=== PATIENT | male | born 1955 | race Caucasian/White ===

== ENCOUNTER 2016-10-11 13:06 | Inpatient (IN) | payer OTHER ==
[2016-10-11 14:30] VITALS: BMI 21.6
--- NOTE | 2016-10-11 14:41 | HP ---
COWS - Scale Resting Pulse: 0= [place] 80 or Below Sweatin=Flushed/Facial Moisture Restless Observation: 3= Extraneous Movement Pupil Size: 2= Moderately Dilated Bone or Joint Aches: 2= Severe Diffuse Aches Runny Nose/ Eye Tearin= Runny Nose/Eyes GI Upset > 30mins: 3= Vomiting/Diarrhea Tremor Observation: 2= Slight Tremor Visible Yawning Observation: 2= >3x During Session Anxiety or Irritability: 2=Irritable/Anxious Goose Flesh Skin: 0=Smooth Skin COWS Score: 20 Admission ROS BHS - HPI Chief Complaint: I NEED HELP TO STOP USING PERCOCET Allergies/Adverse Reactions: Allergies Allergy/AdvReac Type Severity Reaction Status Date / Time No Known Allergies Allergy Verified 10/11/16 14:43 History of Present Illness: THIS 61 YEARS OLD MALE WITH PERCOCET DEPENDENCE,WITHDRAWAL SYMPTOM,LAST DETOX TO 08/23/15 HISTORY OF CHF,COPD NICOTINE DEPENDENCE HYPERCHOLESTROLEMIA HTN Exam Limitations: No Limitations - Ebola screening Have you traveled outside of the country in the last 21 days: No Have you been sick,other than usual withdrawal symptoms: No - Review of Systems Constitutional: Chills, Diaphoresis, Loss of Appetite, Malaise, Night Sweats, Changes in sleep, Weakness, Unintentional Wgt. Loss EENT: reports: Tearing, Nose Congestion Respiratory: reports: Other (COPD) Cardiac: reports: No Symptoms Reported GI: reports: Diarrhea, Nausea, Vomiting, Abdominal cramping : reports: No Symptoms Reported Musculoskeletal: reports: Back Pain, Muscle Pain Integumentary: reports: Dryness Neuro: reports: Headache, Tremors Endocrine: reports: No Symptoms Reported Hematology: reports: No Symptoms Reported Psychiatric: reports: Anxious, Depressed (INSOMNIA) Patient History - Patient Medical History Hx Anemia: No Hx Asthma: Yes (Pt is on MDI) Hx Chronic Obstructive Pulmonary Disease (COPD): Yes (ON MED) Hx Cancer: No Hx Cardiac Disorders: Yes (CHF) Hx Congestive Heart Failure: Yes Hx Hypertension: Yes (ON MEDS) Hx Hypercholesterolemia: Yes Hx Pacemaker: No HX Cerebrovascular Accident: No Hx Seizures: No Hx Dementia: No Hx Diabetes: Yes Hx Gastrointestinal Disorders: No Hx Liver Disease: Yes (hep c) Hx Genitourinary Disorders: No Hx Sexually Transmitted Disorders: No Hx Renal Disease (ESRD): No Hx Thyroid Disease: No Hx Human Immunodeficiency Virus (HIV): No (NEGATIVE HX 2014) Hx Hepatitis C: Yes Hx Depression: No Hx Suicide Attempt: No Hx Schizophrenia: No Other Medical History: NO SUICIDAL,NO HOMICIDAL - Patient Surgical History Past Surgical History: No Hx Neurologic Surgery: No Hx Cataract Extraction: No Hx Cardiac Surgery: No Hx Lung Surgery: No Hx Breast Surgery: No Hx Breast Biopsy: No Hx Abdominal Surgery: No Hx Appendectomy: No Hx Cholecystectomy: No Hx Genitourinary Surgery: No Hx Section: No Hx Orthopedic Surgery: No Anesthesia Reaction: No - PPD History Previous Implant?: Yes Documented Results: Negative w/o proof Date: 05/13/15 Results: 0 MM PPD to be Administered?: Yes - Smoking Cessation Smoking history: Current every day smoker Have you smoked in the past 12 months: Yes Aproximately how many cigarettes per day: 20 Hx Chewing Tobacco Use: No Initiated information on smoking cessation: Yes 'Breaking Loose' booklet given: 10/11/16 - Substance & Tx. History Hx Alcohol Use: No Hx Substance Use: Yes Substance Use Type: Opiates Hx Substance Use Treatment: Yes (08/18/15 TO 08/23/15 [facility]) - Substances Abused Percocet Route: Oral Frequency: Daily Amount used: 15 tabs. (10 mg.) Age of first use: 60 Date of Last Use: 10/10/16 Family Disease History - Family Disease History Family Disease History: Other: Father ( etoh and drugs) Admission Physical Exam BHS - Vital Signs Vital Signs: Vital Signs - 24 hr 10/11/16 14:29 Temperature 97.2 F L Pulse Rate 70 Respiratory 18 Rate Blood Pressure 158/84 - Physical General Appearance: Yes: Moderate Distress, Tremorous, Irritable, Sweating, Anxious HEENTM: Yes: Nasal Congestion, Rhinorrhea Respiratory: Yes: Lungs Clear Neck: Yes: Within Normal Limits Breast: Yes: Within Normal Limits Cardiology: Yes: Within Normal Limits, Regular Rhythm, Regular Rate, S1, S2 Abdominal: Yes: Within Normal Limits, Normal Bowel Sounds, Non Tender, Flat, Soft Genitourinary: Yes: Within Normal Limits Back: Yes: Muscle Spasm Musculoskeletal: Yes: Back pain, Muscle Pain Extremities: Yes: Tremors Neurological: Yes: inhalation therapy teacher II-XII NML intact, Fully Oriented, Alert, Motor Strength 5/5 Integumentary: Yes: Dry Lymphatic: Yes: Within Normal Limits - Diagnostic (1) Opioid dependence with withdrawal Current Visit: No Status: Acute (2) History of CHF (congestive heart failure) Current Visit: Yes Status: Acute (3) Nicotine dependence Current Visit: No Status: Acute (4) HTN (hypertension) Current Visit: No Status: Chronic Qualifiers: Hypertension type: essential hypertension Qualified Code(s): I10 - Essential (primary) hypertension Comment: NO MEDS (5) Hepatitis C Current Visit: No Status: Chronic Qualifiers: Viral hepatitis chronicity: unspecified Hepatic coma status: without hepatic coma Qualified Code(s): B19.20 - Unspecified viral hepatitis C without hepatic coma (6) COPD (chronic obstructive pulmonary disease) Current Visit: No Status: Chronic Qualifiers: COPD type: unspecified COPD Qualified Code(s): J44.9 - Chronic obstructive pulmonary disease, unspecified (7) Anxiety and depression Current Visit: Yes Status: Acute (8) Insomnia Current Visit: Yes Status: Acute (9) Hypercholesterolemia Current Visit: No Status: Chronic Cleared for Admission [facility] - Detox or Rehab [facility] Level of Care: Medically Managed Detox Regimen/Protocol: Methadone [facility] Breath Alcohol Content Breath Alcohol Content: 0 Urine Drug Screen - Results Drug Screen Negative: No Urine Drug Screen Results: OXY-Oxycodone
[2016-10-11] MEDS ORDERED: MAGNESIUM HYDROX 2400MG/30ML ORAL SUSPENSION 30 ML CUP PO PRN (15:05)
[2016-10-11] MEDS ORDERED: MAGNESIUM CITRATE 300 ML BOTTLE PO PRN (15:05)
[2016-10-11] MEDS ORDERED: hydrOXYzine PAMOATE 25 MG CAPSULE (FP) PO PRN (15:05)
[2016-10-11] MEDS ORDERED: ACETAMINOPHEN 325 MG TABLET (FP) PO PRN (15:05)
[2016-10-11] MEDS ORDERED: P-EPHED 60MG/TRIPROLIDI 2.5MG TABLET PO PRN (15:05)
[2016-10-11] MEDS ORDERED: guaiFENesin/D-METHORPHAN HB 10 ML UNIT-DOSE CUPS PO PRN (15:05)
[2016-10-11] MEDS ORDERED: NICOTINE POLACRILEX 2 MG GUM BUC PRN (15:05)
[2016-10-11] MEDS ORDERED: MAG HYDROX/AL HYDROX/SIMETH 30 ML UNIT-DOSE CUP PO PRN (15:05)
[2016-10-11] MEDS ORDERED: MENTHOL/PHENOL 1 EACH UD MM PRN (15:05)
[2016-10-11] MEDS ORDERED: LOPERAMIDE HCL 2 MG CAPSULE PO PRN (15:05)
[2016-10-11] MEDS ORDERED: ALBUTEROL SO4 0.083% IH SOL 2.5 MG/3 ML VIAL.NEB. NEB PRN (15:12)
[2016-10-11] MEDS ORDERED: METHADONE HCL 10 MG TABLET (FOR DETOX USE ONLY) PO ONE ×2 (15:46→23:00)
[2016-10-11] MEDS ORDERED: CARVEDILOL 6.25 MG TABLET (FP) PO SCH (15:48)
[2016-10-11] MEDS ORDERED: METHADONE HCL 10 MG TABLET (FOR DETOX USE ONLY) ONE (18:09)
[2016-10-11] MEDS: diazePAM 5 MG TABLET PO PRN ×2 (18:55→23:01)
--- NOTE | 2016-10-11 19:13 | PN ---
[facility] Progress Note Note: 1840 pm received pharmacist call jemma replaces spiriva as per protocol change tab K+ to liquid for optimal absorption continue detox
[2016-10-11 20:05] LABS: URINE APPEARANCE CLEAR; URINE BILIRUBIN NEGATIVE (NEGATIVE); URINE BLOOD NEGATIVE (NEGATIVE); URINE COLOR YELLOW; URINE GLUCOSE (UA) NEGATIVE (NEGATIVE); URINE KETONE TRACE (NEGATIVE); URINE LEUK ESTERASE NEGATIVE (NEGATIVE); URINE NITRITE NEGATIVE (NEGATIVE); URINE PROTEIN NEGATIVE (NEGATIVE); URINE UROBILINOGEN NEGATIVE E.U./dl (0.2-1.0)
[2016-10-11] MEDS: NICOTINE 21 MG/24 HOURS TOPICAL PATCH TD SCH (20:39)
[2016-10-11] MEDS ORDERED: diphenhydrAMINE HCL 50 MG CAPSULE PO PRN (22:00)
[2016-10-11] MEDS: THIAMINE HCL 100 MG TABLET (FP) PO SCH (23:01)
[2016-10-11] MEDS: ATORVASTATIN CA 40 MG TABLET (FP) PO SCH (23:36)
[2016-10-11] MEDS: ACLIDINIUM BROMIDE 400 MCG/INH AERO.POWD IH SCH (23:37)
--- NOTE | 2016-10-12 09:34 | CONSULT ---
[facility] Psychiatric Consult - Data Date of interview: 10/12/16 Admission source: [facility] Identifying data: This is 61 years old male with no psychiatric hospitalization history, intoxicated with: Opioids and Nicotine Substance Abuse History: - Smoking Cessation. Smoking history: Current every day smoker. Have you smoked in the past 12 months: Yes. Aproximately how many cigarettes per day: 20. Hx Chewing Tobacco Use: No. Initiated information on smoking cessation: Yes. 'Breaking Loose' booklet given: 10/11/16. - Substance & Tx. History. Hx Alcohol Use: No. Hx Substance Use: Yes. Substance Use Type : Opiates. Hx Substance Use Treatment: Yes (08/18/15 TO 08/23/15 [facility]). - Substances Abused. Percocet. Route: Oral. Frequency: Daily. Amount used: 15 tabs. (10 mg.). Age of first use: 60. Date of Last Use: 10/10/16 Medical History: CHF, COPD, Asthma, Chest pain history, HTN, Hypercholesterolemia Psychiatric History: Oatient reports history of depression and anxiety, reports taking prior to admission: Paxil 40mg poqd Physical/Sexual Abuse/Trauma History: Denies Additional Comment: Paxil 40mg poqd Mental Status Exam - Mental Status Exam Alert and Oriented to: Person Cognitive Function: Fair Patient Appearance: Unkempt Mood: Sad Affect: Flat Patient Behavior: Sedated Speech Pattern: Delayed Voice Loudness: Mildly Soft/Quiet Thought Process: Circumstantial Thought Disorder: Being Controlled Hallucinations: Denies Suicidal Ideation: Denies Homicidal Ideation: Denies Insight/Judgement: Fair Sleep: Difficulty falling asleep Appetite: Weight loss Muscle strength/Tone: Mild Hypotonicity Gait/Station: Shuffling Additional Comments: Paxil 40mg poqd Psychiatric Findings - Problem List ([place] 1, 2,3) (1) Anxiety and depression Current Visit: Yes Status: Acute (2) Nicotine dependence Current Visit: No Status: Acute (3) Opiate withdrawal Current Visit: No Status: Acute (4) Opioid dependence Current Visit: No Status: Acute (5) Opioid dependence with withdrawal Current Visit: No Status: Acute (6) Substance induced mood disorder Current Visit: No Status: Acute (7) Anxiety Current Visit: No Status: Chronic (8) Depression Current Visit: No Status: Chronic (9) Drug-induced mood disorder Current Visit: Yes Status: Acute - Initial Treatment Plan Initial Treatment Plan: Paxil 40mg poqd
[2016-10-12] MEDS ORDERED: POTASSIUM CHLORIDE TABS 20 MEQ TABLET.ER (FP) PO SCH (10:00)
[2016-10-12] MEDS ORDERED: FUROSEMIDE 40 MG/4 ML INJECTABLE VIAL IVPUSH SCH (10:00)
[2016-10-12] MEDS ORDERED: TIOTROPIUM BROMIDE 18 MCG/INH (DEVICE W/ 30 CAPSULES) IH SCH (10:00)
[2016-10-12] MEDS ORDERED: METHADONE HCL 10 MG TABLET (FOR DETOX USE ONLY) PO ONE (10:00)
[2016-10-12] MEDS: LISINOPRIL 5 MG TABLET (FP) PO SCH (10:43)
[2016-10-12] MEDS: PRENATAL VITAMINS W/ FOLIC ACID TABLET (FP) PO SCH (10:43)
[2016-10-12] MEDS: IBUPROFEN 400 MG TABLET (FP) PO PRN (10:43)
[2016-10-12] MEDS: amLODIPine BESYLATE 5 MG TABLET (FP) PO SCH (10:44)
[2016-10-12] MEDS: ASPIRIN COATED 81 MG TABLET.EC PO SCH (10:44)
[2016-10-12] MEDS: FUROSEMIDE 40 MG TABLET (FP) PO SCH (10:44)
[2016-10-12] MEDS: CARVEDILOL 6.25 MG TABLET (FP) PO SCH ×2 (10:44→22:09)
[2016-10-12] MEDS: SPIRONOLACTONE 25 MG TABLET (FP) PO SCH (10:44)
[2016-10-12] MEDS: POTASSIUM CHLORIDE 40 MEQ/30 ML UNIT DOSE CUP PO SCH (10:45)
[2016-10-12] MEDS: NICOTINE 21 MG/24 HOURS TOPICAL PATCH TD SCH (10:45)
--- NOTE | 2016-10-12 11:23 | PN ---
BHS COWS - Scale Resting Pulse: 0= [place] 80 or Below Sweatin= Chills/Flushing Restless Observation: 1= Difficult to Sit Still Pupil Size: 1= Pupils >than Normal Bone or Joint Aches: 1= Mild Discomfort Runny Nose/ Eye Tearin= Nasal Congestion GI Upset > 30mins: 1= Stomach Cramp Tremor Observation of Outstretched Hands: 1= Tremor [place], Not Seen Yawning Observation: 0= None Anxiety or Irritability: 2=Irritable/Anxious Goose Flesh Skin: 0=Smooth Skin COWS Score: 9 BHS Progress Note (SOAP) Subjective: interrupted sleep, tired, weakness Objective: 10/12/16 11:20 Vital Signs Temperature 95.9 F L 10/12/16 10:25 Pulse Rate 74 10/12/16 10:25 Respiratory Rate 18 10/12/16 10:25 Blood Pressure 119/76 10/12/16 10:25 O2 Sat by Pulse Oximetry (%) Laboratory Tests 10/11/16 18:30 Urine Color Yellow Urine Appearance Clear Urine pH 5.0 Ur Specific [place] 1.035 Urine Protein Negative Urine Glucose (UA) Negative Urine Ketones Trace H Urine Blood Negative Urine Nitrite Negative Urine Bilirubin Negative Urine Urobilinogen Negative Ur Leukocyte Esterase Negative pending labs pt aox3 lying in bed in nad Assessment: 10/12/16 11:22 withdrawl sx's weakness need to check K+ Plan: cont. detox increase fluids recheck labs
[2016-10-12 11:37] LABS: MCHC 33.6 g/dl (32.0-35.9); MEAN CELL VOLUME 98.2 fl (80-96); MEAN PLT VOLUME 8.4 fl (7.5-11.1); PLATELET COUNT 136 K/MM3 (134-434); RDW 13.7 % (11.9-15.9); WHITE BLOOD COUNT 5.4 K/mm3 (4.0-10.0)
[2016-10-12 12:00] LABS: ALBUMIN 3.8 g/dl (3.4-5.0); ALK PHOS 89 U/L (45-117); ANION GAP 6 (8-16); BILIRUBIN,TOTAL 0.3 mg/dL (0.2-1.0); CALCIUM 8.8 mg/dL (8.5-10.1); CO2 31 mmol/L (21-32); CREATININE 0.7 mg/dL (0.7-1.3); GLUCOSE,RANDOM 87 mg/dL (74-106); SGOT/AST 47 U/L (15-37); SGPT/ALT 58 U/L (12-78)
[2016-10-12] MEDS: ACLIDINIUM BROMIDE 400 MCG/INH AERO.POWD IH SCH ×2 (12:31→22:07)
[2016-10-12] MEDS: PARoxetine HCL 20 MG TABLET (FP) PO SCH (12:32)
--- NOTE | 2016-10-12 15:55 | PN ---
BHS Progress Note Note: k 4.3 wnl
[2016-10-12] MEDS: CYCLOBENZAPRINE HCL 10 MG TABLET (FP) PO PRN (17:46)
[2016-10-12] MEDS: diazePAM 5 MG TABLET PO PRN ×2 (17:46→22:09)
[2016-10-12] MEDS: ATORVASTATIN CA 40 MG TABLET (FP) PO SCH (22:08)
[2016-10-12] MEDS: THIAMINE HCL 100 MG TABLET (FP) PO SCH (22:10)
[2016-10-12] MEDS: ALBUTEROL SO4 6.7 GM HFA INHALER IH PRN (22:11)
[2016-10-13] MEDS: ALBUTEROL SO4 6.7 GM HFA INHALER IH PRN (02:09)
[2016-10-13] MEDS: CYCLOBENZAPRINE HCL 10 MG TABLET (FP) PO PRN ×3 (02:12→22:40)
[2016-10-13] MEDS: IBUPROFEN 400 MG TABLET (FP) PO PRN (02:13)
[2016-10-13] MEDS: NICOTINE 21 MG/24 HOURS TOPICAL PATCH TD SCH (10:00)
[2016-10-13] MEDS: amLODIPine BESYLATE 5 MG TABLET (FP) PO SCH (10:00)
[2016-10-13] MEDS: SPIRONOLACTONE 25 MG TABLET (FP) PO SCH (10:00)
[2016-10-13] MEDS: FUROSEMIDE 40 MG TABLET (FP) PO SCH (10:00)
[2016-10-13] MEDS: LISINOPRIL 5 MG TABLET (FP) PO SCH (10:00)
[2016-10-13] MEDS ORDERED: METHADONE HCL 5 MG TABLET (FOR DETOX USE ONLY) PO ONE (10:00)
--- NOTE | 2016-10-13 10:42 | PN ---
BHS COWS - Scale Resting Pulse: 0= [place] 80 or Below Sweatin=Flushed/Facial Moisture Restless Observation: 3= Extraneous Movement Pupil Size: 1= Pupils >than Normal Bone or Joint Aches: 2= Severe Diffuse Aches Runny Nose/ Eye Tearin= Runny Nose/Eyes GI Upset > 30mins: 2= Nausea/Diarrhea Tremor Observation of Outstretched Hands: 2= Slight Tremor Visible Yawning Observation: 1= 1-2x During Session Anxiety or Irritability: 2=Irritable/Anxious Goose Flesh Skin: 0=Smooth Skin COWS Score: 17 BHS Progress Note (SOAP) Subjective: alert,irritable,anxious,interrupted sleep,pain in the body and back,tremor, chronic low back pain Objective: 10/13/16 10:41 Vital Signs Temperature 97.1 F L 10/13/16 10:06 Pulse Rate 75 10/13/16 10:06 Respiratory Rate 18 10/13/16 10:06 Blood Pressure 111/64 10/13/16 10:06 O2 Sat by Pulse Oximetry (%) Laboratory Last Values WBC 5.4 K/mm3 (4.0-10.0) D 10/12/16 06:00 RBC 4.07 M/mm3 (4.00-5.60) 10/12/16 06:00 Hgb 13.4 GM/dL (11.7-16.9) 10/12/16 06:00 Hct 39.9 % (35.4-49) 10/12/16 06:00 MCV 98.2 fl (80-96) H 10/12/16 06:00 MCHC 33.6 g/dl (32.0-35.9) 10/12/16 06:00 RDW 13.7 % (11.9-15.9) 10/12/16 06:00 Plt Count 136 K/MM3 (134-434) 10/12/16 06:00 MPV 8.4 fl (7.5-11.1) 10/12/16 06:00 Sodium 141 mmol/L (136-145) 10/12/16 06:00 Potassium 4.3 mmol/L (3.5-5.1) D 10/12/16 06:00 Chloride 104 mmol/L (98-107) 10/12/16 06:00 Carbon Dioxide 31 mmol/L (21-32) 10/12/16 06:00 Anion Gap 6 (8-16) L 10/12/16 06:00 BUN 12 mg/dL (7-18) D 10/12/16 06:00 Creatinine 0.7 mg/dL (0.7-1.3) 10/12/16 06:00 Creat Clearance w eGFR > 60 (>60) 10/12/16 06:00 POC Glucometer 112 UNITS (()) 10/13/16 07:14 Random Glucose 87 mg/dL (74-106) 10/12/16 06:00 Calcium 8.8 mg/dL (8.5-10.1) 10/12/16 06:00 Total Bilirubin 0.3 mg/dL (0.2-1.0) D 10/12/16 06:00 AST 47 U/L (15-37) H D 10/12/16 06:00 ALT 58 U/L (12-78) 10/12/16 06:00 Alkaline Phosphatase 89 U/L (45-117) 10/12/16 06:00 Total Protein 7.0 g/dl (6.4-8.2) 10/12/16 06:00 Albumin 3.8 g/dl (3.4-5.0) 10/12/16 06:00 Urine Color Yellow 10/11/16 18:30 Urine Appearance Clear 10/11/16 18:30 Urine pH 5.0 (5.0-8.0) 10/11/16 18:30 Ur Specific [place] 1.035 (1.001-1.035) 10/11/16 18:30 Urine Protein Negative (NEGATIVE) 10/11/16 18:30 Urine Glucose (UA) Negative (NEGATIVE) 10/11/16 18:30 Urine Ketones Trace (NEGATIVE) H 10/11/16 18:30 Urine Blood Negative (NEGATIVE) 10/11/16 18:30 Urine Nitrite Negative (NEGATIVE) 10/11/16 18:30 Urine Bilirubin Negative (NEGATIVE) 10/11/16 18:30 Urine Urobilinogen Negative E.U./dl (0.2-1.0) 10/11/16 18:30 Ur Leukocyte Esterase Negative (NEGATIVE) 10/11/16 18:30 RPR Titer Nonreactive (NONREACTIVE) 10/12/16 06:00 Assessment: 10/13/16 10:41 withdrawal symptom Plan: continue detox
[2016-10-13] MEDS ORDERED: ALBUTEROL SO4 2.5/IPRATROPIUM 0.5 INH SOL 3 ML VIAL.NEB. NEB PRN (11:12)
[2016-10-13] MEDS: ASPIRIN COATED 81 MG TABLET.EC PO SCH (12:08)
[2016-10-13] MEDS: PRENATAL VITAMINS W/ FOLIC ACID TABLET (FP) PO SCH (12:08)
[2016-10-13] MEDS: PARoxetine HCL 20 MG TABLET (FP) PO SCH (12:08)
[2016-10-13] MEDS: CARVEDILOL 6.25 MG TABLET (FP) PO SCH ×2 (12:09→22:40)
[2016-10-13] MEDS: POTASSIUM CHLORIDE 40 MEQ/30 ML UNIT DOSE CUP PO SCH (12:09)
[2016-10-13] MEDS: LIDOCAINE 5% TOPICAL PATCH TP SCH (12:14)
[2016-10-13] MEDS: ACLIDINIUM BROMIDE 400 MCG/INH AERO.POWD IH SCH ×2 (12:16→22:39)
[2016-10-13] MEDS ORDERED: ATORVASTATIN CA 20 MG TABLET (FP) ONE (22:00)
[2016-10-13] MEDS: THIAMINE HCL 100 MG TABLET (FP) PO SCH (22:40)
[2016-10-13] MEDS: diazePAM 5 MG TABLET PO PRN (22:40)
[2016-10-13] MEDS: ATORVASTATIN CA 40 MG TABLET (FP) PO SCH (22:41)
[2016-10-14] MEDS: ALBUTEROL SO4 6.7 GM HFA INHALER IH PRN (00:10)
[2016-10-14] MEDS ORDERED: METHADONE HCL 5 MG TABLET (FOR DETOX USE ONLY) PO ONE (10:00)
[2016-10-14] MEDS: ACLIDINIUM BROMIDE 400 MCG/INH AERO.POWD IH SCH ×2 (11:10→23:37)
[2016-10-14] MEDS: NICOTINE 21 MG/24 HOURS TOPICAL PATCH TD SCH (11:10)
[2016-10-14] MEDS: PRENATAL VITAMINS W/ FOLIC ACID TABLET (FP) PO SCH (11:39)
[2016-10-14] MEDS: PARoxetine HCL 20 MG TABLET (FP) PO SCH (11:40)
[2016-10-14] MEDS: CARVEDILOL 6.25 MG TABLET (FP) PO SCH ×2 (11:40→23:36)
[2016-10-14] MEDS: ASPIRIN COATED 81 MG TABLET.EC PO SCH (11:40)
[2016-10-14] MEDS: LISINOPRIL 5 MG TABLET (FP) PO SCH (11:40)
[2016-10-14] MEDS: POTASSIUM CHLORIDE 40 MEQ/30 ML UNIT DOSE CUP PO SCH (11:41)
[2016-10-14] MEDS: SPIRONOLACTONE 25 MG TABLET (FP) PO SCH (11:41)
[2016-10-14] MEDS: amLODIPine BESYLATE 5 MG TABLET (FP) PO SCH (11:41)
[2016-10-14] MEDS: FUROSEMIDE 40 MG TABLET (FP) PO SCH (11:41)
[2016-10-14] MEDS: LIDOCAINE 5% TOPICAL PATCH TP SCH (11:42)
--- NOTE | 2016-10-14 12:25 | PN ---
BHS Progress Note (SOAP) Subjective: alert,irritable,anxious,pain in the body and back Objective: 10/14/16 12:24 Vital Signs Temperature 96.1 F L 10/14/16 06:00 Pulse Rate 73 10/14/16 06:00 Respiratory Rate 16 10/14/16 06:00 Blood Pressure 123/68 10/14/16 06:00 O2 Sat by Pulse Oximetry (%) Laboratory Last Values WBC 5.4 K/mm3 (4.0-10.0) D 10/12/16 06:00 RBC 4.07 M/mm3 (4.00-5.60) 10/12/16 06:00 Hgb 13.4 GM/dL (11.7-16.9) 10/12/16 06:00 Hct 39.9 % (35.4-49) 10/12/16 06:00 MCV 98.2 fl (80-96) H 10/12/16 06:00 MCHC 33.6 g/dl (32.0-35.9) 10/12/16 06:00 RDW 13.7 % (11.9-15.9) 10/12/16 06:00 Plt Count 136 K/MM3 (134-434) 10/12/16 06:00 MPV 8.4 fl (7.5-11.1) 10/12/16 06:00 Sodium 141 mmol/L (136-145) 10/12/16 06:00 Potassium 4.3 mmol/L (3.5-5.1) D 10/12/16 06:00 Chloride 104 mmol/L (98-107) 10/12/16 06:00 Carbon Dioxide 31 mmol/L (21-32) 10/12/16 06:00 Anion Gap 6 (8-16) L 10/12/16 06:00 BUN 12 mg/dL (7-18) D 10/12/16 06:00 Creatinine 0.7 mg/dL (0.7-1.3) 10/12/16 06:00 Creat Clearance w eGFR > 60 (>60) 10/12/16 06:00 POC Glucometer 98 UNITS (()) 10/14/16 06:37 Random Glucose 87 mg/dL (74-106) 10/12/16 06:00 Calcium 8.8 mg/dL (8.5-10.1) 10/12/16 06:00 Total Bilirubin 0.3 mg/dL (0.2-1.0) D 10/12/16 06:00 AST 47 U/L (15-37) H D 10/12/16 06:00 ALT 58 U/L (12-78) 10/12/16 06:00 Alkaline Phosphatase 89 U/L (45-117) 10/12/16 06:00 Total Protein 7.0 g/dl (6.4-8.2) 10/12/16 06:00 Albumin 3.8 g/dl (3.4-5.0) 10/12/16 06:00 Urine Color Yellow 10/11/16 18:30 Urine Appearance Clear 10/11/16 18:30 Urine pH 5.0 (5.0-8.0) 10/11/16 18:30 Ur Specific [place] 1.035 (1.001-1.035) 10/11/16 18:30 Urine Protein Negative (NEGATIVE) 10/11/16 18:30 Urine Glucose (UA) Negative (NEGATIVE) 10/11/16 18:30 Urine Ketones Trace (NEGATIVE) H 10/11/16 18:30 Urine Blood Negative (NEGATIVE) 10/11/16 18:30 Urine Nitrite Negative (NEGATIVE) 10/11/16 18:30 Urine Bilirubin Negative (NEGATIVE) 10/11/16 18:30 Urine Urobilinogen Negative E.U./dl (0.2-1.0) 10/11/16 18:30 Ur Leukocyte Esterase Negative (NEGATIVE) 10/11/16 18:30 RPR Titer Nonreactive (NONREACTIVE) 10/12/16 06:00 Assessment: 10/14/16 12:24 withdrawal symptom Plan: continue detox k 4.3 will d/c kdur
[2016-10-14] MEDS: THIAMINE HCL 100 MG TABLET (FP) PO SCH (23:37)
[2016-10-14] MEDS: ATORVASTATIN CA 40 MG TABLET (FP) PO SCH (23:37)
[2016-10-15] MEDS ORDERED: METHADONE HCL 10 MG TABLET (FOR DETOX USE ONLY) PO ONE (10:00)
[2016-10-15] MEDS: FUROSEMIDE 40 MG TABLET (FP) PO SCH (10:25)
[2016-10-15] MEDS: PRENATAL VITAMINS W/ FOLIC ACID TABLET (FP) PO SCH (10:25)
[2016-10-15] MEDS: LISINOPRIL 5 MG TABLET (FP) PO SCH (10:25)
[2016-10-15] MEDS: PARoxetine HCL 20 MG TABLET (FP) PO SCH (10:25)
[2016-10-15] MEDS: SPIRONOLACTONE 25 MG TABLET (FP) PO SCH (10:25)
[2016-10-15] MEDS: amLODIPine BESYLATE 5 MG TABLET (FP) PO SCH (10:25)
[2016-10-15] MEDS: ASPIRIN COATED 81 MG TABLET.EC PO SCH (10:26)
[2016-10-15] MEDS: CARVEDILOL 6.25 MG TABLET (FP) PO SCH ×2 (10:26→22:36)
[2016-10-15] MEDS: ACLIDINIUM BROMIDE 400 MCG/INH AERO.POWD IH SCH ×2 (10:26→22:35)
[2016-10-15] MEDS: NICOTINE 21 MG/24 HOURS TOPICAL PATCH TD SCH (10:27)
[2016-10-15] MEDS: LIDOCAINE 5% TOPICAL PATCH TP SCH (10:27)
--- NOTE | 2016-10-15 10:58 | PN ---
BHS Progress Note (SOAP) Subjective: SWEATING,INTERRUPTED SLEEP,RESTLESS. Objective: 10/15/16 10:57 Vital Signs - 8 hr 10/15/16 10/15/16 10/15/16 03:30 06:00 10:00 Temperature 98.4 F 97.9 F Pulse Rate 72 88 Respiratory 18 16 18 Rate Blood Pressure 114/69 107/65 Laboratory Tests 10/11/16 10/11/16 10/12/16 15:17 18:30 06:00 WBC 5.4 D RBC 4.07 Hgb 13.4 Hct 39.9 MCV 98.2 H MCHC 33.6 RDW 13.7 Plt Count 136 MPV 8.4 Sodium Potassium Chloride Carbon Dioxide Anion Gap BUN Creatinine Creat Clearance w eGFR POC Glucometer 104 Random Glucose Calcium Total Bilirubin AST ALT Alkaline Phosphatase Total Protein Albumin Urine Color Yellow Urine Appearance Clear Urine pH 5.0 Ur Specific [place] 1.035 Urine Protein Negative Urine Glucose (UA) Negative Urine Ketones Trace H Urine Blood Negative Urine Nitrite Negative Urine Bilirubin Negative Urine Urobilinogen Negative Ur Leukocyte Esterase Negative RPR Titer 10/12/16 10/12/16 10/13/16 06:00 06:00 07:14 WBC RBC Hgb Hct MCV MCHC RDW Plt Count MPV Sodium 141 Potassium 4.3 D Chloride 104 Carbon Dioxide 31 Anion Gap 6 L BUN 12 D Creatinine 0.7 Creat Clearance w eGFR > 60 POC Glucometer 112 Random Glucose 87 Calcium 8.8 Total Bilirubin 0.3 D AST 47 H D ALT 58 Alkaline Phosphatase 89 Total Protein 7.0 Albumin 3.8 Urine Color Urine Appearance Urine pH Ur Specific [place] Urine Protein Urine Glucose (UA) Urine Ketones Urine Blood Urine Nitrite Urine Bilirubin Urine Urobilinogen Ur Leukocyte Esterase RPR Titer Nonreactive 10/14/16 06:37 WBC RBC Hgb Hct MCV MCHC RDW Plt Count MPV Sodium Potassium Chloride Carbon Dioxide Anion Gap BUN Creatinine Creat Clearance w eGFR POC Glucometer 98 Random Glucose Calcium Total Bilirubin AST ALT Alkaline Phosphatase Total Protein Albumin Urine Color Urine Appearance Urine pH Ur Specific [place] Urine Protein Urine Glucose (UA) Urine Ketones Urine Blood Urine Nitrite Urine Bilirubin Urine Urobilinogen Ur Leukocyte Esterase RPR Titer LABS NOTED Assessment: 10/15/16 10:57 WITHDRAWAL SX. Plan: CONTINUE DETOX
[2016-10-15] MEDS: ATORVASTATIN CA 40 MG TABLET (FP) PO SCH (22:35)
[2016-10-15] MEDS: THIAMINE HCL 100 MG TABLET (FP) PO SCH (22:36)
[2016-10-16] MEDS ORDERED: METHADONE HCL 5 MG TABLET (FOR DETOX USE ONLY) PO ONE (06:00)
[2016-10-16 06:26] VITALS: BP 97/58; PULSE 68; TEMP 96.1
--- NOTE | 2016-10-16 08:33 | PN ---
S Progress Note (SOAP) Subjective: ALERT,NO COMPLAINT Objective: 10/16/16 08:32 Vital Signs Temperature 96.1 F L 10/16/16 06:00 Pulse Rate 68 10/16/16 06:00 Respiratory Rate 16 10/16/16 06:00 Blood Pressure 97/58 10/16/16 06:00 O2 Sat by Pulse Oximetry (%) Assessment: 10/16/16 08:32 DETOX COMPLETED,NO WITHDRAWAL SYMPTOM Plan: DISCHARGE TODAY,FOLLOW UP WITH AFTER CARE PROGRAM ARRANGEMENT
--- NOTE | 2016-10-16 08:38 | DS ---
[facility] Detox Discharge Summary Admission Date: 10/11/16 Discharge Date: 10/16/16 - History Present History: Opioid Dependence Additional Comments: FOLLOW UP WITH AFTER CARE PROGRAM ARRANGEMENT AND PMD FOR MEDICAL PROBLEM, PATIENT HAS ALL MEDICATIONS AT HOME Pertinent Past History: HYPERTENSION HISTORY OF CHF HEPATITIS C COPD HYPERCHOLESTEROLEMIA INSOMNIA ANXIETY AND DEPRESSION LOW BACK PAIN - Physical Exam Results Vital Signs: Vital Signs Temperature 96.1 F L 10/16/16 06:00 Pulse Rate 68 10/16/16 06:00 Respiratory Rate 16 10/16/16 06:00 Blood Pressure 97/58 10/16/16 06:00 O2 Sat by Pulse Oximetry (%) Pertinent Admission Physical Exam Findings: WITHDRAWAL SYMPTOM - Treatment Hospital Course: Detox Protocol Followed, Detoxed Safely, Responded well, Discharged Condition Good - Medication Discharge Medications: Ambulatory Orders Albuterol 0.083% Nebulizer Mildred [Ventolin 0.083% Nebulizer Soln -] 1 neb NEB Q6H PRN #90 vial 04/19/16 Tiotropium Lenora [Spiriva] 1 inh PO DAILY #1 inhaler 04/19/16 Aspirin Coated [Ecotrin -] 81 mg PO DAILY tablet.ec 04/20/16 Spironolactone [Aldactone -] 25 mg PO DAILY tablet 04/20/16 Albuterol Sulfate Inhaler - [Ventolin HFA Inhaler -] 2 inh PO Q4H PRN 10/11/16 Amlodipine Besylate [Norvasc -] 5 mg PO DAILY 10/11/16 Atorvastatin Calcium 40 mg PO HS 10/11/16 Carvedilol [Coreg -] 6.25 mg PO Q12H 10/11/16 Furosemide [Lasix -] 40 mg PO DAILY 10/11/16 Lisinopril [Prinivil] 10 mg PO DAILY 10/11/16 Paroxetine HCl [Paxil] 40 mg PO DAILY 10/11/16 Potassium Chloride [K-Dur -] 20 meq PO DAILY 10/11/16 Paroxetine HCl [Paxil -] 40 mg PO DAILY #30 tablet 10/12/16 - Diagnosis (1) Opioid dependence with withdrawal Current Visit: No Status: Acute (2) History of CHF (congestive heart failure) Current Visit: Yes Status: Acute (3) Nicotine dependence Current Visit: No Status: Acute (4) HTN (hypertension) Current Visit: No Status: Chronic Qualifiers: Hypertension type: essential hypertension Qualified Code(s): I10 - Essential (primary) hypertension (5) Hepatitis C Current Visit: No Status: Chronic Qualifiers: Viral hepatitis chronicity: unspecified Hepatic coma status: without hepatic coma Qualified Code(s): B19.20 - Unspecified viral hepatitis C without hepatic coma (6) COPD (chronic obstructive pulmonary disease) Current Visit: No Status: Chronic Qualifiers: COPD type: unspecified COPD Qualified Code(s): J44.9 - Chronic obstructive pulmonary disease, unspecified (7) Anxiety and depression Current Visit: Yes Status: Acute (8) Insomnia Current Visit: Yes Status: Acute (9) Hypercholesterolemia Current Visit: No Status: Chronic
== END 2016-10-16 09:28 | disposition home or self-care (01) | DRG 773 ==
LOC: YASAS 13:06 → Y6N 15:32
PROVIDERS: ADMIT Internal Medicine Addiction Medicine; ATTEND Internal Medicine Addiction Medicine
PROC: HZ2ZZZZ Detoxification Services for Substance Abuse Treatment (ICD-10-PCS; principal; 2016-10-11)
DX: F11.23 Opioid dependence with withdrawal (principal); F17.210 Nicotine dependence, cigarettes, uncomplicated; F41.8 Other specified anxiety disorders; F19.24 Other psychoactive substance dependence with psychoactive substance-induced mood disorder; I50.9 Heart failure, unspecified; I10 Essential (primary) hypertension; B19.20 Unspecified viral hepatitis C without hepatic coma; J45.909 Unspecified asthma, uncomplicated; J44.9 Chronic obstructive pulmonary disease, unspecified; G47.00 Insomnia, unspecified; E78.00 Pure hypercholesterolemia, unspecified; R53.1 Weakness
CPT/HCPCS: 36415; 80053; 81003; 85027; 86593; 93005; 93010; 94640

== ENCOUNTER 2019-08-23 17:23 | Inpatient (IN) | payer OTHER ==
[2019-08-23 19:07] LABS: VENOUS PC02 52.7 mmHg (38-52); VENOUS PH 7.37 (7.31-7.41)
--- NOTE | 2019-08-23 19:07 | PDOC ---
History of Present Illness - General Chief Complaint: Weakness Stated Complaint: S.O.B Time Seen by Provider: 08/23/19 17:44 History Source: Patient, Family (mother of children at bedside) Exam Limitations: No Limitations - History of Present Illness Initial Comments: 08/23/19 19:05 Abdirahman Ramírez is a 64M with PMH CHF on Lasix c/b non-compliance, asthma/COPD on HAL/no home O2/smoker, hepatitis C, NICM, CAD presenting with 4 days of dyspnea. Patient reports that he has been struggling to breath for the last 4 days. Has asthma and COPD, but denies home oxygen use, steroids, or nebulizers. Only uses Ventolin HAL, per family at bedside does not use properly. HAL use has not helped his SOB. Difficulty with walking due to dyspnea, cannot walk far before becoming tired. Has history of CHF and admissions for fluid in lungs, has not been compliant with Lasix due to constant urination, denies swelling in legs. Denies fever/chills, has chronic cough 2/2 smoking without productive sputum. Had one episode of NBNB vomiting 3 days ago. Has had multiple episodes of muscle weakness resulting in falls from standing, reports head injury as well as bruise to L abdomen. No LOC. Denies injury to body. Denies chest pain, palpitations, KO, changes to vision, urinary sx, dizziness. Denies alcohol/drug use, smokes over 1ppd. Past History - Past Medical History Allergies/Adverse Reactions: Allergies Allergy/AdvReac Type Severity Reaction Status Date / Time No Known Allergies Allergy Verified 08/23/19 17:25 Home Medications: Ambulatory Orders Albuterol 0.083% Nebulizer Mildred [Ventolin 0.083% Nebulizer Soln -] 1 neb NEB Q6H PRN #90 vial 04/19/16 Aspirin Coated [Ecotrin -] 81 mg PO DAILY tablet.ec 04/20/16 Spironolactone [Aldactone -] 25 mg PO DAILY tablet 04/20/16 Albuterol Sulfate Inhaler - [Ventolin HFA Inhaler -] 2 inh PO Q4H PRN 10/11/16 Atorvastatin Calcium 40 mg PO HS 10/11/16 Carvedilol [Coreg -] 6.25 mg PO Q12H 10/11/16 Furosemide [Lasix -] 40 mg PO DAILY 10/11/16 Lisinopril [Prinivil] 10 mg PO DAILY 10/11/16 Paroxetine HCl [Paxil] 40 mg PO DAILY 10/11/16 Potassium Chloride [K-Dur -] 20 meq PO DAILY 10/11/16 Tiotropium [place] [Spiriva] 1 inh PO DAILY 12/24/16 Bupropion HCl [Wellbutrin Xl -] 150 mg PO BID 03/02/17 Pantoprazole Sodium [Protonix -] 40 mg PO DAILY 03/02/17 Anemia: No Asthma: Yes (Takes meds.) Cancer: No Cardiac Disorders: Yes (CHF) CVA: No COPD: Yes (Emphysema; Takes meds.) CHF: Yes (Takes meds.) Dementia: No Diabetes: No GI Disorders: Yes (acid reflux) Disorders: No HTN: Yes (Takes meds.) Hypercholesterolemia: No Kidney Stones: No Liver Disease: Yes (hep c; Treatment in past, did not complete due to side effects.) Psychiatric Problems: Yes (severe anxiety and panic attacks,BI POLAR) Seizures: No Thyroid Disease: No - Surgical History Abdominal Surgery: No Appendectomy: No Cardiac Surgery: No Cholecystectomy: No Lung Surgery: No Neurologic Surgery: No Orthopedic Surgery: No - Reproductive History Testicular Surgery: No - Immunization History Immunization Up to Date: Yes - Psycho Social/Smoking Cessation Hx Smoking Status: Yes Smoking History: Current every day smoker Have you smoked in the past 12 months: Yes Number of Cigarettes Smoked Daily: 20 Cigars Per Day: 0 Information on smoking cessation initiated: No 'Breaking Loose' booklet given: 03/02/17 (GIVEN ON UNIT.) Hx Alcohol Use: No Drug/Substance Use Hx: Yes Substance Use Type: Opiates, Tranquilizers Hx Substance Use Treatment: Yes (Previous Detox admissions at [facility].) Review of Systems - Review of Systems Able to Perform ROS?: Yes Constitutional: Yes: Malaise, Weakness. No: Chills, Fever HEENTM: No: Symptoms Reported Respiratory: Yes: Cough, Shortness of Breath, Wheezing. No: Productive cough Cardiac (ROS): No: Chest Pain, Lightheadedness, Palpitations, Syncope ABD/GI: Yes: Nausea, Vomiting. No: Constipated, Diarrhea : No: Symptoms Reported Musculoskeletal: No: Symptoms Reported Integumentary: Yes: Bruising. No: Symptoms Reported Neurological: Yes: Headache. No: Numbness, Paresthesia, Tingling, Unsteady Gait Endocrine: No: Symptoms Reported Hematologic/Lymphatic: No: Blood Clots, Easy Bruising All Other Systems: Reviewed and Negative *Physical Exam - Vital Signs Last Vital Signs Temp Pulse Resp BP Pulse Ox 98.2 F 84 22 H 182/109 H 98 08/23/19 17:25 08/23/19 17:25 08/23/19 17:25 08/23/19 17:25 08/23/19 17:25 - Physical Exam General Appearance: Yes: Nourished, Appropriately Dressed, Thin. No: Apparent Distress HEENT: positive: EOMI, NAI, Normal ENT Inspection, Normal Voice, Symmetrical, Pharynx Normal, Hearing Grossly Normal. negative: Scleral Icterus (R), Scleral Icterus (L), Sinus Tenderness Neck: positive: Trachea midline, Normal Thyroid, Supple. negative: Tender, Lymphadenopathy (R), Lymphadenopathy (L), Tender midline Respiratory/Chest: positive: Decreased Breath Sounds (RLL), Rhonchi (R side), Wheezing. negative: Chest Tender, Respiratory Distress, Accessory Muscle Use, Crackles, Rales Cardiovascular: positive: Regular Rhythm, Regular Rate. negative: Edema, Murmur Vascular Pulses: Dorsalis-Pedis (R): 2+, Doralis-Pedis (L): 2+ Gastrointestinal/Abdominal: positive: Normal Bowel Sounds, Tender (L periumbilical, negative Mixon sign), Flat, Soft. negative: Guarding, Rebound Musculoskeletal: positive: Normal Inspection. negative: CVA Tenderness, Vertebral Tenderness (neck to lumbar spine nontender) Extremity: positive: Normal Inspection, Normal Range of Motion, Pelvis Stable. negative: Tender Integumentary: positive: Normal Color, Dry, Warm, Other (angiomas to chest, 5cm circular ecchymosis to R lower abdomen). negative: Petechiae Neurologic: positive: Fully Oriented, Alert, Normal Mood/Affect, Normal Response , Motor Strength 5/5, Other (no asterixis) Heart Score/ECG Review - History History: Slightly suspicious - Electrocardiogram EKG: Non specific repolarization disturbance - Age Age: >/= 65 - Risk Factors Risk Factors Heart Score: Yes Hx Hypertension, Yes Smoking History Based on the list above the patient has:: 1-2 risk factors - Troponin Troponin: </= normal limit - Score Heart Score - Total: 4 ED Treatment Course - LABORATORY CBC & Chemistry Diagram: 08/24/19 06:38 08/24/19 06:38 - RADIOLOGY Radiology Studies Ordered: Category Date Time Status HEAD CT WITHOUT CONTRAST [CT] Stat CT Scan 08/23/19 18:22 Ordered CHEST X-RAY PORTABLE* [RAD] Stat Radiology 08/23/19 18:23 Ordered Medical Decision Making - Medical Decision Making 08/23/19 19:05 Abdirahman Ramírez is a 64M with PMH CHF on Lasix c/b non-compliance, asthma/COPD on HAL/no home O2/smoker, hepatitis C, NICM, CAD presenting with 4 days of dyspnea. Has significant history of CHF, liver disease, COPD, with Lasix non-compliance and prior hospitalizations for pulmonary edema. Concern high for CHF exacerbation vs. COPD exacerbation vs. PNA vs. PE. Cannot PERC out 2/2 age, but low risk of PE and presentation and VS is not consistent with PE. Bedside cardiac/lung US shows LV hypokinesis with no RV enlargement or pericardial effusion, A-line pattern with no B-lines in apical and basal lung views. Weakness and falls could be related to electrolyte abnormality, no need for c- spine imaging by NEXUS criteria. Will get CT head to r/o ICH. Evaluating broadly via: CMP CBC CP Coags Lipase CXR ECG CT head Treating with 40mg IV lasix, 2 amps Duonebs 08/23/19 20:02 CXR notable for possible infiltrate in R lower lung zone, heart size WNL, no pleural effusions or pulmonary edema. Concern higher for CHF vs. PNA. ECG shows NSR with TWI in V3-V4 consistent with prior ECG, HR 71, QRS 11, QTc 489, no ischemic changes. 08/23/19 20:04 Labs notable for: Mg 1.6 - will replete with 2gm Mag sulfate BNP 1800 - previously as high as 5000 Trop <0.02 Lipase <200 Ammonia 22 No LFT elevations 08/23/19 20:09 CT Head: No acute territorial infarct, hemorrhage, or space-occupying mass. Will re-evaluate patient after Lasix and Duonebs. 08/23/19 21:37 Patient breathing improved, no wheezing on repeat exam, satting 100% on RA. Will give 50mg PO prednisone for possible COPD exacerbation, will monitor and likely discharge home with PMD follow-up. 08/23/19 22:23 Would like to observe overnight for COPD/CHF exacerbation, further diuresis 2/2 non-compliance with Lasix. 08/23/19 22:[address] Schafer with admitting team, mateo for observation in Med-Surg under Dr. Song for diuresis. Discharge - Discharge Information Problems reviewed: Yes Clinical Impression/Diagnosis: Dyspnea Qualifiers: Dyspnea type: shortness of breath Qualified Code(s): R06.02 - Shortness of breath Condition: Stable - Follow up/Referral - Patient Discharge Instructions - Post Discharge Activity
[2019-08-23 19:10] LABS: VENOUS PO2 < 49 mmHg (28-48)
[2019-08-23 19:31] LABS: BASO % 0.9 % (0-2.0); EOS % 0.8 % (0-4.5); HEMATOCRIT 39.3 % (35.4-49); HEMOGLOBIN 13.3 GM/dL (11.7-16.9); LYMPH % 17.7 % (8-40); MCH 31.6 pg (25.7-33.7); MCHC 33.9 g/dl (32.0-35.9); MEAN CELL VOLUME 93.3 fl (80-96); MONO % 7.2 % (3.8-10.2); NEUT % 73.4 % (42.8-82.8); PLATELET COUNT 137 K/MM3 (134-434); RBC 4.21 M/mm3 (4.00-5.60); RDW 12.4 % (11.9-15.9); WHITE BLOOD COUNT 6.8 K/mm3 (4.0-10.0)
[2019-08-23 19:35] LABS: ALBUMIN 3.4 g/dl (3.4-5.0); ALK PHOS 65 U/L (45-117); ANION GAP 5 MMOL/L (8-16); BILIRUBIN,TOTAL 0.5 mg/dL (0.2-1); BLOOD UREA NITROGEN 9.5 mg/dL (7-18); CALCIUM 8.3 mg/dL (8.5-10.1); CHLORIDE 104 mmol/L (98-107); CO2 31 mmol/L (21-32); CREATININE 0.7 mg/dL (0.55-1.3); GLUCOSE,RANDOM 93 mg/dL (74-106); LIPASE 140 U/L (73-393); MAGNESIUM 1.6 mg/dL (1.8-2.4); POTASSIUM 3.5 mmol/L (3.5-5.1); SGOT/AST 31 U/L (15-37); SGPT/ALT 30 U/L (13-61); SODIUM 140 mmol/L (136-145); TOT PROT 6.5 g/dl (6.4-8.2)
[2019-08-23 19:37] LABS: N-TERMINAL BNP 1838.3 pg/ml (5-125); PHOSPHOROUS 3.3 mg/dL (2.5-4.9)
[2019-08-23] MEDS ORDERED: MAGNESIUM SULF 50% (8.12 MEQ/2 ML-1 GM VIAL) IVPB ONE (19:47)
[2019-08-23] MEDS ORDERED: ALBUTEROL SO4 2.5/IPRATROPIUM 0.5 INH SOL 3 ML VIAL.NEB. NEB ONE ×2 (19:47→20:39)
[2019-08-23] MEDS ORDERED: FUROSEMIDE 40 MG/4 ML INJECTABLE VIAL IVPUSH ONE (19:48)
--- NOTE | 2019-08-23 19:49 | PDOC ---
Documentation entered by Pratibha Duran SCRIBE, acting as scribe for Venu Mitchell MD. Veun Mitchell MD: This documentation has been prepared by the tianaibeRoger Lincy, SCRIBE, under my direction and personally reviewed by me in its entirety. I confirm that the documentation accurately reflects all work, treatment, procedures, and medical decision making performed by me. Attending Attestation - Resident Resident Name: Ferdinand Philip - [facility] HPI: 08/23/19 18:42 The patient is a 64 year old male with a past medical history significant for HTN, HLD, nonischemic cardiomyopathy, CHF (noncompliant with Lasix), COPD ( Denies home O2 use) and Hepatitis C who presents to the emergency department with 3-4 days of shortness of breath, chills, cough, generalized malaise and s/ p multiple episodes of near syncopal falls. Denies LOC. Denies the use of anticoagulation. Allergies: NKDA PCP: Dr. Jhon Vásquez. - Physicial Exam PE: 08/23/19 19:46 Patient is awake and alert, frail appearing, in no significant distress Normocephalic, atraumatic PERRLA, EOMI, bilateral endpoint nystagmus is noted, conjunctiva pink No JVD RRR Intermittent rhonchi bilaterally with end expiratory wheezing Abdomen is soft, nontender, nondistended No lower extremity edema No pronation drift or asterixis noted Spider angiomas noted to the anterior chest - Medical Decision Making 08/23/19 19:47 Patient 64-year-old male with multiple comorbidities, presents with shortness of breath for the past several days as well as generalized weakness, malaise, dizziness associated with a fall with associated head injury. In the ER, patient is noted to be awake and alert, afebrile, hypertensive on arrival. No focal neuro deficits are noted. Patient is alert and oriented to self, year and month. Rhonchi and expiratory wheezing noted on the evaluation of the lungs. EKG reveals inverted T waves in anterior leads. which are unchanged from previously obtained EKG.Differential diagnosis includes CHF versus COPD versus pneumonia. Will administer DuoNeb's, as well as IV Lasix. Will obtain CBC/CMP/cardiac profile/BNP. Will obtain chest x-ray and head CT to rule out acute intracranial injury. Will reassess.
[2019-08-23 20:07] LABS: INR 1.14 (0.83-1.09); PROTHROMBIN TIME (PATIENT) 13.5 SEC (9.7-13.0)
[2019-08-23 20:10] LABS: ACTIVATED PTT 35.9 SECONDS (25.2-36.5)
[2019-08-23] MEDS ORDERED: FUROSEMIDE 40 MG/4 ML INJECTABLE VIAL ONE (20:39)
[2019-08-23] MEDS ORDERED: MAGNESIUM 1GM/D5W - 2 GM/200 ML IVPB IVPB ONE (20:39)
[2019-08-23] MEDS ORDERED: predniSONE 20 MG TABLET (UD) PO ONE (21:37)
[2019-08-23] MEDS ORDERED: predniSONE 20 MG TABLET (UD) ONE ×2 (21:47→21:49)
--- NOTE | 2019-08-23 22:50 | PN ---
Teaching Attending Note Name of Resident: Kaiser Hernandez ATTENDING PHYSICIAN STATEMENT I saw and evaluated the patient. I reviewed the resident's note and discussed the case with the resident. I agree with the resident's findings and plan as documented. SUBJECTIVE: Patient is a 64 year old man with a PMH of CHF, HTN, Panic/Anxiety Attacks, Substance abuse, Bipolar disorder, Asthma/COPD, Tobacco use, Hepatitis C disease , Nonischemic cardiomyopathy and CAD presenting with 4 days of SOB. Patient reports that he has been struggling to breath for the last 4 days. Has asthma and COPD, but denies home oxygen use, steroids, or nebulizers. Only uses Ventolin HAL, per family at bedside does not use properly. HAL use has not helped his SOB. Difficulty with walking due to dyspnea and cannot walk far before becoming tired. Has history of CHF and admissions for "fluid in lungs". Has not been compliant with Lasix due to constant urination. Denies swelling in legs, fever or chills and has chronic dry cough. Had one episode of NBNB vomiting 3 days ago. Last week he had multiple episodes of muscle weakness resulting in falls from standing, reports head injury as well as bruise to left side of abdomen. No LOC. Denies chest pain, palpitations, headache, vision changes, urinary symptoms or dizziness. Denies alcohol or illicit drug use. Has had poor appetite and insomnia. OBJECTIVE: Alert Vital Signs Period Temp Pulse Resp BP Sys/Soliz Pulse Ox Last 24 Hr 98.2 F 68-84 13-22 165-182/65-109 97-100 HEENT: No Jaundice, eye redness or discharge, PERRLA, EOMI. Normocephalic, atraumatic. External ears are normal and hearing is grossly intact. No nasal discharge. Neck: Supple, nontender. No palpable adenopathy or thyromegaly. No JVD Chest: Good effort. Clear to auscultation and percussion. Heart: Regular. No S3, rub or murmur Abdomen: Not distended, soft, nontender and no HSM. Ecchymosis left upper abdominal wall. No rebound or guarding. Normal bowel sounds. Ext: Peripheral pulses intact. No leg edema. Skin: Warm and dry. No petechiae or rash. Neuro: Alert. Oriented x3. CN 2-12 grossly intact. Sensation grossly intact in all four extremities and DTR are symmetric. Psych: Appropriate mood and affect. Good insight. Home Medications Medication Instructions Recorded Albuterol 0.083% Nebulizer Mildred 1 neb NEB Q6H PRN #90 vial 04/19/16 [Ventolin 0.083% Nebulizer Soln -] Aspirin Coated [Ecotrin -] 81 mg PO DAILY tablet.ec 04/20/16 Spironolactone [Aldactone -] 25 mg PO DAILY tablet 04/20/16 Albuterol Sulfate Inhaler - 2 inh PO Q4H PRN 10/11/16 [Ventolin HFA Inhaler -] Atorvastatin Calcium 40 mg PO HS 10/11/16 Carvedilol [Coreg -] 6.25 mg PO Q12H 10/11/16 Furosemide [Lasix -] 40 mg PO DAILY 10/11/16 Lisinopril [Prinivil] 10 mg PO DAILY 10/11/16 Paroxetine HCl [Paxil] 40 mg PO DAILY 10/11/16 Potassium Chloride [K-Dur -] 20 meq PO DAILY 10/11/16 Tiotropium [place] [Spiriva] 1 inh PO DAILY 12/24/16 Bupropion HCl [Wellbutrin Xl -] 150 mg PO BID 03/02/17 Pantoprazole Sodium [Protonix -] 40 mg PO DAILY 03/02/17 Abnormal Lab Results 08/23/19 08/23/19 08/23/19 18:45 18:45 18:45 MPV PT with INR 13.50 H INR 1.14 H POC VBG pCO2 POC VBG pO2 VBG HCO3 VBG O2 Sat (Luis Fernando) VBG Base Excess Anion Gap 5 L Calcium 8.3 L Magnesium 1.6 L CK-MB (CK-2) 4.2 H B-Natriuretic Peptide 1838.3 H 08/23/19 08/23/19 18:45 19:15 MPV 7.0 L PT with INR INR POC VBG pCO2 52.7 H POC VBG pO2 < 49 H VBG HCO3 29.9 H VBG O2 Sat (Luis Fernando) 48.1 L VBG Base Excess 4.0 H Anion Gap Calcium Magnesium CK-MB (CK-2) B-Natriuretic Peptide ASSESSMENT AND PLAN: 1. CHF exacerbation - Patient got Duoneb, Solumedrol and IV Lasix in the ER and produced over 1 liter of urine. CXR shows pulmonary vascular congestion, unfolded aorta and prominent mediastinum. ECHO from 04/19/16 showed moderately to severely reduced LV systolic function with LVEF of ?42.5%. EKG shows NSR, LAE, prolonged QTc, T wave inversion in V3-4, and flattening in Lead III - no significant change from prior EKG. Initial troponin is negative. Urinalysis and urine toxicology screen pending. Will admit to telemetry, continue daily IV lasix, IV MgSO4, dietary salt restriction, get daily standing weight, get ECHO and consult cardiology. Etiology of multiple episodes of syncope is unclear. No acute abnormality on noncontrast head CT. Will implement neurochecks and fall precautions. Get carotid doppler, brain MRI/MRA, EEG and Neurlogy consult. Will continue comprehensive care for all of patients comorbid conditions. 2. Tobacco Use Counseled on risks associated with tobacco use. We will provide patient all the necessary assistance to facilitate smoking cessation and prescribe Nicotine patch. 3. Hypertension - Restart suitable outpatient antihypertensive drugs when clinically appropriate. Revise regimen to ensure [id number] excellent BP control and public relations counselor patient on the injurious effects of uncontrolled hypertension. Nonpharmacologic measures to control hypertension like weight loss , salt restriction and exercise discussed. Importance of adherence to treatment regimen and attainment of normotension emphasized. 4. DVT prophylaxis - Lovenox 40 mg SQ q 24 hours. 5. Advance directives - Full code
[2019-08-24] MEDS ORDERED: MAGNESIUM SULF 50% (8.12 MEQ/2 ML-1 GM VIAL) IVPB ONE (00:30)
--- NOTE | 2019-08-24 00:52 | HP ---
CHIEF COMPLAINT: Shortness of breath PCP: Fahad HISTORY OF PRESENT ILLNESS: 64M w/ pmh of HTN, HLD, nonischemic CM, HFrEF(04/19/16, LVEF 42.5%, dil LV), COPD , HepC(dx 20-30ys prior, did not complete antiretroviral tx), polysubstance use disorder(tobacco, percocet) presents to [facility] with complaint of shortness of breath w/a cough with scant amounts of brown sputum x4d. When questioned, states that he has been noncompliant with his home Lasix, for multiple months, as he is frustrated by the frequent urination. Had swelling to his BUE, BLE 2d prior that resolved spontaneously. He usually sleeps in a chair dt SOB while supine. Has little appetite but eats [employer] and denies compliance to a salt- restricted, or fluid-restricted diet for which he was previously counseled for. Never had TX or stroke. Endorses episode of NV x2, 2d prior, with emesis consisting of food he ate. Endorses 10-15 episodes of lightheadedness, brief LOC x few seconds, sensation that legs have given out, x1-2weeks. Denies hitting head. Denies fever, chills. No sick contact. 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 Active smoker. Intermittent recreational drug(perocet) use. Last cscope was 10ys prior with 2 polyps. ER course was notable for: (1) prednisone 50mg, duonebs x1, lasix 10mg IVP (2) Mg2+ repletion with MgSO4 2gm (3) BNP 1838, trop <0.02 (4) ammonia 22 (5) CXR: no read. Possible incr vascular markings (6) CTH: neg (7) POCT U/S: LV hypokinesis Recent Travel: none PAST MEDICAL HISTORY: HTN, HLD, nonischemic CM, HFrEF(04/19/16, LVEF 42.5%, dil LV), COPD, HepC(dx 20- 30ys prior, did not complete antiretroviral tx), polysubstance use disorder( tobacco, percocet) PAST SURGICAL HISTORY: none Social History: Smokin.5ppd x50ys Alcohol: denies Drugs: perocets(up to 5mg tab x2) Allergies No Known Allergies Allergy (Verified 08/23/19 17:25) HOME MEDICATIONS: Home Medications Medication Instructions Recorded Albuterol 0.083% Nebulizer Mildred 1 neb NEB Q6H PRN #90 vial 04/19/16 [Ventolin 0.083% Nebulizer Soln -] Aspirin Coated [Ecotrin -] 81 mg PO DAILY tablet.ec 04/20/16 Spironolactone [Aldactone -] 25 mg PO DAILY tablet 04/20/16 Albuterol Sulfate Inhaler - 2 inh PO Q4H PRN 10/11/16 [Ventolin HFA Inhaler -] Atorvastatin Calcium 40 mg PO HS 10/11/16 Carvedilol [Coreg -] 6.25 mg PO Q12H 10/11/16 Furosemide [Lasix -] 40 mg PO DAILY 10/11/16 Lisinopril [Prinivil] 10 mg PO DAILY 10/11/16 Paroxetine HCl [Paxil] 40 mg PO DAILY 10/11/16 Potassium Chloride [K-Dur -] 20 meq PO DAILY 10/11/16 Tiotropium [place] [Spiriva] 1 inh PO DAILY 12/24/16 Bupropion HCl [Wellbutrin Xl -] 150 mg PO BID 03/02/17 Pantoprazole Sodium [Protonix -] 40 mg PO DAILY 03/02/17 REVIEW OF SYSTEMS CONSTITUTIONAL: Absent: fever, chills, diaphoresis, generalized weakness, malaise, loss of appetite, weight change HEENT: Absent: rhinorrhea, nasal congestion, throat pain, throat swelling, difficulty swallowing, mouth swelling, ear pain, eye pain, visual changes CARDIOVASCULAR: lightheadedness, peripheral edema Absent: chest pain, syncope, palpitations, irregular heart rate, RESPIRATORY: productive cough w/ "brown" sputum, shortness of breath, Absent: dyspnea with exertion, orthopnea, wheezing, stridor, hemoptysis GASTROINTESTINAL: nausea, vomiting, Absent: abdominal pain, abdominal distension, diarrhea, constipation, melena, hematochezia GENITOURINARY: Absent: dysuria, frequency, urgency, hesitancy, hematuria, flank pain, genital pain MUSCULOSKELETAL: Absent: myalgia, arthralgia, joint swelling, back pain, neck pain SKIN: Absent: rash, itching, pallor ENDOCRINE: Absent: unexplained weight gain, unexplained weight loss, heat intolerance, cold intolerance NEUROLOGIC: Absent: headache, focal weakness or paresthesias, dizziness, unsteady gait, seizure, mental status changes, bladder or bowel incontinence PHYSICAL EXAMINATION Vital Signs - 24 hr 08/23/19 08/23/19 08/23/19 17:25 19:48 20:54 Temperature 98.2 F Pulse Rate 84 Pulse Rate [ 72 68 Apical] Respiratory 22 H 13 18 Rate Blood Pressure 182/109 H Blood Pressure 176/65 H 165/90 [Left Arm] O2 Sat by Pulse 98 97 100 Oximetry (%) GENERAL: lethargic-appearing, oriented x3, NAD. HEAD: NC/AT. No scalp hematomas. Moderate temporal wasting EYES: extraocular movements intact, sclera anicteric, conjunctiva clear EARS, NOSE, THROAT: Ears normal, nares patent, oropharynx clear without exudates. Moist mucous membranes. NECK: Normal range of motion, supple without lymphadenopathy, JVD, or masses. LUNGS: Breath sounds equal, clear to auscultation bilaterally. No wheezes, and no crackles. No accessory muscle use. Breathing RA. Speaking full sentences HEART: Regular rate and rhythm, normal S1 and S2 without murmur, rub or gallop. ABDOMEN: LLQ with 2-3cm ecchymosis w/ mild TTP. No surgical scars. Soft, nontender, not distended, no guarding, no rebound, no masses. MUSCULOSKELETAL: Normal range of motion at all joints. No bony deformities or tenderness. No CVA tenderness. UPPER EXTREMITIES: 2+ pulses, warm, well-perfused. No cyanosis. Mild finger clubbing. No peripheral edema. Thin arms, no elbow abrasions LOWER EXTREMITIES: 2+ pulses, warm, well-perfused. No calf tenderness. No peripheral edema. Thin legs. NEUROLOGICAL: Normal speech. Normal gait. SKIN: Warm, dry, normal turgor Laboratory Results - last 24 hr 08/23/19 08/23/19 08/23/19 18:45 18:45 18:45 WBC RBC Hgb Hct MCV MCH MCHC RDW Plt Count MPV Absolute Neuts (auto) Neutrophils % Lymphocytes % Monocytes % Eosinophils % Basophils % Nucleated RBC % PT with INR 13.50 H INR 1.14 H PTT (Actin FS) 35.9 VBG pH POC VBG pCO2 POC VBG pO2 VBG HCO3 VBG O2 Sat (Luis Fernando) VBG Base Excess Sodium 140 Potassium 3.5 Chloride 104 Carbon Dioxide 31 Anion Gap 5 L BUN 9.5 Creatinine 0.7 Est GFR (CKD-EPI)AfAm 114.78 Est GFR (CKD-EPI)NonAf 99.03 Random Glucose 93 Calcium 8.3 L Phosphorus 3.3 Magnesium 1.6 L Total Bilirubin 0.5 AST 31 ALT 30 Alkaline Phosphatase 65 Ammonia Creatine Kinase 157 Creatine Kinase Index 2.6 CK-MB (CK-2) 4.2 H Troponin I < 0.02 B-Natriuretic Peptide 1838.3 H Total Protein 6.5 Albumin 3.4 Lipase 140 08/23/19 08/23/19 08/23/19 18:45 19:15 19:23 WBC 6.8 RBC 4.21 Hgb 13.3 Hct 39.3 MCV 93.3 MCH 31.6 D MCHC 33.9 RDW 12.4 D Plt Count 137 MPV 7.0 L Absolute Neuts (auto) 5.0 Neutrophils % 73.4 Lymphocytes % 17.7 D Monocytes % 7.2 D Eosinophils % 0.8 D Basophils % 0.9 Nucleated RBC % 0 PT with INR INR PTT (Actin FS) VBG pH 7.37 POC VBG pCO2 52.7 H POC VBG pO2 < 49 H VBG HCO3 29.9 H VBG O2 Sat (Luis Fernando) 48.1 L VBG Base Excess 4.0 H Sodium Potassium Chloride Carbon Dioxide Anion Gap BUN Creatinine Est GFR (CKD-EPI)AfAm Est GFR (CKD-EPI)NonAf Random Glucose Calcium Phosphorus Magnesium Total Bilirubin AST ALT Alkaline Phosphatase Ammonia 22.00 Creatine Kinase Creatine Kinase Index CK-MB (CK-2) Troponin I B-Natriuretic Peptide Total Protein Albumin Lipase ASSESSMENT/PLAN: 64M w/ pmh of HTN, HLD, nonischemic CM, HFrEF(04/19/16, LVEF 42.5%, dil LV), COPD , HepC(dx 20-30ys prior, did not complete antiretroviral tx), polysubstance use disorder(tobacco, percocet) presenting w/ SOB, noncompliance with home lasix, h/ o ?syncopal falls at home. Admitted to [facility] for [facility]. Labwork significant for BNP 1,838. CXR showing possible increased vascular markings. # acute on chronic HFrEF exacerbation --likely 2/2 medication noncompliance + lifestyle noncompliance # nonischemic Cardiomyopathy > Echo(04/29/16): LVEF 42.4%, dilated LV > EKG(08/23/19): NSR, TWI in V3-V4; QTc 489 - s/p ED: lasix 40mg IVP x1 - diuresis: lasix 40mg IVP QD - cw home spironolactone, lisinopril, carvedilol, atorvastatin, ASA --pending med rec - echo - consider cardio consult(Maddy) - daily weights - I/Os # ?syncope > CTH(08/23/19): prelim read::neg for acute path --fu final read > UA --pending > Utox --pending > carotid duplex --pending > B12 --pending > Folate --pending > RPR --pending - fall precautions - neurochecks - consider Neuro consult - consider Brain-Neck MRI/MRA # chronic COPD - cw home - job placement counselor on smoking cessation # HLD > lipid panel --pending - cw home atorvastatin --pending med rec # Hep C --untreated # risk of HCC > AST/ALT - consider RUQ U/S as per NCCN guidelines for HCC screening - consider GI fu as outpt # polysubstance(tobacco, perocet) use disorder > COWS 1(irritable) > Utox --pending - nicotine patch - job placement counselor on substance use disorder - consider outpt rehab #FEN - sodium-controlled diet - replete lytes PRN #DVT PPX - lovenox #Dispo - tele mointor - dc plan --likely home Family Medical History Family Hx Nuerologic Problems: Mother (Alzheimer) Other Family History: Neice: Breast Ca Visit type - Emergency Visit Emergency Visit: Yes ED Registration Date: 08/23/19 Care time: The patient presented to the Emergency Department on the above date and was hospitalized for further evaluation of their emergent condition. - New Patient This patient is new to me today: Yes Date on this admission: 08/24/19 - Critical Care Critical Care patient: No ATTENDING PHYSICIAN STATEMENT I saw and evaluated the patient. I reviewed the resident's note and discussed the case with the resident. I agree with the resident's findings and plan as documented. SUBJECTIVE: OBJECTIVE: ASSESSMENT AND PLAN:
[2019-08-24] MEDS ORDERED: MAGNESIUM 1GM/D5W - 1 GM/100 ML IVPB IVPB ONE (01:00)
[2019-08-24 01:49] LABS: EPI CELLS 0.2 /HPF (0-5/HPF); HYALINE CASTS 0 /lpf (0-8); URINE APPEARANCE CLEAR; URINE BACTERIA 0.5 /hpf (NEGATIVE); URINE BILIRUBIN NEGATIVE (NEGATIVE); URINE COLOR YELLOW; URINE GLUCOSE (UA) NEGATIVE (NEGATIVE); URINE KETONE NEGATIVE (NEGATIVE); URINE LEUK ESTERASE NEGATIVE (NEGATIVE); URINE NITRITE NEGATIVE (NEGATIVE); URINE PROTEIN NEGATIVE (NEGATIVE); URINE RBC 4 /hpf (0-4); URINE UROBILINOGEN 0.2 mg/dL (0.2-1.0); URINE WBC 1 /hpf (0-5)
[2019-08-24 02:03] LABS: COCAINE, UR NEGATIVE ng/ml (CUTOFF=300); METHADONE, UR NEGATIVE ng/ml (CUTOFF=300); OPIATES, URI NEGATIVE ng/ml (CUTOFF=300); PHENCYCLIDINE,URINE NEGATIVE ng/ml (CUTOFF=25); URINE AMPHETAMINES NEGATIVE ng/ml (CUTOFF=500); URINE BARBITURATES NEGATIVE ng/ml (CUTOFF=200); URINE BENZODIAZEPINES NEGATIVE ng/ml (CUTOFF=200)
[2019-08-24] MEDS: NICOTINE 14 MG/24 HOURS TOPICAL PATCH TD SCH ×2 (02:27→09:48)
[2019-08-24 02:43] VITALS: BMI 21.2
[2019-08-24] MEDS ORDERED: FUROSEMIDE 40 MG/4 ML INJECTABLE VIAL IVPUSH ONE (07:25)
[2019-08-24 07:35] LABS: BASO % 0.2 % (0-2.0); HEMOGLOBIN 14.1 GM/dL (11.7-16.9); LYMPH % 16.9 % (8-40); MCH 31.8 pg (25.7-33.7); MCHC 34.3 g/dl (32.0-35.9); MEAN CELL VOLUME 92.6 fl (80-96); MEAN PLT VOLUME 7.2 fl (7.5-11.1); MONO % 2.2 % (3.8-10.2); NEUT % 80.7 % (42.8-82.8); PLATELET COUNT 179 K/MM3 (134-434); RBC 4.43 M/mm3 (4.00-5.60); RDW 12.6 % (11.9-15.9); WHITE BLOOD COUNT 3.4 K/mm3 (4.0-10.0)
[2019-08-24 08:29] LABS: ANION GAP 6 MMOL/L (8-16); BLOOD UREA NITROGEN 11.8 mg/dL (7-18); CALCIUM 8.7 mg/dL (8.5-10.1); CHLORIDE 101 mmol/L (98-107); CHOLESTEROL 138 mg/dL (50-200); CO2 29 mmol/L (21-32); CREATININE 0.7 mg/dL (0.55-1.3); GLUCOSE,RANDOM 203 mg/dL (74-106); HDL CHOLESTEROL 42 mg/dL (40-60); LDL CHOLESTEROL (ONLY SJRH) 82 mg/dL (5-100); MAGNESIUM 2.6 mg/dL (1.8-2.4); PHOSPHOROUS 3.3 mg/dL (2.5-4.9); POTASSIUM 3.2 mmol/L (3.5-5.1); SODIUM 136 mmol/L (136-145); TRIGLYCERIDES 77 mg/dL (0-150)
[2019-08-24] MEDS: ALBUTEROL SO4 2.5/IPRATROPIUM 0.5 INH SOL 3 ML VIAL.NEB. NEB SCH ×4 (08:30→20:29)
[2019-08-24] MEDS: CARVEDILOL 6.25 MG TABLET (FP) PO SCH ×2 (09:44→21:10)
[2019-08-24] MEDS: LISINOPRIL 10 MG TABLET (FP) PO SCH (09:44)
[2019-08-24] MEDS: SPIRONOLACTONE 25 MG TABLET (FP) PO SCH (09:44)
[2019-08-24] MEDS: ENOXAPARIN NA (PORCINE) 40 MG/0.4 ML DISP.SYRIN SQ SCH (09:48)
[2019-08-24] MEDS ORDERED: POTASSIUM CHLORIDE TABS 20 MEQ TABLET.ER (FP) PO ONE (10:36)
--- NOTE | 2019-08-24 10:44 | PN ---
Physical Exam: SUBJECTIVE: Patient seen and examined, denies any dyspnea. reports intermittent dizziness, more like spinning sensation almost once daily, not positional or related to chest pain, palpitations or concerns. OBJECTIVE: Vital Signs Period Temp Pulse Resp BP Sys/Soliz Pulse Ox Last 24 Hr 98.2 F-98.6 F 68-85 13-22 138-182/65-109 97-100 Intake & Output 08/21/19 08/22/19 08/23/19 08/24/19 23:59 23:59 23:59 23:59 Intake Total 10 Balance 10 Weight 120 lb 124 lb GENERAL: lying in bed, sleeping but arousable, no acute distress neck: soft, supple, no JVd visualized Chest: decreased air entry all over, no rales or wheezing Abdomen:Soft, NT, ND Extremities: no pedal edema psych: sleepy but arousable, co-operative HEENT: PERRL,EOMI Laboratory Results - last 24 hr 08/23/19 08/23/19 08/23/19 18:45 18:45 18:45 WBC RBC Hgb Hct MCV MCH MCHC RDW Plt Count MPV Absolute Neuts (auto) Neutrophils % Lymphocytes % Monocytes % Eosinophils % Basophils % Nucleated RBC % PT with INR 13.50 H INR 1.14 H PTT (Actin FS) 35.9 VBG pH POC VBG pCO2 POC VBG pO2 VBG HCO3 VBG O2 Sat (Luis Fernando) VBG Base Excess Sodium 140 Potassium 3.5 Chloride 104 Carbon Dioxide 31 Anion Gap 5 L BUN 9.5 Creatinine 0.7 Est GFR (CKD-EPI)AfAm 114.78 Est GFR (CKD-EPI)NonAf 99.03 POC Glucometer Random Glucose 93 Hemoglobin A1c % Calcium 8.3 L Phosphorus 3.3 Magnesium 1.6 L Total Bilirubin 0.5 AST 31 ALT 30 Alkaline Phosphatase 65 Ammonia Creatine Kinase 157 Creatine Kinase Index 2.6 CK-MB (CK-2) 4.2 H Troponin I < 0.02 B-Natriuretic Peptide 1838.3 H Total Protein 6.5 Albumin 3.4 Triglycerides Cholesterol Total LDL Cholesterol HDL Cholesterol Lipase 140 Vitamin B12 Serum Folate TSH Urine Color Urine Appearance Urine pH Ur Specific [place] Urine Protein Urine Glucose (UA) Urine Ketones Urine Blood Urine Nitrite Urine Bilirubin Urine Urobilinogen Ur Leukocyte Esterase Urine WBC (Auto) Urine RBC (Auto) Urine Casts (Auto) U Epithel Cells (Auto) Urine Bacteria (Auto) Opiates Screen Methadone Screen Barbiturate Screen Phencyclidine Screen Ur Amphetamines Screen MDMA (Ecstasy) Screen Benzodiazepines Screen Cocaine Screen U Marijuana (THC) Screen 08/23/19 08/23/19 08/23/19 18:45 19:15 19:23 WBC 6.8 RBC 4.21 Hgb 13.3 Hct 39.3 MCV 93.3 MCH 31.6 D MCHC 33.9 RDW 12.4 D Plt Count 137 MPV 7.0 L Absolute Neuts (auto) 5.0 Neutrophils % 73.4 Lymphocytes % 17.7 D Monocytes % 7.2 D Eosinophils % 0.8 D Basophils % 0.9 Nucleated RBC % 0 PT with INR INR PTT (Actin FS) VBG pH 7.37 POC VBG pCO2 52.7 H POC VBG pO2 < 49 H VBG HCO3 29.9 H VBG O2 Sat (Luis Fernando) 48.1 L VBG Base Excess 4.0 H Sodium Potassium Chloride Carbon Dioxide Anion Gap BUN Creatinine Est GFR (CKD-EPI)AfAm Est GFR (CKD-EPI)NonAf POC Glucometer Random Glucose Hemoglobin A1c % Calcium Phosphorus Magnesium Total Bilirubin AST ALT Alkaline Phosphatase Ammonia 22.00 Creatine Kinase Creatine Kinase Index CK-MB (CK-2) Troponin I B-Natriuretic Peptide Total Protein Albumin Triglycerides Cholesterol Total LDL Cholesterol HDL Cholesterol Lipase Vitamin B12 Serum Folate TSH Urine Color Urine Appearance Urine pH Ur Specific [place] Urine Protein Urine Glucose (UA) Urine Ketones Urine Blood Urine Nitrite Urine Bilirubin Urine Urobilinogen Ur Leukocyte Esterase Urine WBC (Auto) Urine RBC (Auto) Urine Casts (Auto) U Epithel Cells (Auto) Urine Bacteria (Auto) Opiates Screen Methadone Screen Barbiturate Screen Phencyclidine Screen Ur Amphetamines Screen MDMA (Ecstasy) Screen Benzodiazepines Screen Cocaine Screen U Marijuana (THC) Screen 08/24/19 08/24/19 08/24/19 01:21 01:21 01:55 WBC RBC Hgb Hct MCV MCH MCHC RDW Plt Count MPV Absolute Neuts (auto) Neutrophils % Lymphocytes % Monocytes % Eosinophils % Basophils % Nucleated RBC % PT with INR INR PTT (Actin FS) VBG pH POC VBG pCO2 POC VBG pO2 VBG HCO3 VBG O2 Sat (Luis Fernando) VBG Base Excess Sodium Potassium Chloride Carbon Dioxide Anion Gap BUN Creatinine Est GFR (CKD-EPI)AfAm Est GFR (CKD-EPI)NonAf POC Glucometer 147 Random Glucose Hemoglobin A1c % Calcium Phosphorus Magnesium Total Bilirubin AST ALT Alkaline Phosphatase Ammonia Creatine Kinase Creatine Kinase Index CK-MB (CK-2) Troponin I B-Natriuretic Peptide Total Protein Albumin Triglycerides Cholesterol Total LDL Cholesterol HDL Cholesterol Lipase Vitamin B12 Serum Folate TSH Urine Color Yellow Urine Appearance Clear Urine pH 5.0 Ur Specific [place] 1.009 L Urine Protein Negative Urine Glucose (UA) Negative Urine Ketones Negative Urine Blood 1+ H Urine Nitrite Negative Urine Bilirubin Negative Urine Urobilinogen 0.2 Ur Leukocyte Esterase Negative Urine WBC (Auto) 1 Urine RBC (Auto) 4 Urine Casts (Auto) 0 U Epithel Cells (Auto) 0.2 Urine Bacteria (Auto) 0.5 Opiates Screen Negative Methadone Screen Negative Barbiturate Screen Negative Phencyclidine Screen Negative Ur Amphetamines Screen Negative MDMA (Ecstasy) Screen Positive A* Benzodiazepines Screen Negative Cocaine Screen Negative U Marijuana (THC) Screen Negative 08/24/19 08/24/19 08/24/19 06:38 06:38 06:38 WBC 3.4 L RBC 4.43 Hgb 14.1 Hct 41.0 MCV 92.6 MCH 31.8 MCHC 34.3 RDW 12.6 Plt Count 179 D MPV 7.2 L Absolute Neuts (auto) 2.7 Neutrophils % 80.7 Lymphocytes % 16.9 Monocytes % 2.2 L Eosinophils % 0.0 D Basophils % 0.2 Nucleated RBC % 0 PT with INR INR PTT (Actin FS) VBG pH POC VBG pCO2 POC VBG pO2 VBG HCO3 VBG O2 Sat (Luis Fernando) VBG Base Excess Sodium 136 Potassium 3.2 L Chloride 101 Carbon Dioxide 29 Anion Gap 6 L BUN 11.8 Creatinine 0.7 Est GFR (CKD-EPI)AfAm 114.78 Est GFR (CKD-EPI)NonAf 99.03 POC Glucometer Random Glucose 203 H Hemoglobin A1c % 5.2 Calcium 8.7 Phosphorus 3.3 Magnesium 2.6 H Total Bilirubin AST ALT Alkaline Phosphatase Ammonia Creatine Kinase Creatine Kinase Index CK-MB (CK-2) Troponin I B-Natriuretic Peptide Total Protein Albumin Triglycerides 77 Cholesterol 138 Total LDL Cholesterol 82 HDL Cholesterol 42 Lipase Vitamin B12 492 Serum Folate 17 TSH 0.15 L D Urine Color Urine Appearance Urine pH Ur Specific [place] Urine Protein Urine Glucose (UA) Urine Ketones Urine Blood Urine Nitrite Urine Bilirubin Urine Urobilinogen Ur Leukocyte Esterase Urine WBC (Auto) Urine RBC (Auto) Urine Casts (Auto) U Epithel Cells (Auto) Urine Bacteria (Auto) Opiates Screen Methadone Screen Barbiturate Screen Phencyclidine Screen Ur Amphetamines Screen MDMA (Ecstasy) Screen Benzodiazepines Screen Cocaine Screen U Marijuana (THC) Screen CXR results and images reviewed Active Medications Generic Name Dose Route Start Last Admin Trade Name Freq PRN Reason Stop Dose Admin Albuterol/Ipratropium 1 amp 08/24/19 07:29 08/24/19 08:30 Duoneb - NEB 1 amp RQ4H LAURO Administration Atorvastatin Calcium 40 mg 08/24/19 22:00 Lipitor - PO HS LAURO Carvedilol 6.25 mg 08/24/19 10:00 08/24/19 09:44 Coreg - PO 6.25 mg BID LAURO Administration Enoxaparin Sodium 40 mg 08/24/19 10:00 08/24/19 09:48 Lovenox - SQ 40 mg DAILY LAURO Administration Furosemide 40 mg 08/25/19 10:00 Lasix Injection - IVPUSH DAILY LAURO Lisinopril 10 mg 08/24/19 10:00 08/24/19 09:44 Prinivil PO 10 mg DAILY LAURO Administration Nicotine 14 mg 08/24/19 01:22 08/24/19 09:48 Nicoderm Patch - TD 14 mg DAILY LAURO Administration Spironolactone 25 mg 08/24/19 10:00 08/24/19 09:44 Aldactone - PO 25 mg DAILY LAURO Administration ASSESSMENT/PLAN: 64 yom PMHx of HTN, HLD, nonischemic CM, HFrEF(04/19/16, LVEF 42.5%, dil LV), COPD, HepC(dx 20-30yrs prior, did not complete antiretroviral tx), polysubstance use disorder(tobacco, xanax, percocet), last in detox 02/2017, active smoker, admitted with dyspnea and intermittent dizziness. -Acute on chronic systolic heart failure exacerbation, suspect from medication/ dietary non compliance -URI with mild COPD exacerbation -Polysubstance abuse (tobacco/Ecstasy), prior xanax/percocet -Non ischemic cardiomyopathy -COPD/nicotine dependence -HTN -HLD -Hepatitis C, s/p reported incomplete treatment Plan: Volume status stable. Lasix 40 mg IV daily with monitoring of volume status. 2d echo, cardiology input. resume coreg/aldactone/statin. K suppl. Hold off on additional steroids. Nebs prn. Patient reports dizziness, more like 'spinning sensation' about once daily, non positional. Could be from ongoing drug use (+ Ecstasy), telemtry to assess for arrythmia. Trial of meclizine if recurrent symptoms inhouse. Presentation not suspicious for neuological etiology, Carotid duplex noted. Will hold off on additional neurological testing for now unless new concerns. Drug cessation counseling. Detox consult if patient willing when symptoms improve. Nicotine patch. [facility] unreachable currently. Will re-attempt to reconcile home meds. DVTPPX Lovenox Dispo pending clinical improvement. patient initially expressed wishes to want to leave. Risks of leaving including worsening breathing, respiratory failure, arrhythmia and explained. patient relays full understanding, witnessed by ELIEL Cornell. Agreable to stay for now, will monitor. Visit type - Emergency Visit Emergency Visit: Yes ED Registration Date: 08/24/19 Care time: The patient presented to the Emergency Department on the above date and was hospitalized for further evaluation of their emergent condition. - New Patient This patient is new to me today: Yes Date on this admission: 08/24/19 - Critical Care Critical Care patient: No - Discharge Referral Referred to [facility] No
--- NOTE | 2019-08-24 10:51 | EKG ---
Test Reason : Blood Pressure : / mmHG Vent. Rate : 074 BPM Atrial Rate : 074 BPM P-R Int : 154 ms QRS Dur : 112 ms QT Int : 452 ms P-R-T Axes : 021 034 127 degrees QTc Int : 501 ms NORMAL SINUS RHYTHM PROLONGED QT ABNORMAL ECG WHEN COMPARED WITH ECG OF 23-AUG-2019 17:42, T WAVE INVERSION MORE EVIDENT IN ANTEROLATERAL LEADS Confirmed by NORMA BENITEZ, LILLIANA ([id number]) on 08/24/2019 10:50:41 AM Referred By: Confirmed By:LILLIANA GREEN MD
--- NOTE | 2019-08-24 10:51 | EKG ---
Test Reason : Blood Pressure : / mmHG Vent. Rate : 071 BPM Atrial Rate : 071 BPM P-R Int : 150 ms QRS Dur : 110 ms QT Int : 450 ms P-R-T Axes : 033 021 044 degrees QTc Int : 489 ms NORMAL SINUS RHYTHM POSSIBLE LEFT ATRIAL ENLARGEMENT PROLONGED QT ABNORMAL ECG WHEN COMPARED WITH ECG OF 02-MAR-2017 17:02, T WAVE INVERSION NO LONGER EVIDENT IN LATERAL LEADS Confirmed by NORMA BENITEZ, LILLIANA ([id number]) on 08/24/2019 10:50:53 AM Referred By: Confirmed By:LILLIANA GRENE MD
--- NOTE | 2019-08-24 11:05 | CON.CARD ---
Cardiology Consult (text) - Consultation Consultation Note: cc: sob hpi: 64 m hx nicm (non obs cad on cath 2012), syst chf, hld, smoking, copd, hcv , here with sob. Pt has been noncompliant with cardio f/u and has not been taking his diuretic because it makes him urinate too much. Past several days with sob/[place], mild le edema. No cp palps dizzy loc pnd orthopnea. pmh: per hpi psh: cath social: +tob fam: no premature cad ros: per hpi; all others nl meds: Ambulatory Orders Albuterol 0.083% Nebulizer Mildred [Ventolin 0.083% Nebulizer Soln -] 1 neb NEB Q6H PRN #90 vial 04/19/16 Aspirin Coated [Ecotrin -] 81 mg PO DAILY tablet.ec 04/20/16 Spironolactone [Aldactone -] 25 mg PO DAILY tablet 04/20/16 Albuterol Sulfate Inhaler - [Ventolin HFA Inhaler -] 2 inh PO Q4H PRN 10/11/16 Atorvastatin Calcium 40 mg PO HS 10/11/16 Carvedilol [Coreg -] 6.25 mg PO Q12H 10/11/16 Furosemide [Lasix -] 40 mg PO DAILY 10/11/16 Lisinopril [Prinivil] 10 mg PO DAILY 10/11/16 Paroxetine HCl [Paxil] 40 mg PO DAILY 10/11/16 Potassium Chloride [K-Dur -] 20 meq PO DAILY 10/11/16 Tiotropium [place] [Spiriva] 1 inh PO DAILY 12/24/16 Bupropion HCl [Wellbutrin Xl -] 150 mg PO BID 03/02/17 Pantoprazole Sodium [Protonix -] 40 mg PO DAILY 03/02/17 pe: Vital Signs Period Temp Pulse Resp BP Sys/Soliz Pulse Ox Last 24 Hr 98.2 F-98.6 F 68-85 13-22 138-182/65-109 97-100 nad no jvd rrr s1s2 no mrg cta bl nl eff aao3 no le e/c/c abd nt nd pos bs no jaundice diaphoresis pos dp pt no carotid bruits Laboratory Last Values WBC 3.4 K/mm3 (4.0-10.0) L 08/24/19 06:38 RBC 4.43 M/mm3 (4.00-5.60) 08/24/19 06:38 Hgb 14.1 GM/dL (11.7-16.9) 08/24/19 06:38 Hct 41.0 % (35.4-49) 08/24/19 06:38 MCV 92.6 fl (80-96) 08/24/19 06:38 MCH 31.8 pg (25.7-33.7) 08/24/19 06:38 MCHC 34.3 g/dl (32.0-35.9) 08/24/19 06:38 RDW 12.6 % (11.9-15.9) 08/24/19 06:38 Plt Count 179 K/MM3 (134-434) D 08/24/19 06:38 MPV 7.2 fl (7.5-11.1) L 08/24/19 06:38 Absolute Neuts (auto) 2.7 K/mm3 (1.5-8.0) 08/24/19 06:38 Neutrophils % 80.7 % (42.8-82.8) 08/24/19 06:38 Lymphocytes % 16.9 % (8-40) 08/24/19 06:38 Monocytes % 2.2 % (3.8-10.2) L 08/24/19 06:38 Eosinophils % 0.0 % (0-4.5) D 08/24/19 06:38 Basophils % 0.2 % (0-2.0) 08/24/19 06:38 Nucleated RBC % 0 % (0-0) 08/24/19 06:38 PT with INR 13.50 SEC (9.7-13.0) H 08/23/19 18:45 INR 1.14 (0.83-1.09) H 08/23/19 18:45 PTT (Actin FS) 35.9 SECONDS (25.2-36.5) 08/23/19 18:45 VBG pH 7.37 (7.31-7.41) 08/23/19 18:45 POC VBG pCO2 52.7 mmHg (38-52) H 08/23/19 18:45 POC VBG pO2 < 49 mmHg (28-48) H 08/23/19 18:45 VBG HCO3 29.9 mmol/L (23-29) H 08/23/19 18:45 VBG O2 Sat (Luis Fernando) 48.1 % (70-80) L 08/23/19 18:45 VBG Base Excess 4.0 meq/l (-2-2) H 08/23/19 18:45 Sodium 136 mmol/L (136-145) 08/24/19 06:38 Potassium 3.2 mmol/L (3.5-5.1) L 08/24/19 06:38 Chloride 101 mmol/L (98-107) 08/24/19 06:38 Carbon Dioxide 29 mmol/L (21-32) 08/24/19 06:38 Anion Gap 6 MMOL/L (8-16) L 08/24/19 06:38 BUN 11.8 mg/dL (7-18) 08/24/19 06:38 Creatinine 0.7 mg/dL (0.55-1.3) 08/24/19 06:38 Est GFR (CKD-EPI)AfAm 114.78 08/24/19 06:38 Est GFR (CKD-EPI)NonAf 99.03 08/24/19 06:38 POC Glucometer 147 UNITS (80-120) 08/24/19 01:55 Random Glucose 203 mg/dL (74-106) H 08/24/19 06:38 Hemoglobin A1c % 5.2 % (4.2-6.3) 08/24/19 06:38 Calcium 8.7 mg/dL (8.5-10.1) 08/24/19 06:38 Phosphorus 3.3 mg/dL (2.5-4.9) 08/24/19 06:38 Magnesium 2.6 mg/dL (1.8-2.4) H 08/24/19 06:38 Total Bilirubin 0.5 mg/dL (0.2-1) 08/23/19 18:45 AST 31 U/L (15-37) 08/23/19 18:45 ALT 30 U/L (13-61) 08/23/19 18:45 Alkaline Phosphatase 65 U/L (45-117) 08/23/19 18:45 Ammonia 22.00 umol/L (11-32) 08/23/19 19:23 Creatine Kinase 157 U/L (26-308) 08/23/19 18:45 Creatine Kinase Index 2.6 % (0.0-5.0) 08/23/19 18:45 CK-MB (CK-2) 4.2 ng/mL (0.5-3.6) H 08/23/19 18:45 Troponin I < 0.02 ng/ml (0.00-0.05) 08/23/19 18:45 B-Natriuretic Peptide 1838.3 pg/ml (5-125) H 08/23/19 18:45 Total Protein 6.5 g/dl (6.4-8.2) 08/23/19 18:45 Albumin 3.4 g/dl (3.4-5.0) 08/23/19 18:45 Triglycerides 77 mg/dL (0-150) 08/24/19 06:38 Cholesterol 138 mg/dL (50-200) 08/24/19 06:38 Total LDL Cholesterol 82 mg/dL (5-100) 08/24/19 06:38 HDL Cholesterol 42 mg/dL (40-60) 08/24/19 06:38 Lipase 140 U/L (73-393) 08/23/19 18:45 Vitamin B12 492 pg/ml (193-986) 08/24/19 06:38 Serum Folate 17 ng/mL (3.1-17.5) 08/24/19 06:38 TSH 0.15 uIU/ml (0.358-3.74) L D 08/24/19 06:38 Urine Color Yellow 08/24/19 01:21 Urine Appearance Clear 08/24/19 01:21 Urine pH 5.0 (5.0-8.0) 08/24/19 01:21 Ur Specific [place] 1.009 (1.010-1.035) L 08/24/19 01:21 Urine Protein Negative (NEGATIVE) 08/24/19 01:21 Urine Glucose (UA) Negative (NEGATIVE) 08/24/19 01:21 Urine Ketones Negative (NEGATIVE) 08/24/19 01:21 Urine Blood 1+ (NEGATIVE) H 08/24/19 01:21 Urine Nitrite Negative (NEGATIVE) 08/24/19 01:21 Urine Bilirubin Negative (NEGATIVE) 08/24/19 01:21 Urine Urobilinogen 0.2 mg/dL (0.2-1.0) 08/24/19 01:21 Ur Leukocyte Esterase Negative (NEGATIVE) 08/24/19 01:21 Urine WBC (Auto) 1 /hpf (0-5) 08/24/19 01:21 Urine RBC (Auto) 4 /hpf (0-4) 08/24/19 01:21 Urine Casts (Auto) 0 /lpf (0-8) 08/24/19 01:21 U Epithel Cells (Auto) 0.2 /HPF (0-5/HPF) 08/24/19 01:21 Urine Bacteria (Auto) 0.5 /hpf (NEGATIVE) 08/24/19 01:21 Opiates Screen Negative ng/ml (EQORDE=507) 08/24/19 01:21 Methadone Screen Negative ng/ml (MMFFCE=316) 08/24/19 01:21 Barbiturate Screen Negative ng/ml (BJFQED=584) 08/24/19 01:21 Phencyclidine Screen Negative ng/ml (CUTOFF=25) 08/24/19 01:21 Ur Amphetamines Screen Negative ng/ml (VHEVIG=944) 08/24/19 01:21 MDMA (Ecstasy) Screen Positive ng/ml (ZQCZPE=521) A* 08/24/19 01:21 Benzodiazepines Screen Negative ng/ml (NWYZAQ=544) 08/24/19 01:21 Cocaine Screen Negative ng/ml (PITKZH=847) 08/24/19 01:21 U Marijuana (THC) Screen Negative ng/ml (CUTOFF=50) 08/24/19 01:21 echo 04/2016: mild-mod dec lvef mibi 04/2016: apical/inferior infarct, no ischemia, lvef sev reduced cxr reviewed tele: sr a/p: 64 m hx nicm (non obs cad on cath 2012), syst chf, hld, smoking, copd, hcv , here with sob. sob, acute syst chf: -mild vol overload 2/2 noncompliance with diuretic -vol status improved with iv lasix, cont same, daily chem7, wt -check updated echo -cont callei, bb, aldactone hld: -cont statin abnl ecg: -pt with chronic ant/lat twis, ecg today with more pronounced twis, no st changes. possibly due to chf. no signs acs. trop negx1, trend. cont tele. tob use: -smoking cessation discussed
[2019-08-24] MEDS ORDERED: POTASSIUM CHLORIDE ORAL LIQUID 20 MEQ/15 ML PO ONE (14:00)
[2019-08-24] MEDS ORDERED: FUROSEMIDE 40 MG/4 ML INJECTABLE VIAL IVPUSH SCH (14:00)
[2019-08-24] MEDS ORDERED: PT OWN MED DRAWER 7, Y5N ONE (14:02)
[2019-08-24] MEDS ORDERED: ATORVASTATIN CA 40 MG TABLET (FP) PO SCH (22:00)
[2019-08-25] MEDS: ALBUTEROL SO4 2.5/IPRATROPIUM 0.5 INH SOL 3 ML VIAL.NEB. NEB SCH ×4 (00:30→11:02)
[2019-08-25 06:30] LABS: BASO % 0.3 % (0-2.0); EOS % 0.8 % (0-4.5); HEMATOCRIT 39.2 % (35.4-49); HEMOGLOBIN 13.4 GM/dL (11.7-16.9); LYMPH % 23.9 % (8-40); MCH 31.9 pg (25.7-33.7); MCHC 34.2 g/dl (32.0-35.9); MEAN CELL VOLUME 93.3 fl (80-96); MEAN PLT VOLUME 7.1 fl (7.5-11.1); MONO % 8.4 % (3.8-10.2); NEUT % 66.6 % (42.8-82.8); PLATELET COUNT 160 K/MM3 (134-434); RBC 4.21 M/mm3 (4.00-5.60); RDW 12.8 % (11.9-15.9); WHITE BLOOD COUNT 7.1 K/mm3 (4.0-10.0)
[2019-08-25 06:58] LABS: ALBUMIN 3.4 g/dl (3.4-5.0); BILIRUBIN,TOTAL 0.4 mg/dL (0.2-1); BLOOD UREA NITROGEN 18.6 mg/dL (7-18); CALCIUM 8.5 mg/dL (8.5-10.1); CREATININE 0.6 mg/dL (0.55-1.3); MAGNESIUM 2.3 mg/dL (1.8-2.4); PHOSPHOROUS 3.2 mg/dL (2.5-4.9); POTASSIUM 3.3 mmol/L (3.5-5.1); TOT PROT 6.6 g/dl (6.4-8.2)
[2019-08-25] MEDS ORDERED: POTASSIUM CHLORIDE TABS 20 MEQ TABLET.ER (FP) PO ONE (08:30)
[2019-08-25 09:27] VITALS: BP 128/79; TEMP 98
--- NOTE | 2019-08-25 09:53 | PN ---
Progress Note, Physician Chief Complaint: sob History of Present Illness: urinating copiously here. no more sob at all--incl walking in halls no swelling no cp, palpit - Current Medication List Current Medications: Active Medications Albuterol/Ipratropium (Duoneb -) 1 amp NEB RQ4H [facility] Last Admin: 08/25/19 07:20 Dose: 1 amp Atorvastatin Calcium (Lipitor -) 40 mg PO HS [facility] Last Admin: 08/24/19 21:10 Dose: 40 mg Carvedilol (Coreg -) 6.25 mg PO BID [facility] Last Admin: 08/24/19 21:10 Dose: 6.25 mg Enoxaparin Sodium (Lovenox -) 40 mg SQ DAILY [facility] Last Admin: 08/24/19 09:48 Dose: 40 mg Furosemide (Lasix Injection -) 40 mg IVPUSH DAILY [facility] Lisinopril (Prinivil) 10 mg PO DAILY [facility] Last Admin: 08/24/19 09:44 Dose: 10 mg Nicotine (Nicoderm Patch -) 14 mg TD DAILY [facility] Last Admin: 08/24/19 09:48 Dose: 14 mg Spironolactone (Aldactone -) 25 mg PO DAILY [facility] Last Admin: 08/24/19 09:44 Dose: 25 mg - Objective Vital Signs: Vital Signs Temperature 98 F 08/25/19 09:00 Pulse Rate 70 08/25/19 09:00 Respiratory Rate 20 08/25/19 09:00 Blood Pressure 128/79 08/25/19 09:00 O2 Sat by Pulse Oximetry (%) 95 08/24/19 20:08 Constitutional: Yes: Well Nourished, No Distress, Calm Cardiovascular: Yes: Regular Rate and Rhythm, S1, S2. No: JVD, Gallop, Murmur Respiratory: Yes: Regular, CTA Bilaterally. No: Accessory Muscle Use, Rales, Wheezes Extremities: No: Cold Edema: No Neurological: Yes: Alert, Oriented Psychiatric: No: Agitated Labs: CBC, BMP 08/25/19 05:50 08/25/19 05:50 INR, PTT INR 1.14 (0.83-1.09) H 08/23/19 18:45 Assessment/Plan echo 04/2016: mild-mod dec lvef mibi 04/2016: apical/inferior infarct, no ischemia, lvef sev reduced cxr: bibasilar infiltrates suspicious for PNA tele: sr a/p: 64 m hx nicm (non obs cad on cath 2012), syst chf, hld, smoking, copd, hcv , here with sob. sob, acute syst chf: -mild vol overload 2/2 noncompliance with diuretic -BNP 1800 (range 800-5K) -SOB completely resolved on lasix 40 iv daily, labs stable -check updated echo -cont callie, bb, aldactone -if echo today no signif change, pt is ok for discharge presently, on lasix 40 qd--to f/u with us in office hld: -cont statin abnl ecg: -pt with chronic ant/lat twis, ecg today with more pronounced twis, no st changes. possibly due to chf. no ACS sx's, trop negx2--no ischemia eval warranted, for outpt f/u tob use: -smoking cessation discussed
[2019-08-25] MEDS ORDERED: FUROSEMIDE 40 MG/4 ML INJECTABLE VIAL IVPUSH SCH (10:00)
[2019-08-25] MEDS: CARVEDILOL 6.25 MG TABLET (FP) PO SCH (10:25)
[2019-08-25] MEDS: NICOTINE 14 MG/24 HOURS TOPICAL PATCH TD SCH (10:25)
[2019-08-25] MEDS: LISINOPRIL 10 MG TABLET (FP) PO SCH (10:25)
[2019-08-25] MEDS: SPIRONOLACTONE 25 MG TABLET (FP) PO SCH (10:26)
[2019-08-25] MEDS: ENOXAPARIN NA (PORCINE) 40 MG/0.4 ML DISP.SYRIN SQ SCH ×2 (10:26→10:35)
--- NOTE | 2019-08-25 10:26 | PN ---
Teaching Attending Note Name of Resident: Kaiser Hernandez ATTENDING PHYSICIAN STATEMENT I saw and evaluated the patient. I reviewed the resident's note and discussed the case with the resident. I agree with the resident's findings and plan as documented with exceptions below. SUBJECTIVE: Patient seen and examined. breathing improved, no new complaints. OBJECTIVE: Vital Signs Period Temp Pulse Resp BP Sys/Soliz Pulse Ox Last 24 Hr 97.8 F-98.5 F 66-84 20-20 107-128/52-79 95 Intake & Output 08/22/19 08/23/19 08/24/19 08/25/19 23:59 23:59 23:59 23:59 Intake Total 670 10 Output Total 200 Balance 670 -190 Weight 120 lb 124 lb 124 lb 12.8 oz General: sitting in bed neck: soft, supple, neck vein distension Chest: few basilar rales, R>L Abdomen:Soft, NT Extremities: no pedal edema Home Medications Medication Instructions Recorded Albuterol 0.083% Nebulizer Mildred 1 neb NEB Q6H PRN #90 vial 04/19/16 [Ventolin 0.083% Nebulizer Soln -] Aspirin Coated [Ecotrin -] 81 mg PO DAILY tablet.ec 04/20/16 Spironolactone [Aldactone -] 25 mg PO DAILY tablet 04/20/16 Albuterol Sulfate Inhaler - 2 inh PO Q4H PRN 10/11/16 [Ventolin HFA Inhaler -] Atorvastatin Calcium 40 mg PO HS 10/11/16 Carvedilol [Coreg -] 6.25 mg PO Q12H 10/11/16 Furosemide [Lasix -] 40 mg PO DAILY 10/11/16 Lisinopril [Prinivil] 10 mg PO DAILY 10/11/16 Paroxetine HCl [Paxil] 40 mg PO DAILY 10/11/16 Potassium Chloride [K-Dur -] 20 meq PO DAILY 10/11/16 Tiotropium [place] [Spiriva] 1 inh PO DAILY 12/24/16 Bupropion HCl [Wellbutrin Xl -] 150 mg PO BID 03/02/17 Pantoprazole Sodium [Protonix -] 40 mg PO DAILY 03/02/17 Active Medications Albuterol/Ipratropium (Duoneb -) 1 amp NEB RQ4H [facility] Last Admin: 08/25/19 07:20 Dose: 1 amp Atorvastatin Calcium (Lipitor -) 40 mg PO HS [facility] Last Admin: 08/24/19 21:10 Dose: 40 mg Carvedilol (Coreg -) 6.25 mg PO BID [facility] Last Admin: 08/24/19 21:10 Dose: 6.25 mg Enoxaparin Sodium (Lovenox -) 40 mg SQ DAILY [facility] Last Admin: 08/24/19 09:48 Dose: 40 mg Furosemide (Lasix Injection -) 40 mg IVPUSH DAILY [facility] Lisinopril (Prinivil) 10 mg PO DAILY [facility] Last Admin: 08/24/19 09:44 Dose: 10 mg Nicotine (Nicoderm Patch -) 14 mg TD DAILY [facility] Last Admin: 08/24/19 09:48 Dose: 14 mg Spironolactone (Aldactone -) 25 mg PO DAILY [facility] Last Admin: 08/24/19 09:44 Dose: 25 mg Laboratory Results - last 24 hr 08/24/19 08/25/19 08/25/19 06:38 05:50 05:50 WBC 7.1 RBC 4.21 Hgb 13.4 Hct 39.2 MCV 93.3 MCH 31.9 MCHC 34.2 RDW 12.8 Plt Count 160 MPV 7.1 L Absolute Neuts (auto) 4.7 Neutrophils % 66.6 Lymphocytes % 23.9 D Monocytes % 8.4 D Eosinophils % 0.8 D Basophils % 0.3 Nucleated RBC % 0 Sodium 136 Potassium 3.2 L Chloride 101 Carbon Dioxide 29 Anion Gap 6 L BUN 11.8 Creatinine 0.7 Est GFR (CKD-EPI)AfAm 114.78 Est GFR (CKD-EPI)NonAf 99.03 Random Glucose 203 H Hemoglobin A1c % Calcium 8.7 Phosphorus 3.3 Magnesium 2.6 H Total Bilirubin AST ALT Alkaline Phosphatase Troponin I < 0.02 Total Protein Albumin Triglycerides 77 Cholesterol 138 Total LDL Cholesterol 82 HDL Cholesterol 42 Vitamin B12 492 Serum Folate 17 TSH 0.15 L D Free T4 1.15 RPR Titer Nonreactive 08/25/19 08/25/19 05:50 05:50 WBC RBC Hgb Hct MCV MCH MCHC RDW Plt Count MPV Absolute Neuts (auto) Neutrophils % Lymphocytes % Monocytes % Eosinophils % Basophils % Nucleated RBC % Sodium 139 Potassium 3.3 L Chloride 104 Carbon Dioxide 30 Anion Gap 5 L BUN 18.6 H Creatinine 0.6 Est GFR (CKD-EPI)AfAm 122.29 Est GFR (CKD-EPI)NonAf 105.51 Random Glucose 103 Hemoglobin A1c % 5.6 Calcium 8.5 Phosphorus 3.2 Magnesium 2.3 Total Bilirubin 0.4 AST 22 ALT 27 Alkaline Phosphatase 69 Troponin I Total Protein 6.6 Albumin 3.4 Triglycerides Cholesterol Total LDL Cholesterol HDL Cholesterol Vitamin B12 Serum Folate TSH Free T4 RPR Titer Telemetry: artefact, limited but no acute events ASSESSMENT AND PLAN: 64 yom PMHx of HTN, HLD, nonischemic CM, HFrEF(04/19/16, LVEF 42.5%, dil LV), COPD, HepC(dx 20-30yrs prior, did not complete antiretroviral tx), polysubstance use disorder(tobacco, xanax, percocet), last in detox 02/2017, active smoker, admitted with dyspnea and intermittent dizziness. -Acute on chronic systolic heart failure exacerbation, suspect from medication/ dietary non compliance -URI with mild COPD exacerbation -Polysubstance abuse (tobacco/Ecstasy), prior xanax/percocet -Non ischemic cardiomyopathy -COPD/nicotine dependence -HTN -HLD -Hepatitis C, s/p reported incomplete treatment Plan: Volume status stable. Lasix 40 mg IV daily with monitoring of volume status. Follow up 2d echo, cardiology input. Continue coreg/aldactone/statin. K suppl prn. Reconcile home meds. Patient reports dizziness, more like 'spinning sensation' about once daily, non positional. Could be from ongoing drug use (+ Ecstasy), telemtry to assess for arrythmia. Trial of meclizine if recurrent symptoms inhouse. Presentation not suspicious for neuological etiology, Carotid duplex noted. Will hold off on additional neurological testing for now unless new concerns. Drug cessation counseling provided. Detox consult if patient willing when symptoms improve. Nicotine patch. DVTPPX Lovenox Dispo pending clinical improvement, in 24hours on PO lasix pending above Discussed with patient.
[2019-08-25 11:04] VITALS: PULSE 74
--- NOTE | 2019-08-25 11:44 | ECHO ---
Name: VITALIY WARD Exam:Adult Echocardiogram Study Date: 08/25/2019 09:12 AM Age: 64 yrs Height: 65 in Weight: 120 lb BSA: 1.6 m2 MMode/2D Measurements & Calculations IVSd: 0.96 cm Ao root diam: 4.0 cm LVIDd: 4.6 cm LA dimension: 2.9 cm LVIDs: 3.4 cm LVPWd: 1.2 cm LVPWs: 1.6 cm EDV(Teich): 95.9 ml ESV(Teich): 47.7 ml LVOT diam: 2.2 cm RV S Judah: 12.2 cm/sec Doppler Measurements & Calculations MV E max judah: 39.0 cm/sec Ao V2 max: 107.3 cm/sec MV A max judah: 93.8 cm/sec Ao max P.7 mmHg MV E/A: 0.42 AI P1/2t: 545.5 msec MV dec time: 0.13 sec MISAEL(V,D): 2.5 cm2 AI max judah: 358.2 cm/sec LV V1 max P.0 mmHg AI max P.3 mmHg LV V1 max: 70.3 cm/sec AI dec slope: 192.3 cm/sec2 PA V2 max: 68.2 cm/sec Med Peak E' Judha: 5.9 cm/sec PA max P.9 mmHg Med E/e': 6.6 Lat Peak E' Judah: 5.3 cm/sec Lat E/e': 7.4 Procedure A complete two-dimensional transthoracic echocardiogram was performed (2D, M-mode, Doppler and color flow Doppler). Left Ventricle The left ventricle is normal in size. Left ventricular systolic function is low normal. Ejection Frac tion = 50-55%. Grade I diastolic dysfunction, (abnormal relaxation pattern). Ratio E/E'= 6. No regional wall motion abnormalities noted. Right Ventricle The right ventricle is normal size. The right ventricular systolic function is normal. RV systolic TD I is 12 cm/s. Atria The left atrial size is normal. Right atrial size is normal. Mitral Valve There is mild mitral annular calcification. There is no mitral regurgitation noted. Tricuspid Valve The tricuspid valve is normal in structure and function. There is mild tricuspid regurgitation. Aortic Valve There is mild aortic sclerosis.;. Mild aortic regurgitation. Pulmonic Valve The pulmonic valve is not well visualized. Great Vessels Moderate aortic root dilatation. Borderline mildly dilated ascending thoracic aorta (3.6 mc). Pericardium/Pleura There is no pericardial effusion. Interpretation Summary The left ventricle is normal in size. Left ventricular systolic function is low normal. No regional wall motion abnormalities noted. Ejection Fraction = 50-55%. Grade I diastolic dysfunction, (abnormal relaxation pattern). Ratio E/E'= 6 The right ventricular systolic function is normal. The left atrial size is normal. Right atrial size is normal. There is mild mitral annular calcification. There is mild tricuspid regurgitation. There is mild aortic sclerosis.; Mild aortic regurgitation. Moderate aortic root dilatation. Borderline mildly dilated ascending thoracic aorta (3.6 mc) There is no pericardial effusion. Uziel Arias MD 08/25/2019 11:43 AM
--- NOTE | 2019-08-25 12:25 | PN ---
Physical Exam: SUBJECTIVE: Patient seen and examined OBJECTIVE: Vital Signs Period Temp Pulse Resp BP Sys/Soliz Pulse Ox Last 24 Hr 97.8 F-98.5 F 66-84 20-20 107-128/52-79 92-95 GENERAL: lethargic-appearing, oriented x3, NAD. HEAD: NC/AT. No scalp hematomas. Moderate temporal wasting EYES: extraocular movements intact, sclera anicteric, conjunctiva clear EARS, NOSE, THROAT: Ears normal, nares patent. Moist mucous membranes. NECK: Normal range of motion, supple without lymphadenopathy, JVD, or masses. LUNGS: Breath sounds equal, clear to auscultation bilaterally. No wheezes, and no crackles. No accessory muscle use. Breathing RA. Speaking full sentences HEART: Regular rate and rhythm, normal S1 and S2 without murmur, rub or gallop. ABDOMEN: LLQ with 2-3cm ecchymosis w/ mild TTP. No surgical scars. Soft, nontender, not distended, no guarding, no rebound, no masses. MUSCULOSKELETAL: Normal range of motion at all joints. No bony deformities or tenderness. No CVA tenderness. UPPER EXTREMITIES: 2+ pulses, warm, well-perfused. No cyanosis. Mild finger clubbing. No peripheral edema. Thin arms, no elbow abrasions LOWER EXTREMITIES: 2+ pulses, warm, well-perfused. No calf tenderness. No peripheral edema. Thin legs. NEUROLOGICAL: Normal speech. Normal gait. SKIN: Warm, dry, normal turgor Laboratory Results - last 24 hr 08/24/19 08/25/19 08/25/19 06:38 05:50 05:50 WBC 7.1 RBC 4.21 Hgb 13.4 Hct 39.2 MCV 93.3 MCH 31.9 MCHC 34.2 RDW 12.8 Plt Count 160 MPV 7.1 L Absolute Neuts (auto) 4.7 Neutrophils % 66.6 Lymphocytes % 23.9 D Monocytes % 8.4 D Eosinophils % 0.8 D Basophils % 0.3 Nucleated RBC % 0 Sodium 136 Potassium 3.2 L Chloride 101 Carbon Dioxide 29 Anion Gap 6 L BUN 11.8 Creatinine 0.7 Est GFR (CKD-EPI)AfAm 114.78 Est GFR (CKD-EPI)NonAf 99.03 Random Glucose 203 H Hemoglobin A1c % Calcium 8.7 Phosphorus 3.3 Magnesium 2.6 H Total Bilirubin AST ALT Alkaline Phosphatase Troponin I < 0.02 Total Protein Albumin Triglycerides 77 Cholesterol 138 Total LDL Cholesterol 82 HDL Cholesterol 42 Vitamin B12 492 Serum Folate 17 TSH 0.15 L D Free T4 1.15 RPR Titer Nonreactive 08/25/19 08/25/19 05:50 05:50 WBC RBC Hgb Hct MCV MCH MCHC RDW Plt Count MPV Absolute Neuts (auto) Neutrophils % Lymphocytes % Monocytes % Eosinophils % Basophils % Nucleated RBC % Sodium 139 Potassium 3.3 L Chloride 104 Carbon Dioxide 30 Anion Gap 5 L BUN 18.6 H Creatinine 0.6 Est GFR (CKD-EPI)AfAm 122.29 Est GFR (CKD-EPI)NonAf 105.51 Random Glucose 103 Hemoglobin A1c % 5.6 Calcium 8.5 Phosphorus 3.2 Magnesium 2.3 Total Bilirubin 0.4 AST 22 ALT 27 Alkaline Phosphatase 69 Troponin I Total Protein 6.6 Albumin 3.4 Triglycerides Cholesterol Total LDL Cholesterol HDL Cholesterol Vitamin B12 Serum Folate TSH Free T4 RPR Titer Active Medications Generic Name Dose Route Start Last Admin Trade Name Freq PRN Reason Stop Dose Admin Albuterol/Ipratropium 1 amp 08/24/19 07:29 08/25/19 11:02 Duoneb - NEB 1 amp RQ4H [facility] Administration Atorvastatin Calcium 40 mg 08/24/19 22:00 08/24/19 21:10 Lipitor - PO 40 mg HS [facility] Administration Carvedilol 6.25 mg 08/24/19 10:00 08/25/19 10:25 Coreg - PO 6.25 mg BID [facility] Administration Enoxaparin Sodium 40 mg 08/24/19 10:00 08/25/19 10:35 Lovenox - SQ Not Given DAILY [facility] Furosemide 40 mg 08/25/19 10:00 08/25/19 10:25 Lasix Injection - IVPUSH 40 mg DAILY [facility] Administration Lisinopril 10 mg 08/24/19 10:00 08/25/19 10:25 Prinivil PO 10 mg DAILY [facility] Administration Nicotine 14 mg 08/24/19 01:22 08/25/19 10:25 Nicoderm Patch - TD 14 mg DAILY [facility] Administration Spironolactone 25 mg 08/24/19 10:00 08/25/19 10:26 Aldactone - PO 25 mg DAILY [facility] Administration ASSESSMENT/PLAN: 64M w/ pmh of HTN, HLD, nonischemic CM, HFrEF(04/19/16, LVEF 42.5%, dil LV), COPD , HepC(dx 20-30ys prior, did not complete antiretroviral tx), polysubstance use disorder(tobacco, percocet, xanax) presenting w/ SOB, noncompliance with home lasix, h/o ?syncopal falls at home. Admitted to tele for CHFe. Labwork significant for BNP 1,838. CXR showing possible increased vascular markings. CTH neg for intracranial path. Carotid duplex neg for high-grade stenosis. Falls thouhgt likely 2/2 to drug use. Patient was inconsistent in reporting his drug usage(percocet, xanax, ecstasy). Symptomatically improved breathing after IV lasix. Cardiology recommended echo. Echo showing LVEF 50-55%, Grade I diastolic dysfunction, mod aortic root dilatation, mildly dilated ascending thoracic aorta(3.6cm). TSH ~0.15, T4 1.15. Pre- and post- showing 92% saturation on RA with activity. # acute on chronic HFrEF exacerbation --likely 2/2 medication noncompliance + lifestyle noncompliance # nonischemic Cardiomyopathy > Echo(04/29/16): LVEF 42.4%, dilated LV > EKG(08/23/19): NSR, TWI in V3-V4; QTc 489 > Echo(08/25/19): LVF 50-55%, mod aortic root dilation, descending thoracic aorta(3.6cm) - s/p ED: lasix 40mg IVP x1 - diuresis: lasix 40mg IVP QD - cw home spironolactone, lisinopril, carvedilol, atorvastatin, ASA --pending med rec - cardio consult(Maddy) --rec echo - daily weights - I/Os # ?syncope > CTH(08/23/19): prelim read::neg for acute path --fu final read > UA(08/24/19): 1+ blood, neg LE, neg nitrie > Utox --posit MDMA > carotid duplex --neg for high-grade stenosis > B12 -- 492(norm) > Folate --17(norm) > RPR --nonreacive - fall precautions - neurochecks - consider Neuro consult - consider Brain-Neck MRI/MRA # chronic COPD - cw home - chief counsel on smoking cessation # HLD > lipid panel: --total chol 138 --HDL 42 - cw home atorvastatin --pending med rec # Hep C --untreated # risk of HCC > AST/ALT - consider RUQ U/S as per NCCN guidelines for HCC screening - consider GI fu as outpt # polysubstance(tobacco, perocet) use disorder > COWS 1(irritable) > Utox --pending - nicotine patch - chief counsel on substance use disorder - consider outpt rehab #FEN - sodium-controlled diet - replete lytes PRN #DVT PPX - lovenox #Dispo - tele mointor - dc plan -- home w/o needs Visit type - Emergency Visit Emergency Visit: No - New Patient This patient is new to me today: No - Critical Care Critical Care patient: No ATTENDING PHYSICIAN STATEMENT I saw and evaluated the patient. I reviewed the resident's note and discussed the case with the resident. I agree with the resident's findings and plan as documented. SUBJECTIVE: OBJECTIVE: ASSESSMENT AND PLAN:
--- NOTE | 2019-08-25 12:49 | DS ---
Physical Exam: SUBJECTIVE: Patient seen and examined OBJECTIVE: Vital Signs Period Temp Pulse Resp BP Sys/Soliz Pulse Ox Last 24 Hr 97.8 F-98.5 F 66-84 20-20 107-128/52-79 92-95 PHYSICAL EXAM GENERAL: lethargic-appearing, oriented x3, NAD. HEAD: NC/AT. No scalp hematomas. Moderate temporal wasting EYES: extraocular movements intact, sclera anicteric, conjunctiva clear EARS, NOSE, THROAT: Ears normal, nares patent. Moist mucous membranes. NECK: Normal range of motion, supple without lymphadenopathy, JVD, or masses. LUNGS: Breath sounds equal, clear to auscultation bilaterally. No wheezes, and no crackles. No accessory muscle use. Breathing RA. Speaking full sentences HEART: Regular rate and rhythm, normal S1 and S2 without murmur, rub or gallop. ABDOMEN: LLQ with 2-3cm ecchymosis w/ mild TTP. No surgical scars. Soft, nontender, not distended, no guarding, no rebound, no masses. MUSCULOSKELETAL: Normal range of motion at all joints. No bony deformities or tenderness. No CVA tenderness. UPPER EXTREMITIES: 2+ pulses, warm, well-perfused. No cyanosis. Mild finger clubbing. No peripheral edema. Thin arms, no elbow abrasions LOWER EXTREMITIES: 2+ pulses, warm, well-perfused. No calf tenderness. No peripheral edema. Thin legs. NEUROLOGICAL: Normal speech. Normal gait. SKIN: Warm, dry, normal turgor LABS Laboratory Results - last 24 hr 08/24/19 08/25/19 08/25/19 06:38 05:50 05:50 WBC 7.1 RBC 4.21 Hgb 13.4 Hct 39.2 MCV 93.3 MCH 31.9 MCHC 34.2 RDW 12.8 Plt Count 160 MPV 7.1 L Absolute Neuts (auto) 4.7 Neutrophils % 66.6 Lymphocytes % 23.9 D Monocytes % 8.4 D Eosinophils % 0.8 D Basophils % 0.3 Nucleated RBC % 0 Sodium Potassium Chloride Carbon Dioxide Anion Gap BUN Creatinine Est GFR (CKD-EPI)AfAm Est GFR (CKD-EPI)NonAf Random Glucose Hemoglobin A1c % Calcium Phosphorus Magnesium Total Bilirubin AST ALT Alkaline Phosphatase Troponin I < 0.02 Total Protein Albumin Free T4 1.15 RPR Titer Nonreactive 08/25/19 08/25/19 05:50 05:50 WBC RBC Hgb Hct MCV MCH MCHC RDW Plt Count MPV Absolute Neuts (auto) Neutrophils % Lymphocytes % Monocytes % Eosinophils % Basophils % Nucleated RBC % Sodium 139 Potassium 3.3 L Chloride 104 Carbon Dioxide 30 Anion Gap 5 L BUN 18.6 H Creatinine 0.6 Est GFR (CKD-EPI)AfAm 122.29 Est GFR (CKD-EPI)NonAf 105.51 Random Glucose 103 Hemoglobin A1c % 5.6 Calcium 8.5 Phosphorus 3.2 Magnesium 2.3 Total Bilirubin 0.4 AST 22 ALT 27 Alkaline Phosphatase 69 Troponin I Total Protein 6.6 Albumin 3.4 Free T4 RPR Titer HOSPITAL COURSE: 64M w/ pmh of HTN, HLD, nonischemic CM, HFrEF(04/19/16, LVEF 42.5%, dil LV), COPD , HepC(dx 20-30ys prior, did not complete antiretroviral tx), polysubstance use disorder(tobacco, percocet, xanax) presenting w/ SOB, noncompliance with home lasix, h/o ?syncopal falls at home. Admitted to tele for CHFe. Labwork significant for BNP 1,838. CXR showing possible increased vascular markings. CTH neg for intracranial path. Carotid duplex neg for high-grade stenosis. Falls thouhgt likely 2/2 to drug use. Patient was inconsistent in reporting his drug usage(percocet, xanax, ecstasy). Symptomatically improved breathing after IV lasix. Cardiology recommended echo. Echo showing LVEF 50-55%, Grade I diastolic dysfunction, mod aortic root dilatation, mildly dilated ascending thoracic aorta(3.6cm). TSH ~0.15, T4 1.15. Pre- and post- showing 92% saturation on RA with activity. Date of Admission:08/24/19 Date of Discharge: 08/25/19 Minutes to complete discharge: 20 Discharge Summary Problems reviewed: Yes Reason For Visit: ACUTE ON CHRONIC CONGESTIVE HEART FAILURE, CHRONIC Current Active Problems Dyspnea (Acute) Condition: Stable - Instructions Diet, Activity, Other Instructions: You were evaluated in the hospital for shortness of breath, and trouble breathing. Your breathing improved after receiving medication to urinate out excessive fluids accumulated in your body. Your breathing improved. A pet walker recommended an echocardiogram. Your heart has a slightly weak contraction. Medications: - no new medications: - continue with your previously prescribed home medications Please follow-up with the physicians below: - PCP(Dr Gopal Vásquez): to discuss your recent hospitalization, repeat labwork(TSH , to check your thyroid function; BMP, to check your electrolytes and kidney function); discuss your mildly dilated ascending thoracic aorta(3.6cm) - Cardiologis(Dr Gopal Nguyen): to discuss your heart failure medications Additional Instructions: - diet: adhere to a low-salt diet, drink less than 2L of fluids daily - activity: normal activity as tolerated - substances: please avoid illicit substances(eg. opioids, ecstasy, etc) - monitor your daily weight, if you gain more than 3lbs in one day you maybe need adjustments in your medications Please seek immediate medical care or go to the Emergency Department if you experience: - increased trouble breathing, persistent swelling of the legs or arms - confusion, falls Referrals: Gopal Vásquez MD [Primary Care Provider] - Disposition: HOME - Home Medications Comprehensive Discharge Medication List: Ambulatory Orders Albuterol Sulfate Inhaler - [Ventolin HFA Inhaler -] 2 inh PO Q4H PRN 10/11/16 Atorvastatin Calcium 40 mg PO HS 10/11/16 Carvedilol [Coreg -] 6.25 mg PO Q12H 10/11/16 Furosemide [Lasix -] 40 mg PO DAILY 10/11/16 Paroxetine HCl [Paxil] 40 mg PO DAILY 10/11/16 Bupropion HCl [Wellbutrin Xl -] 150 mg PO BID 03/02/17 Pantoprazole Sodium [Protonix -] 40 mg PO DAILY 03/02/17 Salmeterol/Fluticasone [Advair 100Mcg/50Mcg -] 1 inh PO BID 08/25/19 This patient is new to me today: No Emergency Visit: No Critical Care patient: No - Discharge Referral Referred to [facility] No ATTENDING PHYSICIAN STATEMENT I saw and evaluated the patient. I reviewed the resident's note and discussed the case with the resident. I agree with the resident's findings and plan as documented. SUBJECTIVE: OBJECTIVE: ASSESSMENT AND PLAN:
== END 2019-08-25 13:26 | disposition home or self-care (01) | DRG 292 ==
LOC: JER 17:23 → JERBED 22:20 → OBSVTOIN 08-24 00:31 → J4W 08-24 02:19
PROVIDERS: ADMIT Internal Medicine; ATTEND Hospitalist
DX: I11.0 Hypertensive heart disease with heart failure (principal); J44.1 Chronic obstructive pulmonary disease with (acute) exacerbation; F19.20 Other psychoactive substance dependence, uncomplicated; I42.8 Other cardiomyopathies; I50.23 Acute on chronic systolic (congestive) heart failure; B19.20 Unspecified viral hepatitis C without hepatic coma; J06.9 Acute upper respiratory infection, unspecified; F17.210 Nicotine dependence, cigarettes, uncomplicated; I25.10 Atherosclerotic heart disease of native coronary artery without angina pectoris; E78.5 Hyperlipidemia, unspecified; F41.0 Panic disorder [episodic paroxysmal anxiety]; R94.31 Abnormal electrocardiogram [ECG] [EKG]; Z91.14 Patient's other noncompliance with medication regimen
CPT/HCPCS: 36415; 70450-TC; 71045-TC-FY; 80048; 80053; 80061; 80307; 81003; 82140; 82550; 82553; 82607; 82746; 82803; 82962; 83036; 83690; 83721; 83735; 83880; 84100; 84439; 84443; 84484; 85025; 85610; 85730; 86593; 93005; 93010; 93306-TC; 93880-TC; 94640; 94761; 97116-GP; 97161-GP; 99285-25; G0378

== ENCOUNTER 2019-09-23 04:46 | Emergency (ER) | payer OTHER ==
[2019-09-23 05:02] VITALS: TEMP 98.3; BMI 21.4
--- NOTE | 2019-09-23 05:02 | PDOC ---
History of Present Illness - General Chief Complaint: Shortness of Breath Stated Complaint: DIFF BREATHING Time Seen by Provider: 09/23/19 05:02 History Source: Patient Exam Limitations: No Limitations - History of Present Illness Initial Comments: 09/23/19 05:03 64M w/ pmh of HTN, HLD, nonischemic cardiomyopathy, HFrEF, COPD (baseline breathing RA), HepC, polysubstance use disorder(tobacco, percocet) presenting w dyspnea. Started last night at rest, associated nausea. Feels like he cannot take in deep breaths. Worse lying down. Tried albuterol without relief. Denies alcohol/illicit drug use. Current 2 pack/d smoker. Seen monthly in ED for SOB d/ t CHF or COPD exacerbation. Denies fever, headache, cough, vomiting, chest pain/ tightness, AB pain, extremity swelling Past History - Past Medical History Allergies/Adverse Reactions: Allergies Allergy/AdvReac Type Severity Reaction Status Date / Time No Known Allergies Allergy Verified 09/23/19 05:01 Home Medications: Ambulatory Orders Albuterol Sulfate Inhaler - [Ventolin HFA Inhaler -] 2 inh PO Q4H PRN 10/11/16 Atorvastatin Calcium 40 mg PO HS 10/11/16 Carvedilol [Coreg -] 6.25 mg PO Q12H 10/11/16 Paroxetine HCl [Paxil] 40 mg PO DAILY 10/11/16 Bupropion HCl [Wellbutrin Xl -] 150 mg PO BID 03/02/17 Pantoprazole Sodium [Protonix -] 40 mg PO DAILY 03/02/17 Salmeterol/Fluticasone [Advair 100Mcg/50Mcg -] 1 inh PO BID 08/25/19 Atorvastatin Ca [Lipitor] 40 mg PO HS 09/23/19 Cyproheptadine [Periactin -] 4 mg PO BID 09/23/19 Furosemide [Lasix -] 40 mg PO DAILY 09/23/19 Lisinopril 30 mg PO DAILY 09/23/19 Spironolactone [Aldactone] 25 mg PO DAILY 09/23/19 predniSONE [Deltasone -] 40 mg PO DAILY 4 Days #4 tablet 09/23/19 Anemia: No Asthma: Yes Cancer: No Cardiac Disorders: Yes (CHF) CVA: No COPD: Yes (Emphysema) CHF: Yes Dementia: No Diabetes: No GI Disorders: Yes (acid reflux) Disorders: No HTN: Yes Hypercholesterolemia: No Kidney Stones: No Liver Disease: Yes (hep c; Treatment in past, did not complete due to side effects.) Psychiatric Problems: Yes (severe anxiety and panic attacks,BI POLAR) Seizures: No Thyroid Disease: No - Surgical History Abdominal Surgery: No Appendectomy: No Cardiac Surgery: No Cholecystectomy: No Lung Surgery: No Neurologic Surgery: No Orthopedic Surgery: No - Reproductive History Testicular Surgery: No - Immunization History Immunization Up to Date: Yes - Psycho Social/Smoking Cessation Hx Smoking Status: Yes Smoking History: Current every day smoker Have you smoked in the past 12 months: Yes Number of Cigarettes Smoked Daily: 12 Cigars Per Day: 0 Information on smoking cessation initiated: No 'Breaking Loose' booklet given: 03/02/17 (GIVEN ON UNIT.) Hx Alcohol Use: No Drug/Substance Use Hx: No Substance Use Type: Opiates, Tranquilizers Hx Substance Use Treatment: Yes (Previous Detox admissions at [facility] Review of Systems - Review of Systems Constitutional: No: Chills, Fever HEENTM: No: Eye Pain, Recent change in vision, Nose Congestion, Tinnitus Respiratory: Yes: Shortness of Breath. No: Cough Cardiac (ROS): No: Chest Pain, Palpitations, Syncope ABD/GI: Yes: Nausea. No: Abdominal Distended, Constipated, Diarrhea, Vomiting : No: Burning, Dysuria, Frequency Musculoskeletal: No: Back Pain, Muscle Pain Integumentary: No: Bruising, Dryness, Erythema Neurological: No: Headache, Seizure, Tingling Psychiatric: No: Anxiety, Depression Endocrine: No: Excessive Sweating, Flushing, Intolerance to Cold, Intolerance to Heat Hematologic/Lymphatic: No: Anemia, Blood Clots *Physical Exam - Vital Signs Last Vital Signs Temp Pulse Resp BP Pulse Ox 98.3 F 70 18 154/86 96 09/23/19 05:00 09/23/19 05:00 09/23/19 05:00 09/23/19 05:00 09/23/19 05:00 - Physical Exam General Appearance: Yes: Nourished, Appropriately Dressed, Mild Distress ( sitting up in tripod position) HEENT: positive: EOMI, NAI, Normal Voice, Hearing Grossly Normal, Other (red tongue, arcus senilis). negative: Scleral Icterus (R), Scleral Icterus (L), Nasal Congestion, Rhinorrhea Respiratory/Chest: positive: Lungs Clear, Normal Breath Sounds, Accessory Muscle Use, Labored Respiration. negative: Chest Tender, Crackles, Rales, Rhonchi, Stridor, Wheezing Cardiovascular: positive: Regular Rhythm, Regular Rate, S1, S2. negative: Edema , Murmur Gastrointestinal/Abdominal: positive: Normal Bowel Sounds, Flat, Soft. negative : Tender, Organomegaly, Distended, Guarding, Rebound, Tenderness, Hernia, Mass Extremity: negative: Swelling Integumentary: positive: Normal Color Neurologic: positive: otolaryngologist II-XII NML intact, Fully Oriented, Alert, Normal Response, Responsive. negative: Numbness, Sensory Deficit, Confused, Disoriented ED Treatment Course - LABORATORY CBC & Chemistry Diagram: 09/23/19 05:38 09/23/19 05:38 Medical Decision Making - Medical Decision Making 09/23/19 05:25 CBC CMP trop BNP EKG shows NSR, inverted T waves V2-5, HR 65, QTc 499, unchanged since 08/24/19 CXR shows clear lung gastelum, poor inspiratory effort duonebx1, decadron, zofran for nausea CBC, CMP normal --- 64M w/ pmh of HTN, HLD, nonischemic cardiomyopathy, HFrEF, COPD (baseline breathing RA), HepC, polysubstance use disorder(tobacco, percocet) presenting w dyspnea d/t COPD exacerbation. O2sat wnl on RA. Low concern for ACS (no chest pain, unchanged EKG, neg trop) vs PNA (clear lung sounds) vs CHF exacerbation ( no edema, BNP chronically elevated). Given duonebx1, decadron with breathing improvement, zofran for nausea . Placed on cardiac monitoring after noted prolonged QTc on EKG, pt denies nausea/ chest pain/SOB. DC home w PCP f/u and prednisone prescription Discharge - Discharge Information Problems reviewed: Yes Clinical Impression/Diagnosis: Acute exacerbation of chronic obstructive pulmonary disease (COPD) Condition: Improved Disposition: HOME - Admission No - Additional Discharge Information Prescriptions: predniSONE [Deltasone -] 40 mg PO DAILY 4 Days #4 tablet - Follow up/Referral Referrals: Gopal Vásquez MD [Primary Care Provider] - - Patient Discharge Instructions Patient Printed Discharge Instructions: DI for Chronic Obstructive Pulmonary Disease Additional Instructions: You were seen for trouble breathing. Your labs and imaging did not show anything concerning. You were given medication to help your breathing. Please see your primary care doctor regarding your visit. Take the prescribed Prednisone as directed to help your breathing. Try to limit smoking cigarettes. Come back to the ED if you cannot breathe, develop chest pain, or vomit blood. - Post Discharge Activity
--- NOTE | 2019-09-23 05:04 | PDOC ---
Attending Attestation - Resident Resident Name: Gino Hylton - ED Attending Attestation I have performed the following: I have examined & evaluated the patient, The case was reviewed & discussed with the resident, I agree w/resident's findings & plan - HPI HPI: 09/23/19 06:42 see resident hpi - Physicial Exam PE: 09/23/19 06:44 agree with resident exam - Medical Decision Making 09/23/19 06:45 64-year-old male with shortness of breath, history of emphysema as well as CHF Chest x-ray shows no significant change from previous with mild cephalization Patient given duo nebs, Zofran and Decadron with some improvement He was advised to stay for observation due to abnormal EKG though grossly unchanged from previous as well as increased BNP and clinical presentation on arrival He has refused admission and will be leaving against our recommendations, unfortunately patient left prior to signing actual AMA form
[2019-09-23] MEDS ORDERED: ALBUTEROL SO4 2.5/IPRATROPIUM 0.5 INH SOL 3 ML VIAL.NEB. NEB ONE ×2 (05:16→05:35)
[2019-09-23] MEDS ORDERED: ONDANSETRON *ODT* 4 MG TABLET SL ONE (05:17)
[2019-09-23] MEDS ORDERED: ONDANSETRON *ODT* 4 MG TABLET ONE (05:35)
[2019-09-23 05:45] LABS: BASO % 0.8 % (0-2.0); EOS % 1.4 % (0-4.5); HEMATOCRIT 37.5 % (35.4-49); HEMOGLOBIN 12.7 GM/dL (11.7-16.9); LYMPH % 19.7 % (8-40); MCH 31.9 pg (25.7-33.7); MCHC 33.9 g/dl (32.0-35.9); MEAN PLT VOLUME 7.2 fl (7.5-11.1); NEUT % 69.1 % (42.8-82.8); PLATELET COUNT 149 K/MM3 (134-434); RBC 3.99 M/mm3 (4.00-5.60); WHITE BLOOD COUNT 5.5 K/mm3 (4.0-10.0)
[2019-09-23] MEDS ORDERED: DEXAMETHASONE 4 MG TABLET (FP) PO ONE (05:54)
[2019-09-23] MEDS ORDERED: DEXAMETHASONE 4 MG TABLET (FP) ONE (06:06)
[2019-09-23 06:14] LABS: ALBUMIN 3.6 g/dl (3.4-5.0); BILIRUBIN,TOTAL 0.3 mg/dL (0.2-1); BLOOD UREA NITROGEN 16.7 mg/dL (7-18); CALCIUM 8.2 mg/dL (8.5-10.1); CREATININE 0.7 mg/dL (0.55-1.3); POTASSIUM 3.6 mmol/L (3.5-5.1); TOT PROT 6.8 g/dl (6.4-8.2)
[2019-09-23 06:36] VITALS: BP 150/83; PULSE 83
--- NOTE | 2019-09-23 09:06 | EKG ---
Test Reason : Blood Pressure : / mmHG Vent. Rate : 065 BPM Atrial Rate : 065 BPM P-R Int : 154 ms QRS Dur : 110 ms QT Int : 480 ms P-R-T Axes : 051 047 171 degrees QTc Int : 499 ms NORMAL SINUS RHYTHM POSSIBLE LEFT ATRIAL ENLARGEMENT PROLONGED QT ABNORMAL ECG Confirmed by Elbert Diane MD ([id number]) on 09/23/2019 9:05:49 AM Referred By: Confirmed By:Elbert Diane MD
== END 2019-09-23 06:35 | disposition home or self-care (01) ==
LOC: JER 04:46
PROC: 3E0F7GC Introduction of Other Therapeutic Substance into Respiratory Tract, Via Natural or Artificial Opening (ICD-10-PCS; principal; 2019-09-23)
DX: J44.1 Chronic obstructive pulmonary disease with (acute) exacerbation (principal); F17.210 Nicotine dependence, cigarettes, uncomplicated; I10 Essential (primary) hypertension; E78.5 Hyperlipidemia, unspecified; I42.8 Other cardiomyopathies; B19.20 Unspecified viral hepatitis C without hepatic coma; F19.10 Other psychoactive substance abuse, uncomplicated
CPT/HCPCS: 36415; 71045-TC-FY; 80053; 83880; 84484; 85025; 93005; 93010; 94640; 99284-25

== ENCOUNTER 2019-10-12 12:44 | Emergency (ER) | payer OTHER ==
--- NOTE | 2019-10-12 13:03 | PDOC ---
History of Present Illness - General History Source: Patient - History of Present Illness Initial Comments: 10/12/19 13:34 Mr. Ramírez is a 64 y/o M w/hx COPD, CHF, HTN p/w acute worsening of shortness of breath last night. He reports that for the past approx 12 nights he has woken up at night feeling short of breath, which improves after he takes a walk outdoors. He reports that last night at 0300 he awoke feeling more short of breath than other nights and became concerned. He denies any dyspnea on exertion , fevers, chills, weakness, chest pain, or lower extremity swelling. He reports increased inhaler (ventolin, symbicort) use for the last 12 days. <Arun Palacio - Last Filed: 10/12/19 14:26> <Annette Dsouza - Last Filed: 10/12/19 14:31> - General Chief Complaint: Shortness of Breath Stated Complaint: TROUBLE BREATHING Time Seen by Provider: 10/12/19 12:57 Past History - Past Medical History Anemia: No Asthma: Yes Cancer: No Cardiac Disorders: Yes (CHF) CVA: No COPD: Yes (Emphysema) CHF: Yes Dementia: No Diabetes: No GI Disorders: Yes (acid reflux) Disorders: No HTN: Yes Hypercholesterolemia: No Kidney Stones: No Liver Disease: Yes (hep c; Treatment in past, did not complete due to side effects.) Psychiatric Problems: Yes (severe anxiety and panic attacks,BI POLAR) Seizures: No Thyroid Disease: No - Surgical History Abdominal Surgery: No Appendectomy: No Cardiac Surgery: No Cholecystectomy: No Lung Surgery: No Neurologic Surgery: No Orthopedic Surgery: No - Reproductive History Testicular Surgery: No - Immunization History Immunization Up to Date: Yes - Psycho Social/Smoking Cessation Hx Smoking Status: Yes Smoking History: Current every day smoker Have you smoked in the past 12 months: Yes Number of Cigarettes Smoked Daily: 12 Cigars Per Day: 0 Information on smoking cessation initiated: No 'Breaking Loose' booklet given: 03/02/17 (GIVEN ON UNIT.) Hx Alcohol Use: No Drug/Substance Use Hx: No Substance Use Type: Opiates, Tranquilizers Hx Substance Use Treatment: Yes (Previous Detox admissions at [facility].) <Arun Palacio - Last Filed: 10/12/19 14:26> <Annette Dsouza - Last Filed: 10/12/19 14:31> - Past Medical History Allergies/Adverse Reactions: Allergies Allergy/AdvReac Type Severity Reaction Status Date / Time No Known Allergies Allergy Verified 10/12/19 12:49 Home Medications: Ambulatory Orders Albuterol Sulfate Inhaler - [Ventolin HFA Inhaler -] 2 inh PO Q4H PRN 10/11/16 Atorvastatin Calcium 40 mg PO HS 10/11/16 Carvedilol [Coreg -] 6.25 mg PO Q12H 10/11/16 Paroxetine HCl [Paxil] 40 mg PO DAILY 10/11/16 Bupropion HCl [Wellbutrin Xl -] 150 mg PO BID 03/02/17 Pantoprazole Sodium [Protonix -] 40 mg PO DAILY 03/02/17 Salmeterol/Fluticasone [Advair 100Mcg/50Mcg -] 1 inh PO BID 08/25/19 Atorvastatin Ca [Lipitor] 40 mg PO HS 09/23/19 Cyproheptadine [Periactin -] 4 mg PO BID 09/23/19 Furosemide [Lasix -] 40 mg PO DAILY 09/23/19 Lisinopril 30 mg PO DAILY 09/23/19 Spironolactone [Aldactone] 25 mg PO DAILY 09/23/19 predniSONE [Deltasone -] 40 mg PO DAILY 4 Days #4 tablet 09/23/19 Prednisone [Prednisone 50 MG TABLETS] 50 mg PO DAILY 5 Days #5 tablet 10/12/19 Review of Systems - Review of Systems Able to Perform ROS?: Yes Comments:: 10/12/19 13:38 ROS: GENERAL/CONSTITUTIONAL: No fever or chills. No weakness. HEAD, EYES, EARS, NOSE AND THROAT: No change in vision. No ear pain or discharge. No sore throat. CARDIOVASCULAR: Shortness of breath. No chest pain RESPIRATORY: Cough. No wheezing, or hemoptysis. GASTROINTESTINAL: No nausea, vomiting, diarrhea or constipation. GENITOURINARY: No dysuria, frequency, or change in urination. MUSCULOSKELETAL: No joint or muscle swelling or pain. No neck or back pain. SKIN: No rash NEUROLOGIC: No headache, vertigo, loss of consciousness, or change in strength/ sensation. ENDOCRINE: No increased thirst. No abnormal weight change HEMATOLOGIC/LYMPHATIC: No anemia, easy bleeding, or history of blood clots. ALLERGIC/IMMUNOLOGIC: No hives or skin allergy. <Arun Palacio - Last Filed: 10/12/19 14:26> *Physical Exam - Vital Signs Last Vital Signs Temp Pulse Resp BP Pulse Ox 70 20 177/107 H 97 10/12/19 12:46 10/12/19 12:46 10/12/19 12:46 10/12/19 12:46 - Physical Exam 10/12/19 13:41 PE: GENERAL: Awake, alert, and fully oriented, in no acute distress. Coughing intermittently. HEAD: No signs of trauma, normocephalic, atraumatic EYES: PERRLA, EOMI, sclera anicteric, conjunctiva clear ENT: Auricles normal inspection, hearing grossly normal, nares patent, oropharynx clear without exudates. Moist mucosa NECK: Normal ROM, supple, no lymphadenopathy, JVD, or masses LUNGS: Mild distress, speaks full sentences. No wheezing, rales, consolidations noted on exam. Air movement into bilateral lungs. HEART: Regular rate and rhythm, normal S1 and S2, no murmurs, rubs or gallops, peripheral pulses normal and equal bilaterally. ABDOMEN: Soft, nontender, normoactive bowel sounds. No guarding, no rebound. No masses EXTREMITIES : Normal inspection, Normal range of motion, no edema. No clubbing or cyanosis NEUROLOGICAL: Cranial nerves II through XII grossly intact. Normal speech, normal gait, no focal sensorimotor deficits SKIN: Warm, Dry, normal turgor, no rashes or lesions noted <Arun Palacio - Last Filed: 10/12/19 14:26> - Vital Signs Last Vital Signs Temp Pulse Resp BP Pulse Ox 98.6 F 72 19 154/91 100 10/12/19 13:08 10/12/19 13:08 10/12/19 13:08 10/12/19 13:08 10/12/19 13:08 <Annette Dsouza - Last Filed: 10/12/19 14:31> ED Treatment Course - LABORATORY CBC & Chemistry Diagram: 10/12/19 13:17 10/12/19 13:17 <ImanitreyArun - Last Filed: 10/12/19 14:26> - LABORATORY CBC & Chemistry Diagram: 10/12/19 13:17 10/12/19 13:17 - ADDITIONAL ORDERS Additional order review: Laboratory Results 10/12/19 10/12/19 13:17 13:17 Sodium 140 Potassium 3.9 Chloride 104 Carbon Dioxide 32 Anion Gap 3 L BUN 12.8 Creatinine 0.7 Est GFR (CKD-EPI)AfAm 114.78 Est GFR (CKD-EPI)NonAf 99.03 Random Glucose 107 H Calcium 9.2 Total Bilirubin 0.3 AST 27 ALT 29 Alkaline Phosphatase 96 Creatine Kinase 63 Troponin I < 0.02 B-Natriuretic Peptide 1462.3 H Total Protein 7.7 Albumin 3.9 10/12/19 13:17 RBC 4.49 MCV 94.6 MCHC 33.0 RDW 15.6 MPV 7.9 Neutrophils % 57.0 Lymphocytes % 29.9 D Monocytes % 11.0 H Eosinophils % 1.6 Basophils % 0.5 - Medications Given in the ED: ED Medications Discontinued Medications Generic Name Dose Route Start Last Admin Trade Name Dannyq PRN Reason Stop Dose Admin Albuterol/Ipratropium 1 amp 10/12/19 13:13 10/12/19 13:17 Duoneb - NEB 10/12/19 13:14 1 amp ONCE ONE Administration Methylprednisolone Sodium Succinate 125 mg 10/12/19 13:13 10/12/19 13:26 Solu-Medrol - IVPB 10/12/19 13:14 125 mg ONCE ONE Administration <Annette Dsouza - Last Filed: 10/12/19 14:31> Medical Decision Making - Medical Decision Making 10/12/19 13:39 64M w/hx COPD, CHF p/w acute onset SOB c/w COPD vs CHF exacerbation. COPD possible given recent evaluation for similar symptoms, increased inhaler use. CHF also possible given history, no wheezing on exam, although he has no LE edema. Plan: CBC CMP Cardiac Profile BNP EKG CXR Ultrasound, cardiopulm to eval COPD vs CHF Solumedrol Duoneb 1mg Dispo: Pending reassessment 10/12/19 14:03 Troponin - negative BNP - baseline CBC - wnl CMP - wnl 10/12/19 14:19 No focal consolidations or other acute process noted on CXR. Plan for discharge with 5 days of prednisone, PCP follow up. <Arun Palacio - Last Filed: 10/12/19 14:26> Discharge - Discharge Information Problems reviewed: Yes - Admission No <Arun Palacio - Last Filed: 10/12/19 14:26> - Discharge Information Problems reviewed: Yes <Annette Dsouza - Last Filed: 10/12/19 14:31> - Discharge Information Clinical Impression/Diagnosis: Shortness of breath COPD (chronic obstructive pulmonary disease) Qualifiers: COPD type: unspecified COPD Qualified Code(s): J44.9 - Chronic obstructive pulmonary disease, unspecified Condition: Stable Disposition: HOME - Additional Discharge Information Prescriptions: Prednisone [Prednisone 50 MG TABLETS] 50 mg PO DAILY 5 Days #5 tablet - Follow up/Referral Referrals: Gopal Vásquez MD [Primary Care Provider] - - Patient Discharge Instructions Patient Printed Discharge Instructions: DI for Chronic Obstructive Pulmonary Disease, Smoking Cessation Additional Instructions: You were seen in the ER after being short of breath. We gave you a nebulizer treatment which improved your symptoms. Your bloodwork was normal. We are giving you a 5 day course of steroids to help prevent further symptoms. Please take the medication once a day for five days. Please see your primary care provider as soon as possible, in the next 2-3 days. Smoking may worsen your COPD or cause you to be short of breath - please consider limiting or stopping your smoking. - Post Discharge Activity
[2019-10-12] MEDS ORDERED: methylPREDNISolone NA SUCC 125 MG/2 ML VIAL IVPB ONE (13:13)
[2019-10-12] MEDS ORDERED: ALBUTEROL SO4 2.5/IPRATROPIUM 0.5 INH SOL 3 ML VIAL.NEB. NEB ONE ×2 (13:13)
[2019-10-12 13:15] VITALS: BMI 20.9
[2019-10-12] MEDS ORDERED: methylPREDNISolone NA SUCC 125 MG/2 ML VIAL ONE (13:19)
--- NOTE | 2019-10-12 13:20 | PDOC ---
Attending Attestation - Resident Resident Name: Arun Palacio - ED Attending Attestation I have performed the following: I have examined & evaluated the patient, The case was reviewed & discussed with the resident, I agree w/resident's findings & plan - HPI HPI: 10/12/19 14:06 64M w/ pmh of HTN, HLD, nonischemic CM, HFrEF(04/19/16, LVEF 42.5%, dil LV), COPD (no Home O2), HepC(dx 20-30ys prior, did not complete antiretroviral tx), polysubstance use disorder(tobacco, percocet, xanax) presenting with acute onset of SOB, at 3AM, waking him up at nighttime, and associated with exertion.. Associated with cough. Pt was seen in the ED approx 2 weeks ago copd exacerbation, AMAd at that time, and treated with steroids, inhaler use and supportive measures. Current 2 pack/d smoker. +cough Albuterol inhaler, symbicort, using more than he should due to SOB - baseline medications he uses to control his COPD Improved with cool air outdoors 10/12/19 14:27 - Physicial Exam PE: 10/12/19 14:06 Agree with the resident's HPI and PE as documented in the electronic medical record. NAD, well appearing, EOMI, PERRL, nl conjunctiva, anicteric; neck supple. lungs clear, no wheezing, RRR, abdomen soft nontender. No rebound, no guarding. Back nontender. GARCIA x4, no focal neuro deficits. No peripheral edema. normal color for ethnicity, WWP. no calf tenderness, no LE edema. 10/12/19 14:24 - Medical Decision Making 10/12/19 13:20 Vital Signs Temp Pulse Resp BP Pulse Ox 98.6 F 72 19 154/91 100 10/12/19 13:08 10/12/19 13:08 10/12/19 13:08 10/12/19 13:08 10/12/19 13:08 DDx SOB: ACS, PE, PTX, CHF, COPD exac, pulmonary edema, pleurisy, pneumonia, viral syndrome. effusion. anemia, electrolyte/metabolic derangements. Considered but clinically doubt based on HPI and PE: Low suspicion for pulmonary embolism or dissection. VS reviewed, mildly hypertensive, but normal sats. normal respirations, afebrile and nontoxic appearing cxr is clear. no e/o pna, no interstitial edema/effusion noted, normal cardiac silhouette bnp lower than prior ~1800. unlikely fluid overload or CHF, as pt has h/o diastolic dysfunction. does not appear fluid overloaded. neg trop, unlikely cardiac/ACS labs and lytes, CBC wnl. no anemia given duoneb, feels improved, prednisone x 5 day course smoking cessation DC stable condition, return precautions, hydration and supportive care. albuterol inhaler use q4-6 hr as needed, compliance advised, steroid course Pt to be discharged in stable condition. Patient made aware of clinical impression, treatment recommendations and disposition plan, return precautions discussed (including but not limited to new or persistent/worsening symptoms, pain, fevers, or signs of infection, chest pain, respiratory distress, inability to tolerate oral intake, dehydration, syncope, or neurologic changes) . Follow up with PMD as recommended, follow up information provided, take medications as instructed for duration of time. continue with supportive care, avoid triggers and precipitants. All questions answered to patient's satisfaction and expressed understanding and comfort with this. At the time of discharge, the patient is alert, clinically improved, tolerating po and verbalizes understanding of instructions, satisfied with the care received and felt comfortable with the plan. Patient does not suffer from an acute life- threatening medical condition at this time and is safe for outpatient follow- up. 10/12/19 14:29 Heart Score/ECG Review #1 ECG reviewed & interpreted by me at: 13:40 General ECG Interpretation: Sinus Rhythm, Normal Rate, Normal Intervals Compared to previous ECG there are: No significant change 10/12/19 13:45 EKG sinus rhythm at 69 bpm, normal interval, narrow QRS, normal axis, TW abnormalities diffusely, biphasic T waves in V2-3, similar to prior.. 10/12/19 13:53
[2019-10-12 13:52] LABS: BASO % 0.5 % (0-2.0); EOS % 1.6 % (0-4.5); HEMATOCRIT 42.4 % (35.4-49); LYMPH % 29.9 % (8-40); MCH 31.3 pg (25.7-33.7); MEAN CELL VOLUME 94.6 fl (80-96); MEAN PLT VOLUME 7.9 fl (7.5-11.1); PLATELET COUNT 147 K/MM3 (134-434); RBC 4.49 M/mm3 (4.00-5.60); RDW 15.6 % (11.9-15.9); WHITE BLOOD COUNT 4.6 K/mm3 (4.0-10.0)
[2019-10-12 13:58] LABS: ALBUMIN 3.9 g/dl (3.4-5.0); ALK PHOS 96 U/L (45-117); ANION GAP 3 MMOL/L (8-16); BILIRUBIN,TOTAL 0.3 mg/dL (0.2-1); BLOOD UREA NITROGEN 12.8 mg/dL (7-18); CALCIUM 9.2 mg/dL (8.5-10.1); CHLORIDE 104 mmol/L (98-107); CO2 32 mmol/L (21-32); CREATININE 0.7 mg/dL (0.55-1.3); GLUCOSE,RANDOM 107 mg/dL (74-106); POTASSIUM 3.9 mmol/L (3.5-5.1); SGOT/AST 27 U/L (15-37); SGPT/ALT 29 U/L (13-61); SODIUM 140 mmol/L (136-145); TOT PROT 7.7 g/dl (6.4-8.2)
[2019-10-12 14:35] VITALS: BP 147/72; PULSE 76; TEMP 98.4
--- NOTE | 2019-10-13 11:31 | EKG ---
Test Reason : Blood Pressure : / mmHG Vent. Rate : 069 BPM Atrial Rate : 069 BPM P-R Int : 160 ms QRS Dur : 110 ms QT Int : 430 ms P-R-T Axes : 036 038 190 degrees QTc Int : 460 ms NORMAL SINUS RHYTHM POSSIBLE LEFT ATRIAL ENLARGEMENT PROLONGED QT ABNORMAL ECG WHEN COMPARED WITH ECG OF 23-SEP-2019 06:10, NO SIGNIFICANT CHANGE WAS FOUND Confirmed by MARTA NETTLES MD ([id number]) on 10/13/2019 11:31:19 AM Referred By: Confirmed By:MARTA NETTLES MD
== END 2019-10-12 14:43 | disposition home or self-care (01) ==
LOC: JER 12:44
PROC: 3E0F7GC Introduction of Other Therapeutic Substance into Respiratory Tract, Via Natural or Artificial Opening (ICD-10-PCS; principal; 2019-10-12)
PROC: 3E0333Z Introduction of Anti-inflammatory into Peripheral Vein, Percutaneous Approach (ICD-10-PCS; 2019-10-12)
DX: J44.9 Chronic obstructive pulmonary disease, unspecified (principal); I11.0 Hypertensive heart disease with heart failure; I50.9 Heart failure, unspecified; J45.998 Other asthma; K21.9 Gastro-esophageal reflux disease without esophagitis; F31.9 Bipolar disorder, unspecified; B18.2 Chronic viral hepatitis C; F41.0 Panic disorder [episodic paroxysmal anxiety]; F41.9 Anxiety disorder, unspecified
CPT/HCPCS: 36415; 71046-TC-FY; 80053; 82550; 83880; 84484; 85025; 93005; 93010; 94640; 96374; 99283-25

== ENCOUNTER 2019-10-21 04:25 | Emergency (ER) | payer OTHER ==
[2019-10-21 04:53] VITALS: TEMP 97.6; BMI 20.9
--- NOTE | 2019-10-21 05:00 | PDOC ---
History of Present Illness - General Chief Complaint: Respiratory Stated Complaint: DIFFICULTY BREATHING - History of Present Illness Initial Comments: The pt is 64M w/ a history of HTN, COPD, HFpEF, HCV, polysubstance abuse who presents for evaluation of shortness of breath for several hours this morning. He tried using his home medications with little relief and subsequently presented to the ED. He reports being hospitalized for his COPD previously but has never required intubation. He denies chest pain, KO, vision changes, fevers , N/V/C/D, dysuria, hematuria, or changes in sensation. 10/21/19 05:14 Past History - Past Medical History Allergies/Adverse Reactions: Allergies Allergy/AdvReac Type Severity Reaction Status Date / Time No Known Allergies Allergy Verified 10/21/19 04:52 Home Medications: Ambulatory Orders Albuterol Sulfate Inhaler - [Ventolin HFA Inhaler -] 2 inh PO Q4H PRN 10/11/16 Atorvastatin Calcium 40 mg PO HS 10/11/16 Carvedilol [Coreg -] 6.25 mg PO Q12H 10/11/16 Paroxetine HCl [Paxil] 40 mg PO DAILY 10/11/16 Bupropion HCl [Wellbutrin Xl -] 150 mg PO BID 03/02/17 Pantoprazole Sodium [Protonix -] 40 mg PO DAILY 03/02/17 Salmeterol/Fluticasone [Advair 100Mcg/50Mcg -] 1 inh PO BID 08/25/19 Atorvastatin Ca [Lipitor] 40 mg PO HS 09/23/19 Cyproheptadine [Periactin -] 4 mg PO BID 09/23/19 Furosemide [Lasix -] 40 mg PO DAILY 09/23/19 Lisinopril 30 mg PO DAILY 09/23/19 Spironolactone [Aldactone] 25 mg PO DAILY 09/23/19 predniSONE [Deltasone -] 40 mg PO DAILY 4 Days #4 tablet 09/23/19 Prednisone [Prednisone 50 MG TABLETS] 50 mg PO DAILY 5 Days #5 tablet 10/12/19 Anemia: No Asthma: Yes Cancer: No Cardiac Disorders: Yes (CHF) CVA: No COPD: Yes (Emphysema) CHF: Yes Dementia: No Diabetes: No GI Disorders: Yes (acid reflux) Disorders: No HTN: Yes Hypercholesterolemia: No Kidney Stones: No Liver Disease: Yes (hep c; Treatment in past, did not complete due to side effects.) Psychiatric Problems: Yes (severe anxiety and panic attacks,BI POLAR) Seizures: No Thyroid Disease: No - Surgical History Abdominal Surgery: No Appendectomy: No Cardiac Surgery: No Cholecystectomy: No Lung Surgery: No Neurologic Surgery: No Orthopedic Surgery: No - Reproductive History Testicular Surgery: No - Immunization History Immunization Up to Date: Yes - Psycho Social/Smoking Cessation Hx Smoking Status: Yes Smoking History: Never smoked Have you smoked in the past 12 months: Yes Number of Cigarettes Smoked Daily: 12 Cigars Per Day: 0 'Breaking Loose' booklet given: 03/02/17 (GIVEN ON UNIT.) Hx Alcohol Use: No Drug/Substance Use Hx: No Substance Use Type: Opiates, Tranquilizers Hx Substance Use Treatment: Yes (Previous Detox admissions at [facility].) Review of Systems - Review of Systems Able to Perform ROS?: Yes Comments:: GENERAL/CONSTITUTIONAL: No fever or chills. No weakness HEAD, EYES, EARS, NOSE AND THROAT: No change in vision. No change in hearing. No sore throat CARDIOVASCULAR: No chest pain RESPIRATORY: Denies cough, hemoptysis GASTROINTESTINAL: No nausea, vomiting, diarrhea or constipation GENITOURINARY: No dysuria, frequency, or change in urination MUSCULOSKELETAL: No joint or muscle swelling or pain. No neck or back pain SKIN: No rash NEUROLOGIC: No headache, vertigo, loss of consciousness, or change in strength/ sensation ENDOCRINE: No increased thirst. No abnormal weight change HEMATOLOGIC/LYMPHATIC: No anemia, easy bleeding, or history of blood clots ALLERGIC/IMMUNOLOGIC: No hives or skin allergy 10/21/19 04:59 Is the patient limited Yi proficient: No *Physical Exam - Vital Signs Last Vital Signs Temp Pulse Resp BP Pulse Ox 97.6 F 70 22 H 136/88 96 10/21/19 04:30 10/21/19 04:30 10/21/19 04:30 10/21/19 04:30 10/21/19 04:30 - Physical Exam GENERAL: Awake, alert, and oriented to person/place/time, in no acute distress HEAD: No signs of trauma, normocephalic, atraumatic EYES: PERRLA, EOMI, sclera anicteric, conjunctiva clear ENT: Hearing grossly normal, nares patent, oropharynx clear without exudates. Moist mucosa LUNGS: No distress, speaks in full sentences, diminished breath sounds at the bases HEART: Regular rate and rhythm, normal S1 and S2, no murmurs appreciated, peripheral pulses normal and equal bilaterally ABDOMEN: Soft, nontender, normoactive bowel sounds. No guarding, no rebound EXTREMITIES: Normal inspection, Normal range of motion, no edema. No clubbing or cyanosis NEUROLOGICAL: Cranial nerves II through XII grossly intact. Normal speech, normal gait, no focal sensorimotor deficits SKIN: Warm, Dry 10/21/19 05:00 ED Treatment Course - LABORATORY CBC & Chemistry Diagram: 10/21/19 05:00 10/21/19 05:00 Medical Decision Making - Medical Decision Making The pt is 64M w/ a history of HTN, COPD, HFpEF, HCV, polysubstance abuse who presents for evaluation of shortness of breath ED Course Labs sent ECG CXR Will give duo-nebs/solumedrol Will reassess 10/21/19 05:25 ECG w/ NSR; HR 91; QTc 472; no axis deviation; no RAJAT; non-specific TW abn, abn ecg No leukocytosis No anemia CXR w/ poor inspiratory effort, mild vascular congestion, no focal consolidation or effusion, no PNX Pt s/p nebs and steroids, pt reports feeling much improved, saturating well on RA, no tachypnea, no respiratory distress Remainder of labs pending 10/21/19 06:28 BNP slightly elevated w/ CXR congestion Will give Lasix 40mg PO once in addition to his daily medications Pt states that he would like to received medication and go home. Pt reports feeling improved at this time Plan for D/C w/ PCP f/u Discharge instructions and return precautions given Patient in agreement and verbalized understanding Dispo: Home 10/21/19 06:41 Discharge - Discharge Information Problems reviewed: Yes Clinical Impression/Diagnosis: Shortness of breath CHF (congestive heart failure) Qualifiers: Heart failure type: unspecified Heart failure chronicity: unspecified Qualified Code(s): I50.9 - Heart failure, unspecified Condition: Good Disposition: HOME - Admission No - Follow up/Referral Referrals: Gopal Vásquez MD [Primary Care Provider] - - Patient Discharge Instructions Patient Printed Discharge Instructions: DI for Shortness of Breath Additional Instructions: You were seen in the Emergency Department for evaluation of shortness of breath. You were given albuterol, steroids, and lasix. Review the handout provided at discharge. Follow up with your primary care provider this week. Continue to take your medications as prescribed. Return to the Emergency Department if you develop fevers/chills, trouble breathing, chest pain, nausea/ vomiting, chest tightness, worsening symptoms. or any new/concerning symptoms. - Post Discharge Activity Work/Back to School Note: Back to Work
[2019-10-21] MEDS ORDERED: ALBUTEROL SO4 2.5/IPRATROPIUM 0.5 INH SOL 3 ML VIAL.NEB. NEB ONE (05:22)
[2019-10-21] MEDS ORDERED: methylPREDNISolone NA SUCC 125 MG/2 ML VIAL ONE (05:23)
[2019-10-21] MEDS ORDERED: methylPREDNISolone NA SUCC 125 MG/2 ML VIAL IVPB ONE (05:24)
--- NOTE | 2019-10-21 05:24 | PDOC ---
Attending Attestation - Resident Resident Name: SunitamahendraAngel - ED Attending Attestation I have performed the following: I have examined & evaluated the patient, The case was reviewed & discussed with the resident, I agree w/resident's findings & plan - HPI HPI: 10/21/19 05:22 see resident hpi - Physicial Exam PE: 10/21/19 05:22 agree with resident exam - Medical Decision Making 10/21/19 05:23 64-year-old male with history of COPD complaining of shortness of breath possibly due to anxiety Lung exam significant for diminished air entry bilateral bases with no audible wheezing Plan for chest x-ray, reevaluation after steroids and duo nebs with likely DC home if improved
[2019-10-21] MEDS: ALBUTEROL SO4 2.5/IPRATROPIUM 0.5 INH SOL 3 ML VIAL.NEB. NEB SCH ×3 (05:35→05:53)
[2019-10-21 06:06] LABS: BASO % 0.2 % (0-2.0); HEMATOCRIT 38.9 % (35.4-49); HEMOGLOBIN 13.2 GM/dL (11.7-16.9); LYMPH % 14.6 % (8-40); MCH 31.9 pg (25.7-33.7); MCHC 34.1 g/dl (32.0-35.9); MEAN CELL VOLUME 93.5 fl (80-96); MEAN PLT VOLUME 7.4 fl (7.5-11.1); MONO % 4.3 % (3.8-10.2); NEUT % 79.9 % (42.8-82.8); PLATELET COUNT 139 K/MM3 (134-434); RBC 4.16 M/mm3 (4.00-5.60); RDW 15.9 % (11.9-15.9); WHITE BLOOD COUNT 5.6 K/mm3 (4.0-10.0)
[2019-10-21 06:33] LABS: ALBUMIN 3.3 g/dl (3.4-5.0); BILIRUBIN,TOTAL 0.2 mg/dL (0.2-1); BLOOD UREA NITROGEN 12.8 mg/dL (7-18); CALCIUM 8.3 mg/dL (8.5-10.1); CREATININE 0.6 mg/dL (0.55-1.3); POTASSIUM 3.7 mmol/L (3.5-5.1); TOT PROT 6.5 g/dl (6.4-8.2)
[2019-10-21 06:35] LABS: MAGNESIUM 1.5 mg/dL (1.8-2.4)
[2019-10-21] MEDS ORDERED: FUROSEMIDE 40 MG TABLET (FP) PO ONE (06:38)
[2019-10-21] MEDS ORDERED: FUROSEMIDE 40 MG TABLET (FP) ONE (06:44)
[2019-10-21 07:04] VITALS: BP 134/91; PULSE 71
--- NOTE | 2019-10-21 09:28 | EKG ---
Test Reason : Blood Pressure : / mmHG Vent. Rate : 068 BPM Atrial Rate : 068 BPM P-R Int : 146 ms QRS Dur : 104 ms QT Int : 462 ms P-R-T Axes : 039 024 183 degrees QTc Int : 491 ms NORMAL SINUS RHYTHM POSSIBLE LEFT ATRIAL ENLARGEMENT PROLONGED QT ABNORMAL ECG WHEN COMPARED WITH ECG OF 12-OCT-2019 13:38, NO SIGNIFICANT CHANGE WAS FOUND Confirmed by Elbert Diane MD ([id number]) on 10/21/2019 9:28:15 AM Referred By: Confirmed By:Elbert Diane MD
== END 2019-10-21 06:57 | disposition home or self-care (01) ==
LOC: JER 04:25
PROC: 3E0F7GC Introduction of Other Therapeutic Substance into Respiratory Tract, Via Natural or Artificial Opening (ICD-10-PCS; principal; 2019-10-21)
PROC: 3E0333Z Introduction of Anti-inflammatory into Peripheral Vein, Percutaneous Approach (ICD-10-PCS; 2019-10-21)
DX: I11.0 Hypertensive heart disease with heart failure (principal); I50.9 Heart failure, unspecified; J43.8 Other emphysema; F41.8 Other specified anxiety disorders; K21.9 Gastro-esophageal reflux disease without esophagitis; B18.2 Chronic viral hepatitis C; F31.9 Bipolar disorder, unspecified; F17.210 Nicotine dependence, cigarettes, uncomplicated
CPT/HCPCS: 36415; 71045-TC-FY; 80053; 83735; 83880; 84484; 85025; 85379; 93005; 93010; 94640; 96374; 99282-25

== ENCOUNTER 2019-11-06 09:39 | Observation (INO) | payer OTHER ==
[2019-11-06 10:33] LABS: BASO % 0.5 % (0-2.0); EOS % 2.8 % (0-4.5); HEMATOCRIT 39.2 % (35.4-49); HEMOGLOBIN 13.5 GM/dL (11.7-16.9); LYMPH % 26.8 % (8-40); MCH 32.4 pg (25.7-33.7); MCHC 34.5 g/dl (32.0-35.9); MEAN CELL VOLUME 93.9 fl (80-96); MEAN PLT VOLUME 7.1 fl (7.5-11.1); MONO % 11.1 % (3.8-10.2); NEUT % 58.8 % (42.8-82.8); PLATELET COUNT 150 K/MM3 (134-434); RBC 4.18 M/mm3 (4.00-5.60); RDW 16.1 % (11.9-15.9); WHITE BLOOD COUNT 4.3 K/mm3 (4.0-10.0)
--- NOTE | 2019-11-06 10:41 | PDOC ---
History of Present Illness - General Chief Complaint: Shortness of Breath Stated Complaint: SHORTNESS OF BREATH Time Seen by Provider: 11/06/19 10:08 - History of Present Illness Initial Comments: 11/06/19 10:42 The patient is a 64 year old male with a history of HTN, HLD, CHF, COPD, Hep C who presents for evaluation of chest pain and shortness of breath. The patient reports a 1 day history of left sided sharp severe chest pain worse with movement with associated shortness of breath. He notes that he has had similar symptoms in the past but his current symptoms have been more persistent prompting his presentation to the ED for further evaluation. He otherwise denies fevers, chills, nausea, vomiting, abdominal pain, or changes with urination or bowel movements. Past History - Past Medical History Allergies/Adverse Reactions: Allergies Allergy/AdvReac Type Severity Reaction Status Date / Time No Known Allergies Allergy Verified 11/06/19 09:54 Home Medications: Ambulatory Orders Albuterol Sulfate Inhaler - [Ventolin HFA Inhaler -] 2 inh PO Q4H PRN 10/11/16 Atorvastatin Calcium 40 mg PO HS 10/11/16 Carvedilol [Coreg -] 6.25 mg PO Q12H 10/11/16 Paroxetine HCl [Paxil] 40 mg PO DAILY 10/11/16 Bupropion HCl [Wellbutrin Xl -] 150 mg PO BID 03/02/17 Pantoprazole Sodium [Protonix -] 40 mg PO DAILY 03/02/17 Salmeterol/Fluticasone [Advair 100Mcg/50Mcg -] 1 inh PO BID 08/25/19 Atorvastatin Ca [Lipitor] 40 mg PO HS 09/23/19 Cyproheptadine [Periactin -] 4 mg PO BID 09/23/19 Furosemide [Lasix -] 40 mg PO DAILY 09/23/19 Lisinopril 30 mg PO DAILY 09/23/19 Spironolactone [Aldactone] 25 mg PO DAILY 09/23/19 predniSONE [Deltasone -] 40 mg PO DAILY 4 Days #4 tablet 09/23/19 Prednisone [Prednisone 50 MG TABLETS] 50 mg PO DAILY 5 Days #5 tablet 10/12/19 Anemia: No Asthma: Yes Cancer: No Cardiac Disorders: Yes (CHF) CVA: No COPD: Yes (Emphysema) CHF: Yes Dementia: No Diabetes: No GI Disorders: Yes (acid reflux) Disorders: No HTN: Yes Hypercholesterolemia: No Kidney Stones: No Liver Disease: Yes (hep c; Treatment in past, did not complete due to side effects.) Psychiatric Problems: Yes (severe anxiety and panic attacks,BI POLAR) Seizures: No Thyroid Disease: No - Surgical History Abdominal Surgery: No Appendectomy: No Cardiac Surgery: No Cholecystectomy: No Lung Surgery: No Neurologic Surgery: No Orthopedic Surgery: No - Reproductive History Testicular Surgery: No - Immunization History Immunization Up to Date: Yes - Psycho Social/Smoking Cessation Hx Smoking Status: Yes Smoking History: Current every day smoker Have you smoked in the past 12 months: Yes Number of Cigarettes Smoked Daily: 10 Cigars Per Day: 0 Information on smoking cessation initiated: No 'Breaking Loose' booklet given: 03/02/17 (GIVEN ON UNIT.) Hx Alcohol Use: No Drug/Substance Use Hx: No Substance Use Type: Opiates, Tranquilizers Hx Substance Use Treatment: Yes (Previous Detox admissions at [facility].) Review of Systems - Review of Systems Comments:: 11/06/19 10:45 Constitutional: No fevers, chills, fatigue, malaise HEENT: No Rhinorrhea, nasal congestion, visual changes Cardiovascular: Chest pain. No syncope, palpitations, lightheadedness Respiratory: SOB. No Cough, Hemoptysis, Gastrointestinal: No Abdominal pain, Nausea, Vomiting, Constipation, Diarrhea, Melena Genitourinary: No Dysuria, Frequency, Urgency, Hesitancy, Hematuria, Flank pain Musculoskeletal: No Myalgia, arthralgia Skin: No rashes, itching, bruising, pallor Neurologic: No Headache, Dizziness, Numbness, Weakness, or Tingling Psychiatric: No Hallucinations. No SI or HI *Physical Exam - Vital Signs Last Vital Signs Temp Pulse Resp BP Pulse Ox 97.5 F L 72 16 179/90 H 99 11/06/19 09:49 11/06/19 09:49 11/06/19 09:49 11/06/19 09:49 11/06/19 09:49 - Physical Exam 11/06/19 10:45 General Appearance: Nourished. No Apparent Distress HEENT: No Pharyngeal Erythema, Tonsillar Exudate, Tonsillar Erythema Neck: No Cervical Lymphadenopathy Respiratory/Chest: Normal Breath Sounds. Bibasilar rales noted on exam. Reproducible tenderness to palpation on the left sided chest wall. No Crackles , Rhonchi, Wheezing Cardiovascular: Regular Rhythm, Regular Rate. No Murmur, Gallops, Rubs Gastrointestinal/Abdominal: Normal Bowel Sounds, Soft. No Guarding, Rebound, Tenderness Musculoskeletal: No CVA Tenderness Extremity: Normal Capillary Refill Integumentary: Normal Color, Dry, Warm Neurologic: Fully Oriented, Alert, Normal Mood/Affect, Normal Response, Heart Score/ECG Review - History History: Slightly suspicious - Electrocardiogram EKG: Non specific repolarization disturbance - Age Age: >/= 65 - Risk Factors Risk Factors Heart Score: Yes Hx Hypercholesterolemia, Yes Hx Hypertension, Yes Positive family hx of cardiac disease Based on the list above the patient has:: >/=3 risk factors or Hx atherosclerotic disease - Troponin Troponin: </= normal limit - Score Heart Score - Total: 5 #1 ECG reviewed & interpreted by me at: 11:44 11/06/19 11:44 HR 65 IN 154 QRS 112 QTc 449 Normal Sinus Rhythm T wave inversions in leads V4-V6 No Acute ST Changes. Unchanged from prior EKG ED Treatment Course - LABORATORY CBC & Chemistry Diagram: 11/06/19 10:00 11/06/19 10:00 - ADDITIONAL ORDERS Additional order review: 11/06/19 10:00 RBC 4.18 MCV 93.9 MCHC 34.5 RDW 16.1 H MPV 7.1 L Neutrophils % 58.8 D Lymphocytes % 26.8 D Monocytes % 11.1 H D Eosinophils % 2.8 D Basophils % 0.5 - RADIOLOGY Radiology Studies Ordered: Category Date Time Status CHEST X-RAY PORTABLE* [RAD] Stat Radiology 11/06/19 09:56 Ordered Medical Decision Making - Medical Decision Making 11/06/19 10:46 The patient is a 64 year old male with a history of HTN, HLD, CHF, COPD, Hep C who presents for evaluation of chest pain and shortness of breath. Given the patient's history and physical exam, we will obtain a cbc, cmp, troponin, bnp, ekg, chest plain film to evaluate further. Given the patient's cardiac risk factors and symptoms, he will likely require admission for further monitoring and management. We will continue to monitor and reassess while here in the ED. 11/06/19 11:49 CBC, cmp, troponin were unremarkable. Chest plain film did not demonstrate any acute pathology. Given the patient's history and physical exam, he will require admission for further monitoring and management. We discussed the case with the admitting team who accepted the patient for admission. Discharge - Discharge Information Problems reviewed: Yes Clinical Impression/Diagnosis: Shortness of breath Chest pain Qualifiers: Chest pain type: unspecified Qualified Code(s): R07.9 - Chest pain, unspecified Condition: Stable - Admission Yes - Follow up/Referral - Patient Discharge Instructions - Post Discharge Activity
--- NOTE | 2019-11-06 10:48 | PDOC ---
Documentation entered by Aubrie Villegas SCRIBE, acting as scribe for Primitivo Ashley MD. Primitivo Ashley MD: This documentation has been prepared by the Bakari javed Brenda, SCRIBE, under my direction and personally reviewed by me in its entirety. I confirm that the documentation accurately reflects all work, treatment, procedures, and medical decision making performed by me. Attending Attestation - Resident Resident Name: Abdirahman Ramos - ED Attending Attestation I have performed the following: I have examined & evaluated the patient, The case was reviewed & discussed with the resident, I agree w/resident's findings & plan, Exceptions are as noted - HPI HPI: 11/06/19 10:20 The patient is a 64 year old male with a significant PMH of COPD, CAD, and HTN who presents to the ED for evaluation of sharp left sided chest pain. Patient reports that he began to feel the pain around 12:00am, he fell back asleep and woke up this morning with continued pain prompting his arrival to the ED. Patient endorses aggravation of pain with movement and exhalation. He notes taking Tylenol, to no relief. Patient also endorses SOB. Denies any significant leg swelling. The patient denies headache and dizziness. Denies fever, chills, nausea, vomiting, diarrhea and constipation. Denies dysuria, frequency, urgency and hematuria. Allergies: NKA Past surgical history: Social Hx: Smokes hald a pack per day for the past 50 years. - Physicial Exam PE: 11/06/19 10:23 GENERAL: Awake, alert, and fully oriented, in no acute distress. HEAD: No signs of trauma EYES: PERRLA, EOMI, sclera anicteric, conjunctiva clear ENT: Auricles normal inspection, hearing grossly normal, nares patent, oropharynx clear without exudates. Moist mucosa NECK: Nontender, no stepoffs, Normal ROM, supple, no lymphadenopathy, JVD, or masses LUNGS: + Mild bibasilar rales HEART: Regular rate and rhythm, normal S1 and S2, no murmurs, rubs or gallops ABDOMEN: Soft, nontender, normoactive bowel sounds. No guarding, no rebound. No masses EXTREMITIES: Normal range of motion, no edema. No clubbing or cyanosis. No cords, erythema, or tenderness NEUROLOGICAL: Cranial nerves II through XII intact. 5/5 strength and sensation in all extremities, Normal speech, normal gait, normal cerebellar function SKIN: Warm, Dry, normal turgor, no rashes or lesions noted. - Medical Decision Making 11/06/19 10:49 64 M with CP and SOB. Concerning for ACS given h/o CAD. Pt with diffuse TWIs that were present on previous EKG. - Labs, trop - CXR - Admit
[2019-11-06] MEDS ORDERED: ASPIRIN 81 MG CHEWABLE TABLETS PO ONE (10:49)
[2019-11-06] MEDS ORDERED: ASPIRIN 81 MG CHEWABLE TABLETS ONE (10:52)
[2019-11-06 10:56] LABS: INR 1.11 (0.83-1.09); PROTHROMBIN TIME (PATIENT) 13.1 SEC (9.7-13.0)
[2019-11-06 10:58] LABS: ALBUMIN 3.5 g/dl (3.4-5.0); ALK PHOS 77 U/L (45-117); ANION GAP 5 MMOL/L (8-16); BILIRUBIN,TOTAL 0.3 mg/dL (0.2-1); BLOOD UREA NITROGEN 14.2 mg/dL (7-18); CALCIUM 8.5 mg/dL (8.5-10.1); CHLORIDE 108 mmol/L (98-107); CO2 28 mmol/L (21-32); CREATININE 0.7 mg/dL (0.55-1.3); GLUCOSE,RANDOM 87 mg/dL (74-106); POTASSIUM 3.8 mmol/L (3.5-5.1); SGOT/AST 26 U/L (15-37); SGPT/ALT 28 U/L (13-61); SODIUM 141 mmol/L (136-145); TOT PROT 6.8 g/dl (6.4-8.2)
[2019-11-06 10:59] LABS: ACTIVATED PTT 39.7 SECONDS (25.2-36.5)
[2019-11-06] MEDS ORDERED: NITROGLYCERIN SUBLINGUAL 1/150 0.4 MG TAB SL ONE ×3 (11:46→21:04)
[2019-11-06] MEDS ORDERED: NITROGLYCERIN SUBLINGUAL 1/150 0.4 MG TAB ONE ×2 (11:53→21:42)
[2019-11-06] MEDS ORDERED: HEPARIN NA (PORCINE) 5,000 UNITS/ML 1ML VIAL ONE (11:54)
[2019-11-06] MEDS ORDERED: HEPARIN NA (PORCINE) 5,000 UNITS/ML 1ML VIAL IVPUSH PRN ×2 (12:16)
[2019-11-06] MEDS ORDERED: HEPARIN INFUSION - 25,000 UNITS/500 ML INFUS.BAG IVPB ONE (12:29)
[2019-11-06] MEDS ORDERED: HEPARIN - 25,000 UNIT in SODIUM CHLORIDE 495 ML IV SCH (12:30)
[2019-11-06] MEDS: ACETAMINOPHEN 1000 MG/100 ML VIAL (NON FORMULARY) IVPB ONE ×2 (12:35→13:27)
[2019-11-06] MEDS ORDERED: ATORVASTATIN CA 80 MG TABLET (FP) PO ONE (12:45)
--- NOTE | 2019-11-06 12:47 | HP ---
CHIEF COMPLAINT: Chest pain PCP: Dr. Vásquez HISTORY OF PRESENT ILLNESS: Patient is a 64 yo M with a PMHx of HTN, HLD, CHF,CAD, COPD, Hep C , presenting to the ED with L sided, non-radiating, 8/10, sharp, intermittent chest pain that started last night. He said the pain lasted 5 minutes, went to sleep and then woke up with the same chest pain at 3am. He then took a dorothy and went back to sleep. When he woke up he said his chest pain returned and did not go away, then decided to go to the ER. He also has associated SOB. Patient also mentions having chest pain with movement and pain when touching his chest. In the ER he was found to have diffuse TWIs that were present on previous EKG. He was given a full dose aspirin. Patient says he has not seen a general education professor in over a year and does not recall the name. He had a cath done in 2012 which was unremarkable. Last echo in August showed LVEF 50-55%, Grade I diastolic dysfunction, mod aortic root dilatation, mildly dilated ascending thoracic aorta(3.6cm). He denies recent illness, LE swelling, fevers, chills, nausea, vomiting, recent heavy lifting, dizziness, diarrhea, urinary symptoms. ER course was notable for: (1) ASA, EKG with (2) diffuse TWIs that were present on previous EKG (3) trop neg x 1 Recent Travel: denies PAST MEDICAL HISTORY: per HPI Social History: Smoking: half ppd Alcohol: denies Drugs: percocets Allergies No Known Allergies Allergy (Verified 11/06/19 09:54) HOME MEDICATIONS: Home Medications Medication Instructions Recorded Albuterol Sulfate Inhaler - 2 inh PO Q4H PRN 10/11/16 [Ventolin HFA Inhaler -] Atorvastatin Calcium 40 mg PO HS 10/11/16 Carvedilol [Coreg -] 6.25 mg PO Q12H 10/11/16 Paroxetine HCl [Paxil] 40 mg PO DAILY 10/11/16 Bupropion HCl [Wellbutrin Xl -] 150 mg PO BID 03/02/17 Pantoprazole Sodium [Protonix -] 40 mg PO DAILY 03/02/17 Salmeterol/Fluticasone [Advair 1 inh PO BID 08/25/19 100Mcg/50Mcg -] Atorvastatin Ca [Lipitor] 40 mg PO HS 09/23/19 Cyproheptadine [Periactin -] 4 mg PO BID 09/23/19 Furosemide [Lasix -] 40 mg PO DAILY 09/23/19 Lisinopril 30 mg PO DAILY 09/23/19 Spironolactone [Aldactone] 25 mg PO DAILY 09/23/19 predniSONE [Deltasone -] 40 mg PO DAILY 4 Days #4 tablet 09/23/19 Prednisone [Prednisone 50 MG 50 mg PO DAILY 5 Days #5 tablet 10/12/19 TABLETS] REVIEW OF SYSTEMS per HPI PHYSICAL EXAMINATION Vital Signs - 24 hr 11/06/19 11/06/19 09:49 10:57 Temperature 97.5 F L Pulse Rate 72 Pulse Rate [ 62 Apical] Respiratory 16 16 Rate Blood Pressure 179/90 H Blood Pressure 144/85 [Right Arm] O2 Sat by Pulse 99 98 Oximetry (%) GENERAL: Awake, alert, and fully oriented, in no acute distress. HEAD: Normal with no signs of trauma. EYES: Pupils equal, round and reactive to light, extraocular movements intact EARS, NOSE, THROAT: oropharynx clear without exudates. NECK: no JVD LUNGS: + R crackles, no wheezing HEART: RRR, TTP on L side chest ABDOMEN: Soft, nontender, non distended UPPER EXTREMITIES: 2+ pulses, warm, No peripheral edema. LOWER EXTREMITIES: 2+ pulses. No peripheral edema. NEUROLOGICAL: Cranial nerves II-XII intact Laboratory Results - last 24 hr 11/06/19 11/06/19 11/06/19 10:00 10:00 10:00 WBC 4.3 RBC 4.18 Hgb 13.5 Hct 39.2 MCV 93.9 MCH 32.4 MCHC 34.5 RDW 16.1 H Plt Count 150 MPV 7.1 L Absolute Neuts (auto) 2.5 Neutrophils % 58.8 D Lymphocytes % 26.8 D Monocytes % 11.1 H D Eosinophils % 2.8 D Basophils % 0.5 Nucleated RBC % 0 PT with INR INR PTT (Actin FS) Sodium 141 Potassium 3.8 Chloride 108 H Carbon Dioxide 28 Anion Gap 5 L BUN 14.2 Creatinine 0.7 Est GFR (CKD-EPI)AfAm 114.78 Est GFR (CKD-EPI)NonAf 99.03 Random Glucose 87 Calcium 8.5 Total Bilirubin 0.3 AST 26 ALT 28 Alkaline Phosphatase 77 Creatine Kinase 59 Troponin I < 0.02 B-Natriuretic Peptide 946.1 H Total Protein 6.8 Albumin 3.5 11/06/19 10:00 WBC RBC Hgb Hct MCV MCH MCHC RDW Plt Count MPV Absolute Neuts (auto) Neutrophils % Lymphocytes % Monocytes % Eosinophils % Basophils % Nucleated RBC % PT with INR 13.10 H INR 1.11 H PTT (Actin FS) 39.7 H Sodium Potassium Chloride Carbon Dioxide Anion Gap BUN Creatinine Est GFR (CKD-EPI)AfAm Est GFR (CKD-EPI)NonAf Random Glucose Calcium Total Bilirubin AST ALT Alkaline Phosphatase Creatine Kinase Troponin I B-Natriuretic Peptide Total Protein Albumin ASSESSMENT/PLAN: 64 yo M with a PMHx of HTN, HLD, CHF,CAD, COPD, Hep C , presenting to the ED with L sided, non-radiating, 8/10, sharp, intermittent chest pain. #L sided chest pain r/o ACS -high RICARDO score, EKG with ischemic signs, patient symptomatic -will treat as ASC with heparin drip -patient also has TTP and pain with movement, could be MSK, give 1x IV tylenol. -nitro x 2 -full dose aspirin -atorvastatin 80 HS -repeat echo -cardiology called, will evaluate patient to assess whether he needs Cath. -trop neg x 1, stat troponin -check utox -tele monitoring #HTN -cont home meds #CHF -cont lasix 40mg #COPD -duonebs prn #Chronic Hep C -says he used to be on interferon before but never fully treated for it. -fu am labs #dvt ppx -hep drip Visit type - Emergency Visit Emergency Visit: Yes ED Registration Date: 11/06/19 Care time: The patient presented to the Emergency Department on the above date and was hospitalized for further evaluation of their emergent condition. - New Patient This patient is new to me today: Yes Date on this admission: 11/10/19 - Critical Care Critical Care patient: No ATTENDING PHYSICIAN STATEMENT I saw and evaluated the patient. I reviewed the resident's note and discussed the case with the resident. I agree with the resident's findings and plan as documented. SUBJECTIVE: OBJECTIVE: ASSESSMENT AND PLAN:
[2019-11-06] MEDS ORDERED: ALBUTEROL SO4 2.5/IPRATROPIUM 0.5 INH SOL 3 ML VIAL.NEB. NEB PRN (12:48)
[2019-11-06] MEDS ORDERED: ATORVASTATIN CA 80 MG TABLET (FP) ONE (13:13)
[2019-11-06 14:01] LABS: COCAINE, UR NEGATIVE ng/ml (CUTOFF=300); METHADONE, UR NEGATIVE ng/ml (CUTOFF=300); PHENCYCLIDINE,URINE NEGATIVE ng/ml (CUTOFF=25); URINE AMPHETAMINES NEGATIVE ng/ml (CUTOFF=500); URINE BARBITURATES NEGATIVE ng/ml (CUTOFF=200); URINE BENZODIAZEPINES NEGATIVE ng/ml (CUTOFF=200)
[2019-11-06 14:27] LABS: OPIATES, URI POSITIVE ng/ml (CUTOFF=300)
--- NOTE | 2019-11-06 15:09 | EKG ---
Test Reason : Blood Pressure : / mmHG Vent. Rate : 065 BPM Atrial Rate : 065 BPM P-R Int : 154 ms QRS Dur : 112 ms QT Int : 432 ms P-R-T Axes : 054 051 202 degrees QTc Int : 449 ms NORMAL SINUS RHYTHM POSSIBLE LEFT ATRIAL ENLARGEMENT ABNORMAL ECG WHEN COMPARED WITH ECG OF 21-OCT-2019 05:58, NO SIGNIFICANT CHANGE WAS FOUND Confirmed by LILLIANA GREEN MD ([id number]) on 11/06/2019 3:09:18 PM Referred By: Confirmed By:LILLIANA GREEN MD
--- NOTE | 2019-11-06 15:34 | PN ---
Teaching Attending Note Name of Resident: Kimberly Campuzano ATTENDING PHYSICIAN STATEMENT I saw and evaluated the patient. I reviewed the resident's note and discussed the case with the resident. I agree with the resident's findings and plan as documented. 64 M h/o HTN, HLD, HFrEF (42% EF), CAD, COPD, Hep C (incomplete treatment) , presenting to the ED with L sided, non-radiating, 8/10, sharp, intermittent chest pain that started last night. Patient endorses pain woke him up at night, describes it lasting minutes, not worsened with anything, not relieved. Denies recent trauma/accidents/fall. Was told by [employer] Consultant "he needs a cath/stent", was lost to follow up since. In ED pt. found to have persistent CP, received SL nitro w/ some resolution of CP, and then pain returned requiring another dose of SL nitro. Patient to be empircally treated for ACS in view of EKG changes and ongoing CP and in view of extensive cardiac history. Cardiology consulted to evaluate patient for possible transfer for PCI. Admitting to telemetry for further management. PE GA sittng up in bed, AAox3, speaking in full sentences HEENT NC/AT, EOMI, no JVD, neck supple, dry MM Chest CTAB, no crackles or wheezing CVS S1, S2+, no m/r/g present, no audible S3 Abd Soft, NT, ND, BS+ Ext No LE edema, no calf tenderness, moves all 4 extremities Vital Signs - 24 hr 11/06/19 11/06/19 09:49 10:57 Temperature 97.5 F L Pulse Rate 72 Pulse Rate [ 62 Apical] Respiratory 16 16 Rate Blood Pressure 179/90 H Blood Pressure 144/85 [Right Arm] O2 Sat by Pulse 99 98 Oximetry (%) Laboratory Results - last 24 hr 11/06/19 11/06/19 11/06/19 10:00 10:00 10:00 WBC 4.3 RBC 4.18 Hgb 13.5 Hct 39.2 MCV 93.9 MCH 32.4 MCHC 34.5 RDW 16.1 H Plt Count 150 MPV 7.1 L Absolute Neuts (auto) 2.5 Neutrophils % 58.8 D Lymphocytes % 26.8 D Monocytes % 11.1 H D Eosinophils % 2.8 D Basophils % 0.5 Nucleated RBC % 0 PT with INR INR PTT (Actin FS) Sodium 141 Potassium 3.8 Chloride 108 H Carbon Dioxide 28 Anion Gap 5 L BUN 14.2 Creatinine 0.7 Est GFR (CKD-EPI)AfAm 114.78 Est GFR (CKD-EPI)NonAf 99.03 Random Glucose 87 Calcium 8.5 Total Bilirubin 0.3 AST 26 ALT 28 Alkaline Phosphatase 77 Creatine Kinase 59 Troponin I < 0.02 B-Natriuretic Peptide 946.1 H Total Protein 6.8 Albumin 3.5 Opiates Screen Methadone Screen Barbiturate Screen Phencyclidine Screen Ur Amphetamines Screen MDMA (Ecstasy) Screen Benzodiazepines Screen Cocaine Screen U Marijuana (THC) Screen 11/06/19 11/06/19 11/06/19 10:00 12:46 13:00 WBC RBC Hgb Hct MCV MCH MCHC RDW Plt Count MPV Absolute Neuts (auto) Neutrophils % Lymphocytes % Monocytes % Eosinophils % Basophils % Nucleated RBC % PT with INR 13.10 H INR 1.11 H PTT (Actin FS) 39.7 H Sodium Potassium Chloride Carbon Dioxide Anion Gap BUN Creatinine Est GFR (CKD-EPI)AfAm Est GFR (CKD-EPI)NonAf Random Glucose Calcium Total Bilirubin AST ALT Alkaline Phosphatase Creatine Kinase Troponin I < 0.02 B-Natriuretic Peptide Total Protein Albumin Opiates Screen Positive A* Methadone Screen Negative Barbiturate Screen Negative Phencyclidine Screen Negative Ur Amphetamines Screen Negative MDMA (Ecstasy) Screen Positive A* Benzodiazepines Screen Negative Cocaine Screen Negative U Marijuana (THC) Screen Negative Home Medications Medication Instructions Recorded Albuterol Sulfate Inhaler - 2 inh PO Q4H PRN 10/11/16 [Ventolin HFA Inhaler -] Atorvastatin Calcium 40 mg PO HS 10/11/16 Bupropion HCl [Wellbutrin Xl -] 150 mg PO BID 03/02/17 Pantoprazole Sodium [Protonix -] 40 mg PO DAILY 03/02/17 Cyproheptadine [Periactin -] 4 mg PO BID 09/23/19 Furosemide [Lasix -] 40 mg PO DAILY 09/23/19 Lisinopril 40 mg PO BID 09/23/19 Carvedilol 25 mg PO BID 11/06/19 Current Medications Generic Name Dose Route Start Last Admin Trade Name Freq PRN Reason Stop Dose Admin Albuterol/Ipratropium 1 amp 11/06/19 12:48 Duoneb - NEB Q4H PRN SHORTNESS OF BREATH Atorvastatin Calcium 80 mg 11/07/19 22:00 Lipitor - PO HS LAURO Bupropion HCl 150 mg 11/07/19 10:00 Wellbutrin Xl - PO BID LAURO Carvedilol 25 mg 11/06/19 22:00 Coreg - PO BID LAURO Furosemide 40 mg 11/07/19 10:00 Lasix - PO DAILY LAURO Heparin Sodium (Porcine) 1,000 unit 11/06/19 12:16 Heparin - IVPUSH PRN PRN Heparin Heparin Sodium (Porcine) 5,000 unit 11/06/19 12:16 Heparin - IVPUSH PRN PRN Heparin Heparin Sodium (Porcine) 25, 500 mls @ 16 mls/hr 11/06/19 12:30 11/06/19 13: 00 000 unit/ Sodium Chloride IV 800 unit/hr TITR LAURO 16 mls/hr Administration Protocol 800 UNIT/HR Lisinopril 40 mg 11/06/19 22:00 Prinivil PO BID LAURO Pantoprazole Sodium 40 mg 11/07/19 10:00 Protonix - PO DAILY LAURO A/P: 64 M h/o HTN, HLD, HFrEF (42% EF), CAD, COPD, Hep C (incomplete treatment) presents with L sided CP, ? suggestive of cardiac in origin, EKG showing ischemic changes, will empirically treat for ACS. L sided chest pain unclear if MSK v.s. cardiac, in view of extensive CAD history and presentation will empirically treat for ACS Load high intensity Statin, BB, ASA, Heparin drip, SL nitro PRN for CP, give 1 dose of IV tylenol Keep on telemetry, in view of RICARDO: 3, Heart score: 5, patient would greatly benefit from PCI intervention Cardiology consult: Dr. Matias CAD see management as above recommend smoking cessation HLD cont. statin COPD not in acute exacerbation restart home meds, albuterol PRN for SOB Hep C notes incomplete treatment with interferon, stopped d/t suicidal thoughts no SI/HI now follow up as outpatient, LFTs OK, no signs of liver decompensation DVT ppx: Heparin Admit to telemetry
--- NOTE | 2019-11-06 15:42 | CON.CARD ---
Cardiology Consult (text) - Consultation Consultation Note: cc: chest pain hpi: 64 m hx nicm (non obs cad on cath 2013), syst chf, hld, smoking, copd, hcv , here with chest pain. Pt has been noncompliant with cardio f/u. Has L side, nonradiating chest pain that started while he was asleep. lasted a few hours until he got to the ER, worse with palpation. Reportedly in the ER pain improved with SLNG. Currently no chest pain, palps, dizziness, dyspnea. pmh: per hpi psh: cath 2013 social: +tob fam: no premature cad ros: per hpi; all others nl meds: Home Medications Medication Instructions Recorded Albuterol Sulfate Inhaler - 2 inh PO Q4H PRN 10/11/16 [Ventolin HFA Inhaler -] Atorvastatin Calcium 40 mg PO HS 10/11/16 Bupropion HCl [Wellbutrin Xl -] 150 mg PO BID 03/02/17 Pantoprazole Sodium [Protonix -] 40 mg PO DAILY 03/02/17 Cyproheptadine [Periactin -] 4 mg PO BID 09/23/19 Furosemide [Lasix -] 40 mg PO DAILY 09/23/19 Lisinopril 40 mg PO BID 09/23/19 Carvedilol 25 mg PO BID 11/06/19 pe: Vital Signs Period Temp Pulse Resp BP Sys/Soliz Pulse Ox Last 24 Hr 97.5 F 62-72 16-16 144-179/85-90 98-99 nad no jvd rrr s1s2 no mrg cta bl nl eff aao3 no le e/c/c abd nt nd pos bs no jaundice diaphoresis pos dp pt no carotid bruits echo 04/2016: mild-mod dec lvef mibi 04/2016: apical/inferior infarct, no ischemia, lvef sev reduced echo 08/2019 low normal LV function, EF 50-55%, grade I diastolic dysfunction, RV nl, mild TR, mild AR, mod ao root dilation, borderline mildly dilated ascending aorta CXR: no congestion EKG sinus, anterior/lateral TWI and ST depression - stable compared to prior tele: sr a/p: 64 m hx nicm (non obs cad on cath 2012), syst chf, hld, smoking, copd, hcv , here with chest pain. chest pain - EKG similar to prior, trop neg x 2, atypical chest pain - less likely ACS - cont statin, aspirin, dc heparin gtt - mibi ordered - monitor on tele chronic systolic HF -appears euvolemic -cont PO lasix -cont callie, bb, aldactone hld: -cont statin abnl ecg: -pt with chronic ant/lat twis, ecg today with more pronounced twis, no st changes. trop negx2 - cont tele tob use: -smoking cessation discussed
--- NOTE | 2019-11-06 16:15 | ECHO ---
Name: VITALIY WARD Exam:Adult Echocardiogram Study Date: 11/06/2019 01:43 PM Age: 64 yrs Reason For Study: Chest pain Height: 65 in Weight: 125 lb BSA: 1.6 m2 MMode/2D Measurements & Calculations IVSd: 1.1 cm Ao root diam: 3.8 cm LVIDd: 5.0 cm LA dimension: 3.4 cm LVIDs: 3.8 cm LVPWd: 1.1 cm EDV(Teich): 118.8 ml LVOT diam: 2.2 cm ESV(Teich): 61.4 ml LAV (MOD-bp): 60.7 ml Doppler Measurements & Calculations MV V2 max: 118.1 cm/sec MV E max judah: 59.2 cm/sec MV max P.6 mmHg MV A max judah: 113.0 cm/sec MV V2 mean: 55.1 cm/sec MV E/A: 0.52 MV mean P.5 mmHg MV dec time: 0.23 sec MV V2 VTI: 27.2 cm Ao V2 max: 103.2 cm/sec AI max judah: 366.5 cm/sec Ao max P.3 mmHg AI max P.7 mmHg AI P1/2t: 958.9 msec AI dec slope: 111.9 cm/sec2 MISAEL(V,D): 2.8 cm2 LV V1 max P.2 mmHg PA V2 max: 74.7 cm/sec LV V1 max: 74.7 cm/sec PA max P.2 mmHg Med Peak E' Judah: 4.4 cm/sec PI Vmax: 130.3 cm/sec Med E/e': 13.6 Lat Peak E' Judah: 3.7 cm/sec Lat E/e': 16.0 Procedure A complete two-dimensional transthoracic echocardiogram was performed (2D, M-mode, Doppler and color flow Doppler). Left Ventricle There is mild concentric left ventricular hypertrophy. The left ventricular ejection fraction is norm al. Ejection Fraction = 55-60%. No regional wall motion abnormalities noted. Right Ventricle The right ventricle is normal in size and function. Atria Normal left and right atrial size and function. Mitral Valve There is no mitral regurgitation noted. Tricuspid Valve No tricuspid regurgitation. Aortic Valve No hemodynamically significant valvular aortic stenosis. Mild aortic regurgitation. Pulmonic Valve There is no pulmonic valvular regurgitation. Great Vessels Mild aortic root dilatation. Pericardium/Pleura There is no pericardial effusion. Interpretation Summary There is mild concentric left ventricular hypertrophy. The left ventricular ejection fraction is normal. The right ventricle is normal in size and function. Mild aortic regurgitation. Mild aortic root dilatation. MD Gopal Nguyen 11/06/2019 04:14 PM
[2019-11-06] MEDS ORDERED: HEPARIN NA (PORCINE) 5,000 UNITS/ML 1ML VIAL SQ SCH (18:00)
[2019-11-06 20:33] VITALS: BMI 22.6
[2019-11-06] MEDS ORDERED: ACETAMINOPHEN 325 MG TABLET (FP) PO PRN (21:03)
[2019-11-06] MEDS ORDERED: ATORVASTATIN CA 80 MG TABLET (FP) PO SCH (22:00)
[2019-11-06] MEDS: CARVEDILOL 25 MG TABLET (FP) PO SCH (22:52)
[2019-11-06] MEDS: HEPARIN NA (PORCINE) 5,000 UNITS/ML 1ML VIAL SQ SCH (22:52)
[2019-11-06] MEDS: LISINOPRIL 20 MG TABLET (FP) PO SCH (22:52)
[2019-11-07] MEDS ORDERED: IBUPROFEN 400 MG TABLET (FP) PO ONE (03:44)
[2019-11-07] MEDS: HEPARIN NA (PORCINE) 5,000 UNITS/ML 1ML VIAL SQ SCH ×2 (05:50→13:38)
[2019-11-07 07:17] LABS: BASO % 0.3 % (0-2.0); EOS % 1.7 % (0-4.5); HEMATOCRIT 37.8 % (35.4-49); LYMPH % 22.4 % (8-40); MCH 31.8 pg (25.7-33.7); MCHC 34.4 g/dl (32.0-35.9); MEAN CELL VOLUME 92.3 fl (80-96); MEAN PLT VOLUME 7.5 fl (7.5-11.1); NEUT % 67.6 % (42.8-82.8); PLATELET COUNT 123 K/MM3 (134-434); RBC 4.09 M/mm3 (4.00-5.60); RDW 16.1 % (11.9-15.9); WHITE BLOOD COUNT 5.9 K/mm3 (4.0-10.0)
[2019-11-07 07:53] LABS: ALBUMIN 3.4 g/dl (3.4-5.0); BILIRUBIN,TOTAL 0.4 mg/dL (0.2-1); BLOOD UREA NITROGEN 11.6 mg/dL (7-18); CALCIUM 8.6 mg/dL (8.5-10.1); CREATININE 0.6 mg/dL (0.55-1.3); MAGNESIUM 1.4 mg/dL (1.8-2.4); PHOSPHOROUS 2.5 mg/dL (2.5-4.9); POTASSIUM 3.6 mmol/L (3.5-5.1); TOT PROT 6.5 g/dl (6.4-8.2)
--- NOTE | 2019-11-07 08:02 | PN ---
Teaching Attending Note Name of Resident: Kimberly Campuzano ATTENDING PHYSICIAN STATEMENT I saw and evaluated the patient. I reviewed the resident's note and discussed the case with the resident. I agree with the resident's findings and plan as documented. SUBJECTIVE: OBJECTIVE: Vital Signs Temperature 98.3 F 11/07/19 06:57 Pulse Rate 74 11/07/19 06:57 Respiratory Rate 18 11/07/19 06:57 Blood Pressure 138/86 11/07/19 06:57 O2 Sat by Pulse Oximetry (%) 99 11/07/19 05:56 General: Elderly male comfortable, not in distress HEENT; mucous membranes moist, no anemia, no jaundice, PERRLA, no nystagmus Neck: No JVD, supple, no bruit, thyroid palpably normal, normal carotid pulsations. Chest: bilateral basal rales. CVS: S1-S2 regular no murmur/gallop/rub Abdomen: Nondistended, soft, bowel sounds present. Extremities: No edema., No calf tenderness, pulses present TAP DANCER: AO X3 , no gross motor sensory deficit CBC, BMP 11/07/19 05:51 11/07/19 05:51 Serial troponin I x3:Normal EKG: Serial EKGs are unchanged from baseline Echocardiogram: Normal ejection fraction 50 to 55% Nuclear stress test: As per cardiology note very similar findings to MPI 2016 prior to his normal cath: again with primarily fixed apical defect and mild basal inferior i Active Medications Acetaminophen (Tylenol -) 650 mg PO Q4H PRN PRN Reason: PAIN LEVEL 1-5 Albuterol/Ipratropium (Duoneb -) 1 amp NEB Q4H PRN PRN Reason: SHORTNESS OF BREATH Atorvastatin Calcium (Lipitor -) 40 mg PO HS [facility] Bupropion HCl (Wellbutrin Xl -) 150 mg PO BID [facility] Carvedilol (Coreg -) 25 mg PO BID [facility] Last Admin: 11/06/19 22:52 Dose: 25 mg Furosemide (Lasix -) 40 mg PO DAILY [facility] Heparin Sodium (Porcine) (Heparin -) 5,000 unit SQ TID [facility] Last Admin: 11/07/19 05:50 Dose: 5,000 unit Lisinopril (Prinivil) 40 mg PO BID [facility] Last Admin: 11/06/19 22:52 Dose: 40 mg Pantoprazole Sodium (Protonix -) 40 mg PO DAILY LAURO 64 years old male, history of hypertension, hypercholesteremia, congestive heart failure last echo shows ejection fraction 50 to 55% in August 2019, polysubstance abuse, COPD, hep C [partially treated] partially treated, recently discharged from [facility] after evaluated for atypical chest pain, yesterday presented with 3 episode of atypical chest pain at home, normal serial cardiac enzyme, no new EKG changes evaluated by the cardiology. Plan: Can be discharged home once cleared by the cardiology consult. Please send ASA with PPI Problem List - Problems (1) Chest pain Assessment/Plan: Patient has multiple CAD risk factors admitted with chest pain, evaluated by cardiology consult, EKGs are stable, troponin I are negative will continue ASA, statin beta-blockers, recent echo normal ejection fraction, will follow-up nuclear no interval change since last nuclear stress in 2016 that time cath was reported normal cardiology cleared to DC home. We will add ASA with PPI. Patient is not coagulopathic platelet count 128 Code(s): R07.9 - CHEST PAIN, UNSPECIFIED Qualifiers: Chest pain type: unspecified Qualified Code(s): R07.9 - Chest pain, unspecified (2) Congestive heart failure Assessment/Plan: At present mildly elevated proBNP continue home medications. Problems reviewed: Yes Code(s): I50.9 - HEART FAILURE, UNSPECIFIED (3) COPD (chronic obstructive pulmonary disease) Assessment/Plan: Stable continue current management Problems reviewed: Yes Code(s): J44.9 - CHRONIC OBSTRUCTIVE PULMONARY DISEASE, UNSPECIFIED Qualifiers: COPD type: unspecified COPD Qualified Code(s): J44.9 - Chronic obstructive pulmonary disease, unspecified (4) Anxiety Assessment/Plan: Continue home medications Problems reviewed: Yes Code(s): F41.9 - ANXIETY DISORDER, UNSPECIFIED
[2019-11-07] MEDS ORDERED: REGADENOSON 0.4 MG/5 ML PRE-FILLED SYRINGE IVPUSH ONE ×2 (09:15→10:40)
[2019-11-07] MEDS ORDERED: FUROSEMIDE 40 MG TABLET (FP) PO SCH (10:00)
[2019-11-07] MEDS ORDERED: PANTOPRAZOLE 40 MG TABLET PO SCH (10:00)
[2019-11-07] MEDS: CARVEDILOL 25 MG TABLET (FP) PO SCH (11:55)
[2019-11-07] MEDS: LISINOPRIL 20 MG TABLET (FP) PO SCH (11:55)
[2019-11-07] MEDS ORDERED: NITROGLYCERIN SUBLINGUAL 1/150 0.4 MG TAB ONE (11:58)
--- NOTE | 2019-11-07 12:06 | PN ---
Progress Note, Physician Chief Complaint: ECGs unchanged from prior all TNI negative TELE: NSR - Current Medication List Current Medications: Active Medications Acetaminophen (Tylenol -) 650 mg PO Q4H PRN PRN Reason: PAIN LEVEL 1-5 Albuterol/Ipratropium (Duoneb -) 1 amp NEB Q4H PRN PRN Reason: SHORTNESS OF BREATH Atorvastatin Calcium (Lipitor -) [address] [facility] Bupropion HCl (Wellbutrin Xl -) 150 mg PO BID [facility] Last Admin: 11/07/19 11:55 Dose: 150 mg Carvedilol (Coreg -) 25 mg PO BID [facility] Last Admin: 11/07/19 11:55 Dose: 25 mg Furosemide (Lasix -) 40 mg PO DAILY [facility] Last Admin: 11/07/19 11:55 Dose: 40 mg Heparin Sodium (Porcine) (Heparin -) 5,000 unit SQ TID [facility] Last Admin: 11/07/19 05:50 Dose: 5,000 unit Lisinopril (Prinivil) 40 mg PO BID [facility] Last Admin: 11/07/19 11:55 Dose: 40 mg Pantoprazole Sodium (Protonix -) 40 mg PO DAILY [facility] Last Admin: 11/07/19 11:55 Dose: 40 mg - Objective Vital Signs: Vital Signs Temperature 98.3 F 11/07/19 06:57 Pulse Rate 74 11/07/19 06:57 Respiratory Rate 18 11/07/19 06:57 Blood Pressure 138/86 11/07/19 06:57 O2 Sat by Pulse Oximetry (%) 99 11/07/19 05:56 Constitutional: Yes: No Distress Cardiovascular: Yes: Regular Rate and Rhythm Gastrointestinal: Yes: Soft Edema: No Peripheral Pulses WNL: Yes Neurological: Yes: Alert, Oriented ...Motor Strength: WNL Labs: CBC, BMP 11/07/19 05:51 11/07/19 05:51 INR, PTT INR 1.11 (0.83-1.09) H 11/06/19 10:00 Laboratory Tests 11/06/19 11/06/19 11/06/19 10:00 12:46 13:00 WBC Hgb Plt Count Sodium Potassium Creatinine Troponin I < 0.02 < 0.02 Opiates Screen Positive A* Methadone Screen Negative Barbiturate Screen Negative Phencyclidine Screen Negative Ur Amphetamines Screen Negative MDMA (Ecstasy) Screen Positive A* Benzodiazepines Screen Negative Cocaine Screen Negative U Marijuana (THC) Screen Negative 11/06/19 11/07/19 11/07/19 21:30 05:51 05:51 WBC 5.9 Hgb 13.0 Plt Count 123 L Sodium 140 Potassium 3.6 Creatinine 0.6 Troponin I < 0.02 Opiates Screen Methadone Screen Barbiturate Screen Phencyclidine Screen Ur Amphetamines Screen MDMA (Ecstasy) Screen Benzodiazepines Screen Cocaine Screen U Marijuana (THC) Screen Assessment/Plan mibi 04/2016: apical/inferior infarct, no ischemia, lvef sev reduced echo 08/2019 low normal LV function, EF 50-55%, grade I diastolic dysfunction, RV nl, mild TR, mild AR, mod ao root dilation, borderline mildly dilated ascending aorta Echo 11/06/2019: reviewed, normal EF, LVH Cath: 10/2012 at [facility] NORMAL CORS EF 35% CXR: no congestion EKG sinus, anterior/lateral TWI and ST depression - stable compared to prior tele: sr a/p: 64 m hx nicm (NORMAL CORS on cath 2012), syst chf, hld, smoking, copd, hcv , here with chest pain with unchanged ECG, negative cardiac enzymes and repeat nuclear stress showing very similar findings to MPI 2016 prior to his normal cath: again with primarily fixed apical defect and mild basal inferior ischemia (branch vessel). chest pain: - EKG similar to prior, trop neg x 3, atypical chest pain. History of normal cors on cath 2012 after abnl nuclear stress that is essentially unchanged now. - cont statin -Can use low dose ASA (for presumed branch vessel disease) if no medical contraindication. He does have Hep C (is there a history of varices or prior GIB ??) -Outpatient f/u emphasized. Patient given card for our office chronic systolic HF: -appears euvolemic -cont PO lasix -cont callie, bb, aldactone hld: -cont statin abnl ecg: -pt with chronic ant/lat twis, basically unchanged. tob use: -smoking cessation discussed
[2019-11-07] MEDS ORDERED: AMINOPHYLLINE 250 MG/10 ML VIAL IVPUSH ONE (12:30)
--- NOTE | 2019-11-07 13:55 | EKG ---
Test Reason : Blood Pressure : / mmHG Vent. Rate : 066 BPM Atrial Rate : 066 BPM P-R Int : 158 ms QRS Dur : 108 ms QT Int : 440 ms P-R-T Axes : 038 027 145 degrees QTc Int : 461 ms NORMAL SINUS RHYTHM PROLONGED QT ABNORMAL ECG WHEN COMPARED WITH ECG OF 06-NOV-2019 10:00, T WAVE INVERSION NO LONGER EVIDENT IN INFERIOR LEADS Confirmed by MARIANGEL ANGELES MD ([id number]) on 11/07/2019 1:55:19 PM Referred By: Confirmed By:MARIANGEL ANGELES MD
[2019-11-07 15:07] VITALS: BP 133/92; TEMP 97.8
[2019-11-07 15:23] VITALS: PULSE 76
--- NOTE | 2019-11-07 16:40 | DS ---
Physical Exam: SUBJECTIVE: Patient seen and examined OBJECTIVE: Vital Signs Period Temp Pulse Resp BP Sys/Soliz Pulse Ox Last 24 Hr 97.3 F-98.3 F 65-77 18-22 133-156/79-93 95-99 PHYSICAL EXAM GENERAL: The patient is awake, alert, and fully oriented, in no acute distress. HEAD: Normal with no signs of trauma. EYES: PERRL, extraocular movements intact, sclera anicteric, conjunctiva clear. ENT: Ears normal, nares patent, oropharynx clear without exudates, moist mucous membranes. NECK: Trachea midline, full range of motion, supple. LUNGS: Breath sounds equal, clear to auscultation bilaterally, no wheezes, no crackles, no accessory muscle use. HEART: Regular rate and rhythm, S1, S2 without murmur, rub or gallop. ABDOMEN: Soft, nontender, nondistended, normoactive bowel sounds, no guarding, no rebound, no hepatosplenomegaly, no masses. EXTREMITIES: 2+ pulses, warm, well-perfused, no edema. NEUROLOGICAL: Cranial nerves II through XII grossly intact. Normal speech, gait not observed. PSYCH: Normal mood, normal affect. SKIN: Warm, dry, normal turgor, no rashes or lesions noted. LABS Laboratory Results - last 24 hr 11/06/19 11/07/19 11/07/19 21:30 05:51 05:51 WBC 5.9 RBC 4.09 Hgb 13.0 Hct 37.8 MCV 92.3 MCH 31.8 MCHC 34.4 RDW 16.1 H Plt Count 123 L MPV 7.5 Absolute Neuts (auto) 4.0 Neutrophils % 67.6 Lymphocytes % 22.4 Monocytes % 8.0 Eosinophils % 1.7 Basophils % 0.3 Nucleated RBC % 0 Sodium 140 Potassium 3.6 Chloride 108 H Carbon Dioxide 24 Anion Gap 8 BUN 11.6 Creatinine 0.6 Est GFR (CKD-EPI)AfAm 122.29 Est GFR (CKD-EPI)NonAf 105.51 Random Glucose 94 Calcium 8.6 Phosphorus 2.5 Magnesium 1.4 L Total Bilirubin 0.4 AST 25 ALT 25 Alkaline Phosphatase 70 Creatine Kinase Troponin I < 0.02 Total Protein 6.5 Albumin 3.4 TSH 0.15 L 11/07/19 05:51 WBC RBC Hgb Hct MCV MCH MCHC RDW Plt Count MPV Absolute Neuts (auto) Neutrophils % Lymphocytes % Monocytes % Eosinophils % Basophils % Nucleated RBC % Sodium Potassium Chloride Carbon Dioxide Anion Gap BUN Creatinine Est GFR (CKD-EPI)AfAm Est GFR (CKD-EPI)NonAf Random Glucose Calcium Phosphorus Magnesium Total Bilirubin AST ALT Alkaline Phosphatase Creatine Kinase 49 Troponin I < 0.02 Total Protein Albumin TSH HOSPITAL COURSE: Date of Admission:11/06/19 #L sided chest pain r/o ACS -resolved -no suspicion for ACS, Likely MSK -trop neg x 3 -full dose aspirin was given -statin -echo 08/2019 low normal LV function, EF 50-55%, grade I diastolic dysfunction, RV nl, mild TR, mild AR, mod ao root dilation, borderline mildly dilated ascending aorta Echo 11/06/2019: reviewed, normal EF, LVH Cath: 10/2012 at [facility] NORMAL CORS EF 35% -Repeat nuclear stress showing very similar findings to MPI 2016 prior to his normal cath: again with primarily fixed apical defect and mild basal inferior ischemia (branch vessel). -seen by cardio. -patient agreed to follow up outpatient with cardiology. #HTN -cont home meds #S CHF -cont lasix 40mg #COPD -duonebs prn #Chronic Hep C -says he used to be on interferon before but never fully treated for it. -fu am labs Date of Discharge: 11/07/19 Minutes to complete discharge: 35 Discharge Summary Problems reviewed: Yes Reason For Visit: SHORTNESS OF BREATH,CHEST PAIN Condition: Stable - Instructions Diet, Activity, Other Instructions: You were admitted because of chest pain. Please take your medications as prescribed. You will need to see your primary care doctor in 1 week. 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 If you develop worsening chest pain, shortness of breath, nausea, vomiting, please go to your nearest emergency room. Referrals: Betty Jones MD [Staff Physician] - 1 Week Gopal Vásquez MD [Primary Care Provider] - 1 Week Disposition: HOME - Home Medications Comprehensive Discharge Medication List: Ambulatory Orders Albuterol Sulfate Inhaler - [Ventolin HFA Inhaler -] 2 inh PO Q4H PRN 10/11/16 Atorvastatin Calcium 40 mg PO HS 10/11/16 Bupropion HCl [Wellbutrin Xl -] 150 mg PO BID 03/02/17 Pantoprazole Sodium [Protonix -] 40 mg PO DAILY 03/02/17 Cyproheptadine [Periactin -] 4 mg PO BID 09/23/19 Furosemide [Lasix -] 40 mg PO DAILY 09/23/19 Lisinopril 40 mg PO BID 09/23/19 Carvedilol 25 mg PO BID 11/06/19 Aspirin [ASA -] 81 mg PO DAILY #30 tab.chew 11/07/19 This patient is new to me today: Yes Date on this admission: 11/07/19 Emergency Visit: Yes ED Registration Date: 11/06/19 Care time: The patient presented to the Emergency Department on the above date and was hospitalized for further evaluation of their emergent condition. Critical Care patient: No - Discharge Referral Referred to [facility] No ATTENDING PHYSICIAN STATEMENT I saw and evaluated the patient. I reviewed the resident's note and discussed the case with the resident. I agree with the resident's findings and plan as documented. SUBJECTIVE: OBJECTIVE: ASSESSMENT AND PLAN:
[2019-11-07] MEDS ORDERED: ATORVASTATIN CA 80 MG TABLET (FP) PO SCH (22:00)
[2019-11-07] MEDS ORDERED: ATORVASTATIN CA 40 MG TABLET (FP) PO SCH (22:00)
== END 2019-11-07 15:30 | disposition home or self-care (01) ==
LOC: SUPCPDRO 09:39 → JER 09:39 → JERBED 11:29 → J4W 20:11
PROVIDERS: ATTEND Internal Medicine
PROC: 3E033GC Introduction of Other Therapeutic Substance into Peripheral Vein, Percutaneous Approach (ICD-10-PCS; principal; 2019-11-06)
PROC: 3E013GC Introduction of Other Therapeutic Substance into Subcutaneous Tissue, Percutaneous Approach (ICD-10-PCS; 2019-11-06)
DX: R07.89 Other chest pain (principal); R06.02 Shortness of breath; I11.0 Hypertensive heart disease with heart failure; E78.5 Hyperlipidemia, unspecified; I25.10 Atherosclerotic heart disease of native coronary artery without angina pectoris; I50.22 Chronic systolic (congestive) heart failure; J43.9 Emphysema, unspecified; J45.909 Unspecified asthma, uncomplicated; K21.9 Gastro-esophageal reflux disease without esophagitis; F41.0 Panic disorder [episodic paroxysmal anxiety]; F17.210 Nicotine dependence, cigarettes, uncomplicated; B18.2 Chronic viral hepatitis C; R94.31 Abnormal electrocardiogram [ECG] [EKG]
CPT/HCPCS: 36415; 71045-TC-FY; 78452-TC; 80053; 80307; 82550; 83735; 83880; 84100; 84443; 84484; 85025; 85610; 85730; 93005; 93010; 93017; 93306-TC; 94761; 96372; 96374; 96375; 99285-25; A9502; G0378; G0480; J0131; J1644; J2785

== ENCOUNTER 2019-11-09 06:04 | Inpatient (IN) | payer OTHER ==
--- NOTE | 2019-11-09 07:32 | PDOC ---
Attending Attestation - Resident Resident Name: Elbert Martino - ED Attending Attestation I have performed the following: I have examined & evaluated the patient, The case was reviewed & discussed with the resident, I agree w/resident's findings & plan, Exceptions are as noted - HPI HPI: 11/09/19 08:26 64yo male with hx of copd who still smokes tobacco presents for body aches, myalgias, L sided cp and sob that started this AM. Pt c/o of coughing. Pt states he woke up at 3 with the symptoms. Pt states he feels sob and his cough has been productive. Pt denies f/c. Pt states he feels achy all over. Denies abd pain. Denies urinary complaints. Pt denies rash. Pt is unsure if he received the flu vaccine this year. - Physicial Exam PE: 11/09/19 08:30 Gen: aaox3, tachypnic heart: +s1s2 reg lungs: diminished bs b/l abd: soft, nt/nd +bs ext: no c/c/e - Medical Decision Making 11/09/19 08:31 a/p: 64yo male with L sided cp, chest tightness, body aches, cough, myalgias -concern for flu vs copd exacerbation vs cad -pt tachypnic -pt with conversational dyspnea -pt with diminished bs b/l -will send labs, flu, cxr, ekg -trop -will start nebs, steroids -pt will need admission for copd exacerbation in addition to cause of myalgias 11/09/19 08:55 cxr clear 11/09/19 08:55 flu neg no elevated wbc 11/09/19 08:58 pt with copd exacerbation will start azithromycin will need admisison for nebs, steroids neg trop microblog sent to [facility] for admission 11/09/19 09:[address] Rebollar who accepts pt to service Heart Score/ECG Review - ECG Intrepretation Comment:: 11/09/19 08:35 sinus at 81, t wave inversions v2-6, I, avl, abnl ekg, unchanged from prior
--- NOTE | 2019-11-09 07:33 | PDOC ---
History of Present Illness - General Chief Complaint: Shortness of Breath Stated Complaint: DIFFICULTY BREATHING Time Seen by Provider: 11/09/19 07:09 - History of Present Illness Initial Comments: Mr. Ramírez is a 64 yo M with a PMHx of HTN, HLD, CHF, NICM, COPD, Hep C, recently discharged from the hospital on Sunday for chest pain, presenting today with chest pressure. Reports that the pressure started this morning around 3am and woke him from his sleep. He was feeling well on discharge Sunday as well as yesterday. Reports associated shortness of breath. Denies fever/ chills. Denies cough. Denies wheezes. Reports nausea and vomiting x1. Denies leg swelling. No home O2. Tried inhaler at home without relief. Past History - Past Medical History Allergies/Adverse Reactions: Allergies Allergy/AdvReac Type Severity Reaction Status Date / Time No Known Allergies Allergy Verified 11/09/19 06:17 Home Medications: Ambulatory Orders Albuterol Sulfate Inhaler - [Ventolin HFA Inhaler -] 2 inh PO Q4H PRN 10/11/16 Atorvastatin Calcium 40 mg PO HS 10/11/16 Bupropion HCl [Wellbutrin Xl -] 150 mg PO BID 03/02/17 Pantoprazole Sodium [Protonix -] 40 mg PO DAILY 03/02/17 Cyproheptadine [Periactin -] 4 mg PO BID 09/23/19 Furosemide [Lasix -] 40 mg PO DAILY 09/23/19 Lisinopril 40 mg PO BID 09/23/19 Carvedilol 25 mg PO BID 11/06/19 Aspirin [ASA -] 81 mg PO DAILY #30 tab.chew 11/07/19 Albuterol 0.083% Nebulizer Mildred [Ventolin 0.083% Nebulizer Soln -] 1 amp NEB RQID amp 11/10/19 Budesonide/Formeterol Fumarate [SYMBICORT 80/4.5mcg -] 2 puff IH BID #1 inhaler 11/10/19 Nicotine [Nicotine Patch 7 mg/24 hr] 1 each TD DAILY #30 patch.td24 11/10/19 Tiotropium [place] [Spiriva Respimat] 2 puff IH DAILY #1 inhaler 11/10/19 predniSONE [Deltasone -] 10 mg PO ASDIR #10 tab 11/10/19 Anemia: No Asthma: Yes Cancer: No Cardiac Disorders: Yes (CHF) CVA: No COPD: Yes (Emphysema) CHF: Yes Dementia: No Diabetes: No GI Disorders: Yes (acid reflux) Disorders: No HTN: Yes Hypercholesterolemia: Yes Kidney Stones: No Liver Disease: Yes (hep c; Treatment in past, did not complete due to side effects.) Psychiatric Problems: Yes (severe anxiety and panic attacks,BI POLAR) Seizures: No Thyroid Disease: No - Surgical History Abdominal Surgery: No Appendectomy: No Cardiac Surgery: No Cholecystectomy: No Lung Surgery: No Neurologic Surgery: No Orthopedic Surgery: No - Reproductive History Testicular Surgery: No - Immunization History Immunization Up to Date: Yes - Psycho Social/Smoking Cessation Hx Smoking Status: Yes Smoking History: Unknown if ever smoked Have you smoked in the past 12 months: No Number of Cigarettes Smoked Daily: 10 Cigars Per Day: 0 Information on smoking cessation initiated: No 'Breaking Loose' booklet given: 03/02/17 Hx Alcohol Use: No Drug/Substance Use Hx: No Substance Use Type: Opiates, Tranquilizers Hx Substance Use Treatment: Yes (Previous Detox admissions at [facility] Cardiac Specific PMH - Complaint Specific PMHX Pacemaker: No Review of Systems - Review of Systems Comments:: GENERAL/CONSTITUTIONAL: No fever or chills. No weakness._ HEAD, EYES, EARS, NOSE AND THROAT: No change in vision. No change in hearing. No sore throat._ CARDIOVASCULAR: Reports chest pressure and shortness of breath. RESPIRATORY: Denies cough, hemoptysis_ GASTROINTESTINAL: Reports nausea and vomiting. No diarrhea or constipation._ GENITOURINARY: No dysuria, frequency, or change in urination._ MUSCULOSKELETAL: No joint or muscle swelling or pain. No neck or back pain._ SKIN: No rash_ NEUROLOGIC: No headache, vertigo, loss of consciousness, or change in strength/ sensation._ ENDOCRINE: No increased thirst. No abnormal weight change_ HEMATOLOGIC/LYMPHATIC: No anemia, easy bleeding, or history of blood clots._ ALLERGIC/IMMUNOLOGIC: No hives or skin allergy._ *Physical Exam - Vital Signs Last Vital Signs Temp Pulse Resp BP Pulse Ox 96.6 F L 85 20 155/92 99 11/10/19 10:00 11/10/19 10:00 11/10/19 10:00 11/10/19 10:00 11/10/19 09:33 - Physical Exam GENERAL: Awake, alert, and oriented to person/place/time, in no acute distress_ HEAD: No signs of trauma, normoc ephalic, atraumatic _ EYES: PERRLA, EOMI, sclera anicteric, conjunctiva clear_ ENT: Hearing grossly normal, nares patent, oropharynx clear without exudates. No uvular deviation. Moist mucosa_ NECK: Normal ROM, supple, no lymphadenopathy, JVD, or masses_ LUNGS: No distress, speaks in full sentences, diffuse wheezes worse in left lower base. HEART: Regular rate and rhythm, normal S1 and S2, no murmurs appreciated, peripheral pulses normal and equal bilaterally._ ABDOMEN: Soft, nontender, normoactive bowel sounds. No guarding, no rebound. No masses_ EXTREMITIES: Normal inspection, Normal range of motion, no edema. No clubbing or cyanosis_ NEUROLOGICAL: Cranial nerves II through XII grossly intact. Normal speech, normal gait, no focal sensorimotor deficits _ SKIN: Warm, Dry, normal turgor, no rashes or lesions noted_ ED Treatment Course - LABORATORY CBC & Chemistry Diagram: 11/10/19 06:55 11/10/19 06:55 - ADDITIONAL ORDERS Additional order review: 11/09/19 08:05 RBC 4.43 MCV 94.1 MCHC 34.4 RDW 16.0 H MPV 7.3 L Neutrophils % 78.5 Lymphocytes % 13.7 D Monocytes % 6.6 Eosinophils % 0.8 Basophils % 0.4 - Medications Given in the ED: ED Medications Discontinued Medications Generic Name Dose Route Start Last Admin Trade Name Soni PRN Reason Stop Dose Admin Acetaminophen 1,000 mg 11/10/19 04:47 11/10/19 04:58 Ofirmev Injection - IVPB 11/10/19 04:48 1,000 mg ONCE ONE Administration Albuterol/Ipratropium 1 amp 11/09/19 07:34 11/09/19 07:46 Duoneb - NEB 11/09/19 07:35 1 amp ONCE ONE Administration Albuterol/Ipratropium 1 amp 11/09/19 08:09 11/09/19 08:13 Duoneb - NEB 11/09/19 08:10 1 amp ONCE ONE Administration Azithromycin 500 mg/ Dextrose 250 mls @ 250 mls/hr 11/09/19 08:58 11/09/19 09 :22 IVPB 11/09/19 09:57 250 mls/hr ONCE ONE Administration Magnesium Sulfate 1 gm 11/09/19 17:16 11/09/19 17:33 Magnesium Sulfate IVPB 11/09/19 17:17 1 gm ONCE ONE Administration Methylprednisolone Sodium Succinate 125 mg 11/09/19 08:23 11/09/19 08:37 Solu-Medrol - IVPUSH 11/09/19 08:24 125 mg ONCE ONE Administration Medical Decision Making - Medical Decision Making 11/09/19 07:47 64M with extensive PMH and recent hospitalization presenting with chest pain and shortness of breath that started at 3am this morning. -cbc, cmp, bnp -ekg, trop, cxr -duonebs 11/09/19 08:02 EKG shows NSR, 81 bpm, T wave inversions in lead II, no axis deviation, no ST elevation. 11/09/19 08:22 CXR shows no acute intra thoracic pathology. 11/09/19 08:58 Labs reviewed. Pt reassessed. Reports improvement with duonebs. Will start zithromax 500 mg Laboratory Last Values WBC 5.6 K/mm3 (4.0-10.0) 11/09/19 08:05 RBC 4.43 M/mm3 (4.00-5.60) 11/09/19 08:05 Hgb 14.3 GM/dL (11.7-16.9) 11/09/19 08:05 Hct 41.7 % (35.4-49) 11/09/19 08:05 MCV 94.1 fl (80-96) 11/09/19 08:05 MCH 32.3 pg (25.7-33.7) 11/09/19 08:05 MCHC 34.4 g/dl (32.0-35.9) 11/09/19 08:05 RDW 16.0 % (11.9-15.9) H 11/09/19 08:05 Plt Count 147 K/MM3 (134-434) 11/09/19 08:05 MPV 7.3 fl (7.5-11.1) L 11/09/19 08:05 Absolute Neuts (auto) 4.4 K/mm3 (1.5-8.0) 11/09/19 08:05 Neutrophils % 78.5 % (42.8-82.8) 11/09/19 08:05 Lymphocytes % 13.7 % (8-40) D 11/09/19 08:05 Monocytes % 6.6 % (3.8-10.2) 11/09/19 08:05 Eosinophils % 0.8 % (0-4.5) 11/09/19 08:05 Basophils % 0.4 % (0-2.0) 11/09/19 08:05 Nucleated RBC % 0 % (0-0) 11/09/19 08:05 Sodium 140 mmol/L (136-145) 11/09/19 08:05 Potassium 3.6 mmol/L (3.5-5.1) 11/09/19 08:05 Chloride 106 mmol/L (98-107) 11/09/19 08:05 Carbon Dioxide 26 mmol/L (21-32) 11/09/19 08:05 Anion Gap 8 MMOL/L (8-16) 11/09/19 08:05 BUN 14.0 mg/dL (7-18) 11/09/19 08:05 Creatinine 0.7 mg/dL (0.55-1.3) 11/09/19 08:05 Est GFR (CKD-EPI)AfAm 114.78 11/09/19 08:05 Est GFR (CKD-EPI)NonAf 99.03 11/09/19 08:05 Random Glucose 116 mg/dL (74-106) H 11/09/19 08:05 Calcium 8.7 mg/dL (8.5-10.1) 11/09/19 08:05 Total Bilirubin 0.4 mg/dL (0.2-1) 11/09/19 08:05 AST 35 U/L (15-37) 11/09/19 08:05 ALT 34 U/L (13-61) 11/09/19 08:05 Alkaline Phosphatase 71 U/L (45-117) 11/09/19 08:05 Creatine Kinase 72 U/L (26-308) 11/09/19 08:05 Troponin I < 0.02 ng/ml (0.00-0.05) 11/09/19 08:05 B-Natriuretic Peptide 708.8 pg/ml (5-125) H 11/09/19 08:05 Total Protein 7.3 g/dl (6.4-8.2) 11/09/19 08:05 Albumin 3.6 g/dl (3.4-5.0) 11/09/19 08:05 Influenza A (Rapid) Negative (Negative) 11/09/19 07:59 Influenza B (Rapid) Negative (Negative) 11/09/19 07:59 11/09/19 10:30 D/w Dr. Nova who accepts the patient for admission. Discharge - Discharge Information Problems reviewed: Yes Clinical Impression/Diagnosis: COPD exacerbation Condition: Stable - Admission Yes - Follow up/Referral - Patient Discharge Instructions - Post Discharge Activity
[2019-11-09] MEDS ORDERED: ALBUTEROL SO4 2.5/IPRATROPIUM 0.5 INH SOL 3 ML VIAL.NEB. NEB ONE ×4 (07:34→08:15)
[2019-11-09] MEDS ORDERED: methylPREDNISolone NA SUCC 125 MG/2 ML VIAL IVPUSH ONE (08:23)
[2019-11-09 08:28] LABS: BASO % 0.4 % (0-2.0); EOS % 0.8 % (0-4.5); HEMATOCRIT 41.7 % (35.4-49); HEMOGLOBIN 14.3 GM/dL (11.7-16.9); LYMPH % 13.7 % (8-40); MCH 32.3 pg (25.7-33.7); MCHC 34.4 g/dl (32.0-35.9); MEAN CELL VOLUME 94.1 fl (80-96); MEAN PLT VOLUME 7.3 fl (7.5-11.1); MONO % 6.6 % (3.8-10.2); NEUT % 78.5 % (42.8-82.8); PLATELET COUNT 147 K/MM3 (134-434); RBC 4.43 M/mm3 (4.00-5.60); WHITE BLOOD COUNT 5.6 K/mm3 (4.0-10.0)
[2019-11-09] MEDS ORDERED: methylPREDNISolone NA SUCC 125 MG/2 ML VIAL ONE (08:28)
[2019-11-09 08:56] LABS: ALBUMIN 3.6 g/dl (3.4-5.0); ALK PHOS 71 U/L (45-117); ANION GAP 8 MMOL/L (8-16); BILIRUBIN,TOTAL 0.4 mg/dL (0.2-1); CALCIUM 8.7 mg/dL (8.5-10.1); CHLORIDE 106 mmol/L (98-107); CO2 26 mmol/L (21-32); CREATININE 0.7 mg/dL (0.55-1.3); GLUCOSE,RANDOM 116 mg/dL (74-106); N-TERMINAL BNP 708.8 pg/ml (5-125); POTASSIUM 3.6 mmol/L (3.5-5.1); SGOT/AST 35 U/L (15-37); SGPT/ALT 34 U/L (13-61); SODIUM 140 mmol/L (136-145); TOT PROT 7.3 g/dl (6.4-8.2)
[2019-11-09] MEDS ORDERED: AZITHROMYCIN IVPB 500 MG in DEXTROSE 5%-WATER - 250 ML IVPB ONE (08:58)
[2019-11-09] MEDS ORDERED: AZITHROMYCIN IVPB 500 MG/250 ML BAG IVPB ONE (09:16)
[2019-11-09] MEDS ORDERED: FUROSEMIDE 40 MG TABLET (FP) ONE (11:12)
[2019-11-09] MEDS ORDERED: ASPIRIN 81 MG CHEWABLE TABLETS ONE (11:12)
[2019-11-09] MEDS ORDERED: PANTOPRAZOLE 40 MG TABLET ONE (11:13)
[2019-11-09] MEDS ORDERED: FUROSEMIDE 40 MG TABLET (FP) PO SCH (11:56)
[2019-11-09] MEDS ORDERED: ASPIRIN 81 MG CHEWABLE TABLETS PO SCH (11:56)
[2019-11-09] MEDS ORDERED: PANTOPRAZOLE 40 MG TABLET PO SCH (11:56)
[2019-11-09] MEDS: ALBUTEROL SO4 0.083% IH SOL 2.5 MG/3 ML VIAL.NEB. NEB SCH (12:07)
[2019-11-09] MEDS ORDERED: ALBUTEROL SO4 0.083% IH SOL 2.5 MG/3 ML VIAL.NEB. NEB ONE (12:08)
--- NOTE | 2019-11-09 12:20 | EKG ---
Test Reason : Blood Pressure : / mmHG Vent. Rate : 081 BPM Atrial Rate : 081 BPM P-R Int : 156 ms QRS Dur : 104 ms QT Int : 390 ms P-R-T Axes : 036 030 196 degrees QTc Int : 453 ms NORMAL SINUS RHYTHM POSSIBLE LEFT ATRIAL ENLARGEMENT NONSPECIFIC ST AND T WAVE ABNORMALITY ABNORMAL ECG WHEN COMPARED WITH ECG OF 07-NOV-2019 03:14, NO SIGNIFICANT CHANGE WAS FOUND Confirmed by MARIANGEL ANGELES MD ([id number]) on 11/09/2019 12:20:34 PM Referred By: Confirmed By:MARIANGEL ANGELES MD
--- NOTE | 2019-11-09 16:42 | HP ---
Admitting History and Physical - Primary Care Physician PCP: Gopal Vásquez - Admission Chief Complaint: sob History of Present Illness: 64 year old male with an extensive PMHx including HTN, HLD, Systolic CHF, COPD, Hep C incompletely treated, who was recently discharged from the hospital 3 days ago. He was admitted for chest pain, and ACS was ruled out. Patient states he was cigarette free for a few weeks but when he got home from hospital he started smoking again after which he felt tightness in his chest, coughing and wheezing. He came back to hospital for evaluation. He states he was given script for home 02 by his PCP but there are insurance issues and he has not received it yet. Denies any other symptoms. History Source: Patient Limitations to Obtaining History: No Limitations - Past Medical History Cardiovascular: Yes: CHF (Echo 11/28: normal size LV, mildly reduced LV systolic function, mild global hypokinesis, grade I diastolic dysfunction, mild MR, trace TR, mild AR), HTN Pulmonary: Yes: COPD Hepatobiliary: Yes: Hepatitis C Psych: Yes: Addictions, Anxiety - Past Surgical History Past Surgical History: Yes: None - Smoking History Smoking history: Unknown if ever smoked Have you smoked in the past 12 months: No Aproximately how many cigarettes per day: 10 - Alcohol/Substance Use Hx Alcohol Use: No History of Substance Use: reports: Cocaine, Heroin, Prescription Date of Last Use: 09/17/15 - Social History ADL: Independent History of Recent Travel: No Home Medications - Allergies Allergies/Adverse Reactions: Allergies Allergy/AdvReac Type Severity Reaction Status Date / Time No Known Allergies Allergy Verified 11/09/19 06:17 - Home Medications Home Medications: Ambulatory Orders Albuterol Sulfate Inhaler - [Ventolin HFA Inhaler -] 2 inh PO Q4H PRN 10/11/16 Atorvastatin Calcium 40 mg PO HS 10/11/16 Bupropion HCl [Wellbutrin Xl -] 150 mg PO BID 03/02/17 Pantoprazole Sodium [Protonix -] 40 mg PO DAILY 03/02/17 Cyproheptadine [Periactin -] 4 mg PO BID 09/23/19 Furosemide [Lasix -] 40 mg PO DAILY 09/23/19 Lisinopril 40 mg PO BID 09/23/19 Carvedilol 25 mg PO BID 11/06/19 Aspirin [ASA -] 81 mg PO DAILY #30 tab.chew 11/07/19 Family Medical History Family History: Denies Review of Systems - Review of Systems Constitutional: reports: No Symptoms Eyes: reports: No Symptoms HENT: reports: No Symptoms Neck: reports: No Symptoms Cardiovascular: reports: No Symptoms Respiratory: reports: SOB, SOB on Exertion Gastrointestinal: reports: No Symptoms Genitourinary: reports: No Symptoms Breasts: reports: No Symptoms Reported Musculoskeletal: reports: No Symptoms Integumentary: reports: No Symptoms Neurological: reports: No Symptoms Endocrine: reports: No Symptoms Hematology/Lymphatic: reports: No Symptoms Psychiatric: reports: No Symptoms Physical Examination Vital Signs: Vital Signs Temperature 98.6 F 11/09/19 15:00 Pulse Rate 78 11/09/19 15:00 Respiratory Rate 78 H 11/09/19 15:00 Blood Pressure 115/73 11/09/19 15:00 O2 Sat by Pulse Oximetry (%) 95 11/09/19 15:00 Constitutional: Yes: Well Nourished, No Distress, Calm Eyes: Yes: WNL, Conjunctiva Clear, EOM Intact HENT: Yes: WNL, Atraumatic, Normocephalic Neck: Yes: WNL, Supple, Trachea Midline Cardiovascular: Yes: WNL, Regular Rate and Rhythm Respiratory: Yes: On Nasal O2, SOB on Exertion, Wheezes (bilateral expiratory wheezing). No: Accessory Muscle Use Gastrointestinal: Yes: WNL, Normal Bowel Sounds, Soft Musculoskeletal: Yes: WNL Extremities: Yes: WNL Edema: No Labs: CBC, BMP 11/09/19 08:05 11/09/19 08:05 Imaging - Results Chest X-ray: Report Reviewed, Image Reviewed EKG: Report Reviewed Problem List - Problems (1) Anxiety and depression Code(s): F41.9 - ANXIETY DISORDER, UNSPECIFIED; F32.9 - MAJOR DEPRESSIVE DISORDER, SINGLE EPISODE, UNSPECIFIED (2) Asthma exacerbation in COPD Code(s): J44.1 - CHRONIC OBSTRUCTIVE PULMONARY DISEASE W (ACUTE) EXACERBATION; J45.901 - UNSPECIFIED ASTHMA WITH (ACUTE) EXACERBATION (3) Congestive heart failure Code(s): I50.9 - HEART FAILURE, UNSPECIFIED (4) Diastolic dysfunction Code(s): I51.9 - HEART DISEASE, UNSPECIFIED (5) Insomnia Code(s): G47.00 - INSOMNIA, UNSPECIFIED (6) HTN (hypertension) Code(s): I10 - ESSENTIAL (PRIMARY) HYPERTENSION Assessment/Plan A/P: 64 year old male h/o HTN, HLD, Systolic CHF (42% EF), CAD, COPD, Hep C ( incomplete treatment) presents with wheezing and SOB after hospital DC. 1) COPD exacerbation -start on IV steroids, taper quickly -02 supplementation -inhaled nebs -smoking cessation counseling -azithromycin given in ED, complete course 2) HTN/CAD/Systolic CHF -resume home meds -not in failure -recent stress test noted 3) HLD -cw statin 4) Hep C -notes incomplete treatment with interferon, stopped d/t suicidal thoughts -no SI/HI now -follow up as outpatient
[2019-11-09 16:47] VITALS: BMI 22.0
[2019-11-09] MEDS ORDERED: MAGNESIUM SULF 50% (8.12 MEQ/2 ML-1 GM VIAL) IVPB ONE (17:16)
[2019-11-09] MEDS: methylPREDNISolone NA SUCC 40 MG/1 ML VIAL IVPUSH SCH (17:33)
[2019-11-09] MEDS ORDERED: methylPREDNISolone NA SUCC 40 MG/1 ML VIAL IVPUSH SCH (18:00)
[2019-11-09] MEDS ORDERED: PT OWN MED DRAWER 7, Y5N ONE (20:54)
[2019-11-09] MEDS ORDERED: ATORVASTATIN CA 40 MG TABLET (FP) PO SCH (22:00)
[2019-11-09] MEDS: HEPARIN NA (PORCINE) 5,000 UNITS/ML 1ML VIAL SQ SCH (22:23)
[2019-11-09] MEDS: CARVEDILOL 25 MG TABLET (FP) PO SCH (22:23)
[2019-11-09] MEDS: LISINOPRIL 20 MG TABLET (FP) PO SCH (22:23)
[2019-11-09] MEDS: CYPROHEPTADINE HCL 4 MG TABLET PO SCH (22:24)
[2019-11-10] MEDS ORDERED: ACETAMINOPHEN 325 MG TABLET (FP) PO PRN (03:21)
[2019-11-10] MEDS ORDERED: ACETAMINOPHEN 1000 MG/100 ML VIAL (NON FORMULARY) IVPB ONE (04:47)
[2019-11-10] MEDS: methylPREDNISolone NA SUCC 40 MG/1 ML VIAL IVPUSH SCH (04:58)
[2019-11-10 07:46] LABS: HEMATOCRIT 37.8 % (35.4-49); HEMOGLOBIN 12.9 GM/dL (11.7-16.9); LYMPH % 9.9 % (8-40); MCHC 34.1 g/dl (32.0-35.9); MEAN CELL VOLUME 93.9 fl (80-96); MEAN PLT VOLUME 7.7 fl (7.5-11.1); MONO % 6.5 % (3.8-10.2); NEUT % 83.6 % (42.8-82.8); PLATELET COUNT 136 K/MM3 (134-434); RBC 4.03 M/mm3 (4.00-5.60); RDW 15.9 % (11.9-15.9); WHITE BLOOD COUNT 7.9 K/mm3 (4.0-10.0)
--- NOTE | 2019-11-10 07:52 | PN ---
Teaching Attending Note Name of Resident: Kimberly Campuzano ATTENDING PHYSICIAN STATEMENT I saw and evaluated the patient. I reviewed the resident's note and discussed the case with the resident. I agree with the resident's findings and plan as documented. SUBJECTIVE: Feels comfortable still active smoker OBJECTIVE: Vital Signs Temperature 98.4 F 11/10/19 06:00 Pulse Rate 73 11/10/19 06:00 Respiratory Rate 20 11/10/19 06:00 Blood Pressure 149/74 11/10/19 06:00 O2 Sat by Pulse Oximetry (%) 98 11/09/19 21:00 General: Elderly male comfortable, not in distress HEENT; mucous membranes moist, no anemia, no jaundice, PERRLA, no nystagmus Neck: No JVD, supple, no bruit, thyroid palpably normal, normal carotid pulsations. Chest: bilateral minimal wheezes CVS: S1-S2 regular no murmur/gallop/rub Abdomen: Nondistended, soft, bowel sounds present. 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 Active Medications Acetaminophen (Tylenol -) 650 mg PO Q6H PRN PRN Reason: Fever Or Pain Last Admin: 11/10/19 03:28 Dose: 650 mg Albuterol Sulfate (Ventolin 0.083% Nebulizer Soln -) 1 amp NEB RQID [facility] Last Admin: 11/09/19 12:07 Dose: 1 amp Aspirin (Asa -) 81 mg PO DAILY [facility] Atorvastatin Calcium (Lipitor -) 40 mg PO HS [facility] Last Admin: 11/09/19 22:23 Dose: 40 mg Budesonide/Formoterol Fumarate (Symbicort 80/4.5mcg -) 2 puff IH BID [facility] Bupropion HCl (Wellbutrin Xl -) 150 mg PO BID [facility] Last Admin: 11/09/19 22:23 Dose: 150 mg Carvedilol (Coreg -) 25 mg PO BID [facility] Last Admin: 11/09/19 22:23 Dose: 25 mg Cyproheptadine HCl (Periactin -) 4 mg PO BID [facility] Last Admin: 11/09/19 22:24 Dose: 4 mg Furosemide (Lasix -) 40 mg PO DAILY [facility] Heparin Sodium (Porcine) (Heparin -) 5,000 unit SQ BID [facility] Last Admin: 11/09/19 22:23 Dose: 5,000 unit Lisinopril (Prinivil) 40 mg PO BID [facility] Last Admin: 11/09/19 22:23 Dose: 40 mg Methylprednisolone Sodium Succinate (Solu-Medrol -) 40 mg IVPUSH Q12H [facility] Last Admin: 11/10/19 04:58 Dose: 40 mg Pantoprazole Sodium (Protonix -) 40 mg PO DAILY [facility] Tiotropium [place] (Spiriva Respimat) 2 puff IH DAILY [facility] ASSESSMENT AND PLAN: 64 years old man, discharged home on November 07, 2019 after nuclear stress test, history of COPD active smoker, CAD status post cardiac catheterization in 2016, hypertension, hypercholesteremia, congestive heart failure last echo shows ejection fraction 50 to 55% in August 2019, polysubstance abuse, COPD, hep C [partially treated] partially treated, patient was evaluated for home oxygen during previous hospitalization but there was no desaturation on exertion, yesterday presented with complaint of shortness of breath at home, reevaluate for the home oxygen O2 sat dropped to 86% improved to 98% on 2 L. Impression: COPD exacerbation Continue DuoNeb as needed, add Spiriva, Symbicort, switch to p.o. prednisone arrange home oxygen follow-up with pulmonary, smoking cessation, nicotine patch 7 mg every 24 hours daily. Problem List - Problems (1) COPD exacerbation Assessment/Plan: Continue DuoNeb, O2 evaluation, liters home O2, needs LABA+ LAMA and ICS, can be switched to p.o. prednisone for 5 days, complete Z-Vincenzo follow-up with nail artist for smoking caseation nicotine patch Problems reviewed: Yes Code(s): J44.1 - CHRONIC OBSTRUCTIVE PULMONARY DISEASE W (ACUTE) EXACERBATION (2) Diastolic dysfunction Assessment/Plan: Continue Lasix beta-young at present BNP is lower than previous hospitalization. Problems reviewed: Yes Code(s): I51.9 - HEART DISEASE, UNSPECIFIED (3) Nicotine dependence Assessment/Plan: Continue nicotine patch Problems reviewed: Yes Code(s): F17.200 - NICOTINE DEPENDENCE, UNSPECIFIED, UNCOMPLICATED (4) Hypertension Assessment/Plan: Treated during previous hospitalization Problems reviewed: Yes Code(s): I10 - ESSENTIAL (PRIMARY) HYPERTENSION (5) CAD (coronary artery disease) Assessment/Plan: Patient is a known case of stable CAD underwent cardiac evaluation last week during hospitalization discharged on beta-blockers, aspirin and statin Problems reviewed: Yes Code(s): I25.10 - ATHSCL HEART DISEASE OF [place] CORONARY ARTERY W/O ANG PCTRS (6) Hepatitis C Assessment/Plan: Partially treated chronic thrombocytopenia. No active Problems reviewed: Yes Code(s): B19.20 - UNSPECIFIED VIRAL HEPATITIS C WITHOUT HEPATIC COMA
[2019-11-10] MEDS: ALBUTEROL SO4 0.083% IH SOL 2.5 MG/3 ML VIAL.NEB. NEB SCH ×2 (08:00→11:11)
[2019-11-10 08:13] LABS: BLOOD UREA NITROGEN 18.9 mg/dL (7-18); CALCIUM 8.5 mg/dL (8.5-10.1); CREATININE 0.8 mg/dL (0.55-1.3); POTASSIUM 3.8 mmol/L (3.5-5.1)
[2019-11-10] MEDS ORDERED: PT OWN MED DRAWER 7, Y5N ONE (09:22)
[2019-11-10] MEDS ORDERED: FUROSEMIDE 40 MG TABLET (FP) PO SCH (10:00)
[2019-11-10] MEDS ORDERED: TIOTROPIUM BROMIDE 2.5 MCG (SPIRIVA) RESPIMAT INHALER IH SCH (10:00)
[2019-11-10] MEDS ORDERED: BUDESONIDE/FORMETEROL FUMARATE 80/4.5 mcg INHALER IH SCH (10:00)
[2019-11-10] MEDS ORDERED: ASPIRIN 81 MG CHEWABLE TABLETS PO SCH (10:00)
[2019-11-10] MEDS ORDERED: PANTOPRAZOLE 40 MG TABLET PO SCH (10:00)
[2019-11-10] MEDS: CARVEDILOL 25 MG TABLET (FP) PO SCH (10:23)
[2019-11-10] MEDS: LISINOPRIL 20 MG TABLET (FP) PO SCH (10:23)
[2019-11-10] MEDS: HEPARIN NA (PORCINE) 5,000 UNITS/ML 1ML VIAL SQ SCH (10:24)
[2019-11-10] MEDS: CYPROHEPTADINE HCL 4 MG TABLET PO SCH (10:25)
--- NOTE | 2019-11-10 11:01 | CON.PULM ---
Consult Consult Specialty:: PULMONARY Referred by:: Dr Matthews Reason for Consultation:: shortness of breath - History of Present Illness Chief Complaint: shortness of breath History of Present Illness: 64yo male with h/o HTN, hyperlipidemia, Hep C, LV systolic dysfunction, COPD, active smoker who was admitted with worsening shortness of breath. + nonproductive cough and wheezing. No fevers, chills or sweats. Recent hospitalization for chest pain. He started smoking at age 14, smokes as much as 1.5PPD. - History Source History Provided By: Patient, Medical Record Limitations to Obtaining History: No Limitations - Past Medical History Cardio/Vascular: Yes: CHF (Echo 11/28: normal size LV, mildly reduced LV systolic function, mild global hypokinesis, grade I diastolic dysfunction, mild MR, trace TR, mild AR), HTN Pulmonary: Yes: COPD Hepatobiliary: Yes: Hepatitis C Psych: Yes: Addictions, Anxiety - Past Surgical History Past Surgical History: Yes: None - Alcohol/Substance Use Hx Alcohol Use: No History of Substance Use: reports: Cocaine, Heroin, Prescription Date of Last Use: 09/17/15 - Smoking History Smoking history: Unknown if ever smoked Have you smoked in the past 12 months: No Aproximately how many cigarettes per day: 10 - Social History ADL: Independent History of Recent Travel: No Home Medications - Allergies Allergies/Adverse Reactions: Allergies Allergy/AdvReac Type Severity Reaction Status Date / Time No Known Allergies Allergy Verified 11/09/19 06:17 - Home Medications Home Medications: Ambulatory Orders Albuterol Sulfate Inhaler - [Ventolin HFA Inhaler -] 2 inh PO Q4H PRN 10/11/16 Atorvastatin Calcium 40 mg PO HS 10/11/16 Bupropion HCl [Wellbutrin Xl -] 150 mg PO BID 03/02/17 Pantoprazole Sodium [Protonix -] 40 mg PO DAILY 03/02/17 Cyproheptadine [Periactin -] 4 mg PO BID 09/23/19 Furosemide [Lasix -] 40 mg PO DAILY 09/23/19 Lisinopril 40 mg PO BID 09/23/19 Carvedilol 25 mg PO BID 11/06/19 Aspirin [ASA -] 81 mg PO DAILY #30 tab.chew 11/07/19 Review of Systems - Review of Systems Constitutional: reports: Weakness. denies: Chills, Fever Eyes: denies: Recent Change in Vision HENT: denies: Mouth Swelling, Nasal Congestion Neck: denies: Stiffness, Tenderness Cardiovascular: reports: Chest Pain, Shortness of Breath. denies: Edema, Palpitations Respiratory: reports: Cough, SOB, SOB on Exertion, Wheezing. denies: Hemoptysis Gastrointestinal: denies: Abdominal Pain, Nausea, Vomiting Genitourinary: denies: Dysuria, Hematuria Neurological: denies: Dizziness, Headache Endocrine: denies: Unexplained Weight Loss Physical Exam Vital Sings: Vital Signs Temperature 98.4 F 11/10/19 06:00 Pulse Rate 89 11/10/19 09:33 Respiratory Rate 11/10/19 06:00 Blood Pressure 149/74 11/10/19 06:00 O2 Sat by Pulse Oximetry (%) 99 11/10/19 09:33 Constitutional: Yes: Calm Eyes: Yes: Conjunctiva Clear, EOM Intact HENT: Yes: Atraumatic, Normocephalic Neck: Yes: Supple, Trachea Midline Cardiovascular: Yes: Regular Rate and Rhythm Respiratory: Yes: Poor Air Entry ...Clubbing: No Gastrointestinal: Yes: Normal Bowel Sounds, Soft. No: Tenderness Edema: No Neurological: Yes: Alert, Oriented Labs: CBC, BMP 11/10/19 06:55 11/10/19 06:55 Imaging - Results Chest X-ray: Report Reviewed, Image Reviewed (no infiltrates) Problem List - Problems (1) COPD exacerbation Code(s): J44.1 - CHRONIC OBSTRUCTIVE PULMONARY DISEASE W (ACUTE) EXACERBATION Assessment/Plan Acute COPD Exacerbation Likely Chronic Hypoxic Respiratory Failure LV Systolic Dysfunction Hep C HTN Hyperlipidemia Smoker - can change steroids to PO prednisone 40mg daily - inhaled bronchodilators - O2 to keep Spo2 >90%, will need home O2 - smoking cessation discussed - outpt PFTs - DVT prophylaxis Thank you for this consult Greg Teran MD
--- NOTE | 2019-11-10 12:17 | DS ---
Physical Exam: SUBJECTIVE: Patient seen and examined. No events overnight. Offers no complaints. denies sob, chest pain, nausea, vomiting, fevers, chills. OBJECTIVE: Vital Signs Period Temp Pulse Resp BP Sys/Soliz Pulse Ox Last 24 Hr 96.6 F-98.6 F 70-98 20-78 115-155/73-92 95-99 PHYSICAL EXAM GENERAL: a/o x 3 EYES: PERRL, conjunctiva clear. ENT: oropharynx clear without exudates, moist mucous membranes. NECK: supple. LUNGS: decreased breath sounds HEART: RRR ABDOMEN: Soft, nontender, nondistended, normoactive bowel sounds EXTREMITIES: 2+ pulses LABS Laboratory Results - last 24 hr 11/10/19 11/10/19 06:55 06:55 WBC 7.9 RBC 4.03 Hgb 12.9 Hct 37.8 MCV 93.9 MCH 32.0 MCHC 34.1 RDW 15.9 Plt Count 136 MPV 7.7 Absolute Neuts (auto) 6.6 Neutrophils % 83.6 H Lymphocytes % 9.9 D Monocytes % 6.5 Eosinophils % 0.0 D Basophils % 0.0 Nucleated RBC % 0 Sodium 139 Potassium 3.8 Chloride 108 H Carbon Dioxide 25 Anion Gap 7 L BUN 18.9 H Creatinine 0.8 Est GFR (CKD-EPI)AfAm 108.65 Est GFR (CKD-EPI)NonAf 93.74 Random Glucose 139 H Calcium 8.5 HOSPITAL COURSE: Date of Admission:11/09/19 64 years old man, discharged home on November 07, 2019 after nuclear stress test , history of COPD active smoker, CAD status post cardiac catheterization in 2016 , hypertension, hypercholesteremia, congestive heart failure last echo shows ejection fraction 50 to 55% in August 2019, polysubstance abuse, COPD, hep C [ partially treated] partially treated, patient was evaluated for home oxygen during previous hospitalization but there was no desaturation on exertion, yesterday presented with complaint of shortness of breath at home, reevaluate for the home oxygen O2 sat dropped to 86% improved to 98% on 2 L. Impression: COPD exacerbation Continue DuoNeb as needed, add Spiriva, Symbicort, switch to p.o. prednisone arrange home oxygen follow-up with pulmonary, smoking cessation, nicotine patch 7 mg every 24 hours daily. Date of Discharge: 11/10/19 Minutes to complete discharge: 35 Discharge Summary Problems reviewed: Yes Reason For Visit: CHRONIC OBSTRUCTIVE PULMONARY DISEASE Current Active Problems CAD (coronary artery disease) (Acute) COPD exacerbation (Acute) Hepatitis C (Acute) Hypertension (Acute) Condition: Stable - Instructions Diet, Activity, Other Instructions: You were here because of difficulty breathing from your COPD. Please follow up with your primary care doctor within 1 week. Follow up with your lung doctor within 1 week. We started you on new medications to help with your breathing. Please take as prescribed. You will also be sent home with oxygen. You will need to take prednisone for 4 more days. Steroids: 11/11 Prednisone 40mg 11/12 Prednisone 30mg 11/13 Prednisone 20mg 11/14 Prednisone 10mg It is very important that you quit smoking. If you develop shortness of breath, chest pain, nausea, vomiting, fevers, chills , then go to your nearest emergency department. Referrals: Lee Araujo MD [Staff Physician] - 1 Week Gopal Vásquez MD [Primary Care Provider] - 1 Week Disposition: VNS/HOME HEALTH CARE - Home Medications Comprehensive Discharge Medication List: Ambulatory Orders Albuterol Sulfate Inhaler - [Ventolin HFA Inhaler -] 2 inh PO Q4H PRN 10/11/16 Atorvastatin Calcium 40 mg PO HS 10/11/16 Bupropion HCl [Wellbutrin Xl -] 150 mg PO BID 03/02/17 Pantoprazole Sodium [Protonix -] 40 mg PO DAILY 03/02/17 Cyproheptadine [Periactin -] 4 mg PO BID 09/23/19 Furosemide [Lasix -] 40 mg PO DAILY 09/23/19 Lisinopril 40 mg PO BID 09/23/19 Carvedilol 25 mg PO BID 11/06/19 Aspirin [ASA -] 81 mg PO DAILY #30 tab.chew 11/07/19 Albuterol 0.083% Nebulizer [place] [Ventolin 0.083% Nebulizer Soln -] 1 amp NEB RQID amp 11/10/19 Budesonide/Formeterol Fumarate [SYMBICORT 80/4.5mcg -] 2 puff IH BID #1 inhaler 11/10/19 Tiotropium [place] [Spiriva Respimat] 2 puff IH DAILY #1 inhaler 11/10/19 predniSONE [Deltasone -] 10 mg PO ASDIR #10 tab 11/10/19 This patient is new to me today: Yes Date on this admission: 11/10/19 Emergency Visit: Yes ED Registration Date: 11/09/19 Care time: The patient presented to the Emergency Department on the above date and was hospitalized for further evaluation of their emergent condition. Critical Care patient: No - Discharge Referral Referred to [facility] Med [facility].C.: No ATTENDING PHYSICIAN STATEMENT I saw and evaluated the patient. I reviewed the resident's note and discussed the case with the resident. I agree with the resident's findings and plan as documented. SUBJECTIVE: OBJECTIVE: ASSESSMENT AND PLAN:
[2019-11-10 13:28] VITALS: BP 136/71; PULSE 79; TEMP 98.8
== END 2019-11-10 16:00 | disposition home health service (06) | DRG 191 ==
LOC: JER 06:04 → JERBED 09:25 → J7W 16:20
PROVIDERS: ADMIT Internal Medicine; ATTEND Internal Medicine
DX: J44.1 Chronic obstructive pulmonary disease with (acute) exacerbation (principal); I42.8 Other cardiomyopathies; I50.22 Chronic systolic (congestive) heart failure; J45.901 Unspecified asthma with (acute) exacerbation; J96.11 Chronic respiratory failure with hypoxia; I11.0 Hypertensive heart disease with heart failure; E78.5 Hyperlipidemia, unspecified; B19.20 Unspecified viral hepatitis C without hepatic coma; G47.00 Insomnia, unspecified; F41.9 Anxiety disorder, unspecified; I25.10 Atherosclerotic heart disease of native coronary artery without angina pectoris; F17.210 Nicotine dependence, cigarettes, uncomplicated
CPT/HCPCS: 36415; 71045-TC-FY; 80048; 80053; 82550; 83880; 84484; 85025; 87804; 93005; 93010; 94640; 94761; 99284-25; J0131; J1644

== ENCOUNTER 2019-12-20 16:16 | Inpatient (IN) | payer MEDICARE, OTHER ==
--- NOTE | 2019-12-20 16:33 | PDOC ---
History of Present Illness - General Chief Complaint: Respiratory Stated Complaint: difficulty breathing Time Seen by Provider: 12/20/19 16:32 Past History - Past Medical History Allergies/Adverse Reactions: Allergies Allergy/AdvReac Type Severity Reaction Status Date / Time No Known Allergies Allergy Verified 12/20/19 16:18 Home Medications: Ambulatory Orders Albuterol Sulfate Inhaler - [Ventolin HFA Inhaler -] 2 inh PO Q4H PRN 10/11/16 Bupropion HCl [Wellbutrin Xl -] 150 mg PO BID 03/02/17 Pantoprazole Sodium [Protonix -] 40 mg PO DAILY 03/02/17 Cyproheptadine [Periactin -] 4 mg PO BID 09/23/19 Carvedilol 25 mg PO BID 11/06/19 Aspirin [ASA -] 81 mg PO DAILY #30 tab.chew 11/07/19 Albuterol 0.083% Nebulizer [place] [Ventolin 0.083% Nebulizer Soln -] 1 amp NEB RQID amp 11/10/19 Budesonide/Formeterol Fumarate [SYMBICORT 80/4.5mcg -] 2 puff IH BID #1 inhaler 11/10/19 Tiotropium [place] [Spiriva Respimat] 2 puff IH DAILY #1 inhaler 11/10/19 Atorvastatin Calcium [Lipitor] 40 mg PO HS 12/20/19 Anemia: No Asthma: Yes Cancer: No Cardiac Disorders: Yes (CHF) CVA: No COPD: Yes (Emphysema) CHF: Yes Dementia: No Diabetes: No GI Disorders: Yes (acid reflux) Disorders: No HTN: Yes Hypercholesterolemia: Yes Kidney Stones: No Liver Disease: Yes (hep c; Treatment in past, did not complete due to side effects.) Psychiatric Problems: Yes (severe anxiety and panic attacks,BI POLAR) Seizures: No Thyroid Disease: No - Surgical History Abdominal Surgery: No Appendectomy: No Cardiac Surgery: No Cholecystectomy: No Lung Surgery: No Neurologic Surgery: No Orthopedic Surgery: No - Reproductive History Testicular Surgery: No - Immunization History Immunization Up to Date: Yes - Psycho Social/Smoking Cessation Hx Smoking Status: Yes Smoking History: Never smoked Have you smoked in the past 12 months: Yes Number of Cigarettes Smoked Daily: 10 Cigars Per Day: 0 'Breaking Loose' booklet given: 03/02/17 Hx Alcohol Use: No Drug/Substance Use Hx: No Substance Use Type: Opiates, Tranquilizers Hx Substance Use Treatment: Yes (Previous Detox admissions at [facility].) *Physical Exam - Vital Signs Last Vital Signs Temp Pulse Resp BP Pulse Ox 97.7 F 71 22 H 178/93 H 99 12/20/19 16:19 12/20/19 16:19 12/20/19 16:19 12/20/19 16:19 12/20/19 16:19 ED Treatment Course - LABORATORY CBC & Chemistry Diagram: 12/20/19 17:00 12/20/19 17:00 Medical Decision Making - Medical Decision Making 12/20/19 16:57 HPI: 64yo M hx COPD (poorly compliant with 2L NC O2 at home, referral to pulm in 10/2019 but has not seen), HTN, HFpEF (09/02 echo EF 50-55%; noncompliant with lasix), HCV (partially treated), HLD, smoking, ?stomach ulcers, and CAD (s/p cath 2016) presents from home with SOB waking him from sleeping (when not using O2) since last PM, partially improved with albuterol and other "twisting inhaler" x5 each, similar to prior COPD exacerbations, feeling like he needs pre dnisone. Endorses slight lightheadedness today and feeling tired because didn't sleep well. Denies hx DVT/PE, travel, sick contacts, rhinorrhea, congestion, sore throat, sinus pressure, coronavirus exposure, cough, fever, chills, headache, vertigo, syncope, numbness/tingling, weakness, vision changes, chest pain, palpitations, leg swelling, abdominal pain, blood in stool, diarrhea, constipation, nausea, vomiting, dysuria, hematuria, confusion. PCP - [facility] - hasn't seen ROS: Constitutional: Positive for fatigue. Negative for chills, fever, diaphoresis. HENT: Negative for sore throat, rhinorrhea, congestion. Eyes: Negative for visual disturbance. Respiratory: Positive for shortness of breath. Negative for cough, and wheezing. Cardiovascular: Negative for chest pain, palpitations, and leg swelling. Gastrointestinal: Negative for abdominal pain, blood in stool, constipation, diarrhea, nausea, and vomiting. Genitourinary: Negative for dysuria, flank pain, and hematuria. Musculoskeletal: Negative for myalgias, back pain, and neck pain. Skin: Negative for rash. Neurological: Positive for light-headedness. Negative for vertigo, syncope, weakness, numbness and headaches. Psychiatric/Behavioral: Negative for behavioral problems and confusion. PE: Gen: Alert, NAD, comfortable-appearing. HEENT: PERRL, EOMI, MMM, NCAT. No conjunctival pallor. Sclera are non-icteric. CV: Regular rate and rhythm. No murmurs, rubs, or gallops. PULM: No resp distress. Speaking in full sentences. Bibasilar faint crackles and expiratory wheezing. No rhonchi. ABD: soft, RUQ and epigastric TTP, ND, no rebound tenderness or guarding, no CVA tenderness. BACK: No TTP of c/t/l-spine. No step-offs or deformities. MSK: No bony deformities. 2+ pulses in all extremities. NEURO: AAOx3. PERRL. No gross CN deficits. Strength and sensation grossly intact throughout. EXTREMITIES: No cyanosis. No clubbing. No edema. No calf tenderness. PSYCH: Normal mood and thought pattern. SKIN: Warm and dry. Normal capillary refill. No rashes. No jaundice. MDM: 64yo M hx COPD (poorly compliant with 2L NC O2 at home, referral to pulm in 10/2019 but has not seen), HTN, HFpEF (09/02 echo EF 50-55%; noncompliant with lasix), HCV (partially treated), HLD, smoking, ?stomach ulcers, and CAD (s/p cath 2016) presents from home with SOB waking him from sleeping (when not using O2) since last PM, partially improved with albuterol and other "twisting inhaler" x5 each, similar to prior COPD exacerbations, feeling like he needs prednisone. Hemodynamically stable, afebrile, O2 sat 100% on RA, no respiratory distress, bibasilar faint crackles and expiratory wheezing, +RUQ/epigastric TTP. Ddx: COPD exacerbation, CHF exacerbation, ACS/SD (lower concern), PNA, URI, metabolic derangement, anemia. RUQ/epigastric TTP ddx includes gastritis, pancreatitis, cholelithiasis/cystitis, hepatitis. -EKG -CXR -POCUS RUQ, echo, lungs -CBC,CMP,Coags,Mg,Phos,Cardiac profile,BNP,Lipase -Duonebs, Solumedrol -Dispo: pending workup and reassessment, likely d/c home 12/20/19 17:08 EKG reviewed: NSR, 67bpm, QTc 477ms prolonged, VA interval 150ms, normal axis, diffuse TWIs, no significant changes from prior 11/09/19 12/20/19 17:47 CXR reviewed: no acute pathology 12/20/19 18:21 Labs reviewed. Notable for BNP 1900, trop neg, Mg 1.4. POCUS done. Notable for gallstones w/o e/o cholecystitis, mild B lines in b/l lungs, reduced EF, flat IVC. -Lasix 20 -1g Mg -Hold off on IVF for now -Admit for CHF and COPD exacerbation, new reduced EF on POCUS -Consider treatment for HCV 12/20/19 19:23 Signed out to admitting team. Discharge - Discharge Information Problems reviewed: Yes Clinical Impression/Diagnosis: CHF (congestive heart failure), COPD exacerbation Condition: Stable - Admission Yes - Follow up/Referral - Patient Discharge Instructions - Post Discharge Activity
--- NOTE | 2019-12-20 16:49 | PDOC ---
Attending Attestation - Resident Resident Name: [email or web address] - ED Attending Attestation I have performed the following: I have examined & evaluated the patient, The case was reviewed & discussed with the resident, I agree w/resident's findings & plan - HPI HPI: 12/20/19 19:34 64yo M hx COPD (poorly compliant with 2L NC O2 at home, referral to pulm in 10/2019 but has not seen), HTN, HFpEF (09/02 echo EF 50-55%; noncompliant with lasix), HCV (partially treated), HLD, smoking, ?stomach ulcers, and CAD (s/p cath 2016) presents from home with SOB waking him from sleeping (when not using O2) since last PM, partially improved with albuterol and other "twisting inhaler" x5 each, similar to prior COPD exacerbations, feeling like he needs prednisone. Endorses slight lightheadedness today and feeling tired because didn't sleep well. Denies hx DVT/PE, travel, sick contacts, rhinorrhea, congestion, sore throat, sinus pressure, coronavirus exposure, cough, fever, chills, headache, vertigo, syncope, numbness/tingling, weakness, vision changes, chest pain, palpitations, leg swelling, abdominal pain, blood in stool, diarrhea, constipation, nausea, vomiting, dysuria, hematuria, confusion. - Physicial Exam PE: 12/20/19 16:48 Agree with the resident's HPI and PE as documented in the electronic medical record. NAD, well appearing, EOMI, PERRL, nl conjunctiva, anicteric; neck supple. lungs with basilar crackles b/l. no respiratory distress. RRR, abdomen soft +mild epigastric TTP, neg mclean's sign. no rebound, guarding. Back nontender. GARCIA x4, no focal neuro deficits. No peripheral edema. normal color for ethnicity, WWP. no calf tenderness. 12/20/19 19:34 12/20/19 19:34 - Medical Decision Making 12/20/19 19:34 Vital Signs Temp Pulse Resp BP Pulse Ox 97.7 F 71 22 H 178/93 H 96 12/20/19 16:19 12/20/19 16:19 12/20/19 16:19 12/20/19 16:19 12/20/19 17:14 DDx SOB: ACS, PE, PTX, CHF, COPD exac, pulmonary edema, pleurisy, pneumonia, viral syndrome. effusion. anemia, electrolyte/metabolic derangements. Considered but clinically doubt based on HPI and PE: Low suspicion for pulmonary embolism or dissection. EKG normal sinus rhythm, no interval abnormalities, narrow QRS, ST and T wave segments and morphology normal. Nonspecific T wave abnormalities, unchanged from prior no chest pain no respiratory distress V reviewed, mildly hypertensive, normal sats.no tachy labs and lytes with +bnp, neg trop cxr is clear, no acute process no infectious sx POCUS with moderately reduced EF, no effusion, RV<LV, normal aortic root. scant b lines in right lung field at 3 lines per lung field in the right gastelum; no effusion. small IVC, intravascularly normal volume status but with new reduction in EF could be reason for his SOB also could be concommitant copd given lasix 20mg x1, pt is noncompliant, unsure of his prior dose, so start low steroids for the copd. bedside gb study with stones, no acute cholecystitis findings Plan for admit observation, chf vs copd, could be both with clinical scenerio, serial trops and EKG/tele monitoring. discussion with patient and family at bedside, made aware of impression and plan, questions answered. 12/20/19 19:34 12/20/19 19:37 Heart Score/ECG Review #1 ECG reviewed & interpreted by me at: 16:50 General ECG Interpretation: Sinus Rhythm, Normal Rate, Normal Intervals 12/20/19 16:48 EKG normal sinus rhythm 67 bpm, no interval abnormalities, narrow QRS, ST and T wave segments and morphology normal. Nonspecific T wave abnormalities with diffuse T wave inversions in anterolateral/inferior lateral leads
[2019-12-20] MEDS ORDERED: ALBUTEROL SO4 2.5/IPRATROPIUM 0.5 INH SOL 3 ML VIAL.NEB. NEB ONE (16:55)
[2019-12-20 17:22] LABS: BASO % 0.7 % (0-2.0); EOS % 0.7 % (0-4.5); HEMATOCRIT 37.3 % (35.4-49); HEMOGLOBIN 12.9 GM/dL (11.7-16.9); LYMPH % 21.5 % (8-40); MCH 33.3 pg (25.7-33.7); MCHC 34.6 g/dl (32.0-35.9); MEAN CELL VOLUME 96.3 fl (80-96); MEAN PLT VOLUME 7.6 fl (7.5-11.1); MONO % 9.5 % (3.8-10.2); NEUT % 67.6 % (42.8-82.8); PLATELET COUNT 117 K/MM3 (134-434); RBC 3.87 M/mm3 (4.00-5.60); RDW 14.3 % (11.9-15.9); WHITE BLOOD COUNT 7.5 K/mm3 (4.0-10.0)
[2019-12-20 17:38] LABS: INR 1.14 (0.83-1.09); PROTHROMBIN TIME (PATIENT) 13.5 SEC (9.7-13.0)
[2019-12-20 17:41] LABS: ACTIVATED PTT 39.3 SECONDS (25.2-36.5)
[2019-12-20] MEDS ORDERED: methylPREDNISolone NA SUCC 125 MG/2 ML VIAL IVPB ONE (17:46)
[2019-12-20 17:51] LABS: ALBUMIN 3.5 g/dl (3.4-5.0); ALK PHOS 68 U/L (45-117); ANION GAP 8 MMOL/L (8-16); BILIRUBIN,TOTAL 0.7 mg/dL (0.2-1); BLOOD UREA NITROGEN 10.2 mg/dL (7-18); CALCIUM 8.2 mg/dL (8.5-10.1); CHLORIDE 107 mmol/L (98-107); CO2 27 mmol/L (21-32); CREATININE 0.6 mg/dL (0.55-1.3); GLUCOSE,RANDOM 74 mg/dL (74-106); LIPASE 170 U/L (73-393); MAGNESIUM 1.4 mg/dL (1.8-2.4); N-TERMINAL BNP 1900.6 pg/ml (5-125); PHOSPHOROUS 3.1 mg/dL (2.5-4.9); POTASSIUM 3.6 mmol/L (3.5-5.1); SGOT/AST 36 U/L (15-37); SGPT/ALT 30 U/L (13-61); SODIUM 141 mmol/L (136-145); TOT PROT 6.9 g/dl (6.4-8.2)
[2019-12-20] MEDS ORDERED: methylPREDNISolone NA SUCC 125 MG/2 ML VIAL ONE (17:59)
[2019-12-20] MEDS ORDERED: FUROSEMIDE 40 MG/4 ML INJECTABLE VIAL IVPUSH ONE ×2 (18:24→21:00)
[2019-12-20] MEDS ORDERED: SODIUM CHLORIDE 0.9% 500 ML INFUS.BAG IV ONE (18:25)
[2019-12-20] MEDS ORDERED: MAGNESIUM SULF 50% (8.12 MEQ/2 ML-1 GM VIAL) IVPB ONE ×2 (18:31→19:47)
[2019-12-20] MEDS ORDERED: MAGNESIUM 1GM/D5W - 1 GM/100 ML IVPB IVPB ONE (18:45)
[2019-12-20] MEDS ORDERED: FUROSEMIDE 40 MG/4 ML INJECTABLE VIAL ONE (18:45)
--- NOTE | 2019-12-20 19:57 | HP ---
CHIEF COMPLAINT: shortness of breath PCP: Dr. Gopal Vásquez HISTORY OF PRESENT ILLNESS: Abdirahman Ramírez is a 64 year old male with a past medical history of COPD (2L of home O2), HFpEF (last echo 11/06/19 with EF 55-60%), HTN. HCV (incompletely treated), HLD, current smoker who is presenting with a 1 day history of shortness of breath. The patient states that he was awoken from sleep last night when he started to feel short of breath and had some orthopnea. He usually uses 2 pillows to sleep at night. He stated he had a productive cough of white sputum. Denied dyspea on exertion, chest pain, fever, chills, abdominal pain, nausea, vomiting, constipation, diarrhea, extremity swelling, extremity pain, headaches, dizziness, lightheadedness. Noted that he had no recent sick contacts, no recent travel. He stated that he was not complaint with his home Lasix dose which he said he takes 40mg. On last discharge, patient was sent with 40mg daily. Noted he was not compliant because he is unable to hold his urine when he takes the medication. Stated he also does not like to use his home oxygen as he does not want to become too dependent on it. He states he is compliant with all of his other medications. Stated that he was previously treated with interferon for his HCV but did not complete treatment due to not liking the side effects of the medication. He is curious about the newer treatments of HCV. ER course was notable for: (1) BP 178/93, RR22 (2) Mg 1.4, BNP 1960 (3) CXR read as no focal infiltrates or pleural effusions. 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 Allergies No Known Allergies Allergy (Verified 12/20/19 16:18) HOME MEDICATIONS: Home Medications Medication Instructions Recorded Albuterol Sulfate Inhaler - 2 inh PO Q4H PRN 10/11/16 [Ventolin HFA Inhaler -] Bupropion HCl [Wellbutrin Xl -] 150 mg PO BID 03/02/17 Pantoprazole Sodium [Protonix -] 40 mg PO DAILY 03/02/17 Cyproheptadine [Periactin -] 4 mg PO BID 09/23/19 Carvedilol 25 mg PO BID 11/06/19 Aspirin [ASA -] 81 mg PO DAILY #30 tab.chew 11/07/19 Albuterol 0.083% Nebulizer Mildred 1 amp NEB RQID amp 11/10/19 [Ventolin 0.083% Nebulizer Soln -] Budesonide/Formeterol Fumarate 2 puff IH BID #1 inhaler 11/10/19 [SYMBICORT 80/4.5mcg -] Tiotropium [place] [Spiriva 2 puff IH DAILY #1 inhaler 11/10/19 Respimat] Atorvastatin Calcium [Lipitor] 40 mg PO HS 12/20/19 REVIEW OF SYSTEMS CONSTITUTIONAL: Absent: fever, chills, diaphoresis, generalized weakness, malaise, HEENT: Absent: rhinorrhea, nasal congestion, throat pain, throat swelling, difficulty swallowing, visual changes CARDIOVASCULAR: Absent: chest pain, syncope, palpitations, irregular heart rate, lightheadedness, peripheral edema RESPIRATORY: cough, shortness of breath, orthopnea Absent: dyspnea with exertion, wheezing, stridor, hemoptysis GASTROINTESTINAL: Absent: abdominal pain, abdominal distension, nausea, vomiting, diarrhea, constipation GENITOURINARY: frequency (after taking Lasix) Absent: dysuria, urgency, hesitancy, hematuria, MUSCULOSKELETAL: Absent: myalgia, arthralgia, joint swelling, back pain, neck pain SKIN: Absent: rash, itching, pallor HEMATOLOGIC/IMMUNOLOGIC: Absent: easy bleeding, easy bruising, lymphadenopathy, frequent infections ENDOCRINE: Absent: unexplained weight gain, unexplained weight loss, NEUROLOGIC: Absent: headache, focal weakness or paresthesias, dizziness, unsteady gait, seizure, mental status changes PSYCHIATRIC: Absent: anxiety, depression, suicidal or homicidal ideation, hallucinations. PHYSICAL EXAMINATION Vital Signs - 24 hr 12/20/19 12/20/19 12/20/19 16:19 17:14 19:37 Temperature 97.7 F 98.1 F Pulse Rate 71 Pulse Rate [ 68 Left Radial] Respiratory 22 H Rate Blood Pressure 178/93 H Blood Pressure 142/74 [Left Arm] O2 Sat by Pulse 99 96 96 Oximetry (%) GENERAL: Awake, alert, and fully oriented, in no acute distress. HEAD: Normal with no signs of trauma. EYES: Pupils equal, round and reactive to light, extraocular movements intact, conjunctiva clear. EARS, NOSE, THROAT: Oropharynx clear without exudates. Moist mucous membranes. NECK: Normal range of motion, supple without lymphadenopathy, JVD. LUNGS: Breath sounds equal, faint bibasilar crackles. No wheezes or coarse breath sounds auscultated. HEART: Regular rate and rhythm, normal S1 and S2 without murmur. ABDOMEN: Soft, nontender, not distended, normoactive bowel sounds, no guarding, no rebound, no masses. Hepatomegaly noted with 1 finger breadth lower than lowest rib. MUSCULOSKELETAL: Normal range of motion at all joints. No bony deformities or tenderness. No CVA tenderness. UPPER EXTREMITIES: 2+ pulses, warm, well-perfused. No cyanosis. No peripheral edema. LOWER EXTREMITIES: 2+ pulses, warm, well-perfused. No calf tenderness. No peripheral edema. NEUROLOGICAL: Cranial nerves II-XII intact. 5/5 muscle strength bilaterally upper and lower extremities. PSYCHIATRIC: Cooperative. Good eye contact. Appropriate mood and affect. SKIN: Warm, dry, normal turgor, normal capillary refill. Laboratory Results - last 24 hr 12/20/19 12/20/19 12/20/19 17:00 17:00 17:00 WBC 7.5 RBC 3.87 L Hgb 12.9 Hct 37.3 MCV 96.3 H MCH 33.3 MCHC 34.6 RDW 14.3 D Plt Count 117 L MPV 7.6 Absolute Neuts (auto) 5.1 Neutrophils % 67.6 Lymphocytes % 21.5 D Monocytes % 9.5 Eosinophils % 0.7 D Basophils % 0.7 D Nucleated RBC % 0 PT with INR 13.50 H INR 1.14 H PTT (Actin FS) 39.3 H Sodium 141 Potassium 3.6 Chloride 107 Carbon Dioxide 27 Anion Gap 8 BUN 10.2 Creatinine 0.6 Est GFR (CKD-EPI)AfAm 122.29 Est GFR (CKD-EPI)NonAf 105.51 Random Glucose 74 Calcium 8.2 L Phosphorus 3.1 Magnesium 1.4 L Total Bilirubin 0.7 AST 36 ALT 30 Alkaline Phosphatase 68 Creatine Kinase 79 Troponin I < 0.02 B-Natriuretic Peptide 1900.6 H Total Protein 6.9 Albumin 3.5 Lipase 170 EKG--> NSR, T wave inversions in I, II, V3, V4, V5, V6, flattening in III, unchanged from previous EKG in 11/09/19. QTc 477 ASSESSMENT/PLAN: Abdirahman Ramírez is a 64 year old male with a past medical history of COPD (2L of home O2), HFpEF (last echo 11/06/19 with EF 55-60%), HTN. HCV (incompletely treated), HLD, current smoker admitted for COPD exacerbation and CHF decompensation. CHF decompensation - likely in the setting of non-compliance with his home Lasix and home O2 - CXR and BNP as above - need to confirm Lasix dosing to optimize dosing of IV Lasix while admitted - starting Lasix 40mg IV daily - last echo in 11/06/19 noting EF 55-60%, mild concentric left ventricular hypertrophy, mild aortic regurg, mild aortic dilatation - I+Os, daily weights - advised compliance with home medications - telemetry monitoring - fluid restriction - hold home carvedilol in setting of acute CHF decompensation, restart when clinically appropriate COPD Exacerbation - likely in setting of CHF decompensation and non-compliance of home O2 - Duoneb q4h prn - prednisone 40mg - home symbicort - 2L O2 as needed to maintain O2 sat above 88 - advised smoking cessation - doxycycline 200mg for 5 to 7 days, avoid azithromycin in setting of prolonged QT History of polysubstance abuse - noted opiates and MDMA on last Utox - Utox sent, positive for MDMA, patient does take Wellbutrin which can cause a false positive for MDMA - patient admits to a history of opiate abuse of Percocet, currently negative for opiates Hx of low TSH - has had low TSH and normal T4 on previous admissions - will resent TSH and free T4/free T3 to assess for status change of thyroid function HTN - on Lasix - restart beta blockers when certain that patient not on cocaine - ideally should be on BENJAMIN inhibitor in setting of heart failure, will start lisinopril 10mg HLD - on home atorvastatin 40mg EKG abnormalities - unchanged from previous EKG in 11/09/19 - no cardiac symptoms currently - troponins x2 negative - will need outpatient cardiac follow up - continue home aspirin Tobacco Abuse - advised to stop in setting in multiple medical comorbidities - nicotine patch HCV - noted that he had not completed treatment and is curious about newer therapies - does not follow with a health facilities surveyor, should have referral upon discharge DVT PPx - heparin 5000 units subq tid FEN - no standing fluids, avoid fluids in setting of HF - continue to monitor electrolytes and replete as necessary, hypomagnesemia noted and repleting - sodium controlled diet Dispo - admit to telemetry Family Medical History Other Family History: "My family has enlarged hearts" Visit type - Emergency Visit Emergency Visit: Yes ED Registration Date: 12/20/19 Care time: The patient presented to the Emergency Department on the above date and was hospitalized for further evaluation of their emergent condition. - New Patient This patient is new to me today: Yes Date on this admission: 12/21/19 - Critical Care Critical Care patient: No
[2019-12-20] MEDS ORDERED: DOXYCYCLINE HYCLATE 100 MG CAPSULE PO ONE (20:51)
[2019-12-20] MEDS: DOXYCYCLINE HYCLATE 100 MG CAPSULE PO SCH (20:54)
[2019-12-20 21:18] LABS: COCAINE, UR NEGATIVE ng/ml (CUTOFF=300); METHADONE, UR NEGATIVE ng/ml (CUTOFF=300); OPIATES, URI NEGATIVE ng/ml (CUTOFF=300); PHENCYCLIDINE,URINE NEGATIVE ng/ml (CUTOFF=25); URINE AMPHETAMINES NEGATIVE ng/ml (CUTOFF=500); URINE BARBITURATES NEGATIVE ng/ml (CUTOFF=200); URINE BENZODIAZEPINES NEGATIVE ng/ml (CUTOFF=200)
[2019-12-20] MEDS: ATORVASTATIN CA 40 MG TABLET (FP) PO SCH (22:32)
[2019-12-20] MEDS: HEPARIN NA (PORCINE) 5,000 UNITS/ML 1ML VIAL SQ SCH (22:33)
--- NOTE | 2019-12-20 23:48 | PN ---
Teaching Attending Note Name of Resident: Stewart Bustamante ATTENDING PHYSICIAN STATEMENT I saw and evaluated the patient. I reviewed the resident's note and discussed the case with the resident. I agree with the resident's findings and plan as documented. SUBJECTIVE: 64-year-old male with a history of COPD on 2 L of home oxygen, CHF with pre served ejection fraction, hypertension, hepatitis C virus, current smoker presenting with 1 day of shortness of breath with positive orthopnea, productive cough with white sputum. Some dyspnea on exertion, denies significant chest pain, fevers or chills. Patient thought to be noncompliant with his home medications. OBJECTIVE: Last Vital Signs Temp Pulse Resp BP Pulse Ox 97.6 F 81 20 147/94 95 12/21/19 01:13 12/21/19 01:13 12/21/19 01:13 12/21/19 01:13 12/20/19 22:44 On physical exam patient was a thin male not in any acute distress. He was stuporous on my exam but responded to 2 doses of Narcan. Head was atraumatic, normocephalic. Cardiovascular exam was S1, S2. Lung exam noted to have bibasilar crackles. Abdomen was soft, nontender. Lower extremities without significant edema. No JVD. Abnormal Lab Results 12/20/19 12/20/19 12/20/19 17:00 17:00 17:00 RBC 3.87 L MCV 96.3 H Plt Count 117 L PT with INR 13.50 H INR 1.14 H PTT (Actin FS) 39.3 H Calcium 8.2 L Magnesium 1.4 L B-Natriuretic Peptide 1900.6 H MDMA (Ecstasy) Screen 12/20/19 12/21/19 20:05 03:30 RBC MCV Plt Count PT with INR INR PTT (Actin FS) Calcium Magnesium B-Natriuretic Peptide MDMA (Ecstasy) Screen Positive A* Positive A* Chest x-ray reviewed, noted to have increased pulmonary vascular congestion, clear costophrenic angles bilaterally with possible slight pulmonary edema. ASSESSMENT AND PLAN: 64-year-old male with suspected COPD and CHF exacerbations. Patient is admitted to telemetry unit. Lasix 40 mg IV twice daily Recent echo performed on 11/06/2019 showed mild contractive left ventricular hypertrophy and preserved EF. Trend troponin Free water restriction Salt restriction Would restart home dose carvedilol I's and O's and daily weights DuoNebs every 4 hours Prednisone 40 mg daily Smoking cessation Continue home oxygen at 2 L/min Stressed compliance with home medications Consult cardiology and pulmonary #Suspected substance abusepatient responded to naloxone on floor however repeat urine toxicology was negative except for MDMA which may be false positive from Wellbutrin. Monitor closely #Low TSH Send repeat TSH, free T4, free T3 #Thrombocytopenia May be related to underlying hepatitis C #Hepatitis C Referred to hepatology clinic as an outpatient DVT prophylaxisheparin subcutaneously
[2019-12-21] MEDS: ALBUTEROL SO4 2.5/IPRATROPIUM 0.5 INH SOL 3 ML VIAL.NEB. NEB PRN ×3 (00:25→21:10)
[2019-12-21] MEDS ORDERED: NALOXONE HCL 0.4 MG/ML VIAL IVPUSH ONE ×2 (03:02→03:09)
[2019-12-21] MEDS ORDERED: NALOXONE HCL 0.4 MG/ML VIAL ONE (03:10)
[2019-12-21 04:05] LABS: COCAINE, UR NEGATIVE ng/ml (CUTOFF=300); METHADONE, UR NEGATIVE ng/ml (CUTOFF=300); OPIATES, URI NEGATIVE ng/ml (CUTOFF=300); PHENCYCLIDINE,URINE NEGATIVE ng/ml (CUTOFF=25); URINE AMPHETAMINES NEGATIVE ng/ml (CUTOFF=500); URINE BARBITURATES NEGATIVE ng/ml (CUTOFF=200); URINE BENZODIAZEPINES NEGATIVE ng/ml (CUTOFF=200)
[2019-12-21] MEDS ORDERED: FUROSEMIDE 40 MG/4 ML INJECTABLE VIAL IVPUSH SCH (06:00)
[2019-12-21] MEDS ORDERED: ACETAMINOPHEN 500 MG TABLET (FP) PO PRN (06:13)
[2019-12-21] MEDS: HEPARIN NA (PORCINE) 5,000 UNITS/ML 1ML VIAL SQ SCH ×3 (06:41→21:53)
[2019-12-21 07:59] LABS: BASO % 0.1 % (0-2.0); HEMATOCRIT 41.6 % (35.4-49); HEMOGLOBIN 14.7 GM/dL (11.7-16.9); LYMPH % 10.4 % (8-40); MCH 33.4 pg (25.7-33.7); MCHC 35.4 g/dl (32.0-35.9); MEAN CELL VOLUME 94.5 fl (80-96); MEAN PLT VOLUME 7.6 fl (7.5-11.1); MONO % 2.1 % (3.8-10.2); NEUT % 87.4 % (42.8-82.8); PLATELET COUNT 165 K/MM3 (134-434); RDW 14.3 % (11.9-15.9); WHITE BLOOD COUNT 7.9 K/mm3 (4.0-10.0)
[2019-12-21 08:39] LABS: ALBUMIN 3.9 g/dl (3.4-5.0); BILIRUBIN,TOTAL 1.5 mg/dL (0.2-1); BLOOD UREA NITROGEN 20.2 mg/dL (7-18); CALCIUM 8.8 mg/dL (8.5-10.1); CREATININE 0.8 mg/dL (0.55-1.3); MAGNESIUM 1.9 mg/dL (1.8-2.4); POTASSIUM 3.3 mmol/L (3.5-5.1); TOT PROT 8.2 g/dl (6.4-8.2)
[2019-12-21] MEDS: FUROSEMIDE 40 MG/4 ML INJECTABLE VIAL IVPUSH SCH (09:06)
[2019-12-21] MEDS: PANTOPRAZOLE 40 MG TABLET PO SCH (09:06)
[2019-12-21] MEDS: ASPIRIN 81 MG CHEWABLE TABLETS PO SCH (09:06)
[2019-12-21] MEDS: NICOTINE 14 MG/24 HOURS TOPICAL PATCH TD SCH (09:06)
[2019-12-21] MEDS: DOXYCYCLINE HYCLATE 100 MG CAPSULE PO SCH (09:06)
[2019-12-21] MEDS: LISINOPRIL 10 MG TABLET (FP) PO SCH (09:07)
--- NOTE | 2019-12-21 09:50 | EKG ---
Test Reason : Blood Pressure : / mmHG Vent. Rate : 067 BPM Atrial Rate : 067 BPM P-R Int : 150 ms QRS Dur : 106 ms QT Int : 452 ms P-R-T Axes : 039 040 143 degrees QTc Int : 477 ms NORMAL SINUS RHYTHM POSSIBLE LEFT ATRIAL ENLARGEMENT PROLONGED QT ABNORMAL ECG WHEN COMPARED WITH ECG OF 09-NOV-2019 07:56, T WAVE INVERSION LESS EVIDENT IN INFERIOR LEADS Confirmed by Elbert Diane MD ([id number]) on 12/21/2019 9:50:20 AM Referred By: Confirmed By:Elbert Diane MD
[2019-12-21] MEDS ORDERED: predniSONE 20 MG TABLET (UD) PO SCH (10:00)
[2019-12-21] MEDS ORDERED: POTASSIUM CHLORIDE TABS 20 MEQ TABLET.ER (FP) PO ONE (10:27)
[2019-12-21] MEDS ORDERED: cloNIDine HCL 0.1 MG TABLET PO PRN (10:28)
[2019-12-21] MEDS ORDERED: ALBUTEROL SO4 0.5 % INH SOLN 2.5 MG/0.5 ML VIAL.NEB. NEB PRN (10:31)
--- NOTE | 2019-12-21 10:37 | PN ---
Progress Note (short form) - Note Progress Note: Subjective: Denies fever or chills. has no SOB , feels much better .he denies current cough . He admits to using [address] day[address] He is willing to stop. He denies marijunana and PCP use. He admits to not taking his lasix for months Objective: Vital Signs: Last Vital Signs Temp Pulse Resp BP Pulse Ox 98 F 98 H 20 138/94 95 12/21/19 08:07 12/21/19 08:07 12/21/19 08:07 12/21/19 08:07 12/21/19 08:06 Laboratory Results - last 24 hr 12/20/19 12/20/19 12/20/19 17:00 17:00 17:00 WBC 7.5 RBC 3.87 L Hgb 12.9 Hct 37.3 MCV 96.3 H MCH 33.3 MCHC 34.6 RDW 14.3 D Plt Count 117 L MPV 7.6 Absolute Neuts (auto) 5.1 Neutrophils % 67.6 Lymphocytes % 21.5 D Monocytes % 9.5 Eosinophils % 0.7 D Basophils % 0.7 D Nucleated RBC % 0 PT with INR 13.50 H INR 1.14 H PTT (Actin FS) 39.3 H Sodium 141 Potassium 3.6 Chloride 107 Carbon Dioxide 27 Anion Gap 8 BUN 10.2 Creatinine 0.6 Est GFR (CKD-EPI)AfAm 122.29 Est GFR (CKD-EPI)NonAf 105.51 POC Glucometer Random Glucose 74 Calcium 8.2 L Phosphorus 3.1 Magnesium 1.4 L Total Bilirubin 0.7 AST 36 ALT 30 Alkaline Phosphatase 68 Creatine Kinase 79 Troponin I < 0.02 B-Natriuretic Peptide 1900.6 H Total Protein 6.9 Albumin 3.5 Lipase 170 TSH Free T4 Opiates Screen Methadone Screen Barbiturate Screen Phencyclidine Screen Ur Amphetamines Screen MDMA (Ecstasy) Screen Benzodiazepines Screen Cocaine Screen U Marijuana (THC) Screen 12/20/19 12/20/19 12/21/19 20:05 20:05 03:03 WBC RBC Hgb Hct MCV MCH MCHC RDW Plt Count MPV Absolute Neuts (auto) Neutrophils % Lymphocytes % Monocytes % Eosinophils % Basophils % Nucleated RBC % PT with INR INR PTT (Actin FS) Sodium Potassium Chloride Carbon Dioxide Anion Gap BUN Creatinine Est GFR (CKD-EPI)AfAm Est GFR (CKD-EPI)NonAf POC Glucometer 237 Random Glucose Calcium Phosphorus Magnesium Total Bilirubin AST ALT Alkaline Phosphatase Creatine Kinase Troponin I < 0.02 B-Natriuretic Peptide Total Protein Albumin Lipase TSH Free T4 Opiates Screen Negative Methadone Screen Negative Barbiturate Screen Negative Phencyclidine Screen Negative Ur Amphetamines Screen Negative MDMA (Ecstasy) Screen Positive A* Benzodiazepines Screen Negative Cocaine Screen Negative U Marijuana (THC) Screen Negative 12/21/19 12/21/19 12/21/19 03:30 07:24 07:24 WBC 7.9 RBC 4.40 Hgb 14.7 Hct 41.6 MCV 94.5 MCH 33.4 MCHC 35.4 RDW 14.3 Plt Count 165 D MPV 7.6 Absolute Neuts (auto) 6.9 Neutrophils % 87.4 H D Lymphocytes % 10.4 D Monocytes % 2.1 L Eosinophils % 0.0 D Basophils % 0.1 Nucleated RBC % 0 PT with INR INR PTT (Actin FS) Sodium 138 Potassium 3.3 L Chloride 100 Carbon Dioxide 27 Anion Gap 10 BUN 20.2 H Creatinine 0.8 Est GFR (CKD-EPI)AfAm 108.65 Est GFR (CKD-EPI)NonAf 93.74 POC Glucometer Random Glucose 199 H Calcium 8.8 Phosphorus Magnesium 1.9 Total Bilirubin 1.5 H AST 27 ALT 32 Alkaline Phosphatase 79 Creatine Kinase Troponin I B-Natriuretic Peptide Total Protein 8.2 Albumin 3.9 Lipase TSH 0.14 L D Free T4 1.14 Opiates Screen Negative Methadone Screen Negative Barbiturate Screen Negative Phencyclidine Screen Negative Ur Amphetamines Screen Negative MDMA (Ecstasy) Screen Positive A* Benzodiazepines Screen Negative Cocaine Screen Negative U Marijuana (THC) Screen Negative Physical Exam: NAD, awake, alert , cooperative. tearful CV: RRR, no MRG , mild JVD LUngs: CTAB Ext : No edema or erythema on LE Imaging: cxray reviewed. EKG : sinsu rhythm, prolonged QTC, inverted TW ( improved form before ) Assessment/Plan: 64 y/o man with h/o Opioid abuse, chronic diastolic CHF, HTN, Partially treated Hep C , COPD, on 2 L of O2, CAD, who presented with SOB and cough and was found to have acute D CHF exacerbation 1- Acute Diastolic CHF exacerbation : due to non compliance with his lasix ( stopped months ago). now much improved, lungs are clear. NO wheezing on exam. doubt COPD exacerbation - DC prednisone - cont lasix - I&O - weight - NO need to repeat echo ( last one in 11/03 reviewed) - cont coreg 2- H/o COPD: no signs of exacerbation . cxray reviewed - cont O2 at 2 L - cont nebs - DC steroids 3- Low TSH: NL FT4, FT3 pending. - after labs are back will determine etiology and next step 4- Opioid dependence: uses 20 pills daily. - start methadone detox. - PCP in urine might be false positive 5- h/o HTN: cont coreg. 6- Hypokalemia: replete 7- H/o HEp C .out pt f/u with GI dispo : HLOC . Visit type - Emergency Visit Emergency Visit: Yes ED Registration Date: 12/20/19 Care time: The patient presented to the Emergency Department on the above date and was hospitalized for further evaluation of their emergent condition. - New Patient This patient is new to me today: No - Critical Care Critical Care patient: No
[2019-12-21] MEDS ORDERED: METHADONE HCL 10 MG TABLET PO ONE (11:45)
--- NOTE | 2019-12-21 12:09 | CON.CARD ---
Cardiology Consult (text) - Consultation Consultation Note: cc: dyspnea hpi: 64 m hx nicm (non obs cad on cath 2013), syst chf, hld, smoking, copd, hcv, here with chest pain. Pt has been noncompliant with cardio f/u and has not taken lasix in at least a month. [place] worsening shortness of breath. Also has been taking perocet several tabs daily. Feels better this AM with Iv lasix. Last night had episode of loss of consciousness improved with narcan. pmh: per hpi psh: cath 2012 social: +tob fam: no premature cad ros: per hpi; all others nl meds: Ambulatory Orders Albuterol Sulfate Inhaler - [Ventolin HFA Inhaler -] 2 inh PO Q4H PRN 10/11/16 Bupropion HCl [Wellbutrin Xl -] 150 mg PO BID 03/02/17 Pantoprazole Sodium [Protonix -] 40 mg PO DAILY 03/02/17 Cyproheptadine [Periactin -] 4 mg PO BID 09/23/19 Carvedilol 25 mg PO BID 11/06/19 Aspirin [ASA -] 81 mg PO DAILY #30 tab.chew 11/07/19 Albuterol 0.083% Nebulizer Mildred [Ventolin 0.083% Nebulizer Soln -] 1 amp NEB RQID amp 11/10/19 Tiotropium [place] [Spiriva Respimat] 2 puff IH DAILY #1 inhaler 11/10/19 Atorvastatin Calcium [Lipitor] 40 mg PO HS 12/20/19 Budesonide/Formeterol Fumarate [SYMBICORT 160/4.5mcg -] 2 inh PO BID 12/20/19 pe: Vital Signs Period Temp Pulse Resp BP Sys/Soliz Pulse Ox Last 24 Hr 97.2 F-98.1 F 68-98 18-22 138-178/74-113 93-99 nad no jvd rrr s1s2 no mrg cta bl nl eff aao3 no le e/c/c abd nt nd pos bs no jaundice diaphoresis pos dp pt no carotid bruits echo 04/2016: mild-mod dec lvef mibi 04/2016: apical/inferior infarct, no ischemia, lvef sev reduced echo 08/2019 low normal LV function, EF 50-55%, grade I diastolic dysfunction, RV nl, mild TR, mild AR, mod ao root dilation, borderline mildly dilated ascending aorta Echo 11/06/2019 normal EF, LVH Cath: 10/2012 at [facility] NORMAL CORS EF 35% mibi 10/2019 mild to mod basal inferior ischemia, sm sized mod intensity mostly reversible apical perfusion defect c/w ild apical ischemia, no TIA, EF 44% CXR: no acute process EKG sinus, anterior/lateral TWI and ST depression - stable compared to prior tele: sr a/p: 64 m hx nicm (non obs cad on cath 2012), syst chf, hld, smoking, copd, hcv, here with chest pain. acute on chronic systolic HF - likely in setting of noncompliance with lasix at home - cont IV lasix - monitor Cr, lytes, daily weights -cont callie, bb, aldactone CAD - abnormal stress test 10/2019 - given poor compliance, medical therapy preferred - continue aspirin, statin, ACEI opiod abuse, syncope - now on methadone, manage per primary hld: -cont statin abnl ecg -pt with chronic ant/lat twis trop negx2 - cont tele tob use: -smoking cessation discussed
[2019-12-21] MEDS ORDERED: IBUPROFEN 600 MG TABLET (FP) PO PRN (13:21)
[2019-12-21] MEDS: LIDOCAINE 5% TOPICAL PATCH TP SCH (13:58)
[2019-12-21] MEDS: LIDOCAINE PATCH REMOVAL MC SCH (21:53)
[2019-12-21] MEDS: ATORVASTATIN CA 40 MG TABLET (FP) PO SCH (21:54)
[2019-12-22] MEDS: ACETAMINOPHEN 500 MG TABLET (FP) PO PRN (06:06)
[2019-12-22] MEDS: HEPARIN NA (PORCINE) 5,000 UNITS/ML 1ML VIAL SQ SCH ×3 (06:14→21:45)
[2019-12-22] MEDS: ASPIRIN 81 MG CHEWABLE TABLETS PO SCH ×2 (06:14→10:02)
--- NOTE | 2019-12-22 06:37 | PN ---
Progress Note (short form) - Note Progress Note: Received page that patient was having chest pain. Patient was in mild distress, complained of non radiating midsternal chest pain. Is tender on palpation. EKG showed J point changes in precordial leads. Troponin was ordered stat. IV tylenol and ASA 81 mg PO was given.
[2019-12-22 06:41] LABS: ANION GAP 6 MMOL/L (8-16); BLOOD UREA NITROGEN 24.4 mg/dL (7-18); CALCIUM 9.3 mg/dL (8.5-10.1); CHLORIDE 102 mmol/L (98-107); CO2 31 mmol/L (21-32); CREATININE 0.8 mg/dL (0.55-1.3); GLUCOSE,RANDOM 114 mg/dL (74-106); POTASSIUM 3.6 mmol/L (3.5-5.1); SODIUM 139 mmol/L (136-145)
--- NOTE | 2019-12-22 08:42 | PN ---
Progress Note (short form) - Note Progress Note: s: no sob palps dizzy, had brief msk type cp this AM, resolved after tylenol Current Medications Generic Name Dose Route Start Last Admin Trade Name Freq PRN Reason Stop Dose Admin Acetaminophen 1,000 mg 12/21/19 13:22 12/22/19 06:06 Tylenol - PO 1,000 mg Q6H PRN Administration PAIN LEVEL 1-5 Albuterol Sulfate 1 amp 12/21/19 10:31 Ventolin 0.5% - NEB QID PRN SHORT OF BREATH/WHEEZING Albuterol/Ipratropium 1 amp 12/20/19 19:47 12/21/19 21:10 Duoneb - NEB 1 amp Q4H PRN Administration SHORTNESS OF BREATH Aspirin 81 mg 12/21/19 10:00 12/22/19 06:14 Asa - PO 81 mg DAILY LAURO Administration Atorvastatin Calcium 40 mg 12/20/19 22:00 12/21/19 21:54 Lipitor - PO 40 mg HS LAURO Administration Bupropion HCl 150 mg 12/20/19 22:00 Wellbutrin Xl - PO BID LAURO Clonidine 0.1 mg 12/21/19 10:28 Catapres - PO 12/22/19 23:59 Q4H PRN Withdrawal Symptoms Doxycycline Hyclate 200 mg 12/20/19 20:30 12/21/19 09:06 Vibramycin - PO 200 mg DAILY LAURO Administration Furosemide 40 mg 12/21/19 10:00 12/21/19 09:06 Lasix Injection - IVPUSH 40 mg DAILY LAURO Administration Heparin Sodium (Porcine) 5,000 unit 12/20/19 22:00 12/22/19 06:14 Heparin - SQ 5,000 unit TID LAURO Administration Ibuprofen 600 mg 12/21/19 13:21 Motrin - PO Q6H PRN PAIN LEVEL 6-10 Lidocaine 1 patch 12/21/19 13:30 12/21/19 13:58 Lidoderm Patch - TP 1 patch DAILY LAURO Administration Lisinopril 10 mg 12/21/19 10:00 12/21/19 09:07 Prinivil PO 10 mg DAILY LAURO Administration Methadone HCl 15 mg 12/22/19 10:00 Dolophine - PO 12/22/19 10:01 ONCE ONE Methadone HCl 10 mg 12/23/19 10:00 Dolophine - PO 12/23/19 10:01 ONCE ONE Methadone HCl 5 mg 12/24/19 06:00 Dolophine - PO 12/24/19 06:01 ONCE ONE Miscellaneous 1 each 12/21/19 22:00 12/21/19 21:53 Lidoderm Patch Removal MC 1 each DAILY@2200 LAURO Administration Nicotine 14 mg 12/21/19 10:00 12/21/19 09:06 Nicoderm Patch - TD 14 mg DAILY LAURO Administration Pantoprazole Sodium 40 mg 12/21/19 10:00 12/21/19 09:06 Protonix - PO 40 mg DAILY LAURO Administration pe: Vital Signs Period Temp Pulse Resp BP Sys/Soliz Pulse Ox Last 24 Hr 97.3 F-98.4 F 78-100 - 123-152/75-98 97-97 nad no jvd rrr s1s2 no mrg cta bl nl eff aao3 no le e/c/c abd nt nd pos bs no jaundice diaphoresis +chest wall tenderness CBC, BMP 12/21/19 07:24 12/22/19 05:55 echo 04/2016: mild-mod dec lvef mibi 04/2016: apical/inferior infarct, no ischemia, lvef sev reduced echo 08/2019 low normal LV function, EF 50-55%, grade I diastolic dysfunction, RV nl, mild TR, mild AR, mod ao root dilation, borderline mildly dilated ascending aorta Echo 11/06/2019 normal EF, LVH Cath: 10/2012 at [facility] NORMAL CORS EF 35% mibi 10/2019 mild to mod basal inferior ischemia, sm sized mod intensity mostly reversible apical perfusion defect c/w ild apical ischemia, no TIA, EF 44% CXR: no acute process EKG sinus, anterior/lateral TWI and ST depression - stable compared to prior tele: sr a/p: 64 m hx nicm (non obs cad on cath 2012), syst chf, hld, smoking, copd, hcv, here with chest pain. acute on chronic systolic HF - likely in setting of noncompliance with lasix at home - cont IV lasix - monitor Cr, lytes, daily weights - cont callie, bb, aldactone cp: -atypical, seems MSK -no signs acs CAD - abnormal stress test 10/2019 - given poor compliance, medical therapy preferred - continue aspirin, statin, ACEI opiod abuse, syncope - now on methadone, manage per primary hld: -cont statin tob use: -smoking cessation discussed
[2019-12-22] MEDS ORDERED: METHADONE HCL 5 MG TABLET (FOR DETOX USE ONLY) PO ONE (10:00)
[2019-12-22] MEDS: LIDOCAINE 5% TOPICAL PATCH TP SCH (10:00)
[2019-12-22] MEDS: LISINOPRIL 10 MG TABLET (FP) PO SCH (10:00)
[2019-12-22] MEDS: PANTOPRAZOLE 40 MG TABLET PO SCH (10:00)
[2019-12-22] MEDS: NICOTINE 14 MG/24 HOURS TOPICAL PATCH TD SCH (10:00)
[2019-12-22] MEDS: DOXYCYCLINE HYCLATE 100 MG CAPSULE PO SCH (10:00)
[2019-12-22] MEDS: FUROSEMIDE 40 MG/4 ML INJECTABLE VIAL IVPUSH SCH (10:34)
--- NOTE | 2019-12-22 12:39 | CON.PULM ---
Consult Consult Specialty:: PULMONARY Referred by:: Dr Patterson Reason for Consultation:: COPD - History of Present Illness Chief Complaint: shortness of breath History of Present Illness: 64yo male with h/o HTN, hyperlipidemia, COPD, chronic hypoxic respiratory failure on home O2, LV diastolic dysfunction, Hep C, smoker who was admitted with worsening shortness of breath. Denies chest pain or discomfort. +nonproductive cough without wheezing. No fevers, chills or sweats. Reports not taking his lasix for the last few days. No leg swelling but with orthopnea and was awoken out of sleep. Maintained on Spiriva and ventolin at home. Still smoking about 1/2 PPD down from 2 PPD. - History Source History Provided By: Patient, Medical Record Limitations to Obtaining History: No Limitations - Past Medical History Cardio/Vascular: Yes: CHF (Echo 11/28: normal size LV, mildly reduced LV systolic function, mild global hypokinesis, grade I diastolic dysfunction, mild MR, trace TR, mild AR), HTN Pulmonary: Yes: COPD Hepatobiliary: Yes: Hepatitis C Psych: Yes: Addictions, Anxiety - Past Surgical History Past Surgical History: Yes: None - Alcohol/Substance Use Hx Alcohol Use: No History of Substance Use: reports: Cocaine, Heroin, Prescription Date of Last Use: 09/17/15 - Smoking History Smoking history: Current every day smoker Have you smoked in the past 12 months: Yes Aproximately how many cigarettes per day: 12 - Social History ADL: Independent History of Recent Travel: No Home Medications - Allergies Allergies/Adverse Reactions: Allergies Allergy/AdvReac Type Severity Reaction Status Date / Time No Known Allergies Allergy Verified 12/20/19 16:18 - Home Medications Home Medications: Ambulatory Orders Albuterol Sulfate Inhaler - [Ventolin HFA Inhaler -] 2 inh PO Q4H PRN 10/11/16 Bupropion HCl [Wellbutrin Xl -] 150 mg PO BID 03/02/17 Pantoprazole Sodium [Protonix -] 40 mg PO DAILY 03/02/17 Cyproheptadine [Periactin -] 4 mg PO BID 09/23/19 Carvedilol 25 mg PO BID 11/06/19 Aspirin [ASA -] 81 mg PO DAILY #30 tab.chew 11/07/19 Albuterol 0.083% Nebulizer Mildred [Ventolin 0.083% Nebulizer Soln -] 1 amp NEB RQID amp 11/10/19 Tiotropium [place] [Spiriva Respimat] 2 puff IH DAILY #1 inhaler 11/10/19 Atorvastatin Calcium [Lipitor] 40 mg PO HS 12/20/19 Budesonide/Formeterol Fumarate [SYMBICORT 160/4.5mcg -] 2 inh PO BID 12/20/19 Lisinopril [Zestril] 40 mg PO BID 12/22/19 Review of Systems - Review of Systems Constitutional: reports: Weakness. denies: Chills, Fever Eyes: denies: Recent Change in Vision HENT: denies: Nasal Congestion, Throat Pain Neck: denies: Stiffness, Tenderness Cardiovascular: reports: Shortness of Breath. denies: Chest Pain, Edema Respiratory: reports: Cough, Orthopnea, PND, SOB on Exertion. denies: Hemopty sis, Wheezing Gastrointestinal: denies: Abdominal Pain, Nausea, Vomiting Genitourinary: denies: Dysuria, Hematuria Neurological: denies: Dizziness, Headache Endocrine: denies: Unexplained Weight Loss Physical Exam Vital Sings: Vital Signs Temperature 97.9 F 12/22/19 09:33 Pulse Rate 77 12/22/19 09:33 Respiratory Rate 20 12/22/19 09:33 Blood Pressure 132/80 12/22/19 09:33 O2 Sat by Pulse Oximetry (%) 97 12/22/19 09:00 Constitutional: Yes: Calm Eyes: Yes: Conjunctiva Clear, EOM Intact HENT: Yes: Atraumatic, Normocephalic Neck: Yes: Supple, Trachea Midline Cardiovascular: Yes: Regular Rate and Rhythm Respiratory: Yes: Diminished (distant breath sounds). No: Wheezes ...Clubbing: No Gastrointestinal: Yes: Normal Bowel Sounds, Soft. No: Tenderness Edema: No Neurological: Yes: Alert, Oriented Labs: CBC, BMP 12/21/19 07:24 12/22/19 05:55 Imaging - Results Chest X-ray: Report Reviewed, Image Reviewed (mild pulmonary vascular co ngestion) Assessment/Plan Acute on Chronic Systolic Heart Failure CAD COPD Chronic Hypoxic Respiratory Failure HTN Hyperlipidemia Hep C Methadone Maintenance Smoker - continue lasix - monitor urine output, creatinine - daily weights - inhaled bronchodilators - continue spiriva - smoking cessation discussed - outpt PFTs - DVT prophylaxis thank you for this consult Greg Teran MD
--- NOTE | 2019-12-22 13:33 | PN ---
Teaching Attending Note Name of Resident: Alma Restrepo ATTENDING PHYSICIAN STATEMENT I saw and evaluated the patient. I reviewed the resident's note and discussed the case with the resident. I agree with the resident's findings and plan as documented. SUBJECTIVE: Events over night noted for CP episode, pain was sharp , located over L sided chest. lasted about 30 min . he felt SOB . Now he is cp free but feels SOB. No N/V. No cough . frequent urination on lasix OBJECTIVE: Physical Exam: NAD, awake, alert, cooperative. CV: RRR, no MRG, mild JVD Lungs: CTAB. Ext: No edema or erythema on LE. Assessment/Plan: 64 y/o man with h/o Opioid abuse, chronic diastolic CHF, HTN, Partially treated Hep C , COPD, on 2 L of O2, CAD, who presented with SOB and cough and was found to have acute D CHF exacerbation 1- Acute Diastolic CHF exacerbation: due to non compliance - cont IV lasix - I&O - weight - cont coreg 2- H/o COPD: no signs of exacerbation . - cont O2 at 2 L - cont nebs 3- Low TSH: NL FT4, FT3 pending. - after labs are back will determine etiology and next step 4- Opioid dependence: - cont methadone detox. last dose on Sunday 5- h/o HTN: cont coreg. 6- H/o HEp C .out pt f/u with GI Dispo: HLOC
[2019-12-22] MEDS: TIOTROPIUM BROMIDE 2.5 MCG (SPIRIVA) RESPIMAT INHALER IH SCH (14:18)
--- NOTE | 2019-12-22 14:58 | PN ---
Physical Exam: SUBJECTIVE: Patient seen and examined this AM. Episode of chest pain noted as per chart; Has since resolved with administration of tylenol. Complains of frequent urination while on lasix; Otherwise no new complaints. OBJECTIVE: Vital Signs Period Temp Pulse Resp BP Sys/Soliz Pulse Ox Last 24 Hr 97.3 F-98.1 F 77-92 20-20 132-143/75-90 97-97 GENERAL: A&Ox3, NAD HEAD: NCAT EYES: PERRL, EOMI ENT: Moist mucous membranes NECK: Supple, No JVD LUNGS: CTAB, No wheezes or crackles HEART: Regular rate and rhythm, normal S1 and S2 without murmur ABDOMEN: Soft, nontender, not distended, + bowel sounds, no guarding EXTREMITIES: No edema NEUROLOGICAL: Cranial nerves II-XII intact SKIN: Warm, dry Laboratory Last Values WBC 7.9 K/mm3 (4.0-10.0) 12/21/19 07:24 RBC 4.40 M/mm3 (4.00-5.60) 12/21/19 07:24 Hgb 14.7 GM/dL (11.7-16.9) 12/21/19 07:24 Hct 41.6 % (35.4-49) 12/21/19 07:24 MCV 94.5 fl (80-96) 12/21/19 07:24 MCH 33.4 pg (25.7-33.7) 12/21/19 07:24 MCHC 35.4 g/dl (32.0-35.9) 12/21/19 07:24 RDW 14.3 % (11.9-15.9) 12/21/19 07:24 Plt Count 165 K/MM3 (134-434) D 12/21/19 07:24 MPV 7.6 fl (7.5-11.1) 12/21/19 07:24 Absolute Neuts (auto) 6.9 K/mm3 (1.5-8.0) 12/21/19 07:24 Neutrophils % 87.4 % (42.8-82.8) H D 12/21/19 07:24 Lymphocytes % 10.4 % (8-40) D 12/21/19 07:24 Monocytes % 2.1 % (3.8-10.2) L 12/21/19 07:24 Eosinophils % 0.0 % (0-4.5) D 12/21/19 07:24 Basophils % 0.1 % (0-2.0) 12/21/19 07:24 Nucleated RBC % 0 % (0-0) 12/21/19 07:24 PT with INR 13.50 SEC (9.7-13.0) H 12/20/19 17:00 INR 1.14 (0.83-1.09) H 12/20/19 17:00 PTT (Actin FS) 39.3 SECONDS (25.2-36.5) H 12/20/19 17:00 Sodium 139 mmol/L (136-145) 12/22/19 05:55 Potassium 3.6 mmol/L (3.5-5.1) 12/22/19 05:55 Chloride 102 mmol/L (98-107) 12/22/19 05:55 Carbon Dioxide 31 mmol/L (21-32) 12/22/19 05:55 Anion Gap 6 MMOL/L (8-16) L 12/22/19 05:55 BUN 24.4 mg/dL (7-18) H 12/22/19 05:55 Creatinine 0.8 mg/dL (0.55-1.3) 12/22/19 05:55 Est GFR (CKD-EPI)AfAm 108.65 12/22/19 05:55 Est GFR (CKD-EPI)NonAf 93.74 12/22/19 05:55 POC Glucometer 191 UNITS (80-120) 12/21/19 21:21 Random Glucose 114 mg/dL (74-106) H 12/22/19 05:55 Calcium 9.3 mg/dL (8.5-10.1) 12/22/19 05:55 Phosphorus 3.1 mg/dL (2.5-4.9) 12/20/19 17:00 Magnesium 1.9 mg/dL (1.8-2.4) 12/21/19 07:24 Total Bilirubin 1.5 mg/dL (0.2-1) H 12/21/19 07:24 AST 27 U/L (15-37) 12/21/19 07:24 ALT 32 U/L (13-61) 12/21/19 07:24 Alkaline Phosphatase 79 U/L (45-117) 12/21/19 07:24 Creatine Kinase 79 U/L (26-308) 12/20/19 17:00 Troponin I < 0.02 ng/ml (0.00-0.05) 12/22/19 05:55 B-Natriuretic Peptide 1900.6 pg/ml (5-125) H 12/20/19 17:00 Total Protein 8.2 g/dl (6.4-8.2) 12/21/19 07:24 Albumin 3.9 g/dl (3.4-5.0) 12/21/19 07:24 Lipase 170 U/L (73-393) 12/20/19 17:00 TSH 0.14 uIU/ml (0.358-3.74) L D 12/21/19 07:24 Free T4 1.14 ng/dl (0.76-1.16) 12/21/19 07:24 Opiates Screen Negative ng/ml (REZKAQ=817) 12/21/19 03:30 Methadone Screen Negative ng/ml (VEFERX=609) 12/21/19 03:30 Barbiturate Screen Negative ng/ml (PCTZZN=708) 12/21/19 03:30 Phencyclidine Screen Negative ng/ml (CUTOFF=25) 12/21/19 03:30 Ur Amphetamines Screen Negative ng/ml (LVCBGC=603) 12/21/19 03:30 MDMA (Ecstasy) Screen Positive ng/ml (WYHZCH=403) A* 12/21/19 03:30 Benzodiazepines Screen Negative ng/ml (CAOAVT=758) 12/21/19 03:30 Cocaine Screen Negative ng/ml (GYQJUV=666) 12/21/19 03:30 U Marijuana (THC) Screen Negative ng/ml (CUTOFF=50) 12/21/19 03:30 Active Medications Acetaminophen (Tylenol -) 1,000 mg PO Q6H PRN PRN Reason: PAIN LEVEL 1-5 Last Admin: 12/22/19 06:06 Dose: 1,000 mg Documented by: Albuterol Sulfate (Ventolin 0.083% Nebulizer Soln -) 1 amp NEB Q4H PRN PRN Reason: SHORT OF BREATH/WHEEZING Aspirin (Asa -) 81 mg PO DAILY [facility] Last Admin: 12/22/19 10:02 Dose: Not Given Documented by: Atorvastatin Calcium (Lipitor -) 40 mg PO HS [facility] Last Admin: 12/21/19 21:54 Dose: 40 mg Documented by: Bupropion HCl (Wellbutrin Xl -) 150 mg PO BID [facility] Clonidine (Catapres -) 0.1 mg PO Q4H PRN PRN Reason: Withdrawal Symptoms Stop: 12/22/19 23:59 Doxycycline Hyclate (Vibramycin -) 200 mg PO DAILY [facility] Last Admin: 12/22/19 10:00 Dose: 200 mg Documented by: Furosemide (Lasix Injection -) 40 mg IVPUSH DAILY [facility] Last Admin: 12/22/19 10:34 Dose: 40 mg Documented by: Heparin Sodium (Porcine) (Heparin -) 5,000 unit SQ TID [facility] Last Admin: 12/22/19 13:35 Dose: 5,000 unit Documented by: Ibuprofen (Motrin -) 600 mg PO Q6H PRN PRN Reason: PAIN LEVEL 6-10 Lidocaine (Lidoderm Patch -) 1 patch TP DAILY [facility] Last Admin: 12/22/19 10:00 Dose: 1 patch Documented by: Lisinopril (Prinivil) 10 mg PO DAILY [facility] Last Admin: 12/22/19 10:00 Dose: 10 mg Documented by: Methadone HCl (Dolophine -) 10 mg PO ONCE ONE Stop: 12/23/19 10:01 Methadone HCl (Dolophine -) 5 mg PO ONCE ONE Stop: 12/24/19 06:01 Miscellaneous (Lidoderm Patch Removal) 1 each MC DAILY@2200 [facility] Last Admin: 12/21/19 21:53 Dose: 1 each Documented by: Nicotine (Nicoderm Patch -) 14 mg TD DAILY [facility] Last Admin: 12/22/19 10:00 Dose: 14 mg Documented by: Pantoprazole Sodium (Protonix -) 40 mg PO DAILY [facility] Last Admin: 12/22/19 10:00 Dose: 40 mg Documented by: Tiotropium [place] (Spiriva Respimat) 2 puff IH DAILY [facility] Last Admin: 12/22/19 14:18 Dose: 2 puff Documented by: ASSESSMENT/PLAN: 64 y/o M with PMHx COPD (on 2L home O2), HFpEF (last echo 11/06/19 with EF 55- 60%), CAD, Opiod use disorder, HTN, HCV (incompletely treated), HLD, current tobacco user, who presented with SOB and cough, and admitted for acute diastolic CHF exacerbation. #Acute Diastolic CHF exacerbation -In the setting of non-compliance with home Lasix dose -Continue IV Diuresis via Lasix 40mg daily -Continue home dose carvedilol -Monitor Cr, I+Os, daily weights -Tele -Fluid restriction #Hx of COPD -Continue supplemental O2 to maintain spo2 88-92% -Continue bronchodilators -Advised smoking cessation #Hx of polysubstance abuse -Utox + for MDMA; possible false positive with wellbutrin use #Abnormal TSH and TFTs -Free T3 Pending; await results to determine etiology given Low TSh and normal Free T4 #HTN -Continue Lasix, BB #HLD -Statin #HCV -Refer to GI on Discharge #FEN -PO Fluids -Replete PRN -Na controlled diet #PPx -DVT: Heparin TID Dispo: Monitor on Tele Visit type - Emergency Visit Emergency Visit: Yes ED Registration Date: 12/20/19 Care time: The patient presented to the Emergency Department on the above date and was hospitalized for further evaluation of their emergent condition. - New Patient This patient is new to me today: Yes Date on this admission: 12/22/19 - Critical Care Critical Care patient: No ATTENDING PHYSICIAN STATEMENT I saw and evaluated the patient. I reviewed the resident's note and discussed the case with the resident. I agree with the resident's findings and plan as documented. SUBJECTIVE: OBJECTIVE: ASSESSMENT AND PLAN:
[2019-12-22 17:27] VITALS: BMI 22.3
[2019-12-22] MEDS: MULTIVITAMINS (DAILY MVI) TABLET (FP) PO SCH (18:17)
[2019-12-22] MEDS: FOLIC ACID 1 MG TABLET (FP) PO SCH (18:17)
[2019-12-22] MEDS: ATORVASTATIN CA 40 MG TABLET (FP) PO SCH (21:50)
[2019-12-22] MEDS: LIDOCAINE PATCH REMOVAL MC SCH (21:52)
[2019-12-23] MEDS: HEPARIN NA (PORCINE) 5,000 UNITS/ML 1ML VIAL SQ SCH ×3 (05:45→21:22)
[2019-12-23 07:50] LABS: BLOOD UREA NITROGEN 32.4 mg/dL (7-18); CALCIUM 8.4 mg/dL (8.5-10.1); CREATININE 0.7 mg/dL (0.55-1.3); MAGNESIUM 1.8 mg/dL (1.8-2.4); PHOSPHOROUS 4.3 mg/dL (2.5-4.9); POTASSIUM 3.2 mmol/L (3.5-5.1)
[2019-12-23] MEDS ORDERED: POTASSIUM CHLORIDE TABS 20 MEQ TABLET.ER (FP) PO ONE ×2 (08:30→14:00)
[2019-12-23] MEDS: MULTIVITAMINS (DAILY MVI) TABLET (FP) PO SCH (09:58)
[2019-12-23] MEDS: PANTOPRAZOLE 40 MG TABLET PO SCH (09:58)
[2019-12-23] MEDS: LISINOPRIL 10 MG TABLET (FP) PO SCH (09:58)
[2019-12-23] MEDS: ASPIRIN 81 MG CHEWABLE TABLETS PO SCH (09:58)
[2019-12-23] MEDS: FOLIC ACID 1 MG TABLET (FP) PO SCH (09:58)
[2019-12-23] MEDS: FUROSEMIDE 40 MG/4 ML INJECTABLE VIAL IVPUSH SCH (09:59)
[2019-12-23] MEDS: LIDOCAINE 5% TOPICAL PATCH TP SCH (10:00)
[2019-12-23] MEDS: NICOTINE 14 MG/24 HOURS TOPICAL PATCH TD SCH (10:00)
[2019-12-23] MEDS ORDERED: METHADONE HCL 10 MG TABLET PO ONE (10:00)
--- NOTE | 2019-12-23 10:23 | PN ---
Progress Note, Physician History of Present Illness: PULMONARY ALERT,FEELING BETTER,LESS DYSPNEIC,+ COUGH,-CP - Current Medication List Current Medications: Active Medications Acetaminophen (Tylenol -) 1,000 mg PO Q6H PRN PRN Reason: PAIN LEVEL 1-5 Last Admin: 12/22/19 06:06 Dose: 1,000 mg Documented by: Albuterol Sulfate (Ventolin 0.083% Nebulizer Soln -) 1 amp NEB Q4H PRN PRN Reason: SHORT OF BREATH/WHEEZING Aspirin (Asa -) 81 mg PO DAILY [facility] Last Admin: 12/23/19 09:58 Dose: 81 mg Documented by: Atorvastatin Calcium (Lipitor -) 40 mg PO HS [facility] Last Admin: 12/22/19 21:50 Dose: 40 mg Documented by: Bupropion HCl (Wellbutrin Xl -) 150 mg PO BID [facility] Folic Acid (Folic Acid -) 1 mg PO DAILY [facility] Last Admin: 12/23/19 09:58 Dose: 1 mg Documented by: Furosemide (Lasix Injection -) 40 mg IVPUSH DAILY [facility] Last Admin: 12/23/19 09:59 Dose: 40 mg Documented by: Heparin Sodium (Porcine) (Heparin -) 5,000 unit SQ TID [facility] Last Admin: 12/23/19 05:45 Dose: 5,000 unit Documented by: Ibuprofen (Motrin -) 600 mg PO Q6H PRN PRN Reason: PAIN LEVEL 6-10 Last Admin: 12/22/19 21:50 Dose: 600 mg Documented by: Lidocaine (Lidoderm Patch -) 1 patch TP DAILY [facility] Last Admin: 12/23/19 10:00 Dose: 1 patch Documented by: Lisinopril (Prinivil) 10 mg PO DAILY [facility] Last Admin: 12/23/19 09:58 Dose: 10 mg Documented by: Methadone HCl (Dolophine -) 5 mg PO ONCE ONE Stop: 12/24/19 06:01 Miscellaneous (Lidoderm Patch Removal) 1 each MC DAILY@2200 [facility] Last Admin: 12/22/19 21:52 Dose: 1 each Documented by: Multivitamins/Minerals/Vitamin C (Tab-A-Vit -) 1 tab PO DAILY [facility] Last Admin: 12/23/19 09:58 Dose: 1 tab Documented by: Nicotine (Nicoderm Patch -) 14 mg TD DAILY [facility] Last Admin: 12/23/19 10:00 Dose: 14 mg Documented by: Pantoprazole Sodium (Protonix -) 40 mg PO DAILY [facility] Last Admin: 12/23/19 09:58 Dose: 40 mg Documented by: Potassium Chloride (K-Dur -) 40 meq PO ONCE ONE Stop: 12/23/19 14:01 Tiotropium [place] (Spiriva Respimat) 2 puff IH DAILY [facility] Last Admin: 12/22/19 14:18 Dose: 2 puff Documented by: - Objective Vital Signs: Vital Signs Temperature 98 F 12/23/19 05:00 Pulse Rate 66 12/23/19 05:00 Respiratory Rate 17 12/23/19 05:00 Blood Pressure 126/68 12/23/19 05:00 O2 Sat by Pulse Oximetry (%) 94 L 12/22/19 21:00 Constitutional: Yes: Calm, Thin Eyes: Yes: WNL HENT: Yes: WNL Neck: Yes: WNL Cardiovascular: Yes: Regular Rate and Rhythm, S1, S2 Respiratory: Yes: Rales (FEW BIBASILAR RALES) Gastrointestinal: Yes: Normal Bowel Sounds, Soft Extremities: Yes: WNL Edema: No Labs: CBC, BMP Problem List - Problems (1) Congestive heart failure Code(s): I50.9 - HEART FAILURE, UNSPECIFIED (2) CAD (coronary artery disease) Code(s): I25.10 - ATHSCL HEART DISEASE OF [place] CORONARY ARTERY W/O ANG PCTRS (3) COPD exacerbation Code(s): J44.1 - CHRONIC OBSTRUCTIVE PULMONARY DISEASE W (ACUTE) EXACERBATION (4) Hepatitis C Code(s): B19.20 - UNSPECIFIED VIRAL HEPATITIS C WITHOUT HEPATIC COMA (5) Hypertension Code(s): I10 - ESSENTIAL (PRIMARY) HYPERTENSION (6) Shortness of breath Code(s): R06.02 - SHORTNESS OF BREATH (7) COPD (chronic obstructive pulmonary disease) Code(s): J44.9 - CHRONIC OBSTRUCTIVE PULMONARY DISEASE, UNSPECIFIED Qualifiers: COPD type: unspecified COPD Qualified Code(s): J44.9 - Chronic obstructive pulmonary disease, unspecified (8) GERD (gastroesophageal reflux disease) Code(s): K21.9 - GASTRO-ESOPHAGEAL REFLUX DISEASE WITHOUT ESOPHAGITIS Qualifiers: Esophagitis presence: without esophagitis Qualified Code(s): K21.9 - Gastro-esophageal reflux disease without esophagitis (9) Hepatitis C Code(s): B19.20 - UNSPECIFIED VIRAL HEPATITIS C WITHOUT HEPATIC COMA Qualifiers: Viral hepatitis chronicity: chronic Hepatic coma status: without hepatic coma Qualified Code(s): B18.2 - Chronic viral hepatitis C (10) CHF exacerbation Code(s): I50.9 - HEART FAILURE, UNSPECIFIED (11) Dyspnea Code(s): R06.00 - DYSPNEA, UNSPECIFIED Qualifiers: Dyspnea type: shortness of breath Qualified Code(s): R06.02 - Shortness of breath; R06.00 - Dyspnea, unspecified; R06.01 - Orthopnea (12) Chronic respiratory failure with hypoxia Code(s): J96.11 - CHRONIC RESPIRATORY FAILURE WITH HYPOXIA Assessment/Plan Assessment/Plan Acute on Chronic Systolic Heart Failure CAD COPD Chronic Hypoxic Respiratory Failure HTN Hyperlipidemia Hep C Methadone Maintenance Smoker - continue lasix - monitor urine output, creatinine - daily weights - inhaled bronchodilators - continue spiriva - smoking cessation discussed - outpt PFTs - DVT prophylaxis DR CRAIG
--- NOTE | 2019-12-23 11:50 | PN ---
Progress Note (short form) - Note Progress Note: s: no sob palps dizzy, chest pain Current Medications Acetaminophen (Tylenol -) 1,000 mg PO Q6H PRN PRN Reason: PAIN LEVEL 1-5 Last Admin: 12/22/19 06:06 Dose: 1,000 mg Documented by: Albuterol Sulfate (Ventolin 0.083% Nebulizer Soln -) 1 amp NEB Q4H PRN PRN Reason: SHORT OF BREATH/WHEEZING Aspirin (Asa -) 81 mg PO DAILY [facility] Last Admin: 12/23/19 09:58 Dose: 81 mg Documented by: Atorvastatin Calcium (Lipitor -) 40 mg PO HS [facility] Last Admin: 12/22/19 21:50 Dose: 40 mg Documented by: Bupropion HCl (Wellbutrin Xl -) 150 mg PO BID [facility] Folic Acid (Folic Acid -) 1 mg PO DAILY [facility] Last Admin: 12/23/19 09:58 Dose: 1 mg Documented by: Furosemide (Lasix Injection -) 40 mg IVPUSH DAILY [facility] Last Admin: 12/23/19 09:59 Dose: 40 mg Documented by: Heparin Sodium (Porcine) (Heparin -) 5,000 unit SQ TID [facility] Last Admin: 12/23/19 05:45 Dose: 5,000 unit Documented by: Ibuprofen (Motrin -) 600 mg PO Q6H PRN PRN Reason: PAIN LEVEL 6-10 Last Admin: 12/22/19 21:50 Dose: 600 mg Documented by: Lidocaine (Lidoderm Patch -) 1 patch TP DAILY [facility] Last Admin: 12/23/19 10:00 Dose: 1 patch Documented by: Lisinopril (Prinivil) 10 mg PO DAILY [facility] Last Admin: 12/23/19 09:58 Dose: 10 mg Documented by: Methadone HCl (Dolophine -) 5 mg PO ONCE ONE Stop: 12/24/19 06:01 Miscellaneous (Lidoderm Patch Removal) 1 each MC DAILY@2200 [facility] Last Admin: 12/22/19 21:52 Dose: 1 each Documented by: Multivitamins/Minerals/Vitamin C (Tab-A-Vit -) 1 tab PO DAILY [facility] Last Admin: 12/23/19 09:58 Dose: 1 tab Documented by: Nicotine (Nicoderm Patch -) 14 mg TD DAILY [facility] Last Admin: 12/23/19 10:00 Dose: 14 mg Documented by: Pantoprazole Sodium (Protonix -) 40 mg PO DAILY [facility] Last Admin: 12/23/19 09:58 Dose: 40 mg Documented by: Potassium Chloride (K-Dur -) 40 meq PO ONCE ONE Stop: 12/23/19 14:01 Tiotropium [place] (Spiriva Respimat) 2 puff IH DAILY [facility] Last Admin: 12/22/19 14:18 Dose: 2 puff Documented by: Vital Signs Period Temp Pulse Resp BP Sys/Soliz Pulse Ox Last 24 Hr 97.2 F-98.1 F 66-94 17-20 111-147/68-85 94 nad no jvd rrr s1s2 no mrg cta bl nl eff aao3 no le e/c/c abd nt nd pos bs no jaundice diaphoresis +chest wall tenderness echo 04/2016: mild-mod dec lvef mibi 04/2016: apical/inferior infarct, no ischemia, lvef sev reduced echo 08/2019 low normal LV function, EF 50-55%, grade I diastolic dysfunction, RV nl, mild TR, mild AR, mod ao root dilation, borderline mildly dilated ascending aorta Echo 11/06/2019 normal EF, LVH Cath: 10/2012 at [facility] NORMAL CORS EF 35% mibi 10/2019 mild to mod basal inferior ischemia, sm sized mod intensity mostly reversible apical perfusion defect c/w ild apical ischemia, no TIA, EF 44% CXR: no acute process EKG sinus, anterior/lateral TWI and ST depression - stable compared to prior tele: sr a/p: 64 m hx nicm (non obs cad on cath 2012), syst chf, hld, smoking, copd, hcv, here with chest pain. acute on chronic systolic HF - likely in setting of noncompliance with lasix at home - cont IV lasix - monitor Cr, lytes, daily weights - cont callie, bb, aldactone cp: -atypical, seems MSK - now resolved -no signs acs CAD - abnormal stress test 10/2019 - given poor compliance, medical therapy preferred - continue aspirin, statin, ACEI opiod abuse, syncope - now on methadone, manage per primary hld: -cont statin tob use: -smoking cessation discussed
[2019-12-23] MEDS: ALBUTEROL SO4 0.083% IH SOL 2.5 MG/3 ML VIAL.NEB. NEB PRN ×2 (11:55→23:50)
--- NOTE | 2019-12-23 14:39 | PN ---
Physical Exam: SUBJECTIVE: Patient seen and examined in the morning. No acute events overnight. Patient feels that breathing is almost back to normal. Patient has no complaints of cough, chest pain, abdominal pain, nausea, vomiting or diarrhea. OBJECTIVE: Vital Signs Period Temp Pulse Resp BP Sys/Soliz Pulse Ox Last 24 Hr 97.2 F-98.1 F 66-94 17-20 111-147/68-85 94 GENERAL: The patient is awake, alert, and fully oriented, in no acute distress. HEAD: Normal with no signs of trauma. EYES: PERRL, EOMI ENT:moist mucous membranes. LUNGS: No crackles or wheezes appreciated HEART: Regular rate and rhythm, S1, S2 without murmur, rub or gallop. ABDOMEN: Soft nontender, normoactive BS EXTREMITIES: 2+ pulses, warm, well-perfused, no edema. NEUROLOGICAL: Cranial nerves II through XII grossly intact. PSYCH: Normal mood, normal affect. SKIN: Warm, dry, normal turgor, no rashes or lesions noted Laboratory Results - last 24 hr 12/21/19 12/23/19 07:24 05:38 Sodium 140 Potassium 3.2 L Chloride 102 Carbon Dioxide 29 Anion Gap 8 BUN 32.4 H Creatinine 0.7 Est GFR (CKD-EPI)AfAm 114.78 Est GFR (CKD-EPI)NonAf 99.03 Random Glucose 96 Calcium 8.4 L Phosphorus 4.3 Magnesium 1.8 Free T3 3.0 Active Medications Generic Name Dose Route Start Last Admin Trade Name Freq PRN Reason Stop Dose Admin Acetaminophen 1,000 mg 12/21/19 13:22 12/22/19 06:06 Tylenol - PO 1,000 mg Q6H PRN Administration PAIN LEVEL 1-5 Albuterol Sulfate 1 amp 12/22/19 12:42 12/23/19 11:55 Ventolin 0.083% Nebulizer Soln - NEB 1 amp Q4H PRN Administration SHORT OF BREATH/WHEEZING Aspirin 81 mg 12/21/19 10:00 12/23/19 09:58 Asa - PO 81 mg DAILY LAURO Administration Atorvastatin Calcium 40 mg 12/20/19 22:00 12/22/19 21:50 Lipitor - PO 40 mg HS LAURO Administration Bupropion HCl 150 mg 12/20/19 22:00 Wellbutrin Xl - PO BID LAURO Folic Acid 1 mg 12/22/19 18:15 12/23/19 09:58 Folic Acid - PO 1 mg DAILY LAURO Administration Furosemide 40 mg 12/21/19 10:00 12/23/19 09:59 Lasix Injection - IVPUSH 40 mg DAILY LAURO Administration Heparin Sodium (Porcine) 5,000 unit 12/20/19 22:00 12/23/19 05:45 Heparin - SQ 5,000 unit TID LAURO Administration Ibuprofen 600 mg 12/21/19 13:21 12/22/19 21:50 Motrin - PO 600 mg Q6H PRN Administration PAIN LEVEL 6-10 Lidocaine 1 patch 12/21/19 13:30 12/23/19 10:00 Lidoderm Patch - TP 1 patch DAILY LAURO Administration Lisinopril 10 mg 12/21/19 10:00 12/23/19 09:58 Prinivil PO 10 mg DAILY LAURO Administration Methadone HCl 5 mg 12/24/19 06:00 Dolophine - PO 12/24/19 06:01 ONCE ONE Miscellaneous 1 each 12/21/19 22:00 12/22/19 21:52 Lidoderm Patch Removal MC 1 each DAILY@2200 LAURO Administration Multivitamins/Minerals/Vitamin C 1 tab 12/22/19 18:15 12/23/19 09:58 Tab-A-Vit - PO 1 tab DAILY LAURO Administration Nicotine 14 mg 12/21/19 10:00 12/23/19 10:00 Nicoderm Patch - TD 14 mg DAILY LAURO Administration Pantoprazole Sodium 40 mg 12/21/19 10:00 12/23/19 09:58 Protonix - PO 40 mg DAILY LAURO Administration Tiotropium [place] 2 puff 12/22/19 12:45 12/22/19 14:18 Spiriva Respimat IH 2 puff DAILY LAURO Administration ASSESSMENT/PLAN: 64M PMH COPD (2L Home oxygen), HFpEF (echo on 11/06/19 shows EF 55-60%), CAD, Opiod use disorder, HTN, HCV (incomplete treatment), HLD who presents with SOB and cough and was admitted for diastolic CHF exacerbation. 1) Acute CHF exacerbation - Non compliant with home medications - IV Lasix 40 mg daily for today and last IV dose tomorrow. As per discussion with Dr. Jones, patient can receive one last IV dose in the AM tomorrow and be discharged on PO. - Carvedilol 25 mg PO BID - Continue ASA 81 mg PO Daily - Continue cardiac monitoring - Creatinine stable: 0.7 - Positive balance of 30 yesterday - Fluid restriction: patient continues to have high fluid intake. Was counseled on restricting fluids. 2) Hx of COPD - Questionable adherence to Home O2. - Continue Supplemental O2. - Continue Spiriva and Albuterol Nebulizer. - [employer] on smoking cessation 3) Hx of PSA - Utox positive for MDMA, possibly false positive with wellbutrin use - Methadone protocol. Completes on 12/23 4) Hyperthyroidism - Low TSH, normal T4 and T3. - Subclinical hyperthyroidism. No symptoms of hyperthyroidism- does not require workup. Should have labs evaluated in 6 weeks 5) HTN - Continue Lisinopril 10 mg PO daily - Continue Lasix 40 mg IV Daily - Continue Carvedilol 25 mg PO BID 6) HLD - Continue Atorvastatin 40 mg PO HS 7) Hx of HCV - Will give referral to GI on discharge from hospital F: Fluid restriction E: Monitor BMP N: Na controlled diet DVT: Heparin TID Dispo: Monitor on tele, possible d/c tomorrow. Visit type - Emergency Visit Emergency Visit: Yes ED Registration Date: 12/20/19 Care time: The patient presented to the Emergency Department on the above date and was hospitalized for further evaluation of their emergent condition. - New Patient This patient is new to me today: Yes Date on this admission: 12/23/19 - Critical Care Critical Care patient: No ATTENDING PHYSICIAN STATEMENT I saw and evaluated the patient. I reviewed the resident's note and discussed the case with the resident. I agree with the resident's findings and plan as documented. SUBJECTIVE: OBJECTIVE: ASSESSMENT AND PLAN:
[2019-12-23] MEDS: TIOTROPIUM BROMIDE 2.5 MCG (SPIRIVA) RESPIMAT INHALER IH SCH (15:16)
--- NOTE | 2019-12-23 17:15 | PN ---
Teaching Attending Note Name of Resident: Eze Baker ATTENDING PHYSICIAN STATEMENT I saw and evaluated the patient. I reviewed the resident's note and discussed the case with the resident. I agree with the resident's findings and plan as documented. SUBJECTIVE: No fever or chills. No pain. SOB has improved Physical Exam: NAD, awake, alert, cooperative. CV: RRR, no MRG Lungs: CTAB. Ext: No edema or erythema on LE. Assessment/Plan: 64 y/o man with h/o Opioid abuse, chronic diastolic CHF, HTN, Partially treated Hep C , COPD, on 2 L of O2, CAD, who presented with SOB and cough and was found to have acute D CHF exacerbation 1- Acute Diastolic CHF exacerbation: due to non compliance. - cont IV lasix . switch to po after tomorrow's dose - cont coreg 2- H/o COPD: no signs of exacerbation . - cont O2 at 2 L - cont nebs 3- Low TSH: NL FT4, FT3 NL---> elliley sub clinical hyperthyroidism. - repeat as out pt in 6 weeks 4- Opioid dependence: - cont methadone detox. last dose on Sunday morning 5- h/o HTN: cont coreg. 6- H/o HEp C .out pt f/u with GI Dispo: HLOC Dc tomorrow after am lasix and am methadone.
[2019-12-23] MEDS: CARVEDILOL 25 MG TABLET (FP) PO SCH (21:22)
[2019-12-23] MEDS: ATORVASTATIN CA 40 MG TABLET (FP) PO SCH (21:22)
[2019-12-23] MEDS: LIDOCAINE PATCH REMOVAL MC SCH (22:07)
[2019-12-24] MEDS: ACETAMINOPHEN 500 MG TABLET (FP) PO PRN (05:13)
[2019-12-24] MEDS: HEPARIN NA (PORCINE) 5,000 UNITS/ML 1ML VIAL SQ SCH (05:16)
[2019-12-24] MEDS ORDERED: METHADONE HCL 5 MG TABLET (FOR DETOX USE ONLY) PO ONE (06:00)
[2019-12-24 07:54] LABS: BASO % 0.5 % (0-2.0); BLOOD UREA NITROGEN 33.5 mg/dL (7-18); CREATININE 0.7 mg/dL (0.55-1.3); EOS % 1.1 % (0-4.5); HEMATOCRIT 40.9 % (35.4-49); LYMPH % 21.5 % (8-40); MCH 33.2 pg (25.7-33.7); MCHC 34.3 g/dl (32.0-35.9); MEAN CELL VOLUME 96.7 fl (80-96); MEAN PLT VOLUME 8.3 fl (7.5-11.1); NEUT % 63.9 % (42.8-82.8); PLATELET COUNT 178 K/MM3 (134-434); POTASSIUM 3.8 mmol/L (3.5-5.1); RBC 4.23 M/mm3 (4.00-5.60); RDW 14.6 % (11.9-15.9); WHITE BLOOD COUNT 7.6 K/mm3 (4.0-10.0)
[2019-12-24] MEDS: FUROSEMIDE 40 MG/4 ML INJECTABLE VIAL IVPUSH SCH ×2 (08:08→09:46)
--- NOTE | 2019-12-24 08:12 | PN ---
Teaching Attending Note Name of Resident: Eze Baker ATTENDING PHYSICIAN STATEMENT I saw and evaluated the patient. I reviewed the resident's note and discussed the case with the resident. I agree with the resident's findings and plan as documented. SUBJECTIVE: Patient is feeling better, wants to go home with no acute distress. 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 OBJECTIVE: Vital Signs Temperature 98.1 F 12/24/19 06:00 Pulse Rate 80 12/24/19 06:00 Respiratory Rate 20 12/24/19 06:00 Blood Pressure 102/56 L 12/24/19 06:00 O2 Sat by Pulse Oximetry (%) 98 12/23/19 21:00 GENERAL: The patient is awake, alert, and oriented, in no acute distress. HEAD: Normal with no signs of trauma. EYES: PERRL, extraocular movements intact, sclera anicteric, conjunctiva clear. ENT: Ears normal, oropharynx clear without exudates, moist mucous membranes. NECK: Trachea midline, full range of motion, supple. LUNGS: Breath sounds equal, clear to auscultation bilaterally, no wheezes, no crackles, no accessory muscle use. HEART: Regular rate and rhythm, S1, S2 without murmur, rub or gallop. ABDOMEN: Soft, nontender, nondistended, normoactive bowel sounds, no guarding, no rebound, no hepatosplenomegaly, no masses. EXTREMITIES: 2+ pulses, warm, well-perfused, no edema. NEUROLOGICAL: Cranial nerves II through XII grossly intact. Normal speech, gait not observed. PSYCH: Normal mood, normal affect. SKIN: Warm, dry, normal turgor, no rashes or lesions noted CBCD WBC 7.9 K/mm3 (4.0-10.0) 12/21/19 07:24 RBC 4.40 M/mm3 (4.00-5.60) 12/21/19 07:24 Hgb 14.7 GM/dL (11.7-16.9) 12/21/19 07:24 Hct 41.6 % (35.4-49) 12/21/19 07:24 MCV 94.5 fl (80-96) 12/21/19 07:24 MCHC 35.4 g/dl (32.0-35.9) 12/21/19 07:24 RDW 14.3 % (11.9-15.9) 12/21/19 07:24 Plt Count 165 K/MM3 (134-434) D 12/21/19 07:24 MPV 7.6 fl (7.5-11.1) 12/21/19 07:24 CMP Sodium 139 mmol/L (136-145) 12/24/19 05:35 Potassium 3.8 mmol/L (3.5-5.1) 12/24/19 05:35 Chloride 104 mmol/L (98-107) 12/24/19 05:35 Carbon Dioxide 28 mmol/L (21-32) 12/24/19 05:35 Anion Gap 8 MMOL/L (8-16) 12/24/19 05:35 BUN 33.5 mg/dL (7-18) H 12/24/19 05:35 Creatinine 0.7 mg/dL (0.55-1.3) 12/24/19 05:35 Random Glucose 114 mg/dL (74-106) H 12/24/19 05:35 Calcium 9.0 mg/dL (8.5-10.1) 12/24/19 05:35 Total Bilirubin 1.5 mg/dL (0.2-1) H 12/21/19 07:24 AST 27 U/L (15-37) 12/21/19 07:24 ALT 32 U/L (13-61) 12/21/19 07:24 Alkaline Phosphatase 79 U/L (45-117) 12/21/19 07:24 Total Protein 8.2 g/dl (6.4-8.2) 12/21/19 07:24 Albumin 3.9 g/dl (3.4-5.0) 12/21/19 07:24 CARDIAC ENZYMES Creatine Kinase 79 U/L (26-308) 12/20/19 17:00 Troponin I < 0.02 ng/ml (0.00-0.05) 12/22/19 05:55 Current Medications Generic Name Dose Route Start Last Admin Trade Name Freq PRN Reason Stop Dose Admin Acetaminophen 1,000 mg 12/21/19 13:22 12/24/19 05:13 Tylenol - PO 1,000 mg Q6H PRN Administration PAIN LEVEL 1-5 Albuterol Sulfate 1 amp 12/22/19 12:42 12/23/19 23:50 Ventolin 0.083% Nebulizer Soln - NEB 1 amp Q4H PRN Administration SHORT OF BREATH/WHEEZING Aspirin 81 mg 12/21/19 10:00 12/23/19 09:58 Asa - PO 81 mg DAILY LAURO Administration Atorvastatin Calcium 40 mg 12/20/19 22:00 12/23/19 21:22 Lipitor - PO 40 mg HS LAURO Administration Bupropion HCl 150 mg 12/20/19 22:00 Wellbutrin Xl - PO BID LAURO Carvedilol 25 mg 12/23/19 22:00 12/23/19 21:22 Coreg - PO 25 mg BID LAURO Administration Folic Acid 1 mg 12/22/19 18:15 12/23/19 09:58 Folic Acid - PO 1 mg DAILY LAURO Administration Furosemide 40 mg 12/24/19 07:32 12/24/19 08:08 Lasix Injection - IVPUSH 40 mg DAILY LAURO Administration Heparin Sodium (Porcine) 5,000 unit 12/20/19 22:00 12/24/19 05:16 Heparin - SQ 5,000 unit TID LAURO Administration Ibuprofen 600 mg 12/21/19 13:21 12/22/19 21:50 Motrin - PO 600 mg Q6H PRN Administration PAIN LEVEL 6-10 Lidocaine 1 patch 12/21/19 13:30 12/23/19 10:00 Lidoderm Patch - TP 1 patch DAILY LAURO Administration Lisinopril 10 mg 12/21/19 10:00 12/23/19 09:58 Prinivil PO 10 mg DAILY LAURO Administration Miscellaneous 1 each 12/21/19 22:00 12/23/19 22:07 Lidoderm Patch Removal MC 1 each DAILY@2200 LAURO Administration Multivitamins/Minerals/Vitamin C 1 tab 12/22/19 18:15 12/23/19 09:58 Tab-A-Vit - PO 1 tab DAILY LAURO Administration Nicotine 14 mg 12/21/19 10:00 12/23/19 10:00 Nicoderm Patch - TD 14 mg DAILY LAURO Administration Pantoprazole Sodium 40 mg 12/21/19 10:00 12/23/19 09:58 Protonix - PO 40 mg DAILY LAURO Administration Tiotropium [place] 2 puff 12/22/19 12:45 12/23/19 15:16 Spiriva Respimat IH 2 puff DAILY LAURO Administration Home Medications Medication Instructions Recorded Albuterol Sulfate Inhaler - 2 inh PO Q4H PRN 10/11/16 [Ventolin HFA Inhaler -] Bupropion HCl [Wellbutrin Xl -] 150 mg PO BID 03/02/17 Pantoprazole Sodium [Protonix -] 40 mg PO DAILY 03/02/17 Cyproheptadine [Periactin -] 4 mg PO BID 09/23/19 Carvedilol 25 mg PO BID 11/06/19 Aspirin [ASA -] 81 mg PO DAILY #30 tab.chew 11/07/19 Albuterol 0.083% Nebulizer [place] 1 amp NEB RQID amp 11/10/19 [Ventolin 0.083% Nebulizer Soln -] Tiotropium [place] [Spiriva 2 puff IH DAILY #1 inhaler 11/10/19 Respimat] Atorvastatin Calcium [Lipitor] 40 mg PO HS 12/20/19 Budesonide/Formeterol Fumarate 2 inh PO BID 12/20/19 [SYMBICORT 160/4.5mcg -] Lisinopril [Zestril] 40 mg PO BID 12/22/19 CXr: No acute pathology ASSESSMENT AND PLAN: Patient is a 64yom with Pmhx of Opioid abuse, chronic diastolic CHF, HTN, Partially treated Hep C , COPD, on 2 L of O2, CAD, who presented with SOB and cough and was found to have acute D CHF exacerbation # Acute Diastolic CHF exacerbation: due to non compliance. s/p IV lasix , will dc him on oral lasix 40mg po daily and suggested that he can take his duiretic at 3pm after returning from work. Patient understands. cont coreg /lipitor/zestril # H/o COPD: no signs of exacerbation, continue home meds. # sub-clinical hyperthyroidism: repeat in 6 weeks (outpatient) # Opioid dependence: last dose of methadone detox. today # h/o HTN: cont coreg/lisinpril # H/o HEp C .out pt f/u with GI Dc patient home
[2019-12-24] MEDS: FOLIC ACID 1 MG TABLET (FP) PO SCH (09:45)
[2019-12-24] MEDS: LISINOPRIL 10 MG TABLET (FP) PO SCH (09:45)
[2019-12-24] MEDS: CARVEDILOL 25 MG TABLET (FP) PO SCH (09:45)
[2019-12-24] MEDS: LIDOCAINE 5% TOPICAL PATCH TP SCH (09:45)
[2019-12-24] MEDS: ASPIRIN 81 MG CHEWABLE TABLETS PO SCH (09:45)
[2019-12-24] MEDS: NICOTINE 14 MG/24 HOURS TOPICAL PATCH TD SCH (09:45)
[2019-12-24] MEDS: PANTOPRAZOLE 40 MG TABLET PO SCH (09:45)
[2019-12-24] MEDS: MULTIVITAMINS (DAILY MVI) TABLET (FP) PO SCH (09:45)
[2019-12-24] MEDS: TIOTROPIUM BROMIDE 2.5 MCG (SPIRIVA) RESPIMAT INHALER IH SCH (09:50)
[2019-12-24 10:31] VITALS: BP 118/64; PULSE 68; TEMP 98
--- NOTE | 2019-12-24 10:36 | PN ---
Progress Note, Physician History of Present Illness: pulmonary alert,comfortable,-resp distress - Current Medication List Current Medications: Active Medications Acetaminophen (Tylenol -) 1,000 mg PO Q6H PRN PRN Reason: PAIN LEVEL 1-5 Last Admin: 12/24/19 05:13 Dose: 1,000 mg Documented by: Albuterol Sulfate (Ventolin 0.083% Nebulizer Soln -) 1 amp NEB Q4H PRN PRN Reason: SHORT OF BREATH/WHEEZING Last Admin: 12/23/19 23:50 Dose: 1 amp Documented by: Aspirin (Asa -) 81 mg PO DAILY [facility] Last Admin: 12/24/19 09:45 Dose: 81 mg Documented by: Atorvastatin Calcium (Lipitor -) 40 mg PO HS [facility] Last Admin: 12/23/19 21:22 Dose: 40 mg Documented by: Bupropion HCl (Wellbutrin Xl -) 150 mg PO BID [facility] Carvedilol (Coreg -) 25 mg PO BID [facility] Last Admin: 12/24/19 09:45 Dose: 25 mg Documented by: Folic Acid (Folic Acid -) 1 mg PO DAILY [facility] Last Admin: 12/24/19 09:45 Dose: 1 mg Documented by: Furosemide (Lasix Injection -) 40 mg IVPUSH DAILY [facility] Last Admin: 12/24/19 09:46 Dose: Not Given Documented by: Heparin Sodium (Porcine) (Heparin -) 5,000 unit SQ TID [facility] Last Admin: 12/24/19 05:16 Dose: 5,000 unit Documented by: Ibuprofen (Motrin -) 600 mg PO Q6H PRN PRN Reason: PAIN LEVEL 6-10 Last Admin: 12/22/19 21:50 Dose: 600 mg Documented by: Lidocaine (Lidoderm Patch -) 1 patch TP DAILY [facility] Last Admin: 12/24/19 09:45 Dose: 1 patch Documented by: Lisinopril (Prinivil) 10 mg PO DAILY [facility] Last Admin: 12/24/19 09:45 Dose: 10 mg Documented by: Miscellaneous (Lidoderm Patch Removal) 1 each MC DAILY@2200 [facility] Last Admin: 12/23/19 22:07 Dose: 1 each Documented by: Multivitamins/Minerals/Vitamin C (Tab-A-Vit -) 1 tab PO DAILY [facility] Last Admin: 12/24/19 09:45 Dose: 1 tab Documented by: Nicotine (Nicoderm Patch -) 14 mg TD DAILY [facility] Last Admin: 12/24/19 09:45 Dose: 14 mg Documented by: Pantoprazole Sodium (Protonix -) 40 mg PO DAILY [facility] Last Admin: 12/24/19 09:45 Dose: 40 mg Documented by: Tiotropium [place] (Spiriva Respimat) 2 puff IH DAILY [facility] Last Admin: 12/24/19 09:50 Dose: 2 puff Documented by: - Objective Vital Signs: Vital Signs Temperature 98 F 12/24/19 10:00 Pulse Rate 68 12/24/19 10:00 Respiratory Rate 18 12/24/19 10:00 Blood Pressure 118/64 12/24/19 10:00 O2 Sat by Pulse Oximetry (%) 98 12/23/19 21:00 Constitutional: Yes: Well Nourished, Calm Eyes: Yes: WNL HENT: Yes: WNL Neck: Yes: WNL Cardiovascular: Yes: Regular Rate and Rhythm, S1, S2 Respiratory: Yes: CTA Bilaterally Gastrointestinal: Yes: Normal Bowel Sounds, Soft Extremities: Yes: WNL Edema: No Labs: CBC, BMP 12/24/19 05:35 12/24/19 05:35 INR, PTT INR 1.14 (0.83-1.09) H 12/20/19 17:00 Problem List - Problems (1) Congestive heart failure Code(s): I50.9 - HEART FAILURE, UNSPECIFIED (2) CAD (coronary artery disease) Code(s): I25.10 - ATHSCL HEART DISEASE OF [place] CORONARY ARTERY W/O ANG PCTRS (3) COPD exacerbation Code(s): J44.1 - CHRONIC OBSTRUCTIVE PULMONARY DISEASE W (ACUTE) EXACERBATION (4) Hepatitis C Code(s): B19.20 - UNSPECIFIED VIRAL HEPATITIS C WITHOUT HEPATIC COMA (5) Hypertension Code(s): I10 - ESSENTIAL (PRIMARY) HYPERTENSION (6) Shortness of breath Code(s): R06.02 - SHORTNESS OF BREATH (7) COPD (chronic obstructive pulmonary disease) Code(s): J44.9 - CHRONIC OBSTRUCTIVE PULMONARY DISEASE, UNSPECIFIED Qualifiers: COPD type: unspecified COPD Qualified Code(s): J44.9 - Chronic obstructive pulmonary disease, unspecified (8) GERD (gastroesophageal reflux disease) Code(s): K21.9 - GASTRO-ESOPHAGEAL REFLUX DISEASE WITHOUT ESOPHAGITIS Qualifiers: Esophagitis presence: without esophagitis Qualified Code(s): K21.9 - Gastro-esophageal reflux disease without esophagitis (9) Hepatitis C Code(s): B19.20 - UNSPECIFIED VIRAL HEPATITIS C WITHOUT HEPATIC COMA Qualifiers: Viral hepatitis chronicity: chronic Hepatic coma status: without hepatic coma Qualified Code(s): B18.2 - Chronic viral hepatitis C (10) CHF exacerbation Code(s): I50.9 - HEART FAILURE, UNSPECIFIED (11) Dyspnea Code(s): R06.00 - DYSPNEA, UNSPECIFIED Qualifiers: Dyspnea type: shortness of breath Qualified Code(s): R06.02 - Shortness of breath; R06.00 - Dyspnea, unspecified; R06.01 - Orthopnea (12) Chronic respiratory failure with hypoxia Code(s): J96.11 - CHRONIC RESPIRATORY FAILURE WITH HYPOXIA Assessment/Plan Assessment/Plan Acute on Chronic Systolic Heart Failure improved CAD COPD Chronic Hypoxic Respiratory Failure HTN Hyperlipidemia Hep C Methadone Maintenance Smoker - lasix - monitor urine output, creatinine - daily weights - inhaled bronchodilators - spiriva - smoking cessation discussed - outpt PFTs - DVT prophylaxis - low dose chest ct outpatient DR CRAIG
--- NOTE | 2019-12-24 10:58 | PN ---
Progress Note (short form) - Note Progress Note: s: no sob palps dizzy, chest pain Current Medications Acetaminophen (Tylenol -) 1,000 mg PO Q6H PRN PRN Reason: PAIN LEVEL 1-5 Last Admin: 12/24/19 05:13 Dose: 1,000 mg Documented by: Albuterol Sulfate (Ventolin 0.083% Nebulizer Soln -) 1 amp NEB Q4H PRN PRN Reason: SHORT OF BREATH/WHEEZING Last Admin: 12/23/19 23:50 Dose: 1 amp Documented by: Aspirin (Asa -) 81 mg PO DAILY [facility] Last Admin: 12/24/19 09:45 Dose: 81 mg Documented by: Atorvastatin Calcium (Lipitor -) 40 mg PO HS [facility] Last Admin: 12/23/19 21:22 Dose: 40 mg Documented by: Bupropion HCl (Wellbutrin Xl -) 150 mg PO BID [facility] Carvedilol (Coreg -) 25 mg PO BID [facility] Last Admin: 12/24/19 09:45 Dose: 25 mg Documented by: Folic Acid (Folic Acid -) 1 mg PO DAILY [facility] Last Admin: 12/24/19 09:45 Dose: 1 mg Documented by: Furosemide (Lasix -) 40 mg PO DAILY [facility] Heparin Sodium (Porcine) (Heparin -) 5,000 unit SQ TID [facility] Last Admin: 12/24/19 05:16 Dose: 5,000 unit Documented by: Ibuprofen (Motrin -) 600 mg PO Q6H PRN PRN Reason: PAIN LEVEL 6-10 Last Admin: 12/22/19 21:50 Dose: 600 mg Documented by: Lidocaine (Lidoderm Patch -) 1 patch TP DAILY [facility] Last Admin: 12/24/19 09:45 Dose: 1 patch Documented by: Lisinopril (Prinivil) 10 mg PO DAILY [facility] Last Admin: 12/24/19 09:45 Dose: 10 mg Documented by: Miscellaneous (Lidoderm Patch Removal) 1 each MC DAILY@2200 [facility] Last Admin: 12/23/19 22:07 Dose: 1 each Documented by: Multivitamins/Minerals/Vitamin C (Tab-A-Vit -) 1 tab PO DAILY [facility] Last Admin: 12/24/19 09:45 Dose: 1 tab Documented by: Nicotine (Nicoderm Patch -) 14 mg TD DAILY [facility] Last Admin: 12/24/19 09:45 Dose: 14 mg Documented by: Pantoprazole Sodium (Protonix -) 40 mg PO DAILY [facility] Last Admin: 12/24/19 09:45 Dose: 40 mg Documented by: Tiotropium [place] (Spiriva Respimat) 2 puff IH DAILY [facility] Last Admin: 12/24/19 09:50 Dose: 2 puff Documented by: Vital Signs Period Temp Pulse Resp BP Sys/Soliz Pulse Ox Last 24 Hr 97.7 F-98.7 F 68-96 18-20 97-118/53-75 98 nad no jvd rrr s1s2 no mrg cta bl nl eff aao3 no le e/c/c abd nt nd pos bs no jaundice diaphoresis +chest wall tenderness echo 04/2016: mild-mod dec lvef mibi 04/2016: apical/inferior infarct, no ischemia, lvef sev reduced echo 08/2019 low normal LV function, EF 50-55%, grade I diastolic dysfunction, RV nl, mild TR, mild AR, mod ao root dilation, borderline mildly dilated ascending aorta Echo 11/06/2019 normal EF, LVH Cath: 10/2012 at [facility] NORMAL CORS EF 35% mibi 10/2019 mild to mod basal inferior ischemia, sm sized mod intensity mostly reversible apical perfusion defect c/w ild apical ischemia, no TIA, EF 44% CXR: no acute process EKG sinus, anterior/lateral TWI and ST depression - stable compared to prior tele: sr a/p: 64 m hx nicm (non obs cad on cath 2012), syst chf, hld, smoking, copd, hcv, here with chest pain. acute on chronic systolic HF - likely in setting of noncompliance with lasix at home - diuresed with IV lasix, now appears euvolemic - change to PO lasix 40 mg daily - cont callie, bb, aldactone cp: -atypical, seems MSK - now resolved -no signs acs CAD - abnormal stress test 10/2019 - given poor compliance, medical therapy preferred - continue aspirin, statin, ACEI opiod abuse, syncope - now on methadone, manage per primary hld: -cont statin tob use: -smoking cessation discussed
[2019-12-24] MEDS ORDERED: PT OWN MED DRAWER 7, Y5N ONE (11:23)
[2019-12-24 12:02] LABS: ANISOCYTOSIS 1+; MACROCYTOSIS 0; PLATELET ESTIMATE NORMAL
--- NOTE | 2019-12-24 13:30 | DS ---
Physical Exam: SUBJECTIVE: Patient seen and examined in the morning. No acute events overnight. Patient feels that breathing is almost back to normal. Patient has no complaints of cough, chest pain, abdominal pain, nausea, vomiting or diarrhea. OBJECTIVE: Vital Signs Period Temp Pulse Resp BP Sys/Soliz Pulse Ox Last 24 Hr 97.7 F-98.7 F 68-96 18-20 97-118/53-75 98-98 PHYSICAL EXAM GENERAL: The patient is awake, alert, and fully oriented, in no acute distress. HEAD: Normal with no signs of trauma. EYES: PERRL, EOMI ENT:moist mucous membranes. LUNGS: No crackles or wheezes appreciated HEART: Regular rate and rhythm, S1, S2 without murmur, rub or gallop. ABDOMEN: Soft nontender, normoactive BS EXTREMITIES: 2+ pulses, warm, well-perfused, no edema. NEUROLOGICAL: Cranial nerves II through XII grossly intact. PSYCH: Normal mood, normal affect. SKIN: Warm, dry, normal turgor, no rashes or lesions noted. LABS Laboratory Results - last 24 hr 12/24/19 12/24/19 05:35 05:35 WBC 7.6 RBC 4.23 Hgb 14.0 Hct 40.9 MCV 96.7 H MCH 33.2 MCHC 34.3 RDW 14.6 Plt Count 178 MPV 8.3 Absolute Neuts (auto) 4.8 Neutrophils % 63.9 D Neutrophils % (Manual) 60.6 Band Neutrophils % 1.0 Lymphocytes % 21.5 D Lymphocytes % (Manual) 16.2 Monocytes % 13.0 H D Monocytes % (Manual) 12 H Eosinophils % 1.1 D Eosinophils % (Manual) 3.0 Basophils % 0.5 D Basophils % (Manual) 1.0 Myelocytes % (Man) 0 Promyelocytes % (Man) 0 Blast Cells % (Manual) 1 H Nucleated RBC % 0 Metamyelocytes 0 Hypochromia 0 Platelet Estimate Normal Polychromasia 0 Anisocytosis 1+ Microcytosis 1+ Macrocytosis 0 Sodium 139 Potassium 3.8 Chloride 104 Carbon Dioxide 28 Anion Gap 8 BUN 33.5 H Creatinine 0.7 Est GFR (CKD-EPI)AfAm 114.78 Est GFR (CKD-EPI)NonAf 99.03 Random Glucose 114 H Calcium 9.0 HOSPITAL COURSE: Date of Admission:12/20/19 Date of Discharge: 12/24/19 64M PMH COPD (2L Home oxygen), HFpEF (echo on 11/06/19 shows EF 55-60%), CAD, Opiod use disorder, HTN, HCV (incomplete treatment), HLD who presents with SOB and cough and was admitted for diastolic CHF exacerbation due to noncompliance with PO lasix at home. Treated with 40 mg IV lasix while in hospital. Last dose in AM of 12/24/19. Patient found to have subclinical hyperthyroidism while admitted. Instruted to have repeat lab work completed in 6 weeks with PCP. Completed methadone detox protocol while in hospital. Given referral to pulmonolgoist, care transport nurse, and primary care to continue care. Imaging: Chest X-Ray (12/20/2019): No acute pathology. Minutes to complete discharge: 30 Discharge Summary Problems reviewed: Yes Reason For Visit: ACUTE ON CHRONIC CONGESTIVE HEART FAILURE Condition: Stable - Instructions Diet, Activity, Other Instructions: You were admitted to the hospital due to difficulty with breathing due to your chronic heart failure and COPD. You have responded well to your IV medications in the hospital; you were seen by our cardiologists and pulmonologists; and you are now stable for discharge. While you were here you completed a methadone detox. You expressed interest in continuing with rehab for opioid use, and you spoke with our social workers on options once you are discharged. We strongly encourage you to stop taking opioids. Please continue taking your home medications as prescribed. We have not made any changes to your medications since your last discharge. However you will need to take your Furosemide 40 mg, daily by mouth,you can take it after you come home from work continue to despite the increase in urination. Please follow up with Dr. Jones, the care transport nurse, within 1 week to continue management of your heart failure. Please follow up with Dr. Araujo, the locks tender, within 1 week to continue management of your COPD. Please follow up with your primary care physician, Dr. Vásquez to update him on this admission and to continue your health care management. Please return to the Emergency Department if you have any chest pain, shortness of breath, or worsening of your condition. Referrals: Lee Araujo MD [Staff Physician] - 1 Week Betty Jones MD [Staff Physician] - 1 Week Gopal Vásquez MD [Non Staff, Medical] - 1 Week Disposition: HOME - Home Medications Comprehensive Discharge Medication List: Ambulatory Orders Albuterol Sulfate Inhaler - [Ventolin HFA Inhaler -] 2 inh PO Q4H PRN 10/11/16 Bupropion HCl [Wellbutrin Xl -] 150 mg PO BID 03/02/17 Pantoprazole Sodium [Protonix -] 40 mg PO DAILY 03/02/17 Carvedilol 25 mg PO BID 11/06/19 Aspirin [ASA -] 81 mg PO DAILY #30 tab.chew 11/07/19 Albuterol 0.083% Nebulizer Mildred [Ventolin 0.083% Nebulizer Soln -] 1 amp NEB RQID amp 11/10/19 Tiotropium [place] [Spiriva Respimat] 2 puff IH DAILY #1 inhaler 11/10/19 Atorvastatin Calcium [Lipitor] 40 mg PO HS 12/20/19 Budesonide/Formeterol Fumarate [SYMBICORT 160/4.5mcg -] 2 inh PO BID 12/20/19 Lisinopril [Zestril] 40 mg PO BID 12/22/19 Furosemide 40 mg PO DAILY 12/24/19 This patient is new to me today: Yes Date on this admission: 12/24/19 Emergency Visit: No Critical Care patient: No - Discharge Referral Referred to [facility] No ATTENDING PHYSICIAN STATEMENT I saw and evaluated the patient. I reviewed the resident's note and discussed the case with the resident. I agree with the resident's findings and plan as documented. SUBJECTIVE: OBJECTIVE: ASSESSMENT AND PLAN:
[2019-12-25] MEDS ORDERED: FUROSEMIDE 40 MG TABLET (FP) PO SCH (10:00)
--- NOTE | 2019-12-27 11:29 | EKG ---
Test Reason : Blood Pressure : / mmHG Vent. Rate : 072 BPM Atrial Rate : 072 BPM P-R Int : 142 ms QRS Dur : 112 ms QT Int : 436 ms P-R-T Axes : 041 013 139 degrees QTc Int : 477 ms NORMAL SINUS RHYTHM POSSIBLE LEFT ATRIAL ENLARGEMENT LEFT VENTRICULAR HYPERTROPHY WITH REPOLARIZATION ABNORMALITY ABNORMAL ECG WHEN COMPARED WITH ECG OF 20-DEC-2019 16:46, NO SIGNIFICANT CHANGE WAS FOUND Confirmed by MD Samuel, Abdirahman ([id number]) on 12/27/2019 11:28:40 AM Referred By: Confirmed By:Abdirahman Baker MD
== END 2019-12-24 12:29 | disposition home or self-care (01) | DRG 292 ==
LOC: JER 16:16 → JERBED 18:22 → J4W 22:20 → JSAMEDAYSX 12-21 12:04 → J4W 12-21 12:06
PROVIDERS: ADMIT Internal Medicine; ATTEND Internal Medicine
DX: I11.0 Hypertensive heart disease with heart failure (principal); F11.20 Opioid dependence, uncomplicated; J96.11 Chronic respiratory failure with hypoxia; J44.1 Chronic obstructive pulmonary disease with (acute) exacerbation; I50.33 Acute on chronic diastolic (congestive) heart failure; F17.210 Nicotine dependence, cigarettes, uncomplicated; E87.6 Hypokalemia; B19.20 Unspecified viral hepatitis C without hepatic coma; I25.10 Atherosclerotic heart disease of native coronary artery without angina pectoris; E78.5 Hyperlipidemia, unspecified; R07.89 Other chest pain; K21.9 Gastro-esophageal reflux disease without esophagitis; D69.6 Thrombocytopenia, unspecified
CPT/HCPCS: 36415; 71046-TC-FY; 76604; 76705-TC; 80048; 80053; 80307; 82550; 82962; 83690; 83735; 83880; 84100; 84439; 84443; 84481; 84484; 85025; 85610; 85730; 93005; 93010; 93308; 94640; 97161-GP; 99285-25; G0480; J1644

== ENCOUNTER 2020-09-29 11:41 | Emergency (ER) | payer OTHER ==
[2020-09-29 12:01] VITALS: BMI 22.3
[2020-09-29 12:08] VITALS: TEMP 96.5
[2020-09-29] MEDS ORDERED: THIAMINE HCL 200 MG/2 ML VIAL IVPB ONE (13:09)
[2020-09-29] MEDS ORDERED: SODIUM CHLORIDE 0.9% 500 ML INFUS.BAG IV ONE (13:09)
[2020-09-29] MEDS ORDERED: THIAMINE HCL 200 MG/2 ML VIAL ONE (13:15)
[2020-09-29] MEDS ORDERED: KETAMINE HCL 500 MG/10 ML VIAL IM ONE (13:34)
[2020-09-29] MEDS ORDERED: KETAMINE HCL 200 MG/20 ML VIAL ONE (13:41)
[2020-09-29] MEDS ORDERED: KETAMINE HCL 500 MG/10 ML VIAL ONE (13:45)
[2020-09-29 13:57] LABS: BASO % 0.5 % (0-2.0); HEMATOCRIT 40.4 % (35.4-49); HEMOGLOBIN 13.5 GM/dL (11.7-16.9); LYMPH % 18.4 % (8-40); MCH 30.6 pg (25.7-33.7); MCHC 33.4 g/dl (32.0-35.9); MEAN CELL VOLUME 91.7 fl (80-96); MEAN PLT VOLUME 8.1 fl (7.5-11.1); MONO % 7.2 % (3.8-10.2); NEUT % 72.9 % (42.8-82.8); PLATELET COUNT 174 K/MM3 (134-434); RBC 4.41 M/mm3 (4.00-5.60); RDW 13.4 % (11.9-15.9); WHITE BLOOD COUNT 5.8 K/mm3 (4.0-10.0)
[2020-09-29 14:20] LABS: CHLORIDE 104 mmol/L (98-107); POTASSIUM 3.3 mmol/L (3.5-5.1); SODIUM 139 mmol/L (136-145)
[2020-09-29 14:22] LABS: ALBUMIN 3.8 g/dl (3.4-5.0); ANION GAP 10 MMOL/L (8-16); CALCIUM 9.1 mg/dL (8.5-10.1); CO2 24 mmol/L (21-32); GLUCOSE,RANDOM 85 mg/dL (74-106)
[2020-09-29 14:23] LABS: MAGNESIUM 1.7 mg/dL (1.8-2.4)
[2020-09-29] MEDS ORDERED: MAGNESIUM SULF 50% (8.12 MEQ/2 ML-1 GM VIAL) IVPB ONE ×2 (14:24→14:46)
[2020-09-29 14:25] LABS: CREATININE 0.7 mg/dL (0.55-1.3); SGOT/AST 61 U/L (15-37); SGPT/ALT 45 U/L (13-61)
[2020-09-29 14:26] LABS: PHOSPHOROUS 2.5 mg/dL (2.5-4.9)
[2020-09-29 14:27] LABS: BILIRUBIN,TOTAL 0.5 mg/dL (0.2-1); TOT PROT 7.2 g/dl (6.4-8.2)
[2020-09-29 14:28] LABS: ALK PHOS 91 U/L (45-117)
[2020-09-29] MEDS ORDERED: KCL 10 MEQ IVPB 10 MEQ/100 ML INFUS.BAG IVPB SCH (14:30)
[2020-09-29] MEDS ORDERED: MAGNESIUM SULFATE IN WATER 2 GM/50 ML IVPB IVPB ONE (15:00)
[2020-09-29 16:26] LABS: EPI CELLS 20 /uL (0-25.1); HYALINE CASTS 1 /uL (0-3.1); PH,URINE 6.5 (5.0-8.0); URINE APPEARANCE CLEAR; URINE BACTERIA 9 /uL (0-1359); URINE BILIRUBIN NEGATIVE (NEGATIVE); URINE COLOR YELLOW; URINE GLUCOSE (UA) NEGATIVE (NEGATIVE); URINE KETONE TRACE (NEGATIVE); URINE LEUK ESTERASE NEGATIVE (NEGATIVE); URINE NITRITE NEGATIVE (NEGATIVE); URINE PROTEIN 1+ (NEGATIVE); URINE RBC 1357 /uL (0-23.9); URINE WBC 7 /uL (0-25.8)
[2020-09-29] MEDS ORDERED: KCL 10 MEQ IVPB 10 MEQ/100 ML INFUS.BAG IVPB ONE (16:27)
[2020-09-29 17:09] LABS: COCAINE, UR NEGATIVE ng/ml (CUTOFF=300); METHADONE, UR NEGATIVE ng/ml (CUTOFF=300); OPIATES, URI NEGATIVE ng/ml (CUTOFF=300); PHENCYCLIDINE,URINE NEGATIVE ng/ml (CUTOFF=25)
[2020-09-29 17:21] LABS: URINE BARBITURATES NEGATIVE ng/ml (CUTOFF=200)
[2020-09-29 17:22] LABS: URINE BENZODIAZEPINES NEGATIVE ng/ml (CUTOFF=200)
[2020-09-29 17:24] LABS: URINE AMPHETAMINES POSITIVE ng/ml (CUTOFF=500)
[2020-09-29 17:33] VITALS: BP 138/87; PULSE 82
== END 2020-09-29 17:33 | disposition home or self-care (01) ==
LOC: JER 11:41
PROC: 3E033NZ Introduction of Analgesics, Hypnotics, Sedatives into Peripheral Vein, Percutaneous Approach (ICD-10-PCS; principal; 2020-09-29)
PROC: 3E023NZ Introduction of Analgesics, Hypnotics, Sedatives into Muscle, Percutaneous Approach (ICD-10-PCS; 2020-09-29)
PROC: 3E033GC Introduction of Other Therapeutic Substance into Peripheral Vein, Percutaneous Approach (ICD-10-PCS; 2020-09-29)
DX: R41.82 Altered mental status, unspecified (principal); F19.10 Other psychoactive substance abuse, uncomplicated
CPT/HCPCS: 36415; 70450-TC; 71045-TC-FY; 80053; 80307; 81003; 82140; 82550; 82553; 83735; 84100; 84484; 85025; 93005; 93010; 99285-25

== ENCOUNTER 2021-09-19 18:53 | Observation (INO) | payer OTHER ==
[2021-09-19 19:06] VITALS: BMI 15.5
[2021-09-19 19:57] LABS: ARTERIAL BLOOD GAS BASE EXCESS 1.5 mmol/L (-2-2); ARTERIAL BLOOD GAS PO2 148.8 mmHg (80-100); ARTERIAL BLOOD GAS pH 7.466 (7.350-7.450)
[2021-09-19 20:01] LABS: ALLENS TEST POSITIVE
[2021-09-19] MEDS ORDERED: methylPREDNISolone NA SUCC 125 MG/2 ML VIAL IVPUSH ONE (20:08)
[2021-09-19 20:18] LABS: BASO % 0.4 % (0-2.0); EOS % 2.3 % (0-4.5); HEMATOCRIT 37.6 % (35.4-49); HEMOGLOBIN 12.7 GM/dL (11.7-16.9); LYMPH % 16.7 % (8-40); MCH 29.9 pg (25.7-33.7); MCHC 33.8 g/dl (32.0-35.9); MEAN CELL VOLUME 88.4 fl (80-96); MEAN PLT VOLUME 7.3 fl (7.5-11.1); MONO % 6.7 % (3.8-10.2); NEUT % 73.9 % (42.8-82.8); PLATELET COUNT 161 10^3/uL (134-434); RBC 4.25 M/mm3 (4.00-5.60); RDW 14.3 % (11.9-15.9); WHITE BLOOD COUNT 7.1 K/mm3 (4.0-10.0)
[2021-09-19] MEDS ORDERED: methylPREDNISolone NA SUCC 125 MG/2 ML VIAL ONE (20:21)
[2021-09-19 20:27] LABS: INR 1.15 (0.83-1.09); PROTHROMBIN TIME (PATIENT) 13.5 SEC (9.7-13.0)
[2021-09-19 20:29] LABS: ACTIVATED PTT 33.3 SECONDS (25.2-36.5)
[2021-09-19 20:37] LABS: CHLORIDE 106 mmol/L (98-107); SODIUM 140 mmol/L (136-145)
[2021-09-19 20:40] LABS: ALBUMIN 3.7 g/dl (3.4-5.0); CALCIUM 8.9 mg/dL (8.5-10.1); GLUCOSE,RANDOM 88 mg/dL (74-106)
[2021-09-19 20:41] LABS: ANION GAP 4 MMOL/L (8-16); BLOOD UREA NITROGEN 17.6 mg/dL (7-18); CO2 30 mmol/L (21-32)
[2021-09-19 20:44] LABS: CREATININE 0.8 mg/dL (0.55-1.3); SGOT/AST 34 U/L (15-37); SGPT/ALT 37 U/L (13-61)
[2021-09-19 20:45] LABS: BILIRUBIN,TOTAL 0.4 mg/dL (0.2-1); TOT PROT 7.6 g/dl (6.4-8.2)
[2021-09-19 20:46] LABS: ALK PHOS 98 U/L (45-117)
[2021-09-19] MEDS ORDERED: ACETAMINOPHEN 1000 MG/100 ML VIAL IVPB ONE (20:46)
[2021-09-19 20:49] LABS: N-TERMINAL BNP 72.9 pg/ml (5-125)
[2021-09-19] MEDS ORDERED: ACETAMINOPHEN INJECTION 100 ML IVPB ONE (20:57)
[2021-09-19] MEDS ORDERED: OXYMETAZOLINE 0.05% NASAL SOLUTION 15 ML BOTTLE NS ONE (21:00)
[2021-09-19] MEDS ORDERED: LIDOCAINE 5% TOPICAL PATCH TP ONE (21:00)
[2021-09-19] MEDS ORDERED: PHENYLEPHRINE HCL 10 MG/1 ML SINGLE DOSE VIAL ONE (21:01)
[2021-09-19] MEDS ORDERED: LIDOCAINE PATCH REMOVAL MC ONE (22:00)
[2021-09-19] MEDS ORDERED: LIDOCAINE 5% TOPICAL PATCH ONE (22:03)
[2021-09-19] MEDS ORDERED: ALBUTEROL SO4 2.5/IPRATROPIUM 0.5 INH SOL 3 ML VIAL.NEB. NEB ONE ×2 (23:13→23:24)
[2021-09-19 23:24] LABS: URINE BARBITURATES NEGATIVE (NEGATIVE)
[2021-09-19 23:25] LABS: COCAINE, UR NEGATIVE (NEGATIVE); METHADONE, UR NEGATIVE (NEGATIVE); PHENCYCLIDINE,URINE NEGATIVE (NEGATIVE); URINE BENZODIAZEPINES NEGATIVE (NEGATIVE)
[2021-09-19 23:44] LABS: OPIATES, URI POSITIVE (NEGATIVE); URINE AMPHETAMINES POSITIVE (NEGATIVE)
[2021-09-20] MEDS ORDERED: ALBUTEROL SO4 2.5/IPRATROPIUM 0.5 INH SOL 3 ML VIAL.NEB. NEB PRN (01:37)
[2021-09-20] MEDS ORDERED: ACETAMINOPHEN 1000 MG/100 ML VIAL IVPB PRN (01:38)
[2021-09-20] MEDS ORDERED: diazePAM 5 MG TABLET PO PRN (01:39)
[2021-09-20] MEDS ORDERED: ALBUTEROL SO4 2.5/IPRATROPIUM 0.5 INH SOL 3 ML VIAL.NEB. NEB ONE (03:42)
[2021-09-20 05:10] VITALS: BP 130/78; PULSE 79; TEMP 97.5
[2021-09-20] MEDS: ALBUTEROL SO4 HFA INHALER IH SCH ×2 (05:30→08:44)
[2021-09-20] MEDS ORDERED: HEPARIN NA (PORCINE) 5,000 UNITS/ML 1ML VIAL SQ SCH (06:00)
[2021-09-20] MEDS ORDERED: HEPARIN NA (PORCINE) 5,000 UNITS/ML 1ML VIAL ONE (06:17)
[2021-09-20] MEDS ORDERED: ACETAMINOPHEN INJECTION 100 ML IVPB ONE (07:32)
[2021-09-20] MEDS ORDERED: ALBUTEROL SO4 HFA INHALER IH ONE (08:41)
[2021-09-20] MEDS ORDERED: POLYETHYLENE GLYCOL (HEALTHYLAX) 3350 17 GM PACKET PO SCH (10:00)
[2021-09-20] MEDS ORDERED: NICOTINE 14 MG/24 HOURS TOPICAL PATCH TD SCH (10:00)
[2021-09-20] MEDS ORDERED: methylPREDNISolone NA SUCC 125 MG/2 ML VIAL IVPUSH SCH (10:00)
[2021-09-20] MEDS ORDERED: methylPREDNISolone NA SUCC 40 MG/1 ML VIAL IVPUSH SCH (10:00)
[2021-09-20] MEDS ORDERED: metoPROLOL SUCCINATE 25 MG TAB.SR.24H (FP) PO SCH (10:00)
[2021-09-20] MEDS ORDERED: TIOTROPIUM BROMIDE 2.5 MCG (SPIRIVA) RESPIMAT INHALER IH SCH (10:00)
[2021-09-20] MEDS ORDERED: BUDESONIDE/FORMETEROL FUMARATE 160/4.5 mcg INHALER IH SCH (10:00)
[2021-09-20] MEDS ORDERED: SENNOSIDES 8.6MG TABLET (FP) PO SCH (10:00)
[2021-09-20] MEDS ORDERED: ATORVASTATIN CA 40 MG TABLET (FP) PO SCH (22:00)
== END 2021-09-20 08:15 | disposition left against medical advice (07) ==
LOC: JER 18:53 → JERBED 21:23
PROVIDERS: ATTEND Internal Medicine
PROC: 3E033GC Introduction of Other Therapeutic Substance into Peripheral Vein, Percutaneous Approach (ICD-10-PCS; principal; 2021-09-19)
PROC: 3E013GC Introduction of Other Therapeutic Substance into Subcutaneous Tissue, Percutaneous Approach (ICD-10-PCS; 2021-09-19)
PROC: 3E0F7SF Introduction of Other Gas into Respiratory Tract, Via Natural or Artificial Opening (ICD-10-PCS; 2021-09-19)
DX: J44.1 Chronic obstructive pulmonary disease with (acute) exacerbation (principal); R07.89 Other chest pain; I11.0 Hypertensive heart disease with heart failure; I50.9 Heart failure, unspecified; B18.2 Chronic viral hepatitis C; K21.9 Gastro-esophageal reflux disease without esophagitis; F11.20 Opioid dependence, uncomplicated; F14.20 Cocaine dependence, uncomplicated; E78.5 Hyperlipidemia, unspecified; F17.210 Nicotine dependence, cigarettes, uncomplicated; K59.00 Constipation, unspecified; Z98.61 Coronary angioplasty status; Z99.81 Dependence on supplemental oxygen; Z91.19 Patient's noncompliance with other medical treatment and regimen
CPT/HCPCS: 36415; 36600; 70450-TC; 71045-TC-FY; 71275-TC; 80053; 80307; 82550; 82803; 83605; 83735; 83880; 84484; 85025; 85379; 85610; 85730; 87040; 87804; 87807; 87899; 93005; 93010; 94640; 96372; 96374; 99291; C9803; G0378; J0131; J1644; Q9967; U0003; U0005

== ENCOUNTER 2021-10-04 18:48 | Inpatient (IN) | payer OTHER ==
[2021-10-04 19:02] VITALS: BMI 18.3
[2021-10-04] MEDS ORDERED: ONDANSETRON 4 MG/2 ML VIAL IVPUSH ONE (20:46)
[2021-10-04] MEDS ORDERED: morphine CARPU-JECT 4 MG/1 ML DISP.SYRIN IVPUSH ONE (20:46)
[2021-10-04] MEDS ORDERED: LACTATED RINGERS SOLUTION 1000 ML INFUS.BAG IV ONE (20:46)
[2021-10-04] MEDS ORDERED: KETAMINE HCL 500 MG/10 ML VIAL IV ONE (20:49)
[2021-10-04] MEDS ORDERED: ACETAMINOPHEN 1000 MG/100 ML VIAL IVPB ONE (20:49)
[2021-10-04] MEDS ORDERED: KETAMINE HCL 200 MG/20 ML VIAL ONE (21:00)
[2021-10-04] MEDS ORDERED: ACETAMINOPHEN INJECTION 100 ML IVPB ONE (21:01)
[2021-10-04] MEDS ORDERED: ONDANSETRON 4 MG/2 ML VIAL ONE (21:01)
[2021-10-04] MEDS ORDERED: LORazepam 2 MG/ML SDV VIAL IVPUSH ONE (21:16)
[2021-10-04] MEDS ORDERED: LORazepam 2 MG/ML SDV VIAL ONE (21:24)
[2021-10-04 21:38] LABS: BASO % 0.8 % (0-2.0); EOS % 5.3 % (0-4.5); HEMATOCRIT 38.2 % (35.4-49); HEMOGLOBIN 12.9 GM/dL (11.7-16.9); LYMPH % 17.8 % (8-40); MCH 29.9 pg (25.7-33.7); MCHC 33.8 g/dl (32.0-35.9); MEAN CELL VOLUME 88.2 fl (80-96); MEAN PLT VOLUME 7.3 fl (7.5-11.1); MONO % 8.1 % (3.8-10.2); PLATELET COUNT 198 10^3/uL (134-434); RBC 4.33 M/mm3 (4.00-5.60); RDW 14.4 % (11.9-15.9); WHITE BLOOD COUNT 8.5 K/mm3 (4.0-10.0)
[2021-10-04 21:43] LABS: INR 1.22 (0.83-1.09); PROTHROMBIN TIME (PATIENT) 13.7 SEC (9.7-13.0)
[2021-10-04 21:46] LABS: CHLORIDE 103 mmol/L (98-107); SODIUM 140 mmol/L (136-145)
[2021-10-04 21:48] LABS: ANION GAP 6 MMOL/L (8-16); CALCIUM 9.3 mg/dL (8.5-10.1); CO2 31 mmol/L (21-32)
[2021-10-04 21:49] LABS: BLOOD UREA NITROGEN 14.7 mg/dL (7-18); GLUCOSE,RANDOM 93 mg/dL (74-106)
[2021-10-04 21:52] LABS: CREATININE 0.7 mg/dL (0.55-1.3); SGOT/AST 38 U/L (15-37); SGPT/ALT 34 U/L (13-61)
[2021-10-04 21:53] LABS: BILIRUBIN,TOTAL 0.5 mg/dL (0.2-1); TOT PROT 7.7 g/dl (6.4-8.2)
[2021-10-04 21:55] LABS: ALK PHOS 106 U/L (45-117)
[2021-10-05] MEDS ORDERED: SODIUM CHLORIDE 1,000 ML IV SCH (03:30)
[2021-10-05 08:09] LABS: BASO % 0.9 % (0-2.0); EOS % 7.9 % (0-4.5); HEMATOCRIT 36.9 % (35.4-49); HEMOGLOBIN 12.7 GM/dL (11.7-16.9); LYMPH % 28.7 % (8-40); MCH 30.3 pg (25.7-33.7); MCHC 34.4 g/dl (32.0-35.9); MEAN CELL VOLUME 88.1 fl (80-96); MEAN PLT VOLUME 7.2 fl (7.5-11.1); MONO % 8.8 % (3.8-10.2); NEUT % 53.7 % (42.8-82.8); PLATELET COUNT 151 10^3/uL (134-434); RBC 4.18 M/mm3 (4.00-5.60); RDW 13.8 % (11.9-15.9); WHITE BLOOD COUNT 5.9 K/mm3 (4.0-10.0)
[2021-10-05 08:27] LABS: CALCIUM 8.7 mg/dL (8.5-10.1)
[2021-10-05 08:28] LABS: BLOOD UREA NITROGEN 12.5 mg/dL (7-18)
[2021-10-05 08:29] LABS: CREATININE 0.6 mg/dL (0.55-1.3)
[2021-10-05 08:31] LABS: BILIRUBIN,TOTAL 0.7 mg/dL (0.2-1); TOT PROT 6.4 g/dl (6.4-8.2)
[2021-10-05] MEDS ORDERED: NICOTINE 21 MG/24 HOURS TOPICAL PATCH TD SCH (10:00)
[2021-10-05] MEDS ORDERED: PATIENT'S OWN MEDICATION (NON-FORMULARY) (Sofosbuvir/Velpatasvir [Epclusa 400 Mg-100 Mg Ta PO SCH (10:00)
[2021-10-05 17:43] VITALS: BP 142/82; PULSE 89; TEMP 99
== END 2021-10-05 18:30 | disposition left against medical advice (07) | DRG 394 ==
LOC: JER 18:48 → JERBED 10-05 02:00
PROVIDERS: ADMIT Internal Medicine; ATTEND Internal Medicine
DX: K40.20 Bilateral inguinal hernia, without obstruction or gangrene, not specified as recurrent (principal); I50.22 Chronic systolic (congestive) heart failure; J44.9 Chronic obstructive pulmonary disease, unspecified; E78.5 Hyperlipidemia, unspecified; K21.9 Gastro-esophageal reflux disease without esophagitis; I25.10 Atherosclerotic heart disease of native coronary artery without angina pectoris; I11.0 Hypertensive heart disease with heart failure; K82.8 Other specified diseases of gallbladder; R94.31 Abnormal electrocardiogram [ECG] [EKG]; Z95.5 Presence of coronary angioplasty implant and graft; F31.9 Bipolar disorder, unspecified; F17.210 Nicotine dependence, cigarettes, uncomplicated; K86.89 Other specified diseases of pancreas; F19.10 Other psychoactive substance abuse, uncomplicated; B19.20 Unspecified viral hepatitis C without hepatic coma; F41.8 Other specified anxiety disorders; F11.10 Opioid abuse, uncomplicated
CPT/HCPCS: 36415; 71045-TC-FY; 74177-TC; 76705-TC; 80053; 82550; 82553; 83605; 84484; 85025; 85610; 85730; 86850; 86900; 86901; 93005; 93010; 93306-TC; 99285-25; C9803; J0131; Q9967; U0003; U0005

== ENCOUNTER 2021-10-23 19:09 | Inpatient (IN) | payer OTHER ==
[2021-10-23 19:18] VITALS: BMI 18.3
[2021-10-23] MEDS ORDERED: LACTATED RINGERS SOLUTION 1000 ML INFUS.BAG IV STA (19:56)
[2021-10-23 20:15] LABS: BASO % 0.7 % (0-2.0); EOS % 8.7 % (0-4.5); HEMATOCRIT 40.6 % (35.4-49); HEMOGLOBIN 13.7 GM/dL (11.7-16.9); MCH 29.7 pg (25.7-33.7); MCHC 33.7 g/dl (32.0-35.9); MEAN CELL VOLUME 88.2 fl (80-96); MEAN PLT VOLUME 6.9 fl (7.5-11.1); MONO % 8.4 % (3.8-10.2); NEUT % 59.2 % (42.8-82.8); PLATELET COUNT 182 10^3/uL (134-434); RBC 4.61 M/mm3 (4.00-5.60); RDW 14.2 % (11.9-15.9); WHITE BLOOD COUNT 6.2 K/mm3 (4.0-10.0)
[2021-10-23] MEDS ORDERED: PANTOPRAZOLE SODIUM 40 MG VIAL IVPUSH ONE (20:18)
[2021-10-23] MEDS ORDERED: CEFTRIAXONE 1 GM in DEXTROSE 5%-WATER - 100 ML IVPB ONE (20:18)
[2021-10-23] MEDS ORDERED: ACETAMINOPHEN 1000 MG/100 ML BAG IVPB ONE (20:19)
[2021-10-23 20:21] LABS: INR 1.12 (0.83-1.09); PROTHROMBIN TIME (PATIENT) 12.9 SEC (9.7-13.0)
[2021-10-23] MEDS ORDERED: PANTOPRAZOLE SODIUM 40 MG VIAL ONE (20:23)
[2021-10-23] MEDS ORDERED: ACETAMINOPHEN INJECTION 100 ML IVPB ONE (20:23)
[2021-10-23] MEDS ORDERED: CEFTRIAXONE 1 GM/50 ML BAG ONE (20:23)
[2021-10-23 20:26] LABS: CALCIUM 9.1 mg/dL (8.5-10.1)
[2021-10-23 20:27] LABS: ALBUMIN 4.1 g/dl (3.4-5.0); BLOOD UREA NITROGEN 12.4 mg/dL (7-18)
[2021-10-23 20:30] LABS: CREATININE 0.7 mg/dL (0.55-1.3)
[2021-10-23 20:31] LABS: TOT PROT 8.1 g/dl (6.4-8.2)
[2021-10-23 20:32] LABS: BILIRUBIN,TOTAL 0.3 mg/dL (0.2-1)
[2021-10-23 23:36] LABS: N-TERMINAL BNP 259.6 pg/ml (5-125)
[2021-10-24] MEDS ORDERED: PANTOPRAZOLE SODIUM 40 MG VIAL IVPUSH ONE (00:42)
[2021-10-24] MEDS ORDERED: ALBUTEROL SO4 2.5/IPRATROPIUM 0.5 INH SOL 3 ML VIAL.NEB. NEB PRN ×2 (01:31→05:55)
[2021-10-24] MEDS ORDERED: ALBUTEROL SO4 HFA INHALER IH PRN (01:31)
[2021-10-24] MEDS ORDERED: PANTOPRAZOLE SODIUM 40 MG VIAL ONE (02:16)
[2021-10-24 02:47] LABS: METHADONE, UR NEGATIVE (NEGATIVE); PHENCYCLIDINE,URINE NEGATIVE (NEGATIVE); URINE BARBITURATES NEGATIVE (NEGATIVE)
[2021-10-24 02:48] LABS: URINE AMPHETAMINES NEGATIVE (NEGATIVE)
[2021-10-24 03:09] LABS: COCAINE, UR NEGATIVE (NEGATIVE); OPIATES, URI POSITIVE (NEGATIVE); URINE BENZODIAZEPINES NEGATIVE (NEGATIVE)
[2021-10-24] MEDS ORDERED: ACETAMINOPHEN INJECTION 100 ML IVPB ONE (06:44)
[2021-10-24] MEDS ORDERED: ACETAMINOPHEN 1000 MG/100 ML BAG IVPB ONE (06:55)
[2021-10-24 07:45] LABS: BASO % 0.6 % (0-2.0); EOS % 8.7 % (0-4.5); HEMATOCRIT 37.3 % (35.4-49); HEMOGLOBIN 12.6 GM/dL (11.7-16.9); LYMPH % 25.4 % (8-40); MCH 29.5 pg (25.7-33.7); MCHC 33.7 g/dl (32.0-35.9); MEAN CELL VOLUME 87.6 fl (80-96); MEAN PLT VOLUME 7.5 fl (7.5-11.1); MONO % 9.4 % (3.8-10.2); NEUT % 55.9 % (42.8-82.8); PLATELET COUNT 172 10^3/uL (134-434); RBC 4.26 M/mm3 (4.00-5.60); RDW 14.1 % (11.9-15.9); WHITE BLOOD COUNT 5.7 K/mm3 (4.0-10.0)
[2021-10-24 08:10] LABS: CALCIUM 8.9 mg/dL (8.5-10.1)
[2021-10-24 08:11] LABS: BLOOD UREA NITROGEN 12.6 mg/dL (7-18)
[2021-10-24 08:14] LABS: CREATININE 0.8 mg/dL (0.55-1.3); PHOSPHOROUS 3.7 mg/dL (2.5-4.9)
[2021-10-24 09:09] VITALS: BP 128/73; PULSE 18; TEMP 98.4
[2021-10-24] MEDS ORDERED: PANTOPRAZOLE SODIUM 40 MG VIAL IVPUSH SCH (10:00)
[2021-10-24] MEDS ORDERED: NICOTINE 21 MG/24 HOURS TOPICAL PATCH TD SCH (10:00)
[2021-10-27 18:11] LABS: HCV RNA GENOTYPE 1b (.)
== END 2021-10-24 09:05 | disposition left against medical advice (07) | DRG 378 ==
LOC: JER 19:09 → JERBED 10-24 → OBSVTOIN 10-24 00:45
PROVIDERS: ADMIT Hospitalist; ATTEND Internal Medicine
DX: K92.0 Hematemesis (principal); I42.8 Other cardiomyopathies; I50.22 Chronic systolic (congestive) heart failure; F11.20 Opioid dependence, uncomplicated; J44.9 Chronic obstructive pulmonary disease, unspecified; F41.8 Other specified anxiety disorders; I25.10 Atherosclerotic heart disease of native coronary artery without angina pectoris; F19.10 Other psychoactive substance abuse, uncomplicated; I11.0 Hypertensive heart disease with heart failure; R00.0 Tachycardia, unspecified; K21.9 Gastro-esophageal reflux disease without esophagitis; K40.20 Bilateral inguinal hernia, without obstruction or gangrene, not specified as recurrent; E78.5 Hyperlipidemia, unspecified; K82.8 Other specified diseases of gallbladder; Z91.14 Patient's other noncompliance with medication regimen; Z99.81 Dependence on supplemental oxygen
CPT/HCPCS: 36415; 71045-TC-FY; 74177-TC; 80048; 80053; 80307; 82550; 83605; 83735; 83880; 84100; 84484; 85025; 85610; 86705; 86850; 86900; 86901; 87517; 87902; 93005; 93010; 99285-25; C9803-CS; G0378; U0003; U0005

== ENCOUNTER 2021-11-08 12:03 | Emergency (ER) | payer OTHER ==
[2021-11-08 12:31] VITALS: BP 148/85; PULSE 80; TEMP 97.7; BMI 18.3
== END 2021-11-08 13:20 | disposition home or self-care (01) ==
LOC: JER 12:03
DX: K40.90 Unilateral inguinal hernia, without obstruction or gangrene, not specified as recurrent (principal)
CPT/HCPCS: 99283-25

== ENCOUNTER 2021-12-02 13:28 | Inpatient (IN) | payer OTHER ==
[2021-12-02] MEDS ORDERED: NICOTINE 10 MG CARTRIDGE (INHALER) IH PRN (15:06)
[2021-12-02] MEDS ORDERED: MAGNESIUM CITRATE 300 ML BOTTLE PO PRN (15:06)
[2021-12-02] MEDS ORDERED: MENTHOL/PHENOL 1 EACH UD MM PRN (15:06)
[2021-12-02] MEDS ORDERED: LOPERAMIDE HCL 2 MG CAPSULE PO PRN (15:06)
[2021-12-02] MEDS ORDERED: ONDANSETRON *ODT* 4 MG TABLET SL PRN (15:06)
[2021-12-02] MEDS ORDERED: MAGNESIUM HYDROX 2400MG/30ML ORAL SUSPENSION 30 ML CUP PO PRN (15:06)
[2021-12-02] MEDS ORDERED: BISMUTH SUBSALICYLATE 524 MG/30 ML PO PRN (15:06)
[2021-12-02] MEDS ORDERED: cloNIDine HCL 0.1 MG TABLET PO PRN (15:06)
[2021-12-02] MEDS ORDERED: ACETAMINOPHEN 325 MG TABLET (FP) PO PRN (15:06)
[2021-12-02] MEDS ORDERED: MAG HYDROX/AL HYDROX/SIMETH 30 ML UNIT-DOSE CUP PO PRN (15:06)
[2021-12-02] MEDS ORDERED: methaDONE HCL 10 MG TABLET (FOR DETOX USE ONLY) PO ONE (15:06)
[2021-12-02 15:41] VITALS: BMI 17.4
[2021-12-02] MEDS ORDERED: hydrOXYzine PAMOATE 25 MG CAPSULE (FP) PO PRN (17:20)
[2021-12-02] MEDS ORDERED: PANTOPRAZOLE 40 MG TABLET PO ONE (17:31)
[2021-12-02] MEDS ORDERED: hydrOXYzine PAMOATE 25 MG CAPSULE (FP) PO SCH (18:00)
[2021-12-02] MEDS: NICOTINE 21 MG/24 HOURS TOPICAL PATCH TD SCH (18:51)
[2021-12-02] MEDS: THIAMINE HCL 100 MG TABLET (FP) PO SCH (23:07)
[2021-12-02] MEDS: MELATONIN 5 MG TABLETS PO SCH (23:07)
[2021-12-03] MEDS: ALBUTEROL SO4 HFA INHALER IH SCH ×6 (01:35→22:57)
[2021-12-03] MEDS ORDERED: methaDONE HCL 10 MG TABLET (FOR DETOX USE ONLY) ONE (09:32)
[2021-12-03] MEDS ORDERED: FUROSEMIDE 40 MG TABLET (FP) PO SCH (10:00)
[2021-12-03] MEDS ORDERED: FUROSEMIDE 20 MG TABLET (FP) PO SCH (10:03)
[2021-12-03] MEDS: BUDESONIDE/FORMETEROL FUMARATE 160/4.5 mcg INHALER IH SCH ×2 (10:56→22:58)
[2021-12-03] MEDS: NICOTINE 21 MG/24 HOURS TOPICAL PATCH TD SCH (10:56)
[2021-12-03] MEDS: PRENATAL VITAMINS W/ FOLIC ACID TABLET (FP) PO SCH (10:57)
[2021-12-03] MEDS: PANTOPRAZOLE 40 MG TABLET PO SCH (10:57)
[2021-12-03 11:40] LABS: HEMATOCRIT 35.9 % (35.4-49); HEMOGLOBIN 12.4 GM/dL (11.7-16.9); MCH 30.4 pg (25.7-33.7); MCHC 34.5 g/dl (32.0-35.9); MEAN CELL VOLUME 88.3 fl (80-96); MEAN PLT VOLUME 7.8 fl (7.5-11.1); PLATELET COUNT 145 10^3/uL (134-434); RBC 4.07 M/mm3 (4.00-5.60); RDW 13.9 % (11.9-15.9); WHITE BLOOD COUNT 5.8 K/mm3 (4.0-10.0)
[2021-12-03 11:44] LABS: ALBUMIN 3.1 g/dl (3.4-5.0); BLOOD UREA NITROGEN 12.1 mg/dL (7-18); CALCIUM 8.4 mg/dL (8.5-10.1)
[2021-12-03 11:48] LABS: CREATININE 0.6 mg/dL (0.55-1.3)
[2021-12-03 11:49] LABS: BILIRUBIN,TOTAL 0.4 mg/dL (0.2-1)
[2021-12-03] MEDS ORDERED: ALBUTEROL SO4 HFA INHALER IH ONE (16:03)
[2021-12-03] MEDS: METHOCARBAMOL 500 MG TABLET PO PRN ×2 (17:43→22:57)
[2021-12-03] MEDS: IBUPROFEN 400 MG TABLET (FP) PO PRN (17:43)
[2021-12-03] MEDS: ATORVASTATIN CA 40 MG TABLET (FP) PO SCH (22:57)
[2021-12-03] MEDS: hydrOXYzine PAMOATE 25 MG CAPSULE (FP) PO PRN (22:57)
[2021-12-03] MEDS: MELATONIN 5 MG TABLETS PO SCH (22:57)
[2021-12-03] MEDS: THIAMINE HCL 100 MG TABLET (FP) PO SCH (22:57)
[2021-12-04] MEDS: ALBUTEROL SO4 HFA INHALER IH SCH ×6 (01:23→21:24)
[2021-12-04] MEDS: METHOCARBAMOL 500 MG TABLET PO PRN ×3 (04:40→18:23)
[2021-12-04] MEDS: hydrOXYzine PAMOATE 25 MG CAPSULE (FP) PO PRN ×2 (06:26→15:29)
[2021-12-04] MEDS ORDERED: methaDONE HCL 10 MG TABLET (FOR DETOX USE ONLY) PO ONE (10:00)
[2021-12-04] MEDS: PRENATAL VITAMINS W/ FOLIC ACID TABLET (FP) PO SCH (10:09)
[2021-12-04] MEDS: PANTOPRAZOLE 40 MG TABLET PO SCH (10:10)
[2021-12-04] MEDS: BUDESONIDE/FORMETEROL FUMARATE 160/4.5 mcg INHALER IH SCH ×2 (10:10→22:19)
[2021-12-04] MEDS: NICOTINE 21 MG/24 HOURS TOPICAL PATCH TD SCH (10:11)
[2021-12-04] MEDS ORDERED: LIDOCAINE 5% TOPICAL PATCH TP SCH (14:30)
[2021-12-04] MEDS: ACETAMINOPHEN 325 MG TABLET (FP) PO PRN (19:48)
[2021-12-04] MEDS ORDERED: LIDOCAINE PATCH REMOVAL MC SCH (22:00)
[2021-12-04] MEDS: THIAMINE HCL 100 MG TABLET (FP) PO SCH (22:18)
[2021-12-04] MEDS: ATORVASTATIN CA 40 MG TABLET (FP) PO SCH (22:18)
[2021-12-04] MEDS: MELATONIN 5 MG TABLETS PO SCH (22:19)
[2021-12-05] MEDS: ALBUTEROL SO4 HFA INHALER IH SCH ×2 (01:01→06:25)
[2021-12-05] MEDS: hydrOXYzine PAMOATE 25 MG CAPSULE (FP) PO PRN (03:04)
[2021-12-05] MEDS: METHOCARBAMOL 500 MG TABLET PO PRN (03:04)
[2021-12-05] MEDS: IBUPROFEN 400 MG TABLET (FP) PO PRN (03:04)
[2021-12-05] MEDS: ACETAMINOPHEN 325 MG TABLET (FP) PO PRN (06:28)
[2021-12-05 06:35] VITALS: BP 137/76; PULSE 72; TEMP 98.7
[2021-12-05] MEDS ORDERED: methaDONE HCL 10 MG TABLET (FOR DETOX USE ONLY) ONE (08:51)
[2021-12-05] MEDS ORDERED: FUROSEMIDE 40 MG TABLET (FP) PO SCH (08:59)
[2021-12-06] MEDS ORDERED: methaDONE HCL 10 MG TABLET (FOR DETOX USE ONLY) PO ONE (10:00)
== END 2021-12-05 09:52 | disposition home or self-care (01) | DRG 897 ==
LOC: YASAS 13:28 → Y6N 17:23
PROVIDERS: ADMIT Allergy & Immunology; ATTEND Allergy & Immunology
PROC: HZ2ZZZZ Detoxification Services for Substance Abuse Treatment (ICD-10-PCS; principal; 2021-12-02)
DX: F11.23 Opioid dependence with withdrawal (principal); F14.20 Cocaine dependence, uncomplicated; Z68.1 Body mass index [BMI] 19.9 or less, adult; I50.42 Chronic combined systolic (congestive) and diastolic (congestive) heart failure; F10.20 Alcohol dependence, uncomplicated; F17.213 Nicotine dependence, cigarettes, with withdrawal; F19.24 Other psychoactive substance dependence with psychoactive substance-induced mood disorder; I25.10 Atherosclerotic heart disease of native coronary artery without angina pectoris; I11.0 Hypertensive heart disease with heart failure; J45.20 Mild intermittent asthma, uncomplicated; J44.9 Chronic obstructive pulmonary disease, unspecified; M54.50 Low back pain, unspecified; G89.29 Other chronic pain; R63.4 Abnormal weight loss; Z99.81 Dependence on supplemental oxygen
CPT/HCPCS: 36415; 80053; 85027; 86780; 93005; 93010; C9803; J0735; U0003; U0005

== ENCOUNTER 2022-10-30 15:43 | Emergency (ER) | payer OTHER ==
[2022-10-30 16:01] VITALS: BP 144/81; PULSE 78; RESP 18; TEMP 98.1; BMI 31.6
== END 2022-10-30 16:42 | disposition left against medical advice (07) ==
LOC: JER 15:43
DX: K40.90 Unilateral inguinal hernia, without obstruction or gangrene, not specified as recurrent (principal)
CPT/HCPCS: 99282-25

== ENCOUNTER 2022-12-28 11:24 | Emergency (ER) | payer OTHER ==
[2022-12-28 12:01] VITALS: RESP 18; TEMP 98
[2022-12-28] MEDS ORDERED: ONDANSETRON 4 MG/2 ML VIAL IVPUSH ONE (12:30)
[2022-12-28] MEDS ORDERED: MAG HYDROX/AL HYDROX/SIMETH 30 ML UNIT-DOSE CUP PO ONE (12:31)
[2022-12-28] MEDS ORDERED: TRIMETHOBENZAMIDE HCL 200MG/2ML INJ IM ONE ×2 (12:35→13:00)
[2022-12-28] MEDS ORDERED: MAG HYDROX/AL HYDROX/SIMETH 30 ML UNIT-DOSE CUP ONE (13:00)
[2022-12-28] MEDS ORDERED: ACETAMINOPHEN INJECTION 100 ML IVPB ONE (14:21)
[2022-12-28] MEDS ORDERED: ACETAMINOPHEN 1000 MG/100 ML BAG IVPB ONE (14:21)
[2022-12-28 15:28] LABS: HEMATOCRIT 38.8 % (35.4-49); HEMOGLOBIN 13.3 GM/dL (11.7-16.9); MCH 30.6 pg (25.7-33.7); MCHC 34.4 g/dl (32.0-35.9); MEAN CELL VOLUME 88.9 fl (80-96); MEAN PLT VOLUME 7.7 fl (7.5-11.1); PLATELET COUNT 208 10^3/uL (134-434); RBC 4.36 M/mm3 (4.00-5.60); RDW 13.1 % (11.9-15.9)
[2022-12-28 15:35] LABS: INR 1.1 (0.83-1.09); PROTHROMBIN TIME (PATIENT) 12.7 SEC (9.7-13.0)
[2022-12-28 15:37] LABS: ACTIVATED PTT 29.5 SECONDS (25.2-36.5)
[2022-12-28 15:47] LABS: POTASSIUM 3.4 mmol/L (3.5-5.1)
[2022-12-28 15:49] LABS: CALCIUM 8.4 mg/dL (8.5-10.1)
[2022-12-28 15:50] LABS: ALBUMIN 3.7 g/dl (3.4-5.0); BLOOD UREA NITROGEN 22.5 mg/dL (7-18)
[2022-12-28 15:53] LABS: CREATININE 0.8 mg/dL (0.55-1.3)
[2022-12-28 15:54] LABS: BILIRUBIN,TOTAL 0.4 mg/dL (0.2-1); TOT PROT 6.9 g/dl (6.4-8.2)
[2022-12-28] MEDS ORDERED: methaDONE HCL 10 MG TABLET (FOR DETOX USE ONLY) PO ONE ×2 (18:13→18:31)
[2022-12-28] MEDS ORDERED: methaDONE HCL 10 MG TABLET ONE (18:33)
[2022-12-28] MEDS ORDERED: LIDOCAINE 5% TOPICAL PATCH TP ONE (18:33)
[2022-12-28] MEDS ORDERED: LIDOCAINE 5% TOPICAL PATCH ONE (18:41)
[2022-12-28] MEDS ORDERED: ACETAMINOPHEN 325 MG TABLET (FP) PO ONE (19:15)
[2022-12-28 19:16] VITALS: BP 105/68; PULSE 75
[2022-12-28] MEDS ORDERED: LIDOCAINE PATCH REMOVAL MC SCH (22:00)
== END 2022-12-28 19:18 | disposition home or self-care (01) ==
LOC: JER 11:24
PROC: 3E033GC Introduction of Other Therapeutic Substance into Peripheral Vein, Percutaneous Approach (ICD-10-PCS; principal; 2022-12-28)
PROC: 3E023GC Introduction of Other Therapeutic Substance into Muscle, Percutaneous Approach (ICD-10-PCS; principal; 2022-12-28)
DX: R10.84 Generalized abdominal pain (principal); R11.2 Nausea with vomiting, unspecified; K46.9 Unspecified abdominal hernia without obstruction or gangrene
CPT/HCPCS: 0241U-QW; 36415; 74177-TC; 80053; 83605; 83690; 85027; 85610; 85730; 93005; 93010; 96372; 96374; 99285-25; Q9967

== ENCOUNTER 2023-09-20 10:23 | Inpatient (IN) | payer OTHER ==
[2023-09-20] MEDS ORDERED: ACETAMINOPHEN 1000 MG/100 ML BAG IVPB ONE (11:27)
[2023-09-20] MEDS ORDERED: ACETAMINOPHEN INJECTION 100 ML IVPB ONE (12:00)
[2023-09-20 12:01] LABS: EOS % 1.8 % (0-4.5); HEMATOCRIT 35.6 % (35.4-49); LYMPH % 21.8 % (8-40); MCHC 33.6 g/dl (32.0-35.9); MEAN CELL VOLUME 92.2 fl (80-96); MEAN PLT VOLUME 6.6 fl (7.5-11.1); MONO % 7.8 % (3.8-10.2); NEUT % 67.6 % (42.8-82.8); PLATELET COUNT 167 10^3/uL (134-434); RBC 3.87 M/mm3 (4.00-5.60); RDW 14.8 % (11.9-15.9); WHITE BLOOD COUNT 6.4 K/mm3 (4.0-10.0)
[2023-09-20 12:26] LABS: POTASSIUM 4.1 mmol/L (3.5-5.1)
[2023-09-20 12:28] LABS: ALBUMIN 3.3 g/dl (3.4-5.0); CALCIUM 8.4 mg/dL (8.5-10.1)
[2023-09-20 12:31] LABS: CREATININE 0.7 mg/dL (0.55-1.3)
[2023-09-20 12:33] LABS: BILIRUBIN,TOTAL 0.4 mg/dL (0.2-1); TOT PROT 6.5 g/dl (6.4-8.2)
[2023-09-20 12:47] LABS: INR 1.13 (0.83-1.09); PROTHROMBIN TIME (PATIENT) 13.1 SEC (9.7-13.0)
[2023-09-20 12:50] LABS: ACTIVATED PTT 31.5 SECONDS (25.2-36.5)
[2023-09-20] MEDS ORDERED: KETAMINE HCL 200 MG/20 ML VIAL IVPUSH ONE (16:34)
[2023-09-20] MEDS ORDERED: KETAMINE HCL 200 MG/20 ML VIAL ONE (16:46)
[2023-09-20] MEDS ORDERED: ONDANSETRON 4 MG/2 ML VIAL IVPUSH ONE (17:05)
[2023-09-20] MEDS ORDERED: TRIMETHOBENZAMIDE HCL 200MG/2ML INJ IM ONE ×2 (17:06→17:11)
[2023-09-20] MEDS ORDERED: ONDANSETRON 4 MG/2 ML VIAL ONE (17:06)
[2023-09-20] MEDS ORDERED: ACETAMINOPHEN 1000 MG/100 ML BAG IVPB PRN (17:25)
[2023-09-20 18:12] LABS: EPI CELLS 21 /uL (0-25.1); HYALINE CASTS 0 /uL (0-3.1); URINE APPEARANCE Cloudy; URINE BACTERIA 17 /uL (0-1359); URINE BILIRUBIN Negative (NEGATIVE); URINE COLOR Red; URINE GLUCOSE (UA) >=1000 (NEGATIVE); URINE KETONE Negative (NEGATIVE); URINE LEUK ESTERASE Trace (NEGATIVE); URINE NITRITE Negative (NEGATIVE); URINE PROTEIN 30 (NEGATIVE); URINE RBC 14934 /uL (0-23.9); URINE WBC 57 /uL (0-25.8)
[2023-09-20] MEDS: CARVEDILOL 25 MG TABLET (FP) PO SCH (21:42)
[2023-09-20] MEDS: SENNOSIDES 8.6MG TABLET (FP) PO SCH (21:42)
[2023-09-20] MEDS: ATORVASTATIN CA 40 MG TABLET (FP) PO SCH (21:42)
[2023-09-20] MEDS: SACUBITRIL/VALSARTAN 24 MG-26 MG TABLET PO SCH (21:43)
[2023-09-20] MEDS: POLYETHYLENE GLYCOL (HEALTHYLAX) 3350 17 GM PACKET PO SCH (21:43)
[2023-09-20] MEDS: MONTELUKAST NA 10 MG TABLET PO SCH (21:43)
[2023-09-21] MEDS ORDERED: methaDONE HCL 10 MG TABLET PO SCH ×2 (07:21→07:22)
[2023-09-21] MEDS: CARVEDILOL 25 MG TABLET (FP) PO SCH ×2 (09:09→21:41)
[2023-09-21] MEDS: SACUBITRIL/VALSARTAN 24 MG-26 MG TABLET PO SCH ×2 (09:09→21:40)
[2023-09-21] MEDS: ENOXAPARIN NA (PORCINE) 40 MG/0.4 ML DISP.SYRIN SQ SCH ×2 (09:09→09:19)
[2023-09-21] MEDS: TAMSULOSIN HCL 0.4 MG CAP PO SCH (09:09)
[2023-09-21] MEDS: SPIRONOLACTONE 25 MG TABLET PO SCH (09:09)
[2023-09-21] MEDS: POLYETHYLENE GLYCOL (HEALTHYLAX) 3350 17 GM PACKET PO SCH ×2 (09:09→22:25)
[2023-09-21] MEDS ORDERED: methaDONE HCL 10 MG TABLET PO ONE (10:00)
[2023-09-21] MEDS: BUDESONIDE/FORMETEROL FUMARATE 160/4.5 mcg INHALER IH SCH ×2 (10:46→22:25)
[2023-09-21] MEDS ORDERED: ACETAMINOPHEN 1000 MG/100 ML BAG IVPB ONE ×2 (11:30→21:08)
[2023-09-21] MEDS ORDERED: TAMSULOSIN HCL 0.4 MG CAP PO ONE (16:51)
[2023-09-21] MEDS ORDERED: MELATONIN 5 MG TABLETS PO PRN (20:26)
[2023-09-21] MEDS: ATORVASTATIN CA 40 MG TABLET (FP) PO SCH (21:40)
[2023-09-21] MEDS: SENNOSIDES 8.6MG TABLET (FP) PO SCH (21:40)
[2023-09-21] MEDS: MONTELUKAST NA 10 MG TABLET PO SCH (21:41)
[2023-09-22 08:24] LABS: BASO % 0.5 % (0-2.0); EOS % 1.4 % (0-4.5); HEMATOCRIT 36.2 % (35.4-49); HEMOGLOBIN 12.4 GM/dL (11.7-16.9); LYMPH % 21.2 % (8-40); MCH 31.4 pg (25.7-33.7); MCHC 34.1 g/dl (32.0-35.9); MEAN CELL VOLUME 92.1 fl (80-96); MEAN PLT VOLUME 6.9 fl (7.5-11.1); MONO % 9.8 % (3.8-10.2); NEUT % 67.1 % (42.8-82.8); PLATELET COUNT 154 10^3/uL (134-434); RBC 3.93 M/mm3 (4.00-5.60)
[2023-09-22 08:52] LABS: POTASSIUM 3.9 mmol/L (3.5-5.1)
[2023-09-22 09:04] LABS: ALBUMIN 3.2 g/dl (3.4-5.0); BLOOD UREA NITROGEN 15.3 mg/dL (7-18); CALCIUM 8.5 mg/dL (8.5-10.1); MAGNESIUM 1.8 mg/dL (1.8-2.4)
[2023-09-22 09:08] LABS: CREATININE 0.7 mg/dL (0.55-1.3)
[2023-09-22 09:09] LABS: BILIRUBIN,TOTAL 0.4 mg/dL (0.2-1); TOT PROT 6.3 g/dl (6.4-8.2)
[2023-09-22] MEDS: ENOXAPARIN NA (PORCINE) 40 MG/0.4 ML DISP.SYRIN SQ SCH (09:21)
[2023-09-22] MEDS: POLYETHYLENE GLYCOL (HEALTHYLAX) 3350 17 GM PACKET PO SCH ×2 (09:21→21:46)
[2023-09-22] MEDS: TAMSULOSIN HCL 0.4 MG CAP PO SCH (09:22)
[2023-09-22] MEDS: SACUBITRIL/VALSARTAN 24 MG-26 MG TABLET PO SCH ×2 (09:22→21:44)
[2023-09-22] MEDS: SPIRONOLACTONE 25 MG TABLET PO SCH (09:22)
[2023-09-22] MEDS: CARVEDILOL 25 MG TABLET (FP) PO SCH ×2 (09:22→21:44)
[2023-09-22] MEDS: BUDESONIDE/FORMETEROL FUMARATE 160/4.5 mcg INHALER IH SCH ×2 (09:22→21:45)
[2023-09-22] MEDS ORDERED: ACETAMINOPHEN 325 MG TABLET (FP) PO ONE (12:15)
[2023-09-22] MEDS ORDERED: LIDOCAINE 4% PATCH TP ONE (12:30)
[2023-09-22] MEDS ORDERED: ACETAMINOPHEN 500 MG TABLET (FP) PO PRN (15:20)
[2023-09-22] MEDS ORDERED: ACETAMINOPHEN 1000 MG/100 ML BAG IVPB PRN (16:07)
[2023-09-22] MEDS: KETOROLAC TROMETHAMINE 10 MG TABLET PO PRN (18:47)
[2023-09-22] MEDS: ALBUTEROL SO4 2.5/IPRATROPIUM 0.5 INH SOL 3 ML VIAL.NEB. NEB PRN (19:36)
[2023-09-22] MEDS: MELATONIN 5 MG TABLETS PO SCH (21:44)
[2023-09-22] MEDS: SENNOSIDES 8.6MG TABLET (FP) PO SCH (21:44)
[2023-09-22] MEDS: MONTELUKAST NA 10 MG TABLET PO SCH (21:44)
[2023-09-22] MEDS: ATORVASTATIN CA 40 MG TABLET (FP) PO SCH (21:44)
[2023-09-22] MEDS ORDERED: LIDOCAINE PATCH REMOVAL MC SCH (22:00)
[2023-09-23] MEDS ORDERED: LIDOCAINE PATCH REMOVAL MC ONE (00:30)
[2023-09-23 09:09] LABS: BASO % 0.4 % (0-2.0); EOS % 1.4 % (0-4.5); HEMATOCRIT 38.5 % (35.4-49); HEMOGLOBIN 12.8 GM/dL (11.7-16.9); LYMPH % 16.5 % (8-40); MCH 30.7 pg (25.7-33.7); MCHC 33.2 g/dl (32.0-35.9); MEAN CELL VOLUME 92.3 fl (80-96); MONO % 8.7 % (3.8-10.2); PLATELET COUNT 192 10^3/uL (134-434); RBC 4.17 M/mm3 (4.00-5.60); RDW 15.3 % (11.9-15.9); WHITE BLOOD COUNT 8.2 K/mm3 (4.0-10.0)
[2023-09-23] MEDS: TAMSULOSIN HCL 0.4 MG CAP PO SCH (09:39)
[2023-09-23] MEDS: ENOXAPARIN NA (PORCINE) 40 MG/0.4 ML DISP.SYRIN SQ SCH (09:39)
[2023-09-23] MEDS: CARVEDILOL 25 MG TABLET (FP) PO SCH ×2 (09:39→21:13)
[2023-09-23] MEDS: SACUBITRIL/VALSARTAN 24 MG-26 MG TABLET PO SCH ×2 (09:39→21:13)
[2023-09-23] MEDS: SPIRONOLACTONE 25 MG TABLET PO SCH (09:39)
[2023-09-23] MEDS: POLYETHYLENE GLYCOL (HEALTHYLAX) 3350 17 GM PACKET PO SCH ×2 (09:39→21:14)
[2023-09-23] MEDS: BUDESONIDE/FORMETEROL FUMARATE 160/4.5 mcg INHALER IH SCH ×2 (09:43→21:15)
[2023-09-23 09:44] LABS: POTASSIUM 4.4 mmol/L (3.5-5.1)
[2023-09-23 09:52] LABS: ALBUMIN 3.4 g/dl (3.4-5.0); BLOOD UREA NITROGEN 21.6 mg/dL (7-18)
[2023-09-23 09:54] LABS: CALCIUM 8.8 mg/dL (8.5-10.1)
[2023-09-23 09:55] LABS: BILIRUBIN,TOTAL 0.4 mg/dL (0.2-1); CREATININE 0.8 mg/dL (0.55-1.3)
[2023-09-23 09:56] LABS: TOT PROT 6.7 g/dl (6.4-8.2)
[2023-09-23] MEDS: KETOROLAC TROMETHAMINE 10 MG TABLET PO PRN ×3 (13:10→20:34)
[2023-09-23] MEDS: ALBUTEROL SO4 2.5/IPRATROPIUM 0.5 INH SOL 3 ML VIAL.NEB. NEB PRN ×2 (15:50→20:04)
[2023-09-23] MEDS: MELATONIN 5 MG TABLETS PO SCH (21:14)
[2023-09-23] MEDS: ATORVASTATIN CA 40 MG TABLET (FP) PO SCH (21:14)
[2023-09-23] MEDS: SENNOSIDES 8.6MG TABLET (FP) PO SCH (21:14)
[2023-09-23] MEDS: MONTELUKAST NA 10 MG TABLET PO SCH (21:14)
[2023-09-24] MEDS: KETOROLAC TROMETHAMINE 10 MG TABLET PO PRN ×2 (02:02→15:18)
[2023-09-24] MEDS ORDERED: CARVEDILOL 25 MG TABLET (FP) PO ONE (07:47)
[2023-09-24] MEDS ORDERED: SACUBITRIL/VALSARTAN 24 MG-26 MG TABLET PO ONE (07:48)
[2023-09-24 08:49] LABS: BASO % 0.3 % (0-2.0); HEMATOCRIT 36.7 % (35.4-49); HEMOGLOBIN 12.3 GM/dL (11.7-16.9); LYMPH % 18.4 % (8-40); MCH 31.1 pg (25.7-33.7); MCHC 33.5 g/dl (32.0-35.9); MEAN CELL VOLUME 92.8 fl (80-96); MONO % 9.2 % (3.8-10.2); NEUT % 71.1 % (42.8-82.8); PLATELET COUNT 177 10^3/uL (134-434); RBC 3.95 M/mm3 (4.00-5.60); RDW 15.3 % (11.9-15.9); WHITE BLOOD COUNT 6.9 K/mm3 (4.0-10.0)
[2023-09-24 08:51] LABS: INR 1.14 (0.83-1.09); PROTHROMBIN TIME (PATIENT) 13.2 SEC (9.7-13.0)
[2023-09-24 09:03] LABS: POTASSIUM 4.3 mmol/L (3.5-5.1)
[2023-09-24 09:05] LABS: ALBUMIN 3.3 g/dl (3.4-5.0); BLOOD UREA NITROGEN 25.7 mg/dL (7-18); CALCIUM 8.8 mg/dL (8.5-10.1); MAGNESIUM 2.1 mg/dL (1.8-2.4)
[2023-09-24 09:08] LABS: CREATININE 0.8 mg/dL (0.55-1.3)
[2023-09-24 09:10] LABS: BILIRUBIN,TOTAL 0.4 mg/dL (0.2-1); TOT PROT 6.3 g/dl (6.4-8.2)
[2023-09-24] MEDS: TAMSULOSIN HCL 0.4 MG CAP PO SCH (09:13)
[2023-09-24] MEDS: SPIRONOLACTONE 25 MG TABLET PO SCH (09:13)
[2023-09-24] MEDS: POLYETHYLENE GLYCOL (HEALTHYLAX) 3350 17 GM PACKET PO SCH ×2 (09:13→21:30)
[2023-09-24] MEDS: BUDESONIDE/FORMETEROL FUMARATE 160/4.5 mcg INHALER IH SCH ×2 (09:18→21:30)
[2023-09-24] MEDS: ENOXAPARIN NA (PORCINE) 40 MG/0.4 ML DISP.SYRIN SQ SCH (09:18)
[2023-09-24 11:47] LABS: PHENCYCLIDINE,URINE NEGATIVE (NEGATIVE); URINE BARBITURATES NEGATIVE (NEGATIVE)
[2023-09-24 11:48] LABS: COCAINE, UR NEGATIVE (NEGATIVE); OPIATES, URI NEGATIVE (NEGATIVE); URINE AMPHETAMINES NEGATIVE (NEGATIVE); URINE BENZODIAZEPINES NEGATIVE (NEGATIVE)
[2023-09-24 11:59] LABS: METHADONE, UR POSITIVE (NEGATIVE)
[2023-09-24] MEDS: ALBUTEROL SO4 2.5/IPRATROPIUM 0.5 INH SOL 3 ML VIAL.NEB. NEB PRN (15:30)
[2023-09-24] MEDS: traMADol HCL 50 MG TABLET PO PRN (17:24)
[2023-09-24] MEDS: MELATONIN 5 MG TABLETS PO SCH (21:27)
[2023-09-24] MEDS: MONTELUKAST NA 10 MG TABLET PO SCH (21:27)
[2023-09-24] MEDS: SENNOSIDES 8.6MG TABLET (FP) PO SCH (21:27)
[2023-09-24] MEDS: ATORVASTATIN CA 40 MG TABLET (FP) PO SCH (21:27)
[2023-09-24] MEDS: CARVEDILOL 25 MG TABLET (FP) PO SCH (21:29)
[2023-09-24] MEDS: SACUBITRIL/VALSARTAN 24 MG-26 MG TABLET PO SCH (21:29)
[2023-09-25] MEDS: ALBUTEROL SO4 2.5/IPRATROPIUM 0.5 INH SOL 3 ML VIAL.NEB. NEB PRN (07:50)
[2023-09-25 08:57] LABS: BASO % 0.3 % (0-2.0); EOS % 1.2 % (0-4.5); HEMATOCRIT 36.2 % (35.4-49); HEMOGLOBIN 12.2 GM/dL (11.7-16.9); LYMPH % 13.4 % (8-40); MCH 31.1 pg (25.7-33.7); MCHC 33.7 g/dl (32.0-35.9); MEAN CELL VOLUME 92.3 fl (80-96); MEAN PLT VOLUME 7.1 fl (7.5-11.1); MONO % 10.1 % (3.8-10.2); PLATELET COUNT 196 10^3/uL (134-434); RBC 3.92 M/mm3 (4.00-5.60); RDW 15.1 % (11.9-15.9); WHITE BLOOD COUNT 8.3 K/mm3 (4.0-10.0)
[2023-09-25 09:10] LABS: POTASSIUM 4.2 mmol/L (3.5-5.1)
[2023-09-25 09:13] LABS: CALCIUM 8.6 mg/dL (8.5-10.1)
[2023-09-25 09:14] LABS: ALBUMIN 3.3 g/dl (3.4-5.0); BLOOD UREA NITROGEN 22.2 mg/dL (7-18)
[2023-09-25 09:17] LABS: CREATININE 0.8 mg/dL (0.55-1.3)
[2023-09-25 09:18] LABS: BILIRUBIN,TOTAL 0.8 mg/dL (0.2-1); TOT PROT 6.6 g/dl (6.4-8.2)
[2023-09-25] MEDS: SPIRONOLACTONE 25 MG TABLET PO SCH (09:53)
[2023-09-25] MEDS: CARVEDILOL 25 MG TABLET (FP) PO SCH ×2 (09:54→21:19)
[2023-09-25] MEDS: SACUBITRIL/VALSARTAN 24 MG-26 MG TABLET PO SCH ×2 (09:56→21:20)
[2023-09-25] MEDS: TAMSULOSIN HCL 0.4 MG CAP PO SCH (09:56)
[2023-09-25] MEDS: POLYETHYLENE GLYCOL (HEALTHYLAX) 3350 17 GM PACKET PO SCH ×2 (09:56→21:20)
[2023-09-25] MEDS: ENOXAPARIN NA (PORCINE) 40 MG/0.4 ML DISP.SYRIN SQ SCH (09:56)
[2023-09-25] MEDS: BUDESONIDE/FORMETEROL FUMARATE 160/4.5 mcg INHALER IH SCH ×2 (09:57→21:32)
[2023-09-25 12:36] VITALS: BMI 17.6
[2023-09-25] MEDS ORDERED: SPIRONOLACTONE 25 MG TABLET PO SCH (15:59)
[2023-09-25] MEDS: traMADol HCL 50 MG TABLET PO PRN (19:29)
[2023-09-25] MEDS: SENNOSIDES 8.6MG TABLET (FP) PO SCH (21:19)
[2023-09-25] MEDS: MONTELUKAST NA 10 MG TABLET PO SCH (21:19)
[2023-09-25] MEDS: MELATONIN 5 MG TABLETS PO SCH (21:20)
[2023-09-25] MEDS: KETOROLAC TROMETHAMINE 10 MG TABLET PO PRN (21:27)
[2023-09-25] MEDS: ATORVASTATIN CA 40 MG TABLET (FP) PO SCH (21:32)
[2023-09-26] MEDS ORDERED: BUPIVACAINE HCL/PF 0.25% (2.5MG/ML) 10 ML VIAL ONE (07:18)
[2023-09-26] MEDS: TAMSULOSIN HCL 0.4 MG CAP PO SCH (09:01)
[2023-09-26] MEDS: POLYETHYLENE GLYCOL (HEALTHYLAX) 3350 17 GM PACKET PO SCH ×2 (09:01→21:53)
[2023-09-26] MEDS: SACUBITRIL/VALSARTAN 24 MG-26 MG TABLET PO SCH ×4 (09:01→22:00)
[2023-09-26] MEDS: CARVEDILOL 25 MG TABLET (FP) PO SCH ×4 (09:02→22:00)
[2023-09-26] MEDS: BUDESONIDE/FORMETEROL FUMARATE 160/4.5 mcg INHALER IH SCH ×2 (09:08→22:03)
[2023-09-26 09:34] LABS: HEMATOCRIT 34.7 % (35.4-49); HEMOGLOBIN 11.8 GM/dL (11.7-16.9); MCH 31.3 pg (25.7-33.7); MCHC 33.9 g/dl (32.0-35.9); MEAN CELL VOLUME 92.3 fl (80-96); MEAN PLT VOLUME 7.2 fl (7.5-11.1); PLATELET COUNT 189 10^3/uL (134-434); RBC 3.76 M/mm3 (4.00-5.60); RDW 15.4 % (11.9-15.9); WHITE BLOOD COUNT 7.7 K/mm3 (4.0-10.0)
[2023-09-26] MEDS ORDERED: MULTIVIT-MINERALS ORAL LIQUID PO SCH (10:00)
[2023-09-26] MEDS ORDERED: PROMETHAZINE HCL 25 MG/1 ML VIAL IVPB PRN ×2 (10:23→16:06)
[2023-09-26] MEDS ORDERED: ONDANSETRON 4 MG/2 ML VIAL IVPUSH PRN ×2 (10:23→16:06)
[2023-09-26] MEDS ORDERED: LACTATED RINGERS SOLUTION 1,000 ML IV SCH (10:30)
[2023-09-26] MEDS ORDERED: MIDAZOLAM HCL 2 MG/2 ML SINGLE DOSE VIAL ONE (10:53)
[2023-09-26] MEDS ORDERED: ROCURONIUM BROMIDE 50 MG/5 ML SYRINGE ONE (10:53)
[2023-09-26] MEDS ORDERED: LIDOCAINE HCL/PF 2% SDV 5ML VIAL ONE (10:55)
[2023-09-26] MEDS ORDERED: SODIUM CHLORIDE 0.9% P/F 10 ML VIAL IJ ONE (10:55)
[2023-09-26] MEDS ORDERED: ETOMIDATE 20 MG/10 ML VIAL IVPUSH ONE (10:55)
[2023-09-26 11:03] LABS: ALBUMIN 3.1 g/dl (3.4-5.0); BLOOD UREA NITROGEN 23.6 mg/dL (7-18); CALCIUM 8.5 mg/dL (8.5-10.1); MAGNESIUM 2.1 mg/dL (1.8-2.4)
[2023-09-26 11:05] LABS: ANISOCYTOSIS 0; HELMET CELLS 0; HOWELL-JOLLY BODIES 0; MACROCYTOSIS 0; OVALOCYTE 0; ROULEAU 0; SICKELED CELLS 0; TARGET CELLS 0; TEAR DROP CELLS 0; TOXIC GRANULATION 0
[2023-09-26 11:06] LABS: CREATININE 0.8 mg/dL (0.55-1.3)
[2023-09-26 11:08] LABS: BILIRUBIN,TOTAL 0.8 mg/dL (0.2-1); TOT PROT 6.3 g/dl (6.4-8.2)
[2023-09-26] MEDS ORDERED: ceFAZolin SODIUM 1 GM VIAL IVPB ONE (11:14)
[2023-09-26] MEDS ORDERED: DEXAMETHASONE SOD PHOSPHATE 4 MG/1 ML VIAL ONE (11:16)
[2023-09-26] MEDS ORDERED: ONDANSETRON 4 MG/2 ML VIAL ONE (11:16)
[2023-09-26] MEDS ORDERED: BUPIVACAINE HCL/PF 0.25% (2.5MG/ML) 10 ML VIAL IJ ONE ×2 (11:33)
[2023-09-26] MEDS ORDERED: SUGAMMADEX SODIUM 200 MG/2 ML VIAL ONE (15:19)
[2023-09-26] MEDS ORDERED: ALBUTEROL SO4 2.5/IPRATROPIUM 0.5 INH SOL 3 ML VIAL.NEB. NEB PRN (16:06)
[2023-09-26] MEDS ORDERED: ACETAMINOPHEN 325 MG TABLET (FP) PO SCH (16:06)
[2023-09-26] MEDS ORDERED: KETOROLAC TROMETHAMINE 10 MG TABLET PO PRN (16:06)
[2023-09-26] MEDS ORDERED: HYDROmorphone HCl 2 MG/ML VIAL ONE (16:40)
[2023-09-26] MEDS ORDERED: HYDROmorphone HCl 2 MG/ML VIAL IVPUSH ONE ×2 (16:43→16:53)
[2023-09-26] MEDS ORDERED: KETOROLAC TROMETHAMINE 30 MG/1 ML VIAL IVPUSH ONE (17:08)
[2023-09-26] MEDS: LACTATED RINGERS SOLUTION 1,000 ML IV SCH (18:28)
[2023-09-26] MEDS: ACETAMINOPHEN 325 MG TABLET (FP) PO SCH ×2 (18:31→23:55)
[2023-09-26] MEDS: HYDROmorphone HCl 2 MG/ML VIAL IVPB SCH (21:33)
[2023-09-26] MEDS: SENNOSIDES 8.6MG TABLET (FP) PO SCH (21:52)
[2023-09-26] MEDS: MONTELUKAST NA 10 MG TABLET PO SCH (21:52)
[2023-09-26] MEDS: ATORVASTATIN CA 40 MG TABLET (FP) PO SCH (21:53)
[2023-09-26] MEDS: MELATONIN 5 MG TABLETS PO SCH (21:53)
[2023-09-27] MEDS: KETOROLAC TROMETHAMINE 30 MG/1 ML VIAL IVPUSH PRN (00:53)
[2023-09-27] MEDS: LACTATED RINGERS SOLUTION 1,000 ML IV SCH (00:54)
[2023-09-27] MEDS: HYDROmorphone HCl 2 MG/ML VIAL IVPB SCH ×4 (03:04→20:59)
[2023-09-27] MEDS: ACETAMINOPHEN 1000 MG/100 ML BAG IVPB SCH ×3 (06:04→18:21)
[2023-09-27] MEDS: SACUBITRIL/VALSARTAN 24 MG-26 MG TABLET PO SCH ×2 (09:15→20:59)
[2023-09-27] MEDS: CARVEDILOL 25 MG TABLET (FP) PO SCH ×2 (09:16→21:01)
[2023-09-27] MEDS: TAMSULOSIN HCL 0.4 MG CAP PO SCH (09:16)
[2023-09-27] MEDS: SPIRONOLACTONE 25 MG TABLET PO SCH (09:22)
[2023-09-27] MEDS: ENOXAPARIN NA (PORCINE) 40 MG/0.4 ML DISP.SYRIN SQ SCH (09:23)
[2023-09-27] MEDS: POLYETHYLENE GLYCOL (HEALTHYLAX) 3350 17 GM PACKET PO SCH ×2 (09:23→20:59)
[2023-09-27] MEDS: BUDESONIDE/FORMETEROL FUMARATE 160/4.5 mcg INHALER IH SCH ×2 (09:35→21:02)
[2023-09-27] MEDS: MELATONIN 5 MG TABLETS PO SCH (21:00)
[2023-09-27] MEDS: MONTELUKAST NA 10 MG TABLET PO SCH (21:00)
[2023-09-27] MEDS: ATORVASTATIN CA 40 MG TABLET (FP) PO SCH (21:00)
[2023-09-27] MEDS: SENNOSIDES 8.6MG TABLET (FP) PO SCH (21:01)
[2023-09-27] MEDS: traMADol HCL 50 MG TABLET PO PRN (22:15)
[2023-09-28] MEDS: ACETAMINOPHEN 1000 MG/100 ML BAG IVPB SCH (00:17)
[2023-09-28] MEDS: KETOROLAC TROMETHAMINE 30 MG/1 ML VIAL IVPUSH PRN (01:15)
[2023-09-28] MEDS: HYDROmorphone HCl 2 MG/ML VIAL IVPB SCH ×2 (02:54→08:58)
[2023-09-28] MEDS: ACETAMINOPHEN 325 MG TABLET (FP) PO SCH ×3 (05:33→17:27)
[2023-09-28] MEDS: traMADol HCL 50 MG TABLET PO PRN ×2 (07:34→21:39)
[2023-09-28] MEDS: CARVEDILOL 25 MG TABLET (FP) PO SCH ×2 (09:18→21:41)
[2023-09-28] MEDS: TAMSULOSIN HCL 0.4 MG CAP PO SCH (09:18)
[2023-09-28] MEDS: SACUBITRIL/VALSARTAN 24 MG-26 MG TABLET PO SCH ×2 (09:18→21:40)
[2023-09-28] MEDS: ENOXAPARIN NA (PORCINE) 40 MG/0.4 ML DISP.SYRIN SQ SCH (09:18)
[2023-09-28] MEDS: SPIRONOLACTONE 25 MG TABLET PO SCH (09:18)
[2023-09-28] MEDS: POLYETHYLENE GLYCOL (HEALTHYLAX) 3350 17 GM PACKET PO SCH ×2 (09:19→21:41)
[2023-09-28] MEDS: BUDESONIDE/FORMETEROL FUMARATE 160/4.5 mcg INHALER IH SCH ×2 (09:19→21:44)
[2023-09-28 09:42] LABS: BASO % 0.3 % (0-2.0); EOS % 1.5 % (0-4.5); HEMOGLOBIN 10.7 GM/dL (11.7-16.9); LYMPH % 20.8 % (8-40); MCH 31.1 pg (25.7-33.7); MCHC 33.4 g/dl (32.0-35.9); MEAN PLT VOLUME 7.1 fl (7.5-11.1); MONO % 13.3 % (3.8-10.2); NEUT % 64.1 % (42.8-82.8); PLATELET COUNT 175 10^3/uL (134-434); RBC 3.44 M/mm3 (4.00-5.60); WHITE BLOOD COUNT 6.7 K/mm3 (4.0-10.0)
[2023-09-28 10:01] LABS: ALBUMIN 2.7 g/dl (3.4-5.0); BLOOD UREA NITROGEN 17.8 mg/dL (7-18); CALCIUM 8.1 mg/dL (8.5-10.1); MAGNESIUM 1.9 mg/dL (1.8-2.4)
[2023-09-28 10:04] LABS: CREATININE 0.7 mg/dL (0.55-1.3)
[2023-09-28 10:06] LABS: TOT PROT 5.5 g/dl (6.4-8.2)
[2023-09-28 10:08] LABS: BILIRUBIN,TOTAL 0.4 mg/dL (0.2-1)
[2023-09-28 15:02] VITALS: RESP 18
[2023-09-28] MEDS: ATORVASTATIN CA 40 MG TABLET (FP) PO SCH (21:39)
[2023-09-28] MEDS: MELATONIN 5 MG TABLETS PO SCH (21:39)
[2023-09-28] MEDS: MONTELUKAST NA 10 MG TABLET PO SCH (21:41)
[2023-09-28] MEDS: SENNOSIDES 8.6MG TABLET (FP) PO SCH (21:41)
[2023-09-29] MEDS: ACETAMINOPHEN 325 MG TABLET (FP) PO SCH ×3 (00:01→11:24)
[2023-09-29] MEDS: KETOROLAC TROMETHAMINE 15 MG/ML VIAL IVPUSH PRN ×2 (00:07→16:19)
[2023-09-29] MEDS: SACUBITRIL/VALSARTAN 24 MG-26 MG TABLET PO SCH (09:08)
[2023-09-29] MEDS: SPIRONOLACTONE 25 MG TABLET PO SCH (09:08)
[2023-09-29] MEDS: ENOXAPARIN NA (PORCINE) 40 MG/0.4 ML DISP.SYRIN SQ SCH (09:08)
[2023-09-29] MEDS: TAMSULOSIN HCL 0.4 MG CAP PO SCH (09:08)
[2023-09-29] MEDS: CARVEDILOL 25 MG TABLET (FP) PO SCH (09:08)
[2023-09-29] MEDS: BUDESONIDE/FORMETEROL FUMARATE 160/4.5 mcg INHALER IH SCH (09:09)
[2023-09-29] MEDS: POLYETHYLENE GLYCOL (HEALTHYLAX) 3350 17 GM PACKET PO SCH (09:09)
[2023-09-29 09:57] LABS: BASO % 0.5 % (0-2.0); EOS % 2.4 % (0-4.5); HEMATOCRIT 33.3 % (35.4-49); HEMOGLOBIN 11.1 GM/dL (11.7-16.9); LYMPH % 17.6 % (8-40); MCH 30.8 pg (25.7-33.7); MCHC 33.4 g/dl (32.0-35.9); MEAN CELL VOLUME 92.4 fl (80-96); MONO % 10.5 % (3.8-10.2); PLATELET COUNT 182 10^3/uL (134-434); RBC 3.61 M/mm3 (4.00-5.60); RDW 14.8 % (11.9-15.9); WHITE BLOOD COUNT 5.7 K/mm3 (4.0-10.0)
[2023-09-29 10:14] LABS: POTASSIUM 3.8 mmol/L (3.5-5.1)
[2023-09-29 10:18] LABS: BLOOD UREA NITROGEN 16.5 mg/dL (7-18); CALCIUM 8.8 mg/dL (8.5-10.1)
[2023-09-29 10:19] LABS: ALBUMIN 2.7 g/dl (3.4-5.0)
[2023-09-29 10:20] LABS: MAGNESIUM 1.7 mg/dL (1.8-2.4)
[2023-09-29 10:21] LABS: CREATININE 0.7 mg/dL (0.55-1.3)
[2023-09-29 10:23] LABS: BILIRUBIN,TOTAL 0.4 mg/dL (0.2-1); TOT PROT 5.6 g/dl (6.4-8.2)
[2023-09-29] MEDS: traMADol HCL 50 MG TABLET PO PRN (11:14)
[2023-09-29 11:43] LABS: ANISOCYTOSIS 0; MACROCYTOSIS 0
[2023-09-29 14:43] VITALS: BP 121/64; PULSE 64; TEMP 98.4
== END 2023-09-29 16:49 | disposition home or self-care (01) | DRG 350 ==
LOC: JER 10:23 → J8W 16:54 → OBSVTOIN 09-24 10:46
PROVIDERS: ADMIT Internal Medicine; ATTEND Student in an Organized Health Care Education/Training Program
PROC: 0WPF4JZ Removal of Synthetic Substitute from Abdominal Wall, Percutaneous Endoscopic Approach (ICD-10-PCS; 2023-09-26)
PROC: 0YU54JZ Supplement Right Inguinal Region with Synthetic Substitute, Percutaneous Endoscopic Approach (ICD-10-PCS; principal; 2023-09-26 10:00)
DX: K40.90 Unilateral inguinal hernia, without obstruction or gangrene, not specified as recurrent (principal); E43 Unspecified severe protein-calorie malnutrition; I50.22 Chronic systolic (congestive) heart failure; F11.20 Opioid dependence, uncomplicated; Z68.1 Body mass index [BMI] 19.9 or less, adult; R64 Cachexia; I11.0 Hypertensive heart disease with heart failure; J44.9 Chronic obstructive pulmonary disease, unspecified; F17.210 Nicotine dependence, cigarettes, uncomplicated; E78.5 Hyperlipidemia, unspecified; I25.10 Atherosclerotic heart disease of native coronary artery without angina pectoris; K21.9 Gastro-esophageal reflux disease without esophagitis
CPT/HCPCS: 0241U-QW; 36415; 71045-TC-FY; 74177-TC; 80053; 80307; 81003; 82550; 83605; 83735; 84484; 85025; 85610; 85730; 86850; 86900; 86901; 87086; 88304-TC; 93005; 93010; 93306-TC; 94010; 94640; 94760; 94761; 99285-25; C1781; G0378; Q9967

== ENCOUNTER 2023-11-10 18:03 | Emergency (ER) | payer OTHER ==
[2023-11-10 18:12] VITALS: BP 116/63; PULSE 64; RESP 18; TEMP 98.2; BMI 18.3
[2023-11-10] MEDS ORDERED: LIDOCAINE 4% PATCH TP ONE ×2 (18:52→18:58)
[2023-11-10] MEDS ORDERED: ACETAMINOPHEN 500 MG TABLET (FP) PO ONE (18:52)
[2023-11-10] MEDS ORDERED: ACETAMINOPHEN 500 MG TABLET (FP) ONE (18:58)
[2023-11-11] MEDS ORDERED: LIDOCAINE PATCH REMOVAL MC ONE (07:00)
== END 2023-11-10 20:34 | disposition home or self-care (01) ==
LOC: JERFT 18:03
DX: R07.89 Other chest pain (principal); W06.XXXD Fall from bed, subsequent encounter; Y93.89 Activity, other specified
CPT/HCPCS: 71046-TC-FY; 99283-25

== ENCOUNTER 2025-05-25 20:23 | Emergency (ER) | payer OTHER ==
[2025-05-25 20:36] VITALS: TEMP 98
[2025-05-25] MEDS ORDERED: ALBUTEROL SO4 2.5/IPRATROPIUM 0.5 INH SOL 3 ML VIAL.NEB. NEB ONE (22:04)
[2025-05-25] MEDS ORDERED: methylPREDNISolone NA SUCC 125 MG/2 ML VIAL ONE (22:04)
[2025-05-25] MEDS: ALBUTEROL SO4 2.5/IPRATROPIUM 0.5 INH SOL 3 ML VIAL.NEB. NEB ONE (22:20)
[2025-05-25] MEDS: methylPREDNISolone NA SUCC 125 MG/2 ML VIAL IVPUSH ONE (22:20)
[2025-05-25 22:34] LABS: ABSOLUTE IMMATURE GRANULOCYTES 0.11 x10^3/uL (0.0-0.031); BASOPHILS # 0.02 x10^3/uL (0.01-0.08); EOSINOPHIL % 0.2 % (0.8-7.0); EOSINOPHILS # 0.02 x10^3/uL (0.04-0.54); MCHC 32.5 g/dl (32.3-36.5); MEAN CELL VOLUME 97.4 fl (79.0-92.2); MEAN PLT VOLUME 8.8 fl (9.4-12.4); MONOCYTE # 0.77 x10^3/uL (0.30-0.82); MONOCYTE % 7.4 % (5.3-12.2); RDW 13.2 % (12.2-16.6)
[2025-05-25 22:35] LABS: BG HCT 38.0 % (35.4-49); VENOUS BASE EXCESS -0.7 mmol/L (-2-2); VENOUS O2 SATURATION 84.5 % (70-80); VENOUS PCO2 37.8 mmHg (38-52); VENOUS PH 7.413 (7.310-7.410)
[2025-05-25 22:51] LABS: GLUCOSE,RANDOM 88.0 mg/dL (74-106); TOT PROT 6.1 g/dl (6.4-8.2)
[2025-05-25 22:52] LABS: CO2 24.0 mmol/L (21-32)
[2025-05-25 22:54] LABS: ALK PHOS 56.0 U/L (40-150)
[2025-05-25 22:57] LABS: CREATININE 0.68 mg/dL (0.55-1.3); SGOT/AST 17.0 U/L (5-34); SGPT/ALT 12.0 U/L (0-55)
[2025-05-25 23:04] LABS: N-TERMINAL BNP 7099.8 pg/mL (0-299.9)
[2025-05-25 23:18] LABS: HIV INTERPRETATION NEGATIVE (NEGATIVE)
[2025-05-26] MEDS ORDERED: ALBUTEROL SO4 HFA INHALER IH ONE (00:10)
[2025-05-26] MEDS: ALBUTEROL SO4 HFA INHALER IH ONE (00:15)
[2025-05-26] MEDS ORDERED: POTASSIUM CHLORIDE ORAL LIQUID 20 MEQ/15 ML ONE (00:21)
[2025-05-26] MEDS ORDERED: MAGNESIUM 1GM/D5W - 1 GM/100 ML IVPB IVPB ONE (00:22)
[2025-05-26] MEDS: POTASSIUM CHLORIDE ORAL LIQUID 20 MEQ/15 ML PO ONE (00:29)
[2025-05-26] MEDS: MAGNESIUM 1GM/D5W - 1 GM/100 ML IVPB IVPB ONE (00:29)
[2025-05-26 00:58] VITALS: BP 137/92; PULSE 90; RESP 21
[2025-05-26 01:53] LABS: HCV DIAGNOSTIC IN-HOUSE W/RFLX REACTIVE (NONREACTIVE)
== END 2025-05-26 01:42 | disposition home or self-care (01) ==
LOC: JER 20:23
PROC: 3E033GC Introduction of Other Therapeutic Substance into Peripheral Vein, Percutaneous Approach (ICD-10-PCS; principal; 2025-05-25)
PROC: 3E033GC Introduction of Other Therapeutic Substance into Peripheral Vein, Percutaneous Approach (ICD-10-PCS; 2025-05-25)
PROC: 3E0F7GC Introduction of Other Therapeutic Substance into Respiratory Tract, Via Natural or Artificial Opening (ICD-10-PCS; 2025-05-25)
DX: J44.1 Chronic obstructive pulmonary disease with (acute) exacerbation (principal); R06.02 Shortness of breath; R39.198 Other difficulties with micturition
CPT/HCPCS: 36415; 71045-TC-FY; 80053; 82803; 83735; 83880; 84484; 85025; 86803; 86850; 86900; 86901; 87389; 87522; 87637-QW; 93005; 93010; 99285-25

== ENCOUNTER 2025-07-14 16:20 | Emergency (ER) | payer OTHER ==
[2025-07-14 17:34] LABS: ABSOLUTE IMMATURE GRANULOCYTES 0.05 x10^3/uL (0.0-0.031); BASOPHILS # 0.03 x10^3/uL (0.01-0.08); EOSINOPHIL % 2.6 % (0.8-7.0); EOSINOPHILS # 0.20 x10^3/uL (0.04-0.54); MCHC 32.0 g/dl (32.3-36.5); MEAN CELL VOLUME 96.2 fl (79.0-92.2); MEAN PLT VOLUME 8.9 fl (9.4-12.4); MONOCYTE # 0.74 x10^3/uL (0.30-0.82); MONOCYTE % 9.7 % (5.3-12.2); RDW 14.1 % (12.2-16.6)
[2025-07-14 17:51] LABS: GLUCOSE,RANDOM 73.0 mg/dL (74-106)
[2025-07-14 17:52] LABS: TOT PROT 6.5 g/dl (6.4-8.2)
[2025-07-14 17:53] LABS: CO2 21.0 mmol/L (21-32)
[2025-07-14 17:54] LABS: ALK PHOS 51.0 U/L (40-150)
[2025-07-14] MEDS ORDERED: ACETAMINOPHEN INJECTION 100 ML ONE (17:55)
[2025-07-14 17:57] LABS: CREATININE 0.73 mg/dL (0.55-1.3); SGOT/AST 25.0 U/L (5-34); SGPT/ALT 10.0 U/L (0-55)
[2025-07-14] MEDS: SODIUM CHLORIDE 0.9% 500 ML INFUS.BAG IV ONE (18:00)
[2025-07-14] MEDS: ACETAMINOPHEN 1000 MG/100 ML BAG IVPB ONE (18:03)
[2025-07-14] MEDS: CLOTRIMAZOLE/BETAMET DIPROP TOPICAL CREAM 45 GM TUBE TP ONE (19:00)
[2025-07-14] MEDS ORDERED: IBUPROFEN 600 MG TABLET (FP) PO ONE (19:15)
[2025-07-14] MEDS: IBUPROFEN 600 MG TABLET (FP) PO ONE (19:21)
[2025-07-14 19:33] VITALS: BP 145/84; PULSE 74; RESP 18; TEMP 97.5
== END 2025-07-14 20:04 | disposition home or self-care (01) ==
LOC: JER 16:20
PROC: 3E033NZ Introduction of Analgesics, Hypnotics, Sedatives into Peripheral Vein, Percutaneous Approach (ICD-10-PCS; principal; 2025-07-14)
DX: N48.1 Balanitis (principal); R10.30 Lower abdominal pain, unspecified; R53.1 Weakness; R63.0 Anorexia
CPT/HCPCS: 36415; 71045-TC-FY; 76857; 80053; 83735; 84100; 85025; 86850; 86900; 86901; 99285-25